=== PATIENT | male | born 1950 | race Caucasian/White ===

== ENCOUNTER → 2020-07-21 12:50 | Outpatient (BNVA) | payer MEDICARE, SELFPAY | PROVIDERS: PCP Nurse Practitioner Family; Referring Provider Nurse Practitioner Family; Visit Provider Internal Medicine Cardiovascular Disease | DX: Z13.89 Encounter for screening for other disorder (principal) | CPT/HCPCS: Q3014 ==

== ENCOUNTER 2020-09-09 10:21 | Outpatient (REF) | payer MEDICARE, BC, SELFPAY | END 2020-09-09 10:22 | disposition home or self-care (01) | LOC: HO.HMGCLDS 10:21 | PROVIDERS: PCP Nurse Practitioner Family; Visit Provider Internal Medicine | DX: Z20.822 Contact with and (suspected) exposure to COVID-19 (principal) | CPT/HCPCS: 36415; U0003 ==

== ENCOUNTER 2020-10-20 14:51 | Outpatient (REF) | payer MEDICARE, BC, SELFPAY ==
[2020-10-20 18:24] LABS: Leukocytes Stool Qualitative NEGATIVE (NEGATIVE)
[2020-10-21 09:37] LABS: CDIFF Ag Negative (Negative); CDIFF Internal ctrl Dots and bkg OK (V); CDiff Toxin Negative (Negative)
== END 2020-10-20 14:52 | disposition home or self-care (01) ==
LOC: HO.HMGCLNP 14:51
PROVIDERS: Visit Provider Nurse Practitioner Family
DX: R19.7 Diarrhea, unspecified (principal)
CPT/HCPCS: 87045; 87046; 87324; 87449; 89055

== ENCOUNTER 2020-10-31 13:29 | Outpatient (REF) | payer MEDICARE, BC, SELFPAY ==
[2020-10-31 16:30] LABS: MANUAL DIFF FLAG NO
[2020-10-31 16:40] LABS: Basophils Absolute Auto 0.1 X10*3/uL (0.0-0.2); Eosinophils Absolute Auto 0.5 X10*3/uL (0.0-0.4); Eosinophils Percent Auto 6.1 % (0-4); Hematocrit 45.6 % (42-52); Hemoglobin 14.3 g/dl (14.0-18.0); Imm Gran Abs Auto 0.01 X10*3/uL (0.00-0.03); Imm Gran Pct Auto 0.1 % (0.0-0.4); Lymphocytes Absolute Auto 2.1 X10*3/uL (1.2-4.9); Lymphocytes Percent Auto 27.6 % (20-40); Mean Corpuscular HGB Conc 31.4 g/dl (31.0-36.0); Mean Corpuscular Hemoglobin 29.5 pg (27.0-33.0); Mean Platelet Volume 10.8 fL (9.4-12.4); Monocytes Absolute Auto 0.7 X10*3/uL (0.1-1.2); Monocytes Percent Auto 8.9 % (2-11); Neutrophils Absolute Auto 4.3 X10*3/uL (2.0-8.3); Neutrophils Percent Auto 56.3 % (45-73); Platelet Count 168 X10*3/uL (160-400); Red Blood Count 4.85 X10*6/uL (4.60-5.80); Red Cell Distribution Width 14.9 % (11.0-16.0); White Blood Count 7.7 X10*3/uL (4.8-10.8)
[2020-10-31 17:11] LABS: Alanine Aminotransferase 17 U/L (0-40); Albumin Level 4.1 g/dL (3.5-5.0); Alkaline Phosphatase 82 U/L (39-117); Anion Gap 11 (12-20); Aspartate Amino Transferase 15 U/L (5-37); Bilirubin Total 1.6 mg/dL (0.0-1.0); Blood Urea Nitrogen 20 mg/dL (9-16); Calcium 8.8 mg/dL (8.4-10.2); Carbon Dioxide 31 mmol/L (22-29); Chloride 105 mmol/L (96-108); Estimated Glomerular Filt Rate > 60; Glucose Random 107 mg/dL (60-115); Potassium 4.3 mmol/L (3.3-5.1); Sodium 143 mmol/L (135-145); Total Protein 7.2 g/dL (6.5-8.0)
[2020-10-31 17:38] LABS: TSH reflex Free T4 0.25 uIU/mL (0.32-4.0)
[2020-10-31 18:18] LABS: Prostate Specific Antigen 5.16 ng/mL (<0.05-4.0)
== END 2020-10-31 13:30 | disposition home or self-care (01) ==
LOC: HO.HMGCLDS 13:29
PROVIDERS: PCP Nurse Practitioner Family; Referring Provider Urology; Visit Provider Nurse Practitioner Family
DX: R19.7 Diarrhea, unspecified (principal); N40.0 Benign prostatic hyperplasia without lower urinary tract symptoms; Z12.5 Encounter for screening for malignant neoplasm of prostate
CPT/HCPCS: 36415; 80053; 84153; 84439; 84443; 85025

== ENCOUNTER 2020-11-03 13:12 | Outpatient (REF) | payer MEDICARE, BC, SELFPAY | END 2020-11-03 13:13 | disposition home or self-care (01) | LOC: HO.HMGCLNP 13:12 | PROVIDERS: Visit Provider Nurse Practitioner Family | DX: R19.7 Diarrhea, unspecified (principal) | CPT/HCPCS: 87177; 87209; 87329; 87338 ==

== ENCOUNTER 2020-11-10 13:58 | Outpatient (REF) | payer MEDICARE, BC, SELFPAY ==
--- NOTE | ~2020-11-10 | US_ITS ---
EXAMINATION: US RETROPERITONEAL LIMITED (RENAL ONLY) CLINICAL INFORMATION: Cyst of kidney, acquired. COMPARISON: CT abdomen and pelvis 03/02/2014. TECHNIQUE: Real-time imaging of the kidneys. FINDINGS: RIGHT KIDNEY: 12.3 x 5.2 x 6.5 cm (SAG x AP x TRV). The kidney is normal in size, contour, and echogenicity. Renal cortical thickness is normal. There is a 6.3 x 6.1 x 6.3 cm hypoechoic lesion with calcified wall in the medial upper pole of the right kidney. This measured 5.7 x 2.2 x 5.[address] scan February 2014 and may be slightly increased in size. This has internal echoes. It is uncertain whether this represents a complex cyst or solid lesion. There are small simple cysts measuring 1.5 cm in the upper pole, 2 cysts measuring 1.5 cm in the midpole and 1 cyst measuring 2.8 x 2.7 x 3 cm in the lower pole. No renal calculi or hydronephrosis. LEFT KIDNEY: 12.7 x 6.3 x 4.5 cm (SAG x AP x TRV). The kidney is normal in size, contour, and echogenicity. Renal cortical thickness is normal. There are multiple simple left renal cysts. There are two 1.3 cm cysts in the upper pole, 3.4 x 2.3 x 2.5 cm cyst in the lower pole, 2.3 x 1.4 x 2.4 cm peripelvic cyst in the midpole No renal calculi or hydronephrosis. US/US renal BI IMPRESSION: 6.3 x 6.1 x 6.3 cm hypoechoic lesion with calcified wall in the upper pole of the right kidney. This is slightly increased in size from previous CT February 2014 when this measured 5.7 x 2.2 x 5.2 cm. This has internal echoes and it is uncertain whether this represents a complex cyst or solid lesion. Follow-up CT or MRI of the kidneys with and without contrast recommended. Bilateral renal simple cysts.
== END 2020-11-10 13:59 | disposition home or self-care (01) ==
LOC: HO.HMGCX 13:58
PROVIDERS: Visit Provider Nurse Practitioner Family
DX: N28.1 Cyst of kidney, acquired (principal)
CPT/HCPCS: 76775

== ENCOUNTER 2020-11-17 15:04 | Outpatient (REF) | payer MEDICARE, BC, SELFPAY ==
--- NOTE | ~2020-11-17 | CT_ITS ---
EXAMINATION: CT ABDOMEN AND PELVIS WITHOUT AND WITH CONTRAST CLINICAL INFORMATION: Renal cyst COMPARISON: Previous CT of the abdomen and pelvis January 2014 and renal ultrasound October 2020 TECHNIQUE: Multidetector volumetric imaging was performed of the abdomen and pelvis before and after the IV administration of mL of Omnipaque 300 intravenous contrast. Sagittal and coronal reformatted images were obtained on the technologist's workstation. This CT examination was performed using dose optimization techniques as appropriate, variously including the following: *Automated exposure control *Adjustment of mA and/or kV according to patient size (this includes techniques or standardized protocols for targeted exams where dose is matched to indication/reason for exam; i.e. extremities or head) *Use of iterative reconstruction technique DLP: 1638 mGy-cm FINDINGS: LUNG BASES: The visualized lung bases are unremarkable. LIVER, GALLBLADDER, AND BILIARY TREE: The liver is normal in size, shape, and attenuation. No focal hepatic lesion or biliary ductal dilatation is present. The gallbladder is unremarkable with no evidence of radiopaque gallstones, gallbladder wall thickening, or obvious pericholecystic inflammatory changes. PANCREAS: Unremarkable SPLEEN: Unremarkable ADRENAL GLANDS: Unremarkable KIDNEYS AND URETERS: There are multiple bilateral renal cysts. Largest cyst measures 6 x 5.7 cm in AP and transverse dimension in the upper pole of the right kidney axial image 70 series 3. This has a calcified wall. Hounsfield units precontrast measure 8. Hounsfield units postcontrast measure 9.5 without evidence of appreciable enhancement. There is a 1.5 cm lesion exophytic to the anterior right kidney axial image 90 series 3. Hounsfield units precontrast measure 23. Hounsfield units postcontrast measure 28. This is not compatible with a complex cyst. There are several additional smaller complex cysts measuring 6 mm exophytic to the lower pole of the right kidney axial image 100 series 3 and exophytic to the lower pole the left kidney axial image 98 series 3. There are additional bilateral simple renal cysts, largest measuring 1 cm. There are are left renal peripelvic cysts. The collecting systems are normal. No renal stone is seen. BLADDER: Unremarkable GASTROINTESTINAL TRACT: There is diverticulosis of the colon. The small and large bowel are otherwise unremarkable. The appendix is unremarkable. There is apparent wall thickening of the proximal stomach. This may be artifactual due to underdistention. ABDOMINAL WALL: There is an umbilical hernia containing fat. LYMPH NODES: Normal VASCULAR: There is evidence of atherosclerotic disease. PELVIC VISCERA: Unremarkable OSSEOUS STRUCTURES: There are degenerative changes of the spine. There are degenerative changes at the hip joints. CT/CT abdomen pelvis wo/w con IMPRESSION: Bilateral complex and simple renal cysts. No renal mass seen. Diverticulosis of the colon. Wall thickening of the proximal stomach. This may be artifactual due to underdistention. Clinical correlation recommended.
== END 2020-11-17 15:05 | disposition home or self-care (01) ==
LOC: HO.CT 15:04
PROVIDERS: Visit Provider Nurse Practitioner Family
DX: N28.1 Cyst of kidney, acquired (principal)
CPT/HCPCS: 74178; Q9967

== ENCOUNTER 2020-12-17 15:13 | Outpatient (REF) | payer MEDICARE, BC, SELFPAY ==
[2020-12-17 17:03] LABS: Bilirubin Direct 0.5 mg/dL (0.0-0.5); Bilirubin Total 1.2 mg/dL (0.0-1.0)
[2020-12-17 17:13] LABS: Uric Acid 3.8 mg/dL (3.4-7.0)
[2020-12-17 17:22] LABS: TSH reflex Free T4 0.48 uIU/mL (0.32-4.0)
== END 2020-12-17 15:14 | disposition home or self-care (01) ==
LOC: HO.HMGCLDS 15:13
PROVIDERS: PCP Nurse Practitioner Family; Visit Provider Nurse Practitioner Family
DX: R17 Unspecified jaundice (principal); E05.90 Thyrotoxicosis, unspecified without thyrotoxic crisis or storm; M10.9 Gout, unspecified
CPT/HCPCS: 36415; 82247; 82248; 84443; 84550

== ENCOUNTER 2020-12-18 14:32 | Outpatient (REF) | payer MEDICARE, BC, SELFPAY ==
--- NOTE | ~2020-12-18 | US_ITS ---
EXAMINATION: US VENOUS ULTRASOUND WITH DOPPLER LOWER EXTREMITY, LEFT CLINICAL INFORMATION: Left leg swelling COMPARISON: None TECHNIQUE: Ultrasound of the deep veins is performed from the hip to the calf with compression sonography and color and pulse Doppler assessment. Spectral analysis with color-flow imaging is performed. FINDINGS: There is normal venous compression and respiratory variation and augmented flow. The visualized common femoral vein, superficial femoral vein, profunda femoral vein, popliteal vein, and the trifurcation region shows no evidence of deep venous thrombosis. There is no significant popliteal fossa cyst. If the patient's symptoms persist, followup ultrasound in 5 days 7 days might be of value to exclude proximal propagation from a non-visualized calf vein. US/US venous duplex LE LT IMPRESSION: No DVT demonstrated in the left lower extremity.
== END 2020-12-18 14:33 | disposition home or self-care (01) ==
LOC: HO.HMGCX 14:32
PROVIDERS: PCP Nurse Practitioner Family; Visit Provider Nurse Practitioner Family
DX: R60.0 Localized edema (principal); M79.89 Other specified soft tissue disorders
CPT/HCPCS: 93971

== ENCOUNTER 2021-01-01 08:44 | Outpatient (REF) | payer MEDICARE, BC, SELFPAY ==
--- NOTE | ~2021-01-01 | XR_ITS ---
EXAMINATION: XR KNEE, LEFT CLINICAL INFORMATION: Knee pain COMPARISON: None TECHNIQUE: Standing AP view of both knees and lateral and sunrise view of the left knee. FINDINGS: Left: Bone alignment is normal. No fracture or dislocation is seen. There are osteophytes at the lateral femoral tibial and patellofemoral joints. There is no joint effusion. Standing AP view of the right knee is unremarkable. XR/XR knee LT 3V IMPRESSION: Mild left knee arthritis.
== END 2021-01-01 08:45 | disposition home or self-care (01) ==
LOC: HO.HOSX 08:44
PROVIDERS: Visit Provider Physician Assistant
DX: M17.12 Unilateral primary osteoarthritis, left knee (principal)
CPT/HCPCS: 20610; 73562; 99202; J1040

== ENCOUNTER 2021-01-07 12:06 | Outpatient (REF) | payer MEDICARE, BC, SELFPAY ==
[2021-01-07 14:19] LABS: Anion Gap 12 (12-20); Blood Urea Nitrogen 20 mg/dL (9-16); Calcium 8.9 mg/dL (8.4-10.2); Carbon Dioxide 29 mmol/L (22-29); Chloride 106 mmol/L (96-108); Estimated Glomerular Filt Rate > 60; Glucose Random 98 mg/dL (60-115); Potassium 4.1 mmol/L (3.3-5.1); Sodium 143 mmol/L (135-145)
== END 2021-01-07 12:07 | disposition home or self-care (01) ==
LOC: HO.HMGCLDS 12:06
PROVIDERS: PCP Nurse Practitioner Family; Visit Provider Nurse Practitioner Family
DX: M54.16 Radiculopathy, lumbar region (principal)
CPT/HCPCS: 36415; 80048

== ENCOUNTER 2021-01-08 13:02 | Outpatient (REF) | payer MEDICARE, BC, SELFPAY ==
--- NOTE | ~2021-01-08 | MR_ITS ---
EXAMINATION: MR LUMBAR SPINE WITHOUT AND WITH CONTRAST CLINICAL INFORMATION: Left leg shooting pain, lower back pain 4 months. COMPARISON: CT abdomen pelvis 11/17/2020, CT abdomen pelvis 03/02/2014. TECHNIQUE: MRI of the lumbar spine was obtained using routine sequences with and without contrast. Intravenous contrast: Gadavist 10 mL. FINDINGS: VERTEBRAL BODIES AND PARASPINAL STRUCTURES: 5 lumbar-type vertebral bodies are identified. Minimal rotatory dextroscoliosis of the lumbar spine is visualized. No vertebral body compression deformities are identified. A 2.5 cm diameter focus with intrinsic high T1-weighted signal intensity most consistent with hemangiomas noted within the L3 vertebral body. Mild- moderate multilevel endplate discogenic marrow signal changes of the lumbar spine are visualized. Partial visualization is made of a 5.2 cm diameter rounded partially exophytic lesion associated with the superior pole the right kidney corresponding to the complex cyst noted on both the 11/17/2020 and 03/02/2014 examinations exhibiting peripheral calcification and minimal interval change in size and configuration between the prior CT examinations. Minimal bilateral lumbarization of the S5 vertebral body is visualized. CONUS MEDULLARIS AND CAUDA EQUINA: Normal, terminating at the level of L1-L2. SPINAL LEVELS: T12-L1: No central foraminal stenoses. Normal intervertebral discs. L1-L2: No central or foraminal stenoses. Mild bilateral facet and ligamentum flavum hypertrophy. Prominent bridging anterior endplate osteophytosis. L2-L3: Mild central stenosis. No significant foraminal stenoses. Findings arise secondary to marked right and moderate left ligamentum flavum hypertrophy in association with moderate right and mild left facet hypertrophic changes. Mild effacement of the dorsal thecal sac CSF space is noted. L3-L4: Moderate left foraminal stenosis. Mild-moderate right foraminal stenosis. Moderate central stenosis. Findings arise secondary to marked bilateral ligamentum flavum and facet hypertrophy with findings most pronounced on the left in association with a mild posterior broad-based disc bulge with the intervertebral disc exhibiting 50% loss of craniocaudal height. L4-L5: Marked right foraminal stenosis. Moderate-marked central stenosis. Moderate left foraminal stenosis. Findings arise secondary to marked bilateral facet and ligamentum flavum hypertrophy in association with a mild posterior broad-based disc bulge. Right foraminal stenosis is further augmented by an anterior projecting synovial cyst measuring 3 mm in diameter extending into the right neural foramen (series 2 image 11). L5-S1: Severe bilateral foraminal stenoses. Moderate central stenosis. Findings arise secondary to marked bilateral facet hypertrophy in association with a moderate posterior broad-based disc-osteophyte complex with significant endplate osteophytosis within the left and right neural foramina. Complete effacement of the intraforaminal fat is present bilaterally. Furthermore, partial effacement of the ventral thecal sac CSF space and left and right subarticular recesses is present principally secondary to the central component of a broad-based disc bulge. Intervertebral disc exhibits 50-75% overall loss of craniocaudal height. MR/MR lumbar spine wo/w con IMPRESSION: 1. Advanced multilevel chronic spondylosis of the lumbar spine. Significant findings include L5-S1 marked bilateral foraminal stenoses with bilateral L5 nerve root impingement and moderate central stenosis with bilateral S1 nerve root impingement. Additionally, marked right L4-L5 foraminal stenosis with right L4 nerve root impingement is noted along with moderate-marked L4-L5 central stenosis. 2. Partially visualized complex right renal cyst is visualized and characterized to better advantage is a complex cyst on the comparison CT of 11/17/2020.
== END 2021-01-08 13:03 | disposition home or self-care (01) ==
LOC: HO.MRI 13:02
PROVIDERS: Visit Provider Nurse Practitioner Family
DX: M54.16 Radiculopathy, lumbar region (principal); Z98.890 Other specified postprocedural states
CPT/HCPCS: 72158

== ENCOUNTER 2021-02-06 14:16 | Outpatient (REF) | payer MEDICARE, BC, SELFPAY ==
--- NOTE | ~2021-02-06 | XR_ITS ---
EXAMINATION: XR LUMBOSACRAL SPINE CLINICAL INFORMATION: Spinal stenosis. COMPARISON: Lumbar spine MRI dated 01/08/2021. TECHNIQUE: 3 views of the lumbosacral spine. FINDINGS: The lumbar lordosis is maintained. Grade 1 retrolisthesis of L3 on L4 and grade 1 anterolisthesis of L4 on L5, unchanged. No acute fracture or subluxation. No loss of vertebral body height. Multilevel loss of intervertebral disc height with prominent endplate osteophytes, most severe at L5-S1. Prominent multilevel bilateral facet arthropathy, most severe at L4-L5 and L5-S1. Peripherally calcified right renal cyst, unchanged. XR/XR lumbar spine 2-3V IMPRESSION: 1. Mild grade 1 retrolisthesis of L3 on L4 and grade 1 anterolisthesis of L4 on L5, unchanged. No acute fracture or subluxation. 2. Prominent multilevel degenerative disc disease and bilateral facet arthropathy, most severe at L5-S1.
== END 2021-02-06 14:17 | disposition home or self-care (01) ==
LOC: HO.XRAY 14:16
PROVIDERS: PCP Nurse Practitioner Family; Visit Provider Neurological Surgery
DX: M48.061 Spinal stenosis, lumbar region without neurogenic claudication (principal)
CPT/HCPCS: 72100

== ENCOUNTER → 2021-03-18 11:11 | Outpatient (BNVA) | payer MEDICARE, BC, SELFPAY | PROVIDERS: PCP Nurse Practitioner Family; Referring Provider Nurse Practitioner Family; Visit Provider Nurse Practitioner Family | DX: K58.0 Irritable bowel syndrome with diarrhea (principal); R14.0 Abdominal distension (gaseous); R19.7 Diarrhea, unspecified; R17 Unspecified jaundice | CPT/HCPCS: 99202 ==

== ENCOUNTER → 2021-03-26 10:56 | Outpatient (REF) | payer MEDICARE, BC, SELFPAY ==
--- NOTE | ~2021-03-26 | NM_ITS ---
EXAMINATION: NUCLEAR MEDICINE HIDA SCAN CLINICAL INFORMATION: Diarrhea. COMPARISON: None. TECHNIQUE: Following intravenous administration of 5 mCi of 90 9M technetium mebrofenin, imaging over the right upper quadrant was obtained up to 60 minutes. At 60 minutes oral Ensure was administered and further imaging was obtained up to an additional 60 minutes. FINDINGS: There is normal hepatic uptake with prompt visualization of the gallbladder by 15 minutes. Small bowel is visualized by 58 minutes. Post Ensure, there is no gallbladder emptying up to 60 minutes. Ejection fraction is 0%. NM/NM hepatobiliary wo pharm IMPRESSION: Abnormal HIDA scan. Dyskinetic gallbladder with 0% gallbladder ejection fraction post Ensure. Patent CBD. Patent cystic duct. Normal hepatic uptake.
== END ==
LOC: HO.NUCMED 10:56
PROVIDERS: Visit Provider Nurse Practitioner Family
DX: R19.7 Diarrhea, unspecified (principal)
CPT/HCPCS: 78226; A9537

== ENCOUNTER → 2021-04-15 13:15 | Outpatient (BNVA) | payer MEDICARE, BC, SELFPAY | PROVIDERS: PCP Nurse Practitioner Family; Visit Provider Nurse Practitioner Family | DX: Z13.89 Encounter for screening for other disorder (principal) | CPT/HCPCS: Q3014 ==

== ENCOUNTER → 2021-05-07 15:40 | Outpatient (BNVA) | payer MEDICARE, BC, SELFPAY | PROVIDERS: PCP Nurse Practitioner Family; Referring Provider Nurse Practitioner Family; Visit Provider Surgery | DX: K82.8 Other specified diseases of gallbladder (principal) | CPT/HCPCS: 99202 ==

== ENCOUNTER → 2021-05-13 15:12 | Outpatient (BNVA) | payer MEDICARE, BC, SELFPAY | PROVIDERS: PCP Nurse Practitioner Family; Referring Provider Nurse Practitioner Family; Visit Provider Nurse Practitioner Family | DX: Z01.810 Encounter for preprocedural cardiovascular examination (principal); I25.10 Atherosclerotic heart disease of native coronary artery without angina pectoris; I10 Essential (primary) hypertension; Z95.5 Presence of coronary angioplasty implant and graft | CPT/HCPCS: 93005; 99212 ==

== ENCOUNTER 2021-05-18 07:35 | Day surgery (SDC) | payer MEDICARE, BC, SELFPAY ==
[2021-05-18] VITALS (7 sets, daily range): BP systolic 145–208; BP diastolic 74–104; PULSE 61–66; RESP 14–18; TEMP 36.1–37; O2SAT 93–96; BMI 37.1
--- NOTE | 2021-05-18 08:20 | P.CONAN_ITS ---
[facility] Active Problems Active Problems: All Active Problems (Updated 05/14/21 @ 13:57 by Cara Myers , HOOP COILING MACHINE OPERATOR-C) Stented coronary artery (Acute) Preop cardiovascular exam (Acute) Biliary dyskinesia (Acute) Lumbar back pain with radiculopathy affecting lower extremity (Acute) Osteoarthritis of left knee (Acute) Left leg pain (Acute) Left leg swelling (Acute) Gout attack (Acute) Cyst, kidney, acquired (Acute) Hyperthyroidism (Acute) Elevated bilirubin (Acute) Diarrhea (Acute) IBS (irritable bowel syndrome) (Acute) CAD (coronary artery disease) (Acute) HTN (hypertension) (Acute) Hyperlipidemia (Acute) Morbid obesity (Acute) Past Medical History Medical History (Updated 05/14/21 @ 13:57 by Cara Segura, HOOP COILING MACHINE OPERATOR-C) CAD (coronary artery disease) HTN (hypertension) Hyperlipidemia Morbid obesity Family History Family History Father CVD (cardiovascular disease) Mother No problems noted. Son No problems noted. Son No problems noted. Surgical History Surgical History (Updated 05/14/21 @ 13:57 by Cara Segura, HOOP COILING MACHINE OPERATOR-C) History of Mohs micrographic surgery for skin cancer History of transurethral resection of prostate Hx of cardiac cath S/P lumbar microdiscectomy Stented coronary artery Social History Social History Patient Tobacco Use Status: Former Tobacco user Use of substances other than those prescribed or required for medical reasons: Yes Are you DNR?: No Advance Directives: No Advance Directives Information Provided: Yes Current occupational status: retired Current occupation: rt handed Meds Allergies Allergy/AdvReac Type Severity Reaction Status Date / Time acetaminophen [Tylenol] AdvReac Unknown Nausea Verified 05/13/21 15:18 Active Medications: Current Medications Cefotetan Disodium 2 gm/ (Sodium Chloride) 50 mls @ 100 mls/hr IV PREOP ONE Stop: 05/18/21 08:34 Lactated Ringer's (Lr) 1,000 mls @ 100 mls/hr IVCONT .Q10H MARIA G Home Medications Medication Instructions Recorded Confirmed Last Taken Type allopurinol 300 mg tablet 300 mg PO DAILY 07/21/20 05/14/21 Unknown History amlodipine 5 mg tablet 5 mg PO DAILY 07/21/20 05/14/21 Unknown History atenolol 25 mg tablet 25 mg PO DAILY 07/21/20 05/14/21 Unknown History atorvastatin 80 mg tablet 80 mg PO DAILY 07/21/20 05/14/21 Unknown History ezetimibe 10 mg tablet 10 mg PO DAILY 07/21/20 05/14/21 Unknown History fluticasone propionate 50 INTRANASAL 07/21/20 05/14/21 Unknown History mcg/actuation nasal spray,suspension losartan 100 mg tablet 100 mg PO DAILY 07/21/20 05/14/21 Unknown History omeprazole 20 mg capsule,delayed 20 mg PO DAILY 07/21/20 05/14/21 Unknown History release fluoride (sodium) 1.1 % dental appl PO 03/03/21 05/14/21 Unknown History cream sildenafil 100 mg tablet 100 mg PO DAILY 05/07/21 05/14/21 Unknown History Exam Exam Date and Time: May 18, 2021 0820 Height,Weight and Vital Signs: Height 5 ft 6 in Weight 104.326 kg Last Vital Signs Temp 98.6 F 05/18/21 08:06 Pulse 61 05/18/21 08:06 Resp 18 05/18/21 08:06 BP 154/83 H 05/18/21 08:06 Pulse Ox 95 05/18/21 08:06 Airway TM Dist: >3cm Neck ROM: Full
--- NOTE | 2021-05-18 08:20 | P.CONAN_ITS ---
[facility] Active Problems Active Problems: All Active Problems (Updated 05/14/21 @ 13:57 by Cara stacy, FLAME ANNEALING MACHINE SETTER-C) Stented coronary artery (Acute) Preop cardiovascular exam (Acute) Biliary dyskinesia (Acute) Lumbar back pain with radiculopathy affecting lower extremity (Acute) Osteoarthritis of left knee (Acute) Left leg pain (Acute) Left leg swelling (Acute) Gout attack (Acute) Cyst, kidney, acquired (Acute) Hyperthyroidism (Acute) Elevated bilirubin (Acute) Diarrhea (Acute) IBS (irritable bowel syndrome) (Acute) CAD (coronary artery disease) (Acute) HTN (hypertension) (Acute) Hyperlipidemia (Acute) Morbid obesity (Acute) Past Medical History Medical History CAD (coronary artery disease) HTN (hypertension) Hyperlipidemia Morbid obesity Family History Family History Father CVD (cardiovascular disease) Mother No problems noted. Son No problems noted. Son No problems noted. Surgical History Surgical History History of Mohs micrographic surgery for skin cancer History of transurethral resection of prostate Hx of cardiac cath S/P lumbar microdiscectomy Stented coronary artery Social History Social History Patient Tobacco Use Status: Former Tobacco user Use of substances other than those prescribed or required for medical reasons: Yes Are you DNR?: No Advance Directives: No Advance Directives Information Provided: Yes Current occupational status: retired Current occupation: rt handed Meds Allergies Allergy/AdvReac Type Severity Reaction Status Date / Time acetaminophen [Tylenol] AdvReac Unknown Nausea Verified 05/13/21 15:18 Active Medications: Current Medications Cefotetan Disodium 2 gm/ (Sodium Chloride) 50 mls @ 100 mls/hr IV PREOP ONE Stop: 05/18/21 08:34 Lactated Ringer's (Lr) 1,000 mls @ 100 mls/hr IVCONT .Q10H MARIA G Home Medications Medication Instructions Recorded Confirmed Last Taken Type allopurinol 300 mg tablet 300 mg PO DAILY 07/21/20 05/14/21 Unknown History amlodipine 5 mg tablet 5 mg PO DAILY 07/21/20 05/14/21 Unknown History atenolol 25 mg tablet 25 mg PO DAILY 07/21/20 05/14/21 Unknown History atorvastatin 80 mg tablet 80 mg PO DAILY 07/21/20 05/14/21 Unknown History ezetimibe 10 mg tablet 10 mg PO DAILY 07/21/20 05/14/21 Unknown History fluticasone propionate 50 INTRANASAL 07/21/20 05/14/21 Unknown History mcg/actuation nasal spray,suspension losartan 100 mg tablet 100 mg PO DAILY 07/21/20 05/14/21 Unknown History omeprazole 20 mg capsule,delayed 20 mg PO DAILY 07/21/20 05/14/21 Unknown History release fluoride (sodium) 1.1 % dental appl PO 03/03/21 05/14/21 Unknown History cream sildenafil 100 mg tablet 100 mg PO DAILY 05/07/21 05/14/21 Unknown History Exam Exam Date and Time: May 18, 2021 0820 Height,Weight and Vital Signs: Height 5 ft 6 in Weight 104.326 kg Last Vital Signs Temp 98.6 F 05/18/21 08:06 Pulse 61 05/18/21 08:06 Resp 18 05/18/21 08:06 BP 154/83 H 05/18/21 08:06 Pulse Ox 95 05/18/21 08:06
[2021-05-18] MEDS: Lactated Ringers 1,000 ML 100 ML IVCONT (08:38)
--- NOTE | 2021-05-18 09:06 | MHC.SHP ---
Pre-Procedural Eval Section A Date of Service: 05/18/21 The patient is an INPATIENT: No Changes since office visit: Yes Patient answered all questions; No Cold of Flu in the past 2 weeks, No New Medical Problems and No Changes in Medication The History & Physical has been completed within 30 days and I have reviewed it.: Yes Section B Chief Complaint: disease of gallbladder Allergies: Allergies Allergy/AdvReac Type Severity Reaction Status Date / Time acetaminophen [Tylenol] AdvReac Unknown Nausea Verified 05/13/21 15:18 Plan Diagnosis/Plan: Unchanged I have reviewed the history and physical and performed a pertinent physical examination on my patient. No changes have occurred unless specified.
--- NOTE | 2021-05-18 09:32 | P.CONAN_ITS ---
[facility] Active Problems Active Problems: All Active Problems (Updated 05/14/21 @ 13:57 by Cara stacy, QUILLER MACHINE FIXER-C) Stented coronary artery (Acute) Preop cardiovascular exam (Acute) Biliary dyskinesia (Acute) Lumbar back pain with radiculopathy affecting lower extremity (Acute) Osteoarthritis of left knee (Acute) Left leg pain (Acute) Left leg swelling (Acute) Gout attack (Acute) Cyst, kidney, acquired (Acute) Hyperthyroidism (Acute) Elevated bilirubin (Acute) Diarrhea (Acute) IBS (irritable bowel syndrome) (Acute) CAD (coronary artery disease) (Acute) HTN (hypertension) (Acute) Hyperlipidemia (Acute) Morbid obesity (Acute) Past Medical History Medical History CAD (coronary artery disease) HTN (hypertension) Hyperlipidemia Morbid obesity Family History Family History Father CVD (cardiovascular disease) Mother No problems noted. Son No problems noted. Son No problems noted. Surgical History Surgical History History of Mohs micrographic surgery for skin cancer History of transurethral resection of prostate Hx of cardiac cath S/P lumbar microdiscectomy Stented coronary artery Social History Social History Patient Tobacco Use Status: Former Tobacco user Use of substances other than those prescribed or required for medical reasons: Yes Are you DNR?: No Advance Directives: No Advance Directives Information Provided: Yes Current occupational status: retired Current occupation: rt handed Meds Allergies Allergy/AdvReac Type Severity Reaction Status Date / Time acetaminophen [Tylenol] AdvReac Unknown Nausea Verified 05/13/21 15:18 Active Medications: Current Medications Fentanyl (Fentanyl Citrate/Pf 100 Mcg/2 Ml Vial) 50 mcg IVPUSH Q5M PRN; Protocol PRN Reason: Pain, Severe (Pain Scale 7-10) Lactated Ringer's (Lr) 1,000 mls @ 100 mls/hr IVCONT .Q10H MARIA G Last Admin: 05/18/21 08:38 Dose: 100 mls/hr Documented by: Lactated Ringer's (Lr) 1,000 mls @ 100 mls/hr IVCONT .Q10H MARIA G Sodium Chloride (Ns) 1,000 mls @ 100 mls/hr IVCONT .Q10H MARIA G Ondansetron HCl (Ondansetron Hcl 4 Mg/2 Ml Vial) 4 mg IVPUSH ONCE PRN PRN Reason: Nausea and Vomiting Oxycodone HCl (Oxycodone Hcl Immed Release 5 Mg Tablet) 10 mg PO ONCE PRN PRN Reason: Pain, Severe (Pain Scale 7-10) Home Medications Medication Instructions Recorded Confirmed Last Taken Type allopurinol 300 mg tablet 300 mg PO DAILY 07/21/20 05/14/21 Unknown History amlodipine 5 mg tablet 5 mg PO DAILY 07/21/20 05/14/21 Unknown History atenolol 25 mg tablet 25 mg PO DAILY 07/21/20 05/14/21 Unknown History atorvastatin 80 mg tablet 80 mg PO DAILY 07/21/20 05/14/21 Unknown History ezetimibe 10 mg tablet 10 mg PO DAILY 07/21/20 05/14/21 Unknown History fluticasone propionate 50 INTRANASAL 07/21/20 05/14/21 Unknown History mcg/actuation nasal spray,suspension losartan 100 mg tablet 100 mg PO DAILY 07/21/20 05/14/21 Unknown History omeprazole 20 mg capsule,delayed 20 mg PO DAILY 07/21/20 05/14/21 Unknown History release fluoride (sodium) 1.1 % dental appl PO 03/03/21 05/14/21 Unknown History cream sildenafil 100 mg tablet 100 mg PO DAILY 05/07/21 05/14/21 Unknown History Exam Exam Date and Time: May 18, 2021 0932 Height,Weight and Vital Signs: Height 5 ft 6 in Weight 104.326 kg Last Vital Signs Temp 98.6 F 05/18/21 08:06 Pulse 61 05/18/21 08:06 Resp 18 05/18/21 08:06 BP 154/83 H 05/18/21 08:06 Pulse Ox 95 05/18/21 08:06 Airway Mallampati Class: III TM Dist: >3cm Neck ROM: Full
--- NOTE | 2021-05-18 10:55 | W.PM.OPN ---
Operative Note Operative Note Date of Service: 05/18/21 Narrative: Preoperative diagnosis: Biliary Dyskinesia Postoperative diagnosis: Same Procedure: Laparoscopic cholecystectomy Surgeon: Navjot Jarrett MD Complaint Investigations Officer: HELIO Colvin Anesthesia: General endotracheal Indications for procedure: 70-year-old male patient presenting with complaints of abdominal pain in the right upper quadrant associated with fatty food intake. Patient underwent evaluation with an ultrasound which was negative for gallstones however HIDA scan was strongly positive for biliary dyskinesia with an ejection fraction of 0%. He presents today for laparoscopic cholecystectomy. Operative findings: Normal appearing gallbladder without gallstones, fatty liver Specimen: Gallbladder Estimated blood loss: 20 mL Complications: None Procedure details: Patient was brought to the OR and placed in a supine position. After administering general anesthesia the patient's abdomen was prepped with ChloraPrep and draped in a sterile fashion. Local anesthesia consisting of 0.25% Sensorcaine without epinephrine was infiltrated in a periumbilical region. A 5 mm incision was made above the umbilicus in a transverse fashion. The Veress needle was then inserted while elevating abdominal cavity with towel clips. After positive drop test the abdomen was insufflated to a pressure of 15 mm of mercury. The Veress needle was then removed and a 5 mm trocar inserted. The camera was inserted in the abdomen explored. A 12 mm trocar was then placed in the epigastrium and two 5 mm trocars placed in the right upper quadrant. The patient was placed in reverse Trendelenburg positioning and rotated to the left. The gallbladder was grasped with the fundus and retracted cephalad. The infundibulum was then grasped and retracted away from the liver bed. The Dolphin dissector was then used to dissect the peritoneum off the infundibulum to reveal the junction with the cystic duct. Cystic artery was noted slightly medial and posterior to the cystic duct. After obtaining a critical view the cystic duct was doubly clipped and divided. The cystic artery was then doubly clipped and divided. The gallbladder was then dissected off the liver bed using electrocautery with an L hook. Hemostasis was assured all times using the electrocautery. When the gallbladder is completely dissected off the liver bed was placed in an Endo-Catch bag and brought out through the epigastric incision. The gallbladder was sent to pathology for further examination. The abdomen was then re-examined. The liver bed was irrigated and suctioned dry. No bleeding or bile leak could be identified. CO2 was then evacuated and all trocars removed. Fascia was closed at the epigastric incision using a [id number] 0 Polysorb suture. Skin was closed in all incisions using a subcuticular 4 0 Polysorb suture. Sterile dressings consisting of Steri-Strips, 2 x 2 gauze, and Tegaderm were then applied. The patient tolerated the procedure well. Sponge instrument and needle counts reported as correct. The patient was transferred to PACU in stable condition.
[2021-05-18] MEDS: oxyCODONE HCl Immed Release 5 MG TABLET 10 MG PO (11:13)
[2021-05-18] MEDS: fentaNYL citrate/PF 100 MCG/2 ML VIAL 50 MCG IVPUSH ×2 (11:14→11:29)
== END 2021-05-18 13:10 | disposition home or self-care (01) ==
PROVIDERS: PCP Nurse Practitioner Family; Visit Provider Surgery
PROC: 0FT44ZZ Resection of Gallbladder, Percutaneous Endoscopic Approach (ICD-10-PCS; CPT 47562; principal; 2021-05-18 09:10)
DX: K82.8 Other specified diseases of gallbladder (principal); K81.1 Chronic cholecystitis; I10 Essential (primary) hypertension; I25.10 Atherosclerotic heart disease of native coronary artery without angina pectoris; I25.2 Old myocardial infarction; Z79.899 Other long term (current) drug therapy; Z95.5 Presence of coronary angioplasty implant and graft
CPT/HCPCS: 47562; 88304; C1773; J1100; J1170; J2250; J2405; J3010

== ENCOUNTER → 2021-05-19 15:15 | Outpatient (BNVA) | payer MEDICARE, BC, SELFPAY | PROVIDERS: PCP Nurse Practitioner Family; Visit Provider Nurse Practitioner Family | CPT/HCPCS: Q3014 ==

== ENCOUNTER → 2021-05-26 15:17 | Outpatient (BNVA) | payer MEDICARE, BC, SELFPAY | PROVIDERS: PCP Nurse Practitioner Family; Referring Provider Nurse Practitioner Family; Visit Provider Surgery | DX: K82.8 Other specified diseases of gallbladder (principal); E66.01 Morbid (severe) obesity due to excess calories; I25.10 Atherosclerotic heart disease of native coronary artery without angina pectoris; I10 Essential (primary) hypertension; E78.5 Hyperlipidemia, unspecified; Z87.891 Personal history of nicotine dependence; Z68.38 Body mass index [BMI] 38.0-38.9, adult; Z90.49 Acquired absence of other specified parts of digestive tract; Z88.6 Allergy status to analgesic agent | CPT/HCPCS: 99212 ==

== ENCOUNTER 2021-08-04 12:45 | Outpatient (REF) | payer MEDICARE, BC, SELFPAY | END 2021-08-04 12:46 | disposition home or self-care (01) | LOC: HO.HMGCLDS 12:45 | PROVIDERS: PCP Nurse Practitioner Family; Visit Provider Internal Medicine | DX: Z20.822 Contact with and (suspected) exposure to COVID-19 (principal) | CPT/HCPCS: C9803; U0003; U0005 ==

== ENCOUNTER → 2021-08-18 14:02 | Outpatient (BNVA) | payer MEDICARE, BC, SELFPAY | PROVIDERS: PCP Nurse Practitioner Family; Referring Provider Nurse Practitioner Family; Visit Provider Nurse Practitioner Family | DX: K58.0 Irritable bowel syndrome with diarrhea (principal); K21.9 Gastro-esophageal reflux disease without esophagitis; Z90.49 Acquired absence of other specified parts of digestive tract | CPT/HCPCS: 99212 ==

== ENCOUNTER 2021-09-01 14:35 | Outpatient (REF) | payer MEDICARE, BC, SELFPAY ==
[2021-09-01 16:41] LABS: Appearance Urine CLEAR; Color Urine YELLOW; Glucose Urine UA NEG (NEG); Leukocyte Esterase Urine NEG (NEG); Nitrite Urine NEG (NEG); Specific Gravity - Urine 1.025 (1.005-1.025); Urine Blood NEG (NEG); Urine Ketones NEG (NEG); Urine Protein NEG (NEG-TRACE)
[2021-09-01 16:47] LABS: Uric Acid 2.9 mg/dL (3.4-7.0)
[2021-09-01 16:48] LABS: Alanine Aminotransferase 30 U/L (0-40); Albumin Level 3.7 g/dL (3.5-5.0); Alkaline Phosphatase 78 U/L (39-117); Anion Gap 10 (12-20); Aspartate Amino Transferase 27 U/L (5-37); Bilirubin Total 1.2 mg/dL (0.0-1.0); Blood Urea Nitrogen 31 mg/dL (9-16); Calcium 8.6 mg/dL (8.4-10.2); Carbon Dioxide 29 mmol/L (22-29); Chloride 109 mmol/L (96-108); Cholesterol 126 mg/dL; Estimated Glomerular Filt Rate > 60; Glucose Fasting 107 mg/dL (60-99); HDL Cholesterol 44 mg/dL; LDL Cholesterol Calculated 61 mg/dl; Potassium 4.4 mmol/L (3.3-5.1); Sodium 144 mmol/L (135-145); Total Protein 6.8 g/dL (6.5-8.0); Triglycerides 107 mg/dL
[2021-09-01 17:09] LABS: TSH reflex Free T4 4.92 uIU/mL (0.32-4.0)
[2021-09-01 17:13] LABS: Prostate Specific Antigen Scr 6.17 ng/mL (<0.05-4.0)
[2021-09-01 18:12] LABS: Free T4 (Free Thyroxine) 0.74 ng/dL (0.71-1.85)
== END 2021-09-01 14:36 | disposition home or self-care (01) ==
LOC: HO.HMGCLDS 14:35
PROVIDERS: PCP Nurse Practitioner Family; Visit Provider Nurse Practitioner Family
DX: Z12.5 Encounter for screening for malignant neoplasm of prostate (principal); I10 Essential (primary) hypertension; Z87.39 Personal history of other diseases of the musculoskeletal system and connective tissue
CPT/HCPCS: 36415; 80053; 80061; 81003; 84153; 84439; 84443; 84550

== ENCOUNTER → 2021-09-15 15:32 | Outpatient (BNVA) | payer MEDICARE, BC, SELFPAY | PROVIDERS: PCP Nurse Practitioner Family; Visit Provider Physician Assistant | DX: M17.12 Unilateral primary osteoarthritis, left knee (principal) | CPT/HCPCS: 99212 ==

== ENCOUNTER → 2021-10-02 11:22 | Outpatient (BNVA) | payer MEDICARE, BC, SELFPAY | PROVIDERS: PCP Nurse Practitioner Family; Visit Provider Physician Assistant | DX: M17.12 Unilateral primary osteoarthritis, left knee (principal) | CPT/HCPCS: 20610; J7318 ==

== ENCOUNTER → 2021-11-18 13:30 | Outpatient (BNVA) | payer MEDICARE, BC, SELFPAY | PROVIDERS: PCP Nurse Practitioner Family; Referring Provider Nurse Practitioner Family; Visit Provider Internal Medicine Cardiovascular Disease | DX: I25.10 Atherosclerotic heart disease of native coronary artery without angina pectoris (principal); I10 Essential (primary) hypertension | CPT/HCPCS: 99212 ==

== ENCOUNTER 2022-07-29 12:58 | Outpatient (REF) | payer MEDICARE, BC, SELFPAY ==
[2022-07-29 13:53] LABS: MANUAL DIFF FLAG NO
[2022-07-29 13:56] LABS: Appearance Urine Clear; Basophils Absolute Auto 0.1 X10*3/uL (0.0-0.2); Basophils Percent Auto 1.2 % (0-2); Color Urine Yellow; Eosinophils Absolute Auto 0.6 X10*3/uL (0.0-0.4); Eosinophils Percent Auto 8.9 % (0-4); Glucose Urine UA Negative (Negative); Hematocrit 41.6 % (42.0-52.0); Hemoglobin 13.5 g/dl (14.0-18.0); Imm Gran Abs Auto 0.02 X10*3/uL (0.00-0.03); Imm Gran Pct Auto 0.3 % (0.0-0.4); Leukocyte Esterase Urine Trace (Negative); Lymphocytes Absolute Auto 1.2 X10*3/uL (1.2-4.9); Lymphocytes Percent Auto 17.9 % (20-40); Mean Corpuscular HGB Conc 32.5 g/dl (31.0-36.0); Mean Corpuscular Hemoglobin 31.5 pg (27.0-33.0); Mean Platelet Volume 11.2 fL (9.4-12.4); Monocytes Absolute Auto 0.6 X10*3/uL (0.1-1.2); Monocytes Percent Auto 8.9 % (2-11); Neutrophils Absolute Auto 4.1 x10*3/uL (2.0-8.3); Neutrophils Percent Auto 62.8 % (45-73); Nitrite Urine Negative (Negative); Platelet Count 159 X10*3/uL (160-400); Red Blood Count 4.29 X10*6/uL (4.60-5.80); Red Cell Distribution Width 14.6 % (11.0-16.0); Specific Gravity - Urine >= 1.030 (1.005-1.025); UMIC TRIGGER UACC YES; Urine Blood Negative (Negative); Urine Ketones Negative (Negative); Urine Protein 30 (1+) mg/dL (Neg-Trace); White Blood Count 6.5 X10*3/uL (4.8-10.8)
[2022-07-29 13:59] LABS: Bacteria Urine None Seen (None Seen); Hyaline Casts Urine 0-2 /LPF (0-2); RBC Urine 0-2 /HPF (0-2); Squamous Epithelial Cell Urine 0-2 /HPF (0-2); UACC Culture Trigger YES
[2022-07-29 14:22] LABS: Uric Acid 3.4 mg/dL (3.4-7.0)
[2022-07-29 14:42] LABS: Prostate Specific Antigen < 0.10 ng/mL (<0.05-4.0)
[2022-07-29 15:23] LABS: Alanine Aminotransferase 25 U/L (0-40); Albumin Level 3.9 g/dL (3.5-5.0); Alkaline Phosphatase 66 U/L (39-117); Anion Gap 11 (12-20); Aspartate Amino Transferase 20 U/L (5-37); Bilirubin Total 1.2 mg/dL (0.0-1.0); Blood Urea Nitrogen 29 mg/dL (9-16); Carbon Dioxide 29 mmol/L (22-29); Chloride 105 mmol/L (96-108); Cholesterol 142 mg/dL; Estimated Glomerular Filt Rate > 60; Glucose Fasting 122 mg/dL (60-99); HDL Cholesterol 46 mg/dL; LDL Cholesterol Calculated 73 mg/dl; Potassium 4.2 mmol/L (3.3-5.1); Sodium 141 mmol/L (135-145); TSH reflex Free T4 1.42 uIU/mL (0.32-4.0); Total Protein 6.8 g/dL (6.5-8.0); Triglycerides 119 mg/dL
== END 2022-07-29 12:59 | disposition home or self-care (01) ==
LOC: HO.HMGCLDS 12:58
PROVIDERS: PCP Nurse Practitioner Family; Visit Provider Nurse Practitioner Family
DX: Z12.5 Encounter for screening for malignant neoplasm of prostate (principal); I10 Essential (primary) hypertension; R97.20 Elevated prostate specific antigen [PSA]; Z87.39 Personal history of other diseases of the musculoskeletal system and connective tissue
CPT/HCPCS: 36415; 80053; 80061; 81001; 84153; 84443; 84550; 85025; 87086

== ENCOUNTER → 2022-08-18 14:11 | Outpatient (BNVA) | payer MEDICARE, BC, SELFPAY | PROVIDERS: PCP Nurse Practitioner Family; Referring Provider Nurse Practitioner Family; Visit Provider Nurse Practitioner Family | DX: K21.9 Gastro-esophageal reflux disease without esophagitis (principal); K58.0 Irritable bowel syndrome with diarrhea; Z79.899 Other long term (current) drug therapy | CPT/HCPCS: 99212 ==

== ENCOUNTER 2022-09-15 13:46 | Outpatient (REF) | payer MEDICARE, BC, SELFPAY ==
[2022-09-15 17:48] LABS: Prostate Specific Antigen < 0.10 ng/mL (<0.05-4.0)
[2022-09-22 15:18] LABS: Testosterone, Total 6 ng/dL (250-1100)
== END 2022-09-15 13:47 | disposition home or self-care (01) ==
LOC: HO.HMGCLDS 13:46
PROVIDERS: PCP Nurse Practitioner Family; Visit Provider Urology
DX: Z12.5 Encounter for screening for malignant neoplasm of prostate (principal); C61 Malignant neoplasm of prostate
CPT/HCPCS: 36415; 84153; 84403

== ENCOUNTER → 2022-11-22 12:50 | Outpatient (BNVA) | payer MEDICARE, BC, SELFPAY | PROVIDERS: PCP Nurse Practitioner Family; Referring Provider Nurse Practitioner Family; Visit Provider Internal Medicine Cardiovascular Disease | DX: I25.10 Atherosclerotic heart disease of native coronary artery without angina pectoris (principal); I10 Essential (primary) hypertension | CPT/HCPCS: 93005; 99212 ==

== ENCOUNTER 2023-02-19 13:17 | Outpatient (REF) | payer MEDICARE, BC, SELFPAY ==
[2023-02-24 15:49] LABS: Vitamin D 25-OH, D2 <4 ng/mL; Vitamin D 25-OH, D3 36 ng/mL; Vitamin D 25-OH, Total 36 ng/mL (30-100)
== END 2023-02-19 13:18 | disposition home or self-care (01) ==
LOC: HO.HMGCLDS 13:17
PROVIDERS: PCP Nurse Practitioner Family; Visit Provider Nurse Practitioner Family
DX: R10.9 Unspecified abdominal pain (principal); R19.7 Diarrhea, unspecified; E55.9 Vitamin D deficiency, unspecified; K58.9 Irritable bowel syndrome, unspecified
CPT/HCPCS: 36415; 82306; 82607; 82746; 83690; 86140

== ENCOUNTER 2023-02-22 14:00 | Outpatient (REF) | payer MEDICARE, BC, SELFPAY ==
[2023-02-23 16:08] LABS: Adenovirus F 40/41 Not Detected (Not Detect.); Astrovirus Not Detected (Not Detect.); Campylobacter Not Detected (Not Detect.); Cryptosporidium Not Detected (Not Detect.); Cyclospora cayetanensis Not Detected (Not Detect.); E. coli EAEC Not Detected (Not Detect.); E. coli EPEC Not Detected (Not Detect.); E. coli ETEC Not Detected (Not Detect.); E. coli STEC Not Detected (Not Detect.); Entamoeba histolytica Not Detected (Not Detect.); Giardia lamblia Not Detected (Not Detect.); Norovirus GI/GII Not Detected (Not Detect.); Plesiomonas shigelloides Not Detected (Not Detect.); Rotavirus A Not Detected (Not Detect.); Salmonella Not Detected (Not Detect.); Sapovirus Not Detected (Not Detect.); Shigella sp./EIEC Not Detected (Not Detect.); Vibrio Not Detected (Not Detect.); Vibrio Cholerae Not Detected (Not Detect.); Yersinia enterocolitica Not Detected (Not Detect.)
== END 2023-02-22 14:01 | disposition home or self-care (01) ==
LOC: HO.HMGCLNP 14:00
PROVIDERS: PCP Nurse Practitioner Family; Visit Provider Nurse Practitioner Family
DX: R19.7 Diarrhea, unspecified (principal); K57.90 Diverticulosis of intestine, part unspecified, without perforation or abscess without bleeding; R10.9 Unspecified abdominal pain; K21.9 Gastro-esophageal reflux disease without esophagitis
CPT/HCPCS: 87507

== ENCOUNTER 2023-02-24 09:31 | Emergency (ER) | payer MEDICARE, BC, SELFPAY ==
--- NOTE | ~2023-02-24 | XR_ITS ---
EXAMINATION: XR ABDOMEN COMPLETE CLINICAL INDICATION: Constipation. COMPARISON: CT scan of the abdomen and pelvis dated 11/17/2020. TECHNIQUE: 2 views of the abdomen. FINDINGS: No significantly dilated loops of small bowel are seen. Mild to moderate gas and stool are seen within the colon distally to the rectum. A coarsely calcified right renal cyst overlies the right upper quadrant. Multilevel degenerative changes in the thoracolumbar spine. XR/XR acute abdomen series IMPRESSION: 1. Nonobstructive bowel gas pattern. 2. Mild to moderate colonic gas and stool burden without definitive obstruction. If symptoms persist or worsen, short-term repeat supine and upright views of the abdomen are recommended to assess for more acute change.
--- NOTE | ~2023-02-24 | CT_ITS ---
EXAMINATION: CT ABDOMEN AND PELVIS WITH CONTRAST CLINICAL INFORMATION: Abdominal pain. COMPARISON: CT abdomen and pelvis 11/17/2020. TECHNIQUE: Multidetector volumetric images were obtained from the superior aspect of the liver through the pubic symphysis following administration 85 mL of Omnipaque 350 intravenous contrast. Sagittal and coronal reformatted images were obtained on the technologist's workstation. Oral contrast: No This CT examination was performed using dose optimization techniques as appropriate, variously including the following: *Automated exposure control *Adjustment of mA and/or kV according to patient size (this includes techniques or standardized protocols for targeted exams where dose is matched to indication/reason for exam; i.e. extremities or head) *Use of iterative reconstruction technique DLP: 957 mGy-cm FINDINGS: LUNG BASES: There is a small cyst right lower lobe and lingula. Heart size is normal. There is mild mural thickening distal esophagus. LIVER, GALLBLADDER, AND BILIARY TREE: The liver is normal in size, shape, and attenuation. No focal hepatic lesion or biliary ductal dilatation is present. The gallbladder has been surgically removed. PANCREAS: Unremarkable. SPLEEN: Unremarkable. ADRENAL GLANDS: Unremarkable. KIDNEYS AND URETERS: The kidneys are normal in size, shape, and attenuation. No hydronephrosis, hydroureter, or calculi seen. Mild bilateral perinephric stranding is visualized. There is a thick walled calcified exophytic lesion upper pole right kidney measuring 6.3 x 6.1 x 6.0 cm and 10 Hounsfield units suggestive of complex cyst. It is stable in size. There additional small complex and simple cyst. There is a left parapelvic cyst or UPJ, new since the previous study. BLADDER: Unremarkable. GASTROINTESTINAL TRACT: There is diffuse mural thickening involving the sigmoid colon and rectum without diverticuli but mild pericolic fat stranding visualized, colitis. Scattered diverticuli, oral contrast and gas is seen throughout the rest of the colon without there are colitis or distention. The small bowel loops are normal caliber. Appendix is normal caliber. The stomach is nondistended with mild thickening. ABDOMINAL WALL: There is a small umbilical hernia containing fat. LYMPH NODES: Normal. VASCULAR: Unremarkable. PELVIC VISCERA: There is no free fluid. There are small radiation seeds or zahra in the prostate bed. OSSEOUS STRUCTURES: No gross bony abnormality seen. Mild degenerative disc changes with spondylosis seen at L5-S1 disc level. No aggressive lytic or sclerotic process seen. There is mild bilateral L4-L5 and L5-S1 facet arthropathy seen. There is mild ventral spondylosis lower dorsal and upper lumbar spine. CT/CT abdomen pelvis w IV con IMPRESSION: No mild mural thickening involving sigmoid colon the rectum with mild pericolic fat stranding suggestive of Procto colitis. Diverticulosis seen in the rest of the colon without diverticulitis. Large calcified cyst exophytic cyst upper pole right kidney is stable. Multiple simple and complex small cysts in both kidneys. Mild thickening of nondistended stomach and mild mural thickening of distal esophagus. Fleischner guidelines were followed.
[2023-02-24 09:50] VITALS: BP 150/72; PULSE 67; RESP 14; TEMP 36.4; O2SAT 95; BMI 36.7
[2023-02-24 10:12] LABS: MANUAL DIFF FLAG NO
[2023-02-24 10:15] VITALS: BP 146/85; PULSE 59; RESP 18; O2SAT 96
[2023-02-24 10:20] LABS: Basophils Absolute Auto 0.1 X10*3/uL (0.0-0.2); Basophils Percent Auto 0.7 % (0-2); Eosinophils Absolute Auto 0.3 X10*3/uL (0.0-0.4); Eosinophils Percent Auto 3.2 % (0-4); Hematocrit 39.8 % (42.0-52.0); Hemoglobin 13.2 g/dl (14.0-18.0); Imm Gran Abs Auto 0.03 X10*3/uL (0.00-0.03); Imm Gran Pct Auto 0.3 % (0.0-0.4); Lymphocytes Absolute Auto 1.4 X10*3/uL (1.2-4.9); Lymphocytes Percent Auto 15.1 % (20-40); Mean Corpuscular HGB Conc 33.2 g/dl (31.0-36.0); Mean Corpuscular Hemoglobin 30.7 pg (27.0-33.0); Mean Corpuscular Volume 92.6 fL (80.0-98.0); Mean Platelet Volume 10.4 fL (9.4-12.4); Monocytes Absolute Auto 0.9 X10*3/uL (0.1-1.2); Monocytes Percent Auto 9.7 % (2-11); Neutrophils Absolute Auto 6.6 x10*3/uL (2.0-8.3); Platelet Count 166 X10*3/uL (160-400); Red Cell Distribution Width 13.6 % (11.0-16.0); White Blood Count 9.3 X10*3/uL (4.8-10.8)
[2023-02-24 10:37] LABS: Anion Gap 12 (12-20); Blood Urea Nitrogen 14 mg/dL (9-16); Calcium 9.6 mg/dL (8.4-10.2); Carbon Dioxide 26 mmol/L (22-29); Chloride 105 mmol/L (96-108); Creatinine Clr Calc Pharmacy 96.4; Estimated Glomerular Filt Rate > 60; Glucose Random 120 mg/dL (60-115); Potassium 3.6 mmol/L (3.3-5.1); Sodium 139 mmol/L (135-145)
--- NOTE | 2023-02-24 10:41 | PC.NURSE ---
pt reports lower back and stomach pain. no BM for 2 weeks. pt reports one episode of bloody gas 2 nights ago. reports mucous when trying to pass bm or gas. hypoactive bowel sounds, no pain or tenderness with palpation. repots hx of gallbladder removal and of prostate CA in remisssion. denies urinary sx.
--- NOTE | 2023-02-24 10:59 | ED_ITS ---
HPI - General Adult General Chief complaint: Abdominal Pain Stated complaint: constipation two weeks Time Seen by Provider: 02/24/23 10:59 Source: patient Mode of arrival: ambulatory Limitations: no limitations History of Present Illness HPI narrative: 72 year old male patient with history of CAD, HTN, HLD, Gout, GERD, and IBS, allergic to acetaminophen presents to the ED today with complaints of not having a bowel movement for 2 weeks, abdominal pain, and back pain. Patient states that he is passing a lot of gas and clear mucus type fluid from his rectum. He endorses feeling feverish and having chills that are more significant starting around 4pm everyday. During the evening hours he states that his left lower back pain becomes so significant that he is unable to walk a few feet. He denies dysuria, retention or changes in urinary frequency. He states he has had no chest pain, shortness of breath, nausea, or vomiting. Patient states this morning he woke up and felt like someone punched me in the middle of my gut. He has taken senna for the past 6 days twice a day with no relief. Onset (ago): week(s) Location: back and abdomen Radiation: non-radiation Severity: mild Severity scale (1-10): 3 Quality: aching Pain Consistency: intermittent Relieving factors: none Exacerbating factors: none Associated symptoms: fever/chills Treatments prior to arrival: other (senna 2x a day for 5-6 days) Related Data Home Medications Medication Instructions Recorded Confirmed allopurinol 300 mg tablet 300 mg PO DAILY 07/21/20 02/16/23 atenolol 25 mg tablet 25 mg PO DAILY 07/21/20 02/16/23 atorvastatin 80 mg tablet 80 mg PO DAILY 07/21/20 02/16/23 ezetimibe 10 mg tablet 10 mg PO DAILY 07/21/20 02/16/23 fluticasone propionate 50 intranasal 07/21/20 02/16/23 mcg/actuation nasal spray,suspension losartan 100 mg tablet 100 mg PO DAILY 07/21/20 02/16/23 omeprazole 20 mg capsule,delayed 20 mg PO DAILY 07/21/20 02/16/23 release fluoride (sodium) 1.1 % dental appl PO 03/03/21 02/16/23 cream sildenafil 100 mg tablet 100 mg PO DAILY 09/23/21 07/05/23 Previous Rx's Medication Instructions Recorded levothyroxine 125 mcg capsule 125 mcg PO DAILY 90 days #90 caps 11/03/20 methylcellulose (laxative) 500 mg 500 mg PO BID #60 tabs 03/25/21 tablet (Citrucel) sennosides 8.6 mg tablet (Natural 8.6 mg PO BEDTIME constipation #30 03/25/21 Senna Laxative) tabs alprazolam 2 mg tablet 2 mg PO TID PRN anxiety 90 days 01/03/23 #270 tabs amoxicillin 875 mg-potassium 1 tab PO BID 10 days #20 tabs 02/16/23 clavulanate 125 mg tablet Allergies Allergy/AdvReac Type Severity Reaction Status Date / Time acetaminophen [Tylenol] AdvReac Unknown Nausea Verified 02/16/23 15:07 Review of Systems Constitutional: Constitutional: Reports no additional constitutional complaints, Denies chills, Denies fever(s) and Denies night sweats Eyes: Eyes: Reports no additional eye complaints, Denies blurry vision, Denies change in vision, Denies diplopia, Denies eye discharge, Denies loss of vision and Denies eye pain ENT: Denies dizziness Cardiovascular: Cardiovascular: Reports no additional cardiovascular complaints, Denies chest pain, Denies lightheadedness, Denies Loss of Consciousness and Denies dyspnea Respiratory: Respiratory: Reports no additional respiratory complaints and Denies dyspnea Gastrointestinal: Gastrointestinal: Reports abdominal pain, Denies melena, Reports bloating, Denies hematochezia, Reports change in bowel habits, Reports change in stool character (passing clear mucus), Reports constipation, Reports GI cramping, Reports excessive flatus, Denies diarrhea, Denies nausea and Denies vomiting Genitourinary: Genitourinary: Reports no additional male genitourinary complaints, Denies hematuria, Denies oliguria, Denies difficulty urinating, Denies dysuria, Reports flank pain, Denies urinary frequency, Denies urinary hesitancy, Denies urinary incontinence and Denies urinary urgency Musculoskeletal: Musculoskeletal: Reports no additional musculoskeletal complaints, Denies numbness and Denies tingling Neurologic: Denies dizziness, Denies loss of vision, Denies numbness and Denies tingling Psychiatric: Psychiatric: Reports no additional psychiatric complaints Endocrine: Endocrine: Reports no additional endocrine complaints Hematologic/Lymphatic: Hematologic/Lymphatic: Reports no additional hematolog ic/lymphatic complaints Allergic/Immunologic: Allergic/Immunologic: Reports no additional allergic/immunologic complaints PMFSH Past Medical History Attestation statement: The following information was validated with the patient. Source: old records reviewed and nursing notes reviewed Medical History CAD (coronary artery disease) Erectile dysfunction HTN (hypertension) Hyperlipidemia Morbid obesity Prostate CA Surgical History History of esophagogastroduodenoscopy (EGD) History of Mohs micrographic surgery for skin cancer History of transurethral resection of prostate Hx of cardiac cath Hx of cholecystectomy S/P lumbar microdiscectomy Stented coronary artery Family History Family History Father CVD (cardiovascular disease) Mother No problems noted. Son No problems noted. Son No problems noted. Social History Social History Housing: Condominium Alcohol intake: current Alcohol intake frequency: holidays/special occasions only Patient Tobacco Use Status: Former Tobacco user Smoked in Last 30 Days: No e-Cigarette/Vaping Use: Never Used Second Hand Smoke Exposure: No Use of substances other than those prescribed or required for medical reasons: Yes Substance Use Type: Marijuana Substance Use Frequency: Occasionally Advance Directives: No Advance Directives Information Provided: Yes Current occupational status: retired Current occupation: rt handed Cognitive needs: No Hearing needs: No Vision needs: No Physical Exam ED Vital Signs: Vital Signs - 24 hr 02/24/23 09:50 02/24/23 10:15 02/24/23 14:07 Temperature 97.6 F Pulse Rate 67 59 55 Respiratory Rate 14 18 12 Blood Pressure 150/72 H 146/85 H 136/70 Pulse Oximetry 95 96 98 Oxygen Delivery Method Room Air Room Air Room Air BMI result Body Mass Index 36.7 Const General: cooperative, no acute distress, alert and awake Nutritional Appearance: well nourished Orientation/consciousness: patient oriented x3 Limitations: no limitations HENMT Head: Yes normal to inspection and Yes atraumatic Ears: hearing grossly normal bilaterally and external ears normal General nose exam: Normal external nose present, no nasal discharge noted and no epistaxis Face and sinus: Yes normal facial exam, No abrasion and No laceration Mouth: Normal oral and palatal mucosa present, no drooling and no muffled voice Eyes General: appearance normal, both eyes and all related structures Periorbital: periorbital findings normal Eyelids: Yes eyelids normal Conjunctivae: conjunctivae normal Pupils: Equal, round and reactive pupils present EOM: EOMs intact bilaterally Neck Neck: Yes normal visual inspection, Yes full ROM and Yes no lymphadenopathy Chest Chest palpation & inspection: normal inspection of the chest Resp Effort & Inspection: normal respiratory effort and able to speak in complete sentences Auscultation: clear to auscultation bilaterally Cardio Rate: regular rate Rhythm: regular rhythm Heart sounds: S1 normal heart sound present and S2 normal heart sound present GI Inspection: Yes obesity Palpation (GI): Firmness to palpation present (GI) in the LLQ and in the RLQ, nontender, no guarding, not rigid and No Rebound tenderness present Auscultation: normal bowel sounds General: Yes CVA tenderness on the left Back/Spine/Pelvis Back: CVA tenderness Neuro General: patient oriented x3 and moves all extremities Cranial nerves: Yes Equal, round and reactive pupils present Cognition (Neuro): normal cognition Motor exam (neuro): 5/5 motor strength present throughout Sensory Exam: Normal double simultaneous stimulation for sensation Coordination: [id number] test normal Extrem General: Yes normal to inspection, Yes full ROM and Yes capillary refill normal Psych Appearance: grossly normal Mental Status: mental status grossly normal Affect: normal affect Attitude: cooperative Thought process: Normal thought process present Thought content: Normal thought content present Insight: Good insight present (Psych) Medications Administered Discontinued Medications Generic Name Dose Route Start Last Admin Trade Name Omer PRN Reason Stop Dose Admin Iohexol 100 ml 02/24/23 15:46 02/24/23 15:47 Iohexol 350 Mg/Ml 100 Ml Infus..Btl IV 02/24/23 15:47 85 ml ONCE ONE Administration Medical Decision Making Medical Decision Making MDM Narrative: Patient is a 72 year old assigned male at with a history of CAD, HTN, HLD, Gout, GERD, and IBS presenting to the emergency department today with constipation x 2 weeks. Patient's physical exam was as noted in the physical exam portion of this chart. Patient's blood work was unremarkable. Patient's acute abdomen x-ray showed a chronic right calcified renal cyst and mild to moderate colonic gas and stool burden. Patient's CT abdomen pelvis with IV and Oral contrast is pending. I explained my physical exam findings as well as all test results to the patient. I answered all questions asked by the patient. Patient's disposition pending CT results. Patient signed out to evening NICK. Differential Diagnosis Differential Diagnoses: The differential diagnosis associated with the presentation includes Small bowel obstruction Constipation Abdominal pain Admission/Observation Consideration of admission/observation: Escalation of care including admission/observation considered Patient's disposition pending CT results. Lab Data MDM Lab Attestation statement: I reviewed the patient's lab results. My interpretation of these studies and their corresponding values is that they are grossly normal. 02/24/23 10:04 02/24/23 10:04 Labs: Lab Results 02/24/23 02/24/23 Range/Units 10:04 10:04 WBC 9.3 (4.8-10.8) X10*3/uL RBC 4.30 L (4.60-5.80) X10*6/uL Hgb 13.2 L (14.0-18.0) g/dl Hct 39.8 L (42.0-52.0) % MCV 92.6 (80.0-98.0) fL MCH 30.7 (27.0-33.0) pg MCHC 33.2 (31.0-36.0) g/dl RDW 13.6 (11.0-16.0) % Plt Count 166 (160-400) X10*3/uL MPV 10.4 (9.4-12.4) fL Immature Gran % (Auto) 0.3 (0.0-0.4) % Neut % (Auto) 71.0 (45-73) % Lymph % (Auto) 15.1 L (20-40) % [place] % (Auto) 9.7 (2-11) % Eos % (Auto) 3.2 (0-4) % Baso % (Auto) 0.7 (0-2) % Lymph # (Auto) 1.4 (1.2-4.9) X10*3/uL [place] # (Auto) 0.9 (0.1-1.2) X10*3/uL Eos # (Auto) 0.3 (0.0-0.4) X10*3/uL Baso # (Auto) 0.1 (0.0-0.2) X10*3/uL Abs Immat Gran (auto) 0.03 (0.00-0.03) X10*3/uL Absolute Neuts (auto) 6.6 (2.0-8.3) x10*3/uL Absolute Nucleated RBC 0.000 (0.0-0.012) X10*3/uL Nucleated RBC % (auto) 0.0 (0.0-0.2) /100WBC Sodium 139 (135-145) mmol/L Potassium 3.6 (3.3-5.1) mmol/L Chloride 105 (96-108) mmol/L Carbon Dioxide 26 (22-29) mmol/L Anion Gap 12 (12-20) BUN 14 (9-16) mg/dL Creatinine 0.79 (0.5-1.4) mg/dL Estim Creat Clear Calc 96.4 Estimated GFR > 60 Random Glucose 120 H (60-115) mg/dL Calcium 9.6 D (8.4-10.2) mg/dL Independent Interpretation I performed an independent interpretation of an: Plain X-Ray Interpretation: My interpretation is in agreement with the radiologist's impression of this imaging study. ----- EXAMINATION: XR ABDOMEN COMPLETE CLINICAL INDICATION: Constipation. COMPARISON: CT scan of the abdomen and pelvis dated 11/17/2020. TECHNIQUE: 2 views of the abdomen. FINDINGS: No significantly dilated loops of small bowel are seen. Mild to moderate gas and stool are seen within the colon distally to the rectum. A coarsely calcified right renal cyst overlies the right upper quadrant. Multilevel degenerative changes in the thoracolumbar spine. XR/XR acute abdomen series IMPRESSION: ? 1. Nonobstructive bowel gas pattern. 2. Mild to moderate colonic gas and stool burden without definitive obstruction. If symptoms persist or worsen, short-term repeat supine and upright views of the abdomen are recommended to assess for more acute change. Dictated By: Jason Pelletier MD Signed By: Electronically signed by Jason Pelletier MD 02/24/23 2091 Radiology Impression Discussion of test interpretation with radiology: I have reviewed the radiologist's reading. Critical Care Time Critical Care Time Critical Care Time: Yes Total Critical Care Time: 30 Attestation: I spent 30 minutes of Critical Care Time with this patient. This does not include time spent on separately reported billable procedures. Discharge Plan Discharge Clinical Impression: Constipation, Abdominal pain Patient Disposition: Still a Patient Prescriptions: No Action levothyroxine 125 mcg capsule 125 mcg PO DAILY 90 Days Qty: 90 0RF Citrucel 500 mg tablet 500 mg PO BID Qty: 60 2RF sennosides [Natural Senna Laxative] 8.6 mg tablet 8.6 mg PO BEDTIME Qty: 30 2RF alprazolam 2 mg tablet 2 mg PO TID PRN (Reason: anxiety) 90 Days Qty: 270 0RF fluoride (sodium) 1.1 % cream PO amoxicillin-pot clavulanate 875-125 mg tablet 1 tab PO BID 10 Days Qty: 20 0RF sildenafil 100 mg tablet 100 mg PO DAILY losartan 100 mg tablet 100 mg PO DAILY atenolol 25 mg tablet 25 mg PO DAILY fluticasone propionate 50 mcg/actuation spray,suspension intranasal atorvastatin 80 mg tablet 80 mg PO DAILY ezetimibe 10 mg tablet 10 mg PO DAILY omeprazole 20 mg capsule,delayed release(DR/EC) 20 mg PO DAILY allopurinol 300 mg tablet 300 mg PO DAILY
[2023-02-24 14:07] VITALS: BP 136/70; PULSE 55; RESP 12; O2SAT 98
[2023-02-24] MEDS: iohexoL 350 MG/ML 100 ML INFUS..BTL IV (15:47)
[2023-02-24] MEDS: Barium Sulfate Oral (Berry) 450 ML ORAL.SUSP 900 ML PO (16:38)
== END 2023-02-24 18:19 | disposition home or self-care (01) ==
PROVIDERS: Emergency Provider Emergency Medicine Emergency Medical Services; PCP Nurse Practitioner Family
DX: K59.00 Constipation, unspecified (principal); R10.9 Unspecified abdominal pain; I25.10 Atherosclerotic heart disease of native coronary artery without angina pectoris; I10 Essential (primary) hypertension; Z79.899 Other long term (current) drug therapy; Z87.891 Personal history of nicotine dependence
CPT/HCPCS: 36415; 74022; 74177; 80048; 85025; 99284; Q9967

== ENCOUNTER 2023-03-04 13:57 | Outpatient (AMB) | payer MEDICARE, BC, SELFPAY ==
--- NOTE | 2023-03-04 14:04 | MHC.OFFVIS ---
Intake Vital Signs 03/04/23 14:08 Height 5 ft 6 in Weight 220 lb 7.396 oz BMI 35.6 BP 121/61 Blood Pressure Location Lt brachial Position Sitting Pulse 59 Intake Visit Reasons: diarrhea Intake Note: Patient follow up for diarrhea. Patient cc: constipation, and abdominal pain with bloating. 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 Qualified Code(s):?K58.0 - Irritable bowel syndrome with diarrhea ?Plan: Continue low FODMAP diet.? Patient was encouraged to try to stay away from food that is high in fat, fried, greasy.? He is aware that he will have diarrhea if he will eat like this.? However patient reports that he has been feeling well.? He can continue Citrucel to control loose stools and he can take Senokot if he feels like he is constipated.? He only uses that couple times a month.? I will see him in 1 year.? Patient will call me if he will have any GI concerning symptoms.? He is agreeable to this plan and verbalizes understanding of instructions.? He was given the opportunity to ask questions and all questions answered.? TODAY'S VISIT Patient is here today for requested visit. Patient reports that he has been having loose, watery stools and no normal bowel movement for over a week. Week ago patient was in the ER for severe abdominal discomfort and CT scan showed mild colitis. Patient was on antibiotics for dental work, Augmentin. Patient denies melena, hematochezia, unintentional weight loss or ribbon like stools. Patient reports abdominal bloating. Patient states that he tried senna and Citrucel and it was not effective. Spoke to patient on the phone before this appointment and patient was encouraged to start Dulcolax and continue Citrucel. No family history of IBD. Patient reports that he went out the other day and had couple beers and when he got home he was able to have a bowel movement. Patient is not on any particular diet. Patient was different colonoscopy and was doing the Cologuard. However patient is willing to go for colonoscopy. [facility]LY [facility], [facility] Medical History CAD (coronary artery disease) Erectile dysfunction HTN (hypertension) Hyperlipidemia Morbid obesity Prostate CA Surgical History History of esophagogastroduodenoscopy (EGD) History of Mohs micrographic surgery for skin cancer History of transurethral resection of prostate Hx of cardiac cath Hx of cholecystectomy S/P lumbar microdiscectomy Stented coronary artery Family History Father CVD (cardiovascular disease) Mother No problems noted. Son No problems noted. Son No problems noted. Social History Housing: Condominium Alcohol intake: current Alcohol intake frequency: holidays/special occasions only Patient Tobacco Use Status: Former Tobacco user e-Cigarette/Vaping Use: Never Used Second Hand Smoke Exposure: No Substance Use Type: Marijuana Current occupational status: retired Current occupation: rt handed Cognitive needs: No Hearing needs: No Vision needs: No Review of Systems Const Denies weight gain and Denies weight loss ENT Reports no additional complaints, Denies dysphagia and Denies odynophagia Card Reports no additional complaints Resp Reports no additional complaints GI Denies abdominal pain, Denies belching, Denies melena, Denies bloating, Reports constipation, Denies dysphagia, Denies excessive flatus, Denies dyspepsia, Denies heartburn, Denies diarrhea, Denies loose stools, Denies nausea, Denies odynophagia and Denies vomiting Reports no additional complaints Musc Reports no additional complaints Neuro Reports no additional complaints Psych Reports no additional complaints Endo Reports no additional complaints Physical Exam Vital Signs: Last Vital Signs Pulse 59 03/04/23 14:08 BP 121/61 03/04/23 14:08 BMI result Body Mass Index 35.6 Const General: healthy appearing, no acute distress and well developed Nutritional Appearance: obese Orientation/consciousness: patient oriented x3 HEENT Head: Yes normal to inspection, Yes normocephalic and Yes atraumatic Face and sinus: Yes normal facial exam Mouth: Normal oral and palatal mucosa present Throat: Yes posterior oropharynx normal, Yes tonsils normal and Yes uvula midline Eyes General: appearance normal, both eyes and all related structures Neck Neck: Yes normal visual inspection, Yes full ROM and Yes trachea midline Thyroid: Thyroid normal Resp Effort & Inspection: normal respiratory effort, able to speak in complete sentences, no tracheal deviation and symmetric chest movement Auscultation: clear to auscultation bilaterally Cardio Rate: regular rate Heart sounds: S1 normal heart sound present and S2 normal heart sound present GI Inspection: Yes normal to inspection, No distended and Yes obesity Palpation (GI): Soft to palpation, not firm, nontender and No hepatosplenomegaly present Auscultation: normal bowel sounds General: Yes no CVA tenderness Back/Spine/Pelvis Back: no CVA tenderness Skin General skin exam: elasticity normal, turgor normal and dry skin Neuro General: patient oriented x3 Psych Appearance: grossly normal Mental Status: mental status grossly normal Speech and movement: Normal speech and movement present Results Reviewed Results Reviewed: Abdominal CT scan 02/24/2023 FINDINGS: LUNG BASES: There is a small cyst right lower lobe and lingula. Heart size is normal. There is mild mural thickening distal esophagus. LIVER, GALLBLADDER, AND BILIARY TREE: The liver is normal in size, shape, and attenuation. No focal hepatic lesion or biliary ductal dilatation is present. The gallbladder has been surgically removed.? PANCREAS: Unremarkable.? SPLEEN: Unremarkable.? ADRENAL GLANDS: Unremarkable.? KIDNEYS AND URETERS: The kidneys are normal in size, shape, and attenuation. No hydronephrosis, hydroureter, or calculi seen. Mild bilateral perinephric stranding is visualized. There is a thick walled calcified exophytic lesion upper pole right kidney measuring 6.3 x 6.1 x 6.0 cm and 10 Hounsfield units suggestive of complex cyst. It is stable in size. There additional small complex and simple cyst. There is a left parapelvic cyst or UPJ, new since the previous study. BLADDER: Unremarkable.? GASTROINTESTINAL TRACT: There is diffuse mural thickening involving the sigmoid colon and rectum without diverticuli but mild pericolic fat stranding visualized, colitis. Scattered diverticuli, oral contrast and gas is seen throughout the rest of the colon without there are colitis or distention. The small bowel loops are normal caliber. Appendix is normal caliber. The stomach is nondistended with mild thickening. ABDOMINAL WALL: There is a small umbilical hernia containing fat.? LYMPH NODES: Normal. VASCULAR: Unremarkable. PELVIC VISCERA: There is no free fluid. There are small radiation seeds or zahra in the prostate bed.? OSSEOUS STRUCTURES: No gross bony abnormality seen. Mild degenerative disc changes with spondylosis seen at L5-S1 disc level. No aggressive lytic or sclerotic process seen. There is mild bilateral L4-L5 and L5-S1 facet arthropathy seen. There is mild ventral spondylosis lower dorsal and upper lumbar spine.? CT/CT abdomen pelvis w IV con IMPRESSION: No mild mural thickening involving sigmoid colon the rectum with mild pericolic fat stranding suggestive of Procto colitis. ? Diverticulosis seen in the rest of the colon without diverticulitis. ? Large calcified cyst exophytic cyst upper pole right kidney is stable. Multiple simple and complex small cysts in both kidneys. ? Mild thickening of nondistended stomach and mild mural thickening of distal esophagus. ? Assessment & Plan Assessment & Plan (1) Diarrhea: Code(s): R19.7 - Diarrhea, unspecified Qualifiers: Diarrhea type: unspecified type Qualified Code(s): R19.7 - Diarrhea, unspecified Plan: Patient reports to have diarrhea, recently on Augmentin, however he reports that the diarrhea was there before he even started the antibiotic. Patient was encouraged to continue take Citrucel. Avoid dietary triggers. (2) IBS (irritable bowel syndrome): Code(s): K58.9 - Irritable bowel syndrome without diarrhea Qualifiers: Irritable bowel syndrome type: with diarrhea Qualified Code(s): K58.0 - Irritable bowel syndrome with diarrhea Plan: Low FODMAP diet discussed with patient again. List of food recommended as well as list of food to avoid given to patient. (3) Constipation: Code(s): K59.00 - Constipation, unspecified Qualifiers: Constipation type: slow transit constipation Qualified Code(s): K59.01 - Slow transit constipation Plan: Continue taking Dulcolax tablets. Patient was also encouraged to increase fluid intake and activity to promote better bowel motility. I will see patient in 4 weeks, sooner on as needed basis. Patient is agreeable to this plan and verbalizes understanding of instructions. He was given the opportunity to ask questions and all questions answered. Thank you for allowing me to participate in his care Coding Level of Care Code Est Pt Level 4 (20781) Diagnoses Diarrhea R19.7 Diarrhea type: unspecified type IBS (irritable bowel syndrome) K58.0 Irritable bowel syndrome type: with diarrhea Constipation K59.01 Constipation type: slow transit constipation Time Spent (min) 40 Comment 25 minutes spent with patient and additional 15 minutes spent reviewing his records
[2023-03-04 14:08] VITALS: BP 121/61; PULSE 59; BMI 35.6
== END 2023-03-04 14:25 | disposition home or self-care (01) ==
PROVIDERS: PCP Nurse Practitioner Family; Visit Provider Nurse Practitioner Family
DX: R19.7 Diarrhea, unspecified (principal); K58.0 Irritable bowel syndrome with diarrhea; K59.01 Slow transit constipation
CPT/HCPCS: 99214

== ENCOUNTER → 2023-03-04 13:57 | Outpatient (BNVA) | payer MEDICARE, BC, SELFPAY | PROVIDERS: PCP Nurse Practitioner Family; Visit Provider Nurse Practitioner Family | DX: K58.0 Irritable bowel syndrome with diarrhea (principal); K59.01 Slow transit constipation | CPT/HCPCS: 99212 ==

== ENCOUNTER 2023-03-15 14:23 | Outpatient (REF) | payer MEDICARE, BC, SELFPAY ==
[2023-03-15 16:22] LABS: MANUAL DIFF FLAG NO
[2023-03-15 16:36] LABS: Basophils Absolute Auto 0.1 X10*3/uL (0.0-0.2); Basophils Percent Auto 1.1 % (0-2); Eosinophils Absolute Auto 0.4 X10*3/uL (0.0-0.4); Eosinophils Percent Auto 5.3 % (0-4); Hematocrit 39.5 % (42.0-52.0); Hemoglobin 12.9 g/dl (14.0-18.0); Imm Gran Abs Auto 0.02 X10*3/uL (0.00-0.03); Imm Gran Pct Auto 0.3 % (0.0-0.4); Lymphocytes Absolute Auto 1.6 X10*3/uL (1.2-4.9); Lymphocytes Percent Auto 21.9 % (20-40); Mean Corpuscular HGB Conc 32.7 g/dl (31.0-36.0); Mean Corpuscular Hemoglobin 30.4 pg (27.0-33.0); Mean Corpuscular Volume 93.2 fL (80.0-98.0); Mean Platelet Volume 10.8 fL (9.4-12.4); Monocytes Absolute Auto 0.6 X10*3/uL (0.1-1.2); Monocytes Percent Auto 7.8 % (2-11); Neutrophils Absolute Auto 4.7 x10*3/uL (2.0-8.3); Neutrophils Percent Auto 63.6 % (45-73); Platelet Count 201 X10*3/uL (160-400); Red Blood Count 4.24 X10*6/uL (4.60-5.80); Red Cell Distribution Width 13.6 % (11.0-16.0); White Blood Count 7.4 X10*3/uL (4.8-10.8)
[2023-03-15 17:18] LABS: Alanine Aminotransferase 15 U/L (0-40); Albumin Level 3.8 g/dL (3.5-5.0); Alkaline Phosphatase 59 U/L (39-117); Anion Gap 16 (12-20); Aspartate Amino Transferase 16 U/L (5-37); Bilirubin Total 1.2 mg/dL (0.0-1.0); Blood Urea Nitrogen 14 mg/dL (9-16); Calcium 9.8 mg/dL (8.4-10.2); Carbon Dioxide 24 mmol/L (22-29); Chloride 107 mmol/L (96-108); Cholesterol 112 mg/dL; Estimated Glomerular Filt Rate > 60; Glucose Fasting 97 mg/dL (60-99); HDL Cholesterol 45 mg/dL; LDL Cholesterol Calculated 52 mg/dl; Potassium 4.3 mmol/L (3.3-5.1); Sodium 143 mmol/L (135-145); Total Protein 7.4 g/dL (6.5-8.0); Triglycerides 79 mg/dL; Uric Acid 2.4 mg/dL (3.4-7.0)
[2023-03-15 17:23] LABS: TSH reflex Free T4 0.89 uIU/mL (0.32-4.0)
[2023-03-15 17:26] LABS: Prostate Specific Antigen < 0.10 ng/mL (<0.05-4.0); Prostate Specific Antigen Scr < 0.10 ng/mL (<0.05-4.0)
== END 2023-03-15 14:24 | disposition home or self-care (01) ==
LOC: HO.HMGCLDS 14:23
PROVIDERS: Absent Provider Urology; PCP Nurse Practitioner Family; Visit Provider Nurse Practitioner Family
DX: Z12.5 Encounter for screening for malignant neoplasm of prostate (principal); C61 Malignant neoplasm of prostate; I10 Essential (primary) hypertension; Z87.39 Personal history of other diseases of the musculoskeletal system and connective tissue
CPT/HCPCS: 36415; 80053; 80061; 84153; 84443; 84550; 85025

== ENCOUNTER 2023-03-16 01:00 | Outpatient (REF) | payer MEDICARE, BC, SELFPAY ==
[2023-03-16 16:28] LABS: Appearance Urine Clear; Color Urine Yellow; Glucose Urine UA Negative (Negative); Leukocyte Esterase Urine Negative (Negative); Nitrite Urine Negative (Negative); PH 5.5 (5.0-9.0); Urine Blood Negative (Negative); Urine Ketones Negative (Negative); Urine Protein Negative (Neg-Trace)
== END 2023-03-16 01:01 | disposition home or self-care (01) ==
LOC: HO.HMGCLNP 01:00
PROVIDERS: PCP Nurse Practitioner Family; Visit Provider Nurse Practitioner Family
DX: I10 Essential (primary) hypertension (principal)
CPT/HCPCS: 81003

== ENCOUNTER 2023-03-29 13:30 | Outpatient (AMB) | payer MEDICARE, BC, SELFPAY ==
--- NOTE | 2023-03-29 13:37 | MHC.PC.OV ---
Vital Signs 03/29/23 13:38 03/29/23 14:15 Height 5 ft 6 in Weight 221 lb 6 oz BMI 35.7 BP 146/84 H 124/76 Blood Pressure Location Lt brachial Lt brachial Position Sitting Sitting Pulse 66 Pulse Source Pulse Oximeter Pulse Oximetry (%) 96 Oxygen Delivery Method Room Air Intake Visit Reasons: AWV Intake Note: pt is here for PE Allergies acetaminophen [Tylenol] Adverse Reaction (Unknown, Verified 03/29/23 13:38) Nausea Tobacco use date assessed: 03/29/23 Fall risk assessment: No Falls in past year Last assessed Fall Risk: 03/29/23 Dental Screening Dental Screen Date: 03/29/23 Did you have a dental visit in the last 12 months?: Yes Did you have a dental problem in the last 6 months where you did not have access to dental care?: No Was dental information given to patient?: Patient has dentist HPI AWV HPI Details Pt is here for a PE. Labs were already performed. Cologuard is up to date. PSA is up to date. Pt sees urology. Hx of anemia, will order labs. Pt had a previous GI bleed, sees GI. [facility]LY [facility] Medical History CAD (coronary artery disease) Erectile dysfunction HTN (hypertension) Hyperlipidemia Morbid obesity Prostate CA Surgical History History of esophagogastroduodenoscopy (EGD) History of Mohs micrographic surgery for skin cancer History of transurethral resection of prostate Hx of cardiac cath Hx of cholecystectomy S/P lumbar microdiscectomy Stented coronary artery Family History Father CVD (cardiovascular disease) Mother No problems noted. Son No problems noted. Son No problems noted. Social History Housing: Condominium Alcohol intake: current Alcohol intake frequency: holidays/special occasions only Patient Tobacco Use Status: Former Tobacco user e-Cigarette/Vaping Use: Never Used Second Hand Smoke Exposure: No Substance Use Type: Marijuana Current occupational status: retired Current occupation: rt handed Cognitive needs: No Hearing needs: No Vision needs: No Questionnaire Thrive Questionnaire Date Thrive assessed: 08/04/22 Currently or been in a relationship where the following occur: no concerns reported ALIRIO-7 AMB Questionnaire ALIRIO-7 Date ALIRIO - 7 assessed: 08/04/22 Source: Developed by Drs. Dev Moya, Yesi Moseley, Nikunj Crenshaw and colleagues, with an educational nasrin from [employer]. Review of Systems Const Denies chills and Denies fever(s) Eyes Denies blurry vision ENT Denies vertigo, Denies dizziness and Denies sore throat Card Denies chest pain at rest, Denies chest pain with activity, Denies diaphoresis, Denies dyspnea and Denies dyspnea on exertion Resp Denies cough, Denies dyspnea, Denies dyspnea on exertion and Denies wheezing GI Denies abdominal pain, Denies melena, Denies hematochezia, Denies constipation, Denies diarrhea and Denies loose stools Denies hematuria Musc Denies numbness and Denies tingling Skin/Breast Denies lesions Neuro Denies vertigo, Denies dizziness, Denies numbness and Denies tingling Psych Denies anxiety, Denies depression, Denies homicidal ideation, Denies suicidal ideation and Denies other (substance abuse) Aller/Immun Denies wheezing Physical exam (Primary Care) Vital Signs: Last Vital Signs Pulse 66 03/29/23 13:38 BP 124/76 03/29/23 14:15 Pulse Ox 96 03/29/23 13:38 Oxygen Delivery Method Room Air 03/29/23 13:38 BMI result Body Mass Index 35.7 Tobacco/Smoking Status: Tobacco use Status Tobacco use date assessed 03/29/23 03/29/23 13:43 Patient Tobacco Use Status Former Tobacco user 03/29/23 13:43 e-Cigarette/Vaping Use Never Used 03/29/23 13:43 Thrive Assessment: Date of Thrive Assessment Date Thrive assessed 08/04/22 03/29/23 13:43 Currently or been in a relationship where the following occur: no concerns reported Const General: cooperative Nutritional Appearance: obese Orientation/consciousness: patient oriented x3 HENMT Head: Yes normal to inspection, Yes normocephalic and Yes atraumatic Ears: TM's normal bilaterally Eyes General: appearance normal, both eyes and all related structures Alignment and Position: alignment normal and position normal Neck Neck: Yes normal visual inspection and Yes no lymphadenopathy Thyroid: Thyroid normal Resp Effort & Inspection: normal respiratory effort Auscultation: clear to auscultation bilaterally Cardio Rate: regular rate Rhythm: regular rhythm Heart sounds: S1 normal heart sound present, S2 normal heart sound present and no murmurs GI Palpation (GI): Soft to palpation and nontender Auscultation: normal bowel sounds Male General Exam: Yes normal external exam Penis: normal penis Scrotum: scrotum normal, testes descended bilaterally and no inguinal hernias Testes: no testicular mass Skin Rashes: no rashes Neuro General: patient oriented x3, moves all extremities, no focal motor deficits and deep tendon reflexes 2+ bilaterally Romberg Test: Negative Psych Appearance: grossly normal Mental Status: mental status grossly normal Speech and movement: Normal speech and movement present Affect: normal affect Attitude: cooperative Thought process: Normal thought process present Thought content: Normal thought content present Insight: Good insight present (Psych) Judgement: Good judgement present (Psych) Assessment and Plan Assessment & Plan (1) Anemia: Code(s): D64.9 - Anemia, unspecified Plan: Labs ordered Plan The patient agreed to the use of a claim review medical director for this encounter. Scribed for [employer] by Angelique Nuno claim review medical director, on 03/29/2023 at 13:50 EST. Orders: Orders Vitamin B12 and Folate Today D64.9 - Anemia, unspecified Ferritin Today D64.9 - Anemia, unspecified IRON PROFILE Today D64.9 - Anemia, unspecified Complete Blood Count Auto Diff Today D64.9 - Anemia, unspecified Coding Level of Care Code Est Pt Prev Care >65y(18197) Diagnoses Anemia D64.9
[2023-03-29 13:38] VITALS: BP 146/84; PULSE 66; O2SAT 96; BMI 35.7
[2023-03-29 14:15] VITALS: BP 124/76
== END 2023-03-29 15:49 | disposition home or self-care (01) ==
PROVIDERS: PCP Nurse Practitioner Family; Visit Provider Nurse Practitioner Family
DX: Z00.00 Encounter for general adult medical examination without abnormal findings (principal); D64.9 Anemia, unspecified
CPT/HCPCS: 99397

== ENCOUNTER 2023-04-01 13:51 | Outpatient (AMB) | payer MEDICARE, BC, SELFPAY ==
[2023-04-01 13:55] VITALS: BP 161/67; PULSE 56; BMI 35.6
--- NOTE | 2023-04-01 13:55 | MHC.OFFVIS ---
Intake Vital Signs 04/01/23 13:55 Height 5 ft 6 in Weight 220 lb 7.396 oz BMI 35.6 BP 161/67 H Blood Pressure Location Lt brachial Position Sitting Pulse 56 Intake Visit Reasons: 4W follow up Intake Note: Jake presents in office as a est.patient for a 4w f/u for Constipation PT CC: pt reports having nausea, abdominal pain , bloating , constipation , gassy , burping alot pt denies any other GI Issues Tc Operator Required: No Accompanied by: Self / Same As Patient Allergies acetaminophen [Tylenol] Adverse Reaction (Unknown, Verified 04/22/23 13:26) Nausea HPI 4W follow up HPI Details LAST VISIT Diarrhea Patient reports to have diarrhea, recently on Augmentin, however he reports that the diarrhea was there before he even started the antibiotic. Patient was encouraged to continue take Citrucel. Avoid dietary triggers. IBS (irritable bowel syndrome) Low FODMAP diet discussed with patient again. List of food recommended as well as list of food to avoid given to patient. Constipation Continue taking Dulcolax tablets. Patient was also encouraged to increase fluid intake and activity to promote better bowel motility. I will see patient in 4 weeks, sooner on as needed basis. Patient is agreeable to this plan and verbalizes understanding of instructions. He was given the opportunity to ask questions and all questions answered. ? TODAY'S VISIT: Patient is here today continue to have constipation. Patient states that he feels very bloated postprandially. Does not follow any particular diet. Reports to have very little appetite. Patient denies melena, hematochezia, unintentional weight loss or ribbon like stools. Watery stools, however he reports that he is unable to empty. Occasional nausea, no appetite. History of cholecystectomy in the past. Patient denies any abdominal discomfort, cramping and bloating if no normal bowel movement for 2-3 days. Patient reports dyspepsia without dysphagia or odynophagia. [facility] Medical History Prostate CA Erectile dysfunction CAD (coronary artery disease) HTN (hypertension) Hyperlipidemia Morbid obesity Surgical History History of esophagogastroduodenoscopy (EGD) Hx of cholecystectomy History of transurethral resection of prostate History of Mohs micrographic surgery for skin cancer S/P lumbar microdiscectomy Stented coronary artery Hx of cardiac cath Family History Father CVD (cardiovascular disease) Mother No problems noted. Son No problems noted. Son No problems noted. [facility] Alcohol intake: current Alcohol intake frequency: holidays/special occasions only Patient Tobacco Use Status: Former Tobacco user e-Cigarette/Vaping Use: Never Used Second Hand Smoke Exposure: No Substance Use Type: Marijuana Current occupational status: retired Current occupation: rt handed Cognitive needs: No Hearing needs: No Vision needs: No Review of Systems Const Denies weight gain and Denies weight loss ENT Reports no additional complaints, Denies dysphagia and Denies odynophagia Card Reports no additional complaints Resp Reports no additional complaints GI Reports abdominal pain, Denies belching, Denies melena, Reports bloating, Reports constipation, Denies dysphagia, Denies excessive flatus, Denies dyspepsia, Reports heartburn, Denies diarrhea, Reports loose stools, Reports nausea, Denies odynophagia and Denies vomiting Reports no additional complaints Musc Reports no additional complaints Neuro Reports no additional complaints Psych Reports no additional complaints Endo Reports no additional complaints Physical Exam Vital Signs: Last Vital Signs Pulse 56 04/01/23 13:55 BP 161/67 H 04/01/23 13:55 BMI result Body Mass Index 35.6 Const General: no acute distress and well developed Nutritional Appearance: obese Orientation/consciousness: patient oriented x3 HEENT Head: Yes normal to inspection, Yes normocephalic and Yes atraumatic Face and sinus: Yes normal facial exam Mouth: Normal oral and palatal mucosa present Throat: Yes posterior oropharynx normal, Yes tonsils normal and Yes uvula midline Eyes General: appearance normal, both eyes and all related structures Neck Neck: Yes normal visual inspection, Yes full ROM and Yes trachea midline Thyroid: Thyroid normal Resp Effort & Inspection: normal respiratory effort, able to speak in complete sentences, no tracheal deviation and symmetric chest movement Auscultation: clear to auscultation bilaterally Cardio Rate: regular rate Heart sounds: S1 normal heart sound present and S2 normal heart sound present GI Inspection: Yes normal to inspection, No distended and Yes obesity Palpation (GI): Soft to palpation, not firm, nontender and No hepatosplenomegaly present Auscultation: normal bowel sounds General: Yes no CVA tenderness Back/Spine/Pelvis Back: no CVA tenderness Skin General skin exam: elasticity normal, turgor normal and dry skin Neuro General: patient oriented x3 Psych Appearance: grossly normal Mental Status: mental status grossly normal Speech and movement: Normal speech and movement present Assessment & Plan Assessment & Plan (1) Diarrhea: Code(s): R19.7 - Diarrhea, unspecified Qualifiers: Diarrhea type: unspecified type Qualified Code(s): R19.7 - Diarrhea, unspecified Plan: Watery stools, however patient does report that he does not empty his bowels completely. Patient was encouraged to increase fluid intake. Increase fiber intake to help him bulk his stools. (2) IBS (irritable bowel syndrome): Code(s): K58.9 - Irritable bowel syndrome without diarrhea Qualifiers: Irritable bowel syndrome type: with both diarrhea and constipation Qualified Code(s): K58.2 - Mixed irritable bowel syndrome Plan: Patient has loose stools, however he feels like he does not empty his bowels completely. Patient was encouraged to continue low FODMAP diet. List of food recommended as well as list of food to avoid given to patient. (3) Constipation: Code(s): K59.00 - Constipation, unspecified Qualifiers: Constipation type: slow transit constipation Qualified Code(s): K59.01 - Slow transit constipation Plan: Patient can start Linzess daily. Discussed with patient the importance of going for colonoscopy. I will see him in 3 weeks to discuss colonoscopy. Please book procedure for patient. Patient will call our office if he will continue to have constipation. He is agreeable to plan of care and verbalizes understanding of instructions. He was given the opportunity to ask questions and all questions answered. Thank you for allowing me to participate in his care Medications: New linaclotide (Linzess) 145 mcg PO DAILY 30 caps 2RF Discontinued methylcellulose (laxative) Discontinued Reason: Doctor's Order 500 mg PO BID 60 tabs 2RF K59.00 - Constipation, unspecified sennosides Discontinued Reason: Doctor's Order 8.6 mg PO BEDTIME 30 tabs 2RF constipation K59.00 - Constipation, unspecified bisacodyl Discontinued Reason: Doctor's Order 10 mg (2 x 5 mg) PO BEDTIME 60 tabs 4RF Coding Level of Care Code Est Pt Level 4 (02840) Diagnoses Diarrhea, unspecified type R19.7 Diarrhea type: unspecified type Irritable bowel syndrome with both constipation and diarrhea K58.2 Irritable bowel syndrome type: with both diarrhea and constipation Slow transit constipation K59.01 Constipation type: slow transit constipation Time Spent (min) 35 Comment 20 minutes spent with patient and additional 15 minutes spent reviewing his records
== END 2023-04-01 14:19 | disposition home or self-care (01) ==
PROVIDERS: PCP Nurse Practitioner Family; Visit Provider Nurse Practitioner Family
DX: R19.7 Diarrhea, unspecified (principal); K58.2 Mixed irritable bowel syndrome; K59.01 Slow transit constipation
CPT/HCPCS: 99214

== ENCOUNTER → 2023-04-01 13:51 | Outpatient (BNVA) | payer MEDICARE, BC, SELFPAY | PROVIDERS: PCP Nurse Practitioner Family; Visit Provider Nurse Practitioner Family | DX: K58.2 Mixed irritable bowel syndrome (principal); K59.01 Slow transit constipation; R19.7 Diarrhea, unspecified | CPT/HCPCS: 99212 ==

== ENCOUNTER 2023-04-22 13:20 | Outpatient (REF) | payer MEDICARE, BC, SELFPAY ==
[2023-04-22 14:22] LABS: MANUAL DIFF FLAG NO
[2023-04-22 14:48] LABS: Basophils Absolute Auto 0.1 X10*3/uL (0.0-0.2); Basophils Percent Auto 0.9 % (0-2); Eosinophils Absolute Auto 0.7 X10*3/uL (0.0-0.4); Eosinophils Percent Auto 7.9 % (0-4); Hemoglobin 13.3 g/dl (14.0-18.0); Imm Gran Abs Auto 0.02 X10*3/uL (0.00-0.03); Imm Gran Pct Auto 0.2 % (0.0-0.4); Lymphocytes Absolute Auto 1.3 X10*3/uL (1.2-4.9); Lymphocytes Percent Auto 14.5 % (20-40); Mean Corpuscular HGB Conc 31.7 g/dl (31.0-36.0); Mean Corpuscular Hemoglobin 29.8 pg (27.0-33.0); Mean Platelet Volume 10.7 fL (9.4-12.4); Monocytes Absolute Auto 0.6 X10*3/uL (0.1-1.2); Monocytes Percent Auto 6.7 % (2-11); Neutrophils Absolute Auto 6.4 x10*3/uL (2.0-8.3); Neutrophils Percent Auto 69.8 % (45-73); Platelet Count 186 X10*3/uL (160-400); Red Blood Count 4.47 X10*6/uL (4.60-5.80); Red Cell Distribution Width 13.7 % (11.0-16.0); White Blood Count 9.2 X10*3/uL (4.8-10.8)
[2023-04-22 15:36] LABS: Alanine Aminotransferase 15 U/L (0-40); Albumin Level 3.8 g/dL (3.5-5.0); Alkaline Phosphatase 62 U/L (39-117); Anion Gap 11 (12-20); Aspartate Amino Transferase 16 U/L (5-37); Blood Urea Nitrogen 19 mg/dL (9-16); C Reactive Protein 0.16 mg/dL (< or = 0.50); Calcium 9.9 mg/dL (8.4-10.2); Carbon Dioxide 31 mmol/L (22-29); Chloride 106 mmol/L (96-108); Estimated Glomerular Filt Rate > 60; Glucose Random 104 mg/dL (60-115); Iron 61 mcg/dL (45-160); Percent Iron Saturation 24 % (15-50); Potassium 4.8 mmol/L (3.3-5.1); Sodium 143 mmol/L (135-145); Total Iron Binding Capacity 249 mcg/dL (228-428); Total Protein 7.1 g/dL (6.5-8.0); Unsaturated Iron Binding 188 ug/dL
[2023-04-22 15:41] LABS: Ferritin 174 ng/mL (20-250)
[2023-04-22 15:57] LABS: Folate 8.1 ng/mL (> or = 4.0); Vitamin B12 886 pg/mL (200-900)
== END 2023-04-22 13:21 | disposition home or self-care (01) ==
LOC: HO.LAB 13:20
PROVIDERS: PCP Nurse Practitioner Family; Visit Provider Nurse Practitioner Family
DX: R19.7 Diarrhea, unspecified (principal); K58.2 Mixed irritable bowel syndrome; D64.9 Anemia, unspecified; K21.9 Gastro-esophageal reflux disease without esophagitis
CPT/HCPCS: 36415; 80053; 82607; 82728; 82746; 83540; 85025; 85027; 86140; 99212

== ENCOUNTER 2023-04-22 13:20 | Outpatient (AMB) | payer MEDICARE, BC, SELFPAY ==
--- NOTE | 2023-04-22 13:24 | A.OFFVIS_ITS ---
Intake Vital Signs 04/22/23 13:26 Height 5 ft 6 in Weight 218 lb 4.122 oz BMI 35.2 BP 133/74 Blood Pressure Location Lt brachial Position Sitting Pulse 63 Intake Visit Reasons: 3wk per Kendal Intake Note: Jake presents in the office as a 3 week follow up. CC: He states that he has constipation - he will take Milk of Mag and it helps but then he will have bad diarrhea. Pediatric Cns Required: No Allergies acetaminophen [Tylenol] Adverse Reaction (Unknown, Verified 04/22/23 13:26) Nausea HPI 3wk per Kendal HPI Details LAST VISIT: Diarrhea Patient reports to have diarrhea, recently on Augmentin, however he reports that the diarrhea was there before he even started the antibiotic. Patient was encouraged to continue take Citrucel. Avoid dietary triggers. IBS (irritable bowel syndrome) Low FODMAP diet discussed with patient again. List of food recommended as well as list of food to avoid given to patient. Constipation Continue taking Dulcolax tablets. Patient was also encouraged to increase fluid intake and activity to promote better bowel motility. I will see patient in 4 weeks, sooner on as needed basis. Patient is agreeable to this plan and alyson chau understanding of instructions. He was given the opportunity to ask questions and all questions answered. TODAY'S VISIT Patient is here today for follow-up. Patient continues to have loose stools, however he is doing better now that he started taking milk of magnesia and no bowel movements. Patient continues to take Citrucel and Dulcolax. Patient denies melena, hematochezia, unintentional weight loss or ribbon like stools. Were able to schedule colonoscopy for May 03. Patient still has not gone for CT scan. Will schedule one today. History of colitis seen on CT scan in February. Patient reports to be feeling tired moving his bowels so often. Patient denies any fever or chills. GI panel done and negative. Patient denies dyspepsia, dysphagia or odynophagia. [facility] Medical History Prostate CA Erectile dysfunction CAD (coronary artery disease) HTN (hypertension) Hyperlipidemia Morbid obesity Surgical History History of esophagogastroduodenoscopy (EGD) Hx of cholecystectomy History of transurethral resection of prostate History of Mohs micrographic surgery for skin cancer S/P lumbar microdiscectomy Stented coronary artery Hx of cardiac cath Family History Father CVD (cardiovascular disease) Mother No problems noted. Son No problems noted. Son No problems noted. Social History Housing: [facility] Alcohol intake: current Alcohol intake frequency: holidays/special occasions only Patient Tobacco Use Status: Former Tobacco user e-Cigarette/Vaping Use: Never Used Second Hand Smoke Exposure: No Substance Use Type: Marijuana Current occupational status: retired Current occupation: rt handed Cognitive needs: No Hearing needs: No Vision needs: No Review of Systems Const Denies weight gain and Denies weight loss ENT Reports no additional complaints, Denies dysphagia and Denies odynophagia Card Reports no additional complaints Resp Reports no additional complaints GI Denies abdominal pain, Denies belching, Denies melena, Denies bloating, Denies change in bowel habits, Reports constipation, Denies dysphagia, Denies excessive flatus, Denies dyspepsia, Denies heartburn, Denies diarrhea, Reports loose stools, Denies nausea, Denies odynophagia and Denies vomiting Reports no additional complaints Musc Reports no additional complaints Neuro Reports no additional complaints Psych Reports no additional complaints Endo Reports no additional complaints Physical Exam Vital Signs: Last Vital Signs Pulse 63 04/22/23 13:26 BP 133/74 04/22/23 13:26 BMI result Body Mass Index 35.2 Const General: healthy appearing, no acute distress and well developed Nutritional Appearance: obese Orientation/consciousness: patient oriented x3 HEENT Head: Yes normal to inspection, Yes normocephalic and Yes atraumatic Face and sinus: Yes normal facial exam Mouth: Normal oral and palatal mucosa present Throat: Yes posterior oropharynx normal, Yes tonsils normal and Yes uvula midline Eyes General: appearance normal, both eyes and all related structures Neck Neck: Yes normal visual inspection, Yes full ROM and Yes trachea midline Thyroid: Thyroid normal Resp Effort & Inspection: normal respiratory effort, able to speak in complete sentences, no tracheal deviation and symmetric chest movement Auscultation: clear to auscultation bilaterally Cardio Rate: regular rate Heart sounds: S1 normal heart sound present and S2 normal heart sound present GI Inspection: Yes normal to inspection, No distended and Yes obesity Palpation (GI): Soft to palpation, not firm, nontender and No hepatosplenomegaly present Auscultation: normal bowel sounds General: Yes no CVA tenderness Back/Spine/Pelvis Back: no CVA tenderness Skin General skin exam: elasticity normal, turgor normal and dry skin Neuro General: patient oriented x3 Psych Appearance: grossly normal Mental Status: mental status grossly normal Speech and movement: Normal speech and movement present Assessment & Plan Assessment & Plan (1) Diarrhea: Code(s): R19.7 - Diarrhea, unspecified Qualifiers: Diarrhea type: unspecified type Qualified Code(s): R19.7 - Diarrhea, unspecified Plan: Occasional loose stools, however patient feels like he does not empty his bowels completely. He reports constipated for the most part. Will send patient for CT scan. Please book one BRENNEN (2) IBS (irritable bowel syndrome): Code(s): K58.9 - Irritable bowel syndrome without diarrhea Qualifiers: Irritable bowel syndrome type: with both diarrhea and constipation Qualified Code(s): K58.2 - Mixed irritable bowel syndrome Plan: Occasional postprandial abdominal bloating. Low FODMAP diet discussed with patient. Patient will be sent for colonoscopy. I will see him after the procedure, sooner on as needed basis. Patient is agreeable to this plan and verbalizes understanding of instructions. He was given the opportunity to ask questions all questions answered. Thank you for allowing me to participate in his care Medications: New polyethylene glycol 3350 (Miralax) As directed by gastroenterology department at [facility] 238 grams PO ONCE 238 grams 0RF Z12.11 - Encounter for screening for malignant neoplasm of colon Coding Level of Care Code Est Pt Level 4 (27456) Diagnoses Diarrhea, unspecified type R19.7 Diarrhea type: unspecified type Irritable bowel syndrome with both constipation and diarrhea K58.2 Irritable bowel syndrome type: with both diarrhea and constipation Time Spent (min) 35 Comment 20 minutes spent with patient and additional 15 minutes spent reviewing his records
[2023-04-22 13:26] VITALS: BP 133/74; PULSE 63; BMI 35.2
== END 2023-04-22 14:35 | disposition home or self-care (01) ==
PROVIDERS: PCP Nurse Practitioner Family; Visit Provider Nurse Practitioner Family
DX: R19.7 Diarrhea, unspecified (principal); K58.2 Mixed irritable bowel syndrome
CPT/HCPCS: 99214

== ENCOUNTER 2023-04-26 12:05 | Outpatient (REF) | payer MEDICARE, BC, SELFPAY ==
--- NOTE | ~2023-04-26 | CT_ITS ---
EXAMINATION: CT ABDOMEN AND PELVIS WITH CONTRAST CLINICAL INFORMATION: Abdominal pain COMPARISON: Previous CT of the abdomen and pelvis most recent February 2023 TECHNIQUE: Multidetector volumetric images were obtained from the superior aspect of the liver through the pubic symphysis following administration 85 mL of Omnipaque 350 intravenous contrast. Sagittal and coronal reformatted images were obtained on the technologist's workstation. Oral contrast: Yes This CT examination was performed using dose optimization techniques as appropriate, variously including the following: *Automated exposure control *Adjustment of mA and/or kV according to patient size (this includes techniques or standardized protocols for targeted exams where dose is matched to indication/reason for exam; i.e. extremities or head) *Use of iterative reconstruction technique DLP: 639 mGy-cm FINDINGS: LUNG BASES: There is a right pneumothorax. This is not completely seen but is at least moderate in size. LIVER, GALLBLADDER, AND BILIARY TREE: The liver is normal in size, shape, and attenuation. No focal hepatic lesion or biliary ductal dilatation is present. The gallbladder has been removed. PANCREAS: Unremarkable. SPLEEN: Unremarkable. ADRENAL GLANDS: Unremarkable. KIDNEYS AND URETERS: The kidneys are normal in size, shape, and attenuation. No hydronephrosis, hydroureter, or calculi seen. No perinephric stranding. Lateral renal cysts. Largest cyst measures 6 cm and demonstrates wall calcification. Suggestive of Bosniak type II F cyst. The remainder of the cysts represent simple cysts. No imaging follow-up recommended. BLADDER: Unremarkable. GASTROINTESTINAL TRACT: There is mild wall thickening of the rectum and stranding of the adjacent fat. This may represent changes from radiation. There is mild diverticulosis of the colon. No evidence of diverticulitis. Small and large bowel is otherwise normal. The appendix is normal. Question wall thickening of the proximal stomach versus changes due to underdistention. ABDOMINAL WALL: Small umbilical hernia containing fat. LYMPH NODES: Normal. VASCULAR: Atherosclerotic disease. No aneurysm. PELVIC VISCERA: Radiation seeds in the prostate gland. OSSEOUS STRUCTURES: Degenerative changes of the spine sclerotic lesion in the left femoral neck. This is similar to older exams going back to 2014 probably represents a benign bone island. CT/CT abdomen pelvis w IV con IMPRESSION: Right pneumothorax. This is not completely visualized but at least moderate in size. Mild diverticulosis of the colon. Mild wall thickening of the rectum. This may be related to radiation therapy. Findings were communicated to Althea Awad by telephone on 04/26/2023 at 1445 hours Fleischner guidelines were followed.
[2023-04-26] MEDS: Barium Sulfate Oral (Vanilla) 450 ML ORAL.SUSP 900 ML PO (14:25)
[2023-04-26] MEDS: iohexoL 350 MG/ML 100 ML INFUS..BTL IV (14:26)
== END 2023-04-26 12:06 | disposition home or self-care (01) ==
LOC: HO.CT 12:05
PROVIDERS: PCP Nurse Practitioner Family; Visit Provider Nurse Practitioner Family
DX: Z13.89 Encounter for screening for other disorder (principal)
CPT/HCPCS: 74177; Q9967

== ENCOUNTER 2023-04-26 16:18 | Inpatient (IN) | payer MEDICARE, BC, SELFPAY ==
--- NOTE | ~2023-04-26 | XR_ITS ---
EXAMINATION: XR CHEST CLINICAL INFORMATION: Pneumothorax COMPARISON: None available. TECHNIQUE: Frontal view of the chest was obtained. FINDINGS: Previously identified right apical pneumothorax is no longer visualized. Bilateral low lung volumes. Bronchovascular crowding. Bibasilar atelectasis. Trachea is midline. Cardiac mediastinal silhouette is not enlarged. No large pleural effusion. Osseous structures are intact. XR/XR chest 1V IMPRESSION: 1. Previously identified right apical pneumothorax is no longer visualized. 2. Bilateral low lung volumes. 3. Bronchovascular crowding. 4. Bibasilar atelectasis.
--- NOTE | ~2023-04-26 | CT_ITS ---
EXAMINATION: CT CHEST WITHOUT CONTRAST CLINICAL INFORMATION: Follow-up right pneumothorax. COMPARISON: CT abdomen and pelvis of the same date; chest radiograph dated 04/10/2012. TECHNIQUE: Multidetector volumetric CT imaging of the chest was done. Axial MIP volume rendering provided. Sagittal and coronal reformatted images were obtained. This CT examination was performed using dose optimization techniques as appropriate, variously including the following: *Automated exposure control *Adjustment of mA and/or kV according to patient size (this includes techniques or standardized protocols for targeted exams where dose is matched to indication/reason for exam; i.e. extremities or head) *Use of iterative reconstruction technique DLP: 393 mGy-cm FINDINGS: UNISHEAR OPERATOR: A right pneumothorax is seen. The lungs are otherwise clear. LUNGS: There is a small to moderate anterior right pneumothorax. There is mild compressive atelectasis seen anteriorly within the right middle lobe. There is bibasilar dependent hypoaeration, right greater than left. Within the apicoposterior segment of the left upper lobe (5:221), a 6 mm ovoid, noncalcified nodule is seen. There is paraseptal predominant emphysema. Bilateral bleb and bullous formation is noted. For example, a 2.1 cm bulla is seen centrally at the right base. There is no mass, infiltrate or groundglass opacity. No small airway thickening is seen. The central airways appear patent. MEDIASTINUM: The thyroid is unremarkable. There is no thoracic aortic aneurysm. There are moderate atherosclerotic calcifications of the great vessel origins and thoracic aorta. No mediastinal or hilar lymphadenopathy is seen. CORONARY ARTERY CALCIFICATION: Mild to moderate. There is a trace pericardial effusion. PLEURA: There is no pleural effusion. No pleural mass or thickening. AXILLA: No lymphadenopathy. UPPER ABDOMEN: Please see accompanying dictation for full CT abdomen and pelvis of the same date. OSSEOUS STRUCTURES: There is multi-level marked lower cervical, thoracic and upper lumbar spondylosis and degenerative disc disease, with an appearance suggesting possible DISH (diffuse idiopathic skeletal hyperostosis). No acute or aggressive osseous abnormality is seen. CT/CT chest wo IV con IMPRESSION: 1. A small to moderate anterior right pneumothorax is seen, consistent with abdominal CT findings of the same date. There is underlying paraseptal predominant emphysema, with bleb and bullous formation noted. 2. No mass, nodule, infiltrate or groundglass opacity is seen. 3. There is no thoracic lymphadenopathy or pleural effusion. 4. Skeletal findings suggest possible DISH. Fleischner guidelines were followed.
--- NOTE | ~2023-04-26 | XR_ITS ---
EXAMINATION: XR CHEST CLINICAL INFORMATION: Pneumothorax. COMPARISON: CT chest 04/26/2023 TECHNIQUE: Frontal view of the chest was obtained. FINDINGS: There is persistent right apical pneumothorax, approximately 15%. The lungs are otherwise clear. Heart size and progress clarities normal. There is moderate spondylosis dorsal spine with mild scoliosis. No aggressive lytic or sclerotic process seen. XR/XR chest 1V IMPRESSION: Approximately 15% right apical pneumothorax. It is stable to the previous CT chest. Unknown etiology for pneumothorax. Rest lungs are clear. Mild spondylosis dorsal spine.
--- NOTE | ~2023-04-26 | CT_ITS ---
PROCEDURE: CT GUIDED ASPIRATION, FINE NEEDLE, WITH IMAGE GUIDANCE CLINICAL INFORMATION: Right pneumothorax. COMPARISON: 04/26/2023 TECHNIQUE: CT fluoroscopic-guided right chest aspiration This CT examination was performed using dose optimization techniques as appropriate, variously including the following: *Automated exposure control *Adjustment of mA and/or kV according to patient size (this includes techniques or standardized protocols for targeted exams where dose is matched to indication/reason for exam; i.e. extremities or head) *Use of iterative reconstruction technique DLP: 389 mGy-cm FINDINGS: Informed consent was obtained from the patient prior to the procedure. During this process, the procedure and potential alternatives were explained, along with the intended outcome and benefits. The risks of the procedure, as well as the risk of not doing the procedure, were discussed. The patient was given the opportunity to ask questions regarding the procedure and appeared competent to make medical decisions. A signed consent form which documents this discussion was placed in the medical record. Using sterile technique and CT fluoroscopic-guidance a 5-[place] Yueh needle was directed from an anterior approach into the right pleural space. Air was removed with complete expansion of the pneumothorax. The catheter was removed. Patient tolerated procedure without difficulty. Patient will be monitored to see if the pneumothorax recurs at which time a chest tube couldn't be placed. There is noted to be a small right pleural effusion with atelectasis. CT/CT guided aspiration IMPRESSION: Aspiration of right pneumothorax with no residual pneumothorax identified postprocedure.
--- NOTE | 2023-04-26 16:20 | ED.GENADULT ---
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 Patient was being worked up for Crohn's disease and getting images before his colonoscopy. CT scan was sewn in an outpatient basis., the patient's commercial fisherman receive a phone call from our radiologist to let her know that the patient has a pneumothorax on the right. Patient got a phone call home and asked to come to the emergency room. Patient states that yesterday in the morning when he woke up, he noted that his breathing was not 100% right. Patient states he thought it was sinusitis, did not think much of it. No chest pain. Related Data Home Medications Medication Instructions Recorded Confirmed allopurinol 300 mg tablet 300 mg PO DAILY 07/21/20 04/26/23 atenolol 25 mg tablet 25 mg PO DAILY 07/21/20 04/26/23 atorvastatin 80 mg tablet 80 mg PO BEDTIME 07/21/20 04/26/23 ezetimibe 10 mg tablet 10 mg PO DAILY 07/21/20 04/26/23 fluticasone propionate 50 1 spray intranasal DAILY 07/21/20 04/26/23 mcg/actuation nasal spray,suspension losartan 100 mg tablet 100 mg PO DAILY 07/21/20 04/26/23 omeprazole 20 mg capsule,delayed 20 mg PO DAILY 07/21/20 04/26/23 release cholecalciferol (vitamin D3) 50 50 mcg PO DAILY 03/29/23 04/26/23 mcg (2,000 unit) capsule levothyroxine 125 mcg tablet 125 mcg PO DAILY 04/22/23 04/26/23 (Synthroid) alprazolam 2 mg tablet 2 mg PO TID anxiety 04/26/23 04/26/23 cetirizine 10 mg tablet 10 mg PO DAILY 04/26/23 04/26/23 cyanocobalamin (vitamin B-12) 1,000 mcg PO DAILY 04/26/23 04/26/23 1,000 mcg tablet Allergies Allergy/AdvReac Type Severity Reaction Status Date / Time acetaminophen [Tylenol] AdvReac Unknown Nausea Verified 04/22/23 13:26 Review of Systems Review of Systems: Constitutional : No Weight loss, No Fever, No Chills, No Night Sweats, No Fatigue, No Malaise ENT/Mouth : No Hearing loss, No Ear Pain, No Nasal Congestion, No Sinus Pain, No Hoarseness, No sore throat, No Rhinorrhea, No Swallowing Difficulty Eyes: No Eye Pain, No Swelling, No Redness, No Foreign Body, No Discharge, No Vision Changes Cardiovascular : No Chest Pain, No SOB, No Dyspnea on Exertion, No Orthopnea, No Edema, No Palpitations Respiratory : No Cough, No Sputum, No Wheezing, No Smoke Exposure, No Dyspnea Gastrointestinal : No Nausea, No Vomiting, No Diarrhea, No Constipation, No abdominal Pain, No Hematochezia, No Melena Genitourinary : no irregular bleeding, No Dysuria, No Urinary Frequency, No Hematuria, No Urinary Incontinence, No Urgency, No Flank Pain, No Urinary Flow Changes, No Hesitancy Musculoskeletal : No joint pain, No Myalgias, No Joint Swelling Skin : No Skin Lesions, No rash Neuro : No Weakness, No Numbness, No Paresthesias, No Loss of Consciousness, No Dizziness, No Headache Psych : No Anxiety/Panic, No Depression, No SI/HI/AH/VH, No Social Issues, Heme/Lymph: No Bruising, No Bleeding,No Lymphadenopathy Endocrine : No Polyuria, No Polydipsia, No Temperature Intolerance PMFSH Past Medical History Medical History Prostate CA Erectile dysfunction CAD (coronary artery disease) HTN (hypertension) Hyperlipidemia Morbid obesity Surgical History History of esophagogastroduodenoscopy (EGD) Hx of cholecystectomy History of transurethral resection of prostate History of Mohs micrographic surgery for skin cancer S/P lumbar microdiscectomy Stented coronary artery Hx of cardiac cath Family History Family History Father CVD (cardiovascular disease) Mother No problems noted. Son No problems noted. Son No problems noted. Social History Social History Housing: Condominium Alcohol intake: never Patient Tobacco Use Status: Former Tobacco user Smoked in Last 30 Days: No e-Cigarette/Vaping Use: Never Used Second Hand Smoke Exposure: No Use of substances other than those prescribed or required for medical reasons: No Substance Use Type: Marijuana Advance Directives: No Advance Directives Information Provided: No Current occupational status: retired Current occupation: rt handed Cognitive needs: No Hearing needs: No Vision needs: No Physical Exam ED Vital Signs: Vital Signs - 24 hr 04/26/23 16:22 04/26/23 17:09 04/26/23 17:55 Temperature 98.3 F 98.4 F Pulse Rate 72 64 Respiratory Rate 18 13 Blood Pressure 150/68 H 157/71 H Pulse Oximetry 93 93 88 L Oxygen Delivery Method Room Air Room Air Room Air Oxygen Flow Rate 04/26/23 19:09 Temperature 98.1 F Pulse Rate 59 Respiratory Rate 16 Blood Pressure 148/66 H Pulse Oximetry 97 Oxygen Delivery Method Nasal Cannula Oxygen Flow Rate 3 BMI result Body Mass Index 33.9 Course Course Course Narrative: RME: 72-year-old male with past medical history of asthma anemia, osteoarthritis, gout, hyperparathyroid, CAD, IBS HTN, HLD, obesity, presenting to ED due to moderate-sized right pneumothorax noted on outpatient CT abdomen/pelvis today ordered in GI office. Admits to right-sided CP and SOB x yesterday spontaneously. Denies cigarette smoking, take baby ASA Satting 93% RA EKG, labs, Viral testing, CXR ordered Full HPI, ROS and PE to be performed by primary ED provider. Medical Decision Making Medical Decision Making MDM Narrative: -my interpretation of labs, normal white blood cell count, chemistry at baseline, normal LFTs, normal troponin -my interpretation of CT scan of the chest, patient has a pneumothorax on the right, approximately 10-15%? Radiology report pending -patient feels well, oxygenating in the mid 90s on room air. When he walks he does desaturate to 88% but recuperates well with 2 L. -I discussed the patient with Dr. Duarte who came to see the patient and reviewed the images. This is of a pneumothorax seems to be small. There is not enough space to safely introduce a pigtail over the anterior axillary line. At this time, it would be best not to do a chest tube/pigtail, we will keep the patient on oxygen and admitted to the hospitalist. -I discussed the patient with Dr. Jules, patient will be going to the floor, needs close monitoring Differential Diagnosis Differential Diagnoses: The differential diagnosis associated with the presentation includes (Pneumothorax, hemothorax) Admission/Observation Consideration of admission/observation: Escalation of care including admission/observation considered Consult Healthcare Provider Management of the patient was discussed with: Hospitalist and Machine Presser Lab Data MDM Lab Attestation statement: I reviewed the patient's lab results. 04/26/23 17:25 04/26/23 17:25 Labs: Lab Results 04/26/23 Range/Units 17:25 WBC 6.9 (4.8-10.8) X10*3/uL RBC 4.27 L (4.60-5.80) X10*6/uL Hgb 12.8 L (14.0-18.0) g/dl Hct 39.9 L (42.0-52.0) % MCV 93.4 (80.0-98.0) fL MCH 30.0 (27.0-33.0) pg MCHC 32.1 (31.0-36.0) g/dl RDW 14.0 (11.0-16.0) % Plt Count 169 (160-400) X10*3/uL MPV 10.9 (9.4-12.4) fL Immature Gran % (Auto) 0.3 (0.0-0.4) % Neut % (Auto) 64.1 (45-73) % Lymph % (Auto) 20.0 (20-40) % Bureau % (Auto) 7.4 (2-11) % Eos % (Auto) 7.3 H (0-4) % Baso % (Auto) 0.9 (0-2) % Lymph # (Auto) 1.4 (1.2-4.9) X10*3/uL Bureau # (Auto) 0.5 (0.1-1.2) X10*3/uL Eos # (Auto) 0.5 H (0.0-0.4) X10*3/uL Baso # (Auto) 0.1 (0.0-0.2) X10*3/uL Abs Immat Gran (auto) 0.02 (0.00-0.03) X10*3/uL Absolute Neuts (auto) 4.4 (2.0-8.3) x10*3/uL Absolute Nucleated RBC 0.000 (0.0-0.012) X10*3/uL Nucleated RBC % (auto) 0.0 (0.0-0.2) /100WBC PT 11.7 (11.1-13.3) SEC INR 1.0 (0.9-1.1) Sodium 144 (135-145) mmol/L Potassium 4.6 (3.3-5.1) mmol/L Chloride 109 H (96-108) mmol/L Carbon Dioxide 29 (22-29) mmol/L Anion Gap 11 L (12-20) BUN 22 H (9-16) mg/dL Creatinine 0.81 (0.5-1.4) mg/dL Estim Creat Clear Calc 90.3 Estimated GFR > 60 Random Glucose 96 (60-115) mg/dL Calcium 9.5 (8.4-10.2) mg/dL Total Bilirubin 1.0 (0.0-1.0) mg/dL Direct Bilirubin 0.4 (0.0-0.5) mg/dL AST 14 (5-37) U/L ALT 16 (0-40) U/L Alkaline Phosphatase 59 (39-117) U/L Troponin I High Sens 4.7 (<3.5-35.0) ng/L B-Natriuretic Peptide 43 (<100) pg/mL Total Protein 6.8 (6.5-8.0) g/dL Albumin 3.7 (3.5-5.0) g/dL COVID-19 ([facility]ICHO) Negative (Negative) COVID-19 Clin Com See Note Independent Interpretation I performed an independent interpretation of an: CT Scan Radiology Impression Discussion of test interpretation with radiology: I have reviewed the radiologist's reading. Radiologist Impression: FINDINGS: WAN SUPPORT SPECIALIST: A right pneumothorax is seen. The lungs are otherwise clear. LUNGS: There is a small to moderate anterior right pneumothorax. There is mild compressive atelectasis seen anteriorly within the right middle lobe. There is bibasilar dependent hypoaeration, right greater than left. Within the apicoposterior segment of the left upper lobe (5:221), a 6 mm ovoid, noncalcified nodule is seen. There is paraseptal predominant emphysema. Bilateral bleb and bullous formation is noted. For example, a 2.1 cm bulla is seen centrally at the right base. There is no mass, infiltrate or groundglass opacity. No small airway thickening is seen. The central airways appear patent. MEDIASTINUM: The thyroid is unremarkable. There is no thoracic aortic aneurysm. There are moderate atherosclerotic calcifications of the great vessel origins and thoracic aorta. No mediastinal or hilar lymphadenopathy is seen. CORONARY ARTERY CALCIFICATION: Mild to moderate. There is a trace pericardial effusion. PLEURA: There is no pleural effusion. No pleural mass or thickening. AXILLA: No lymphadenopathy. UPPER ABDOMEN: Please see accompanying dictation for full CT abdomen and pelvis of the same date. OSSEOUS STRUCTURES: There is multi-level marked lower cervical, thoracic and upper lumbar spondylosis and degenerative disc disease, with an appearance suggesting possible DISH (diffuse idiopathic skeletal hyperostosis). No acute or aggressive osseous abnormality is seen. CT/CT chest wo IV con IMPRESSION: 1. A small to moderate anterior right pneumothorax is seen, consistent with abdominal CT findings of the same date. There is underlying paraseptal predominant emphysema, with bleb and bullous formation noted. 2. No mass, nodule, infiltrate or groundglass opacity is seen. 3. There is no thoracic lymphadenopathy or pleural effusion. 4. Skeletal findings suggest possible DISH. External Record Review External record reviewed: Office record (Gastroenterology) Critical Care Time Critical Care Time Critical Care Time: Yes Total Critical Care Time: 60 Attestation: I have personally provided critical care time. Time includes review of lab data, radiology results, discussion with consultants, and monitoring for potential decompensation. Intervention performed as documented. Discharge Plan Discharge Clinical Impression: Pneumothorax Patient Disposition: Admitted As Inpatient Prescriptions: No Action cetirizine 10 mg Tablet 10 mg PO DAILY cyanocobalamin (vitamin B-12) 1,000 mcg Tablet 1,000 mcg PO DAILY alprazolam 2 mg tablet 2 mg PO TID cholecalciferol (vitamin D3) 50 mcg (2,000 unit) capsule 50 mcg PO DAILY losartan 100 mg tablet 100 mg PO DAILY atenolol 25 mg tablet 25 mg PO DAILY fluticasone propionate 50 mcg/actuation spray,suspension 1 spray intranasal DAILY atorvastatin 80 mg tablet 80 mg PO BEDTIME ezetimibe 10 mg tablet 10 mg PO DAILY omeprazole 20 mg capsule,delayed release(DR/EC) 20 mg PO DAILY allopurinol 300 mg tablet 300 mg PO DAILY levothyroxine [Synthroid] 125 mcg tablet 125 mcg PO DAILY
[2023-04-26 16:22] VITALS: BP 150/68; PULSE 72; RESP 18; TEMP 36.8; O2SAT 93; BMI 33.9
--- NOTE | 2023-04-26 16:22 | ECG_ITS ---
Test Reason : SOB Blood Pressure : / mmHG Vent. Rate : 067 BPM Atrial Rate : 067 BPM P-R Int : 140 ms QRS Dur : 070 ms QT Int : 398 ms P-R-T Axes : 000 -24 012 degrees QTc Int : 420 ms Normal sinus rhythm Normal ECG When compared with ECG of 11-APR-2012 07:30, No significant change was found Referred By: Tracie Greenberg Electronically Signed By:MUKESH RICK
[2023-04-26 17:09] VITALS: BP 157/71; PULSE 64; RESP 13; TEMP 36.9; O2SAT 93
[2023-04-26 17:31] LABS: MANUAL DIFF FLAG NO
[2023-04-26 17:36] LABS: Basophils Absolute Auto 0.1 X10*3/uL (0.0-0.2); Basophils Percent Auto 0.9 % (0-2); Eosinophils Absolute Auto 0.5 X10*3/uL (0.0-0.4); Eosinophils Percent Auto 7.3 % (0-4); Hematocrit 39.9 % (42.0-52.0); Hemoglobin 12.8 g/dl (14.0-18.0); Imm Gran Abs Auto 0.02 X10*3/uL (0.00-0.03); Imm Gran Pct Auto 0.3 % (0.0-0.4); Lymphocytes Absolute Auto 1.4 X10*3/uL (1.2-4.9); Mean Corpuscular HGB Conc 32.1 g/dl (31.0-36.0); Mean Corpuscular Volume 93.4 fL (80.0-98.0); Mean Platelet Volume 10.9 fL (9.4-12.4); Monocytes Absolute Auto 0.5 X10*3/uL (0.1-1.2); Monocytes Percent Auto 7.4 % (2-11); Neutrophils Absolute Auto 4.4 x10*3/uL (2.0-8.3); Neutrophils Percent Auto 64.1 % (45-73); Platelet Count 169 X10*3/uL (160-400); Red Blood Count 4.27 X10*6/uL (4.60-5.80); White Blood Count 6.9 X10*3/uL (4.8-10.8)
[2023-04-26 17:42] LABS: Prothrombin Time 11.7 SEC (11.1-13.3)
[2023-04-26 17:46] LABS: Alanine Aminotransferase 16 U/L (0-40); Albumin Level 3.7 g/dL (3.5-5.0); Alkaline Phosphatase 59 U/L (39-117); Anion Gap 11 (12-20); Aspartate Amino Transferase 14 U/L (5-37); Bilirubin Direct 0.4 mg/dL (0.0-0.5); Blood Urea Nitrogen 22 mg/dL (9-16); Calcium 9.5 mg/dL (8.4-10.2); Carbon Dioxide 29 mmol/L (22-29); Chloride 109 mmol/L (96-108); Creatinine Clr Calc Pharmacy 90.3; Estimated Glomerular Filt Rate > 60; Glucose Random 96 mg/dL (60-115); Potassium 4.6 mmol/L (3.3-5.1); Sodium 144 mmol/L (135-145); Total Protein 6.8 g/dL (6.5-8.0)
[2023-04-26 17:50] LABS: COVID-19 Test Negative (Negative); IDNOW Serial# BCCEAD1C
[2023-04-26 17:51] LABS: B Type Natriuretic Peptide 43 pg/mL (<100)
[2023-04-26 17:52] LABS: Troponin-I High Sensitivity 4.7 ng/L (<3.5-35.0)
[2023-04-26 17:55] VITALS: O2SAT 88
[2023-04-26 19:09] VITALS: BP 148/66; PULSE 59; RESP 16; TEMP 36.7; O2SAT 97
--- NOTE | 2023-04-26 19:10 | PC.NURSE ---
assumed care of patient at 1900
--- NOTE | 2023-04-26 19:14 | MHC.EDTECH ---
This tech assumed care of pt at 1900, vitals and rounds completed. Patient is not happy because his TV is not working, this tech will attempt to fix it. Call schuler within reach
--- NOTE | 2023-04-26 20:18 | PM.IMHP ---
History of Present Illness Date of Service: 04/26/23 Attending physician on admission: Liam Jules Chief Complaint: collapsed lung 72-year-old male with history of coronary artery disease, hypertension, hyperlipidemia, erectile dysfunction, history of prostate cancer s/p transurethral resection of prostate, history of melanoma presented to the ED earlier today after receiving a call from his theology teacher after she was notified that he has a pneumothorax on the right following a CT of the abdomen/pelvis. He has been following with Gastroenterology being worked up for Crohn's disease and as a result had imaging performed earlier today. The patient recalls yesterday morning developing some labored breathing described as an air hunger with some pleuritic chest pain and coughing fits that lasted about 10-15 minutes. However he states after sitting up he felt fine and has been asymptomatic since. In the ED, vitals stable on arrival however became hypoxic to 88% with ambulation placed on 2 L supplemental O2. Hematology studies stable. Renal function normal, electrolyte levels normal. Troponin 4.7, BNP 43. Chest CT showed small to moderate anterior right pneumothorax consistent with prior abdominal CT findings. There is underlying paraseptal predominant emphysema with blebs and bullous formation noted. No masses, nodules, infiltrates, or ground-glass opacities noted. No lymphadenopathy or pleural effusion. He denies any trauma. ED did discuss case with household refrigerator mechanic who does not recommend chest tube placed since at this time but instead recommends observation overnight with supplemental O2 and repeat chest x-ray in the morning. Review of Systems Review of Systems: General: No fevers, malaise, unintentional weight loss Cardiovascular: No chest pain, palpitations, or leg edema Respiratory: No shortness of breath, wheezing, cough GI: No abdominal pain, nausea, vomiting, diarrhea, constipation, melena, hematochezia : No dysuria, hematuria, increased urinary frequency, decreased urinary output MSK: No myalgia, back pain Neuro: No headaches, weakness, paresthesias Skin: No rashes or lesions [facility] Medical History (Updated 04/26/23 @ 20:36 by NICK Desouza) Prostate CA Erectile dysfunction CAD (coronary artery disease) HTN (hypertension) Hyperlipidemia Morbid obesity Family History Father CVD (cardiovascular disease) Mother No problems noted. Son No problems noted. Son No problems noted. Surgical History History of esophagogastroduodenoscopy (EGD) Hx of cholecystectomy History of transurethral resection of prostate History of Mohs micrographic surgery for skin cancer S/P lumbar microdiscectomy Stented coronary artery Hx of cardiac cath Social History Housing: Condominium Alcohol intake: never Patient Tobacco Use Status: Former Tobacco user Smoked in Last 30 Days: No e-Cigarette/Vaping Use: Never Used Second Hand Smoke Exposure: No Use of substances other than those prescribed or required for medical reasons: No Substance Use Type: Marijuana Advance Directives: No Advance Directives Information Provided: No Current occupational status: retired Current occupation: rt handed Cognitive needs: No Hearing needs: No Vision needs: No Meds Allergies Allergy/AdvReac Type Severity Reaction Status Date / Time acetaminophen [Tylenol] AdvReac Unknown Nausea Verified 04/22/23 13:26 Active Medications: Current Medications Acetaminophen (Acetaminophen 325 Mg Tablet) 650 mg PO Q6H PRN PRN Reason: Pain, Mild (Pain Scale 1-3) Melatonin (Melatonin 3 Mg Tablet) 6 mg PO BEDTIME PRN PRN Reason: Insomnia Ondansetron HCl (Ondansetron Hcl 4 Mg/2 Ml Vial) 4 mg IVPUSH Q8H PRN PRN Reason: Nausea and Vomiting Sodium Chloride (0.9 % Sodium Chloride Flush 3 Ml Syringe) [address] [facility] Medications Medication Instructions Recorded Confirmed Last Taken Type allopurinol 300 mg tablet 300 mg PO DAILY 07/21/20 04/26/23 04/26/23 History atenolol 25 mg tablet 25 mg PO DAILY 07/21/20 04/26/23 04/26/23 History atorvastatin 80 mg tablet 80 mg PO BEDTIME 07/21/20 04/26/23 04/25/23 History ezetimibe 10 mg tablet 10 mg PO DAILY 07/21/20 04/26/23 04/26/23 History fluticasone propionate 50 1 spray intranasal DAILY 07/21/20 04/26/23 04/26/23 History mcg/actuation nasal spray,suspension losartan 100 mg tablet 100 mg PO DAILY 07/21/20 04/26/23 04/26/23 History omeprazole 20 mg capsule,delayed 20 mg PO DAILY 07/21/20 04/26/23 04/26/23 History release cholecalciferol (vitamin D3) 50 50 mcg PO DAILY 03/29/23 04/26/23 04/26/23 History mcg (2,000 unit) capsule levothyroxine 125 mcg tablet 125 mcg PO DAILY 04/22/23 04/26/23 04/26/23 History (Synthroid) alprazolam 2 mg tablet 2 mg PO TID anxiety 04/26/23 04/26/23 04/26/23 History cetirizine 10 mg tablet 10 mg PO DAILY 04/26/23 04/26/23 04/26/23 History cyanocobalamin (vitamin B-12) 1,000 mcg PO DAILY 04/26/23 04/26/23 04/26/23 History 1,000 mcg tablet Physical Exam Vital Signs and Narrative: Vital Signs: Last Vital Signs Temp 98.1 F 04/26/23 19:09 Pulse 59 04/26/23 19:09 Resp 16 04/26/23 19:09 BP 148/66 H 04/26/23 19:09 Pulse Ox 97 04/26/23 19:09 O2 Del Method Nasal Cannula 04/26/23 19:09 O2 Flow Rate 3 04/26/23 19:09 BMI result Body Mass Index 33.9 Constitutional - Awake and Alert, No apparent distress Eyes - PERRLA, EOMI Cardiovascular - S1S2, RRR, No edema Respiratory - Normal lung expansion, Normal respiratory effort, No respiratory distress, CTA bilaterally Gastrointestinal - NT / ND; +BS; No rebound or guarding Extremities - no calf tenderness bilaterally, no swelling Skin - Warm/Dry Neurological - Alert & oriented x3 Psychological - Appropriate affect Results Labs 04/26/23 17:25 04/26/23 17:25 Labs: Laboratory Results - last 24 hr 04/26/23 17:25 MCV 93.4 MCH 30.0 MCHC 32.1 RDW 14.0 Plt Count 169 MPV 10.9 Immature Gran % (Auto) 0.3 Neut % (Auto) 64.1 Lymph % (Auto) 20.0 [place] % (Auto) 7.4 Eos % (Auto) 7.3 H Baso % (Auto) 0.9 Lymph # (Auto) 1.4 [place] # (Auto) 0.5 Eos # (Auto) 0.5 H Baso # (Auto) 0.1 Abs Immat Gran (auto) 0.02 Absolute Neuts (auto) 4.4 Absolute Nucleated RBC 0.000 Nucleated RBC % (auto) 0.0 PT 11.7 INR 1.0 Anion Gap 11 L Estim Creat Clear Calc 90.3 Estimated GFR > 60 Random Glucose 96 Calcium 9.5 Total Bilirubin 1.0 Direct Bilirubin 0.4 AST 14 ALT 16 Alkaline Phosphatase 59 B-Natriuretic Peptide 43 Total Protein 6.8 Albumin 3.7 COVID-19 ([facility]ICHO) Negative COVID-19 Clin Com See Note Imaging Radiologist's Impressions: Impressions Chest CT 04/26/23 18:11 IMPRESSION: 1. A small to moderate anterior right pneumothorax is seen, consistent with abdominal CT findings of the same date. There is underlying paraseptal predominant emphysema, with bleb and bullous formation noted. 2. No mass, nodule, infiltrate or groundglass opacity is seen. 3. There is no thoracic lymphadenopathy or pleural effusion. 4. Skeletal findings suggest possible DISH. Fleischner guidelines were followed. Assessment and Plan (1) Pneumothorax: Qualifiers: Pneumothorax type: spontaneous, secondary Qualified Code(s): J93.12 - Secondary spontaneous pneumothorax Status: Acute Plan 72-year-old male with history of coronary artery disease, hypertension, hyperlipidemia, erectile dysfunction, history of prostate cancer s/p transurethral resection of prostate, history of melanoma admitted for further management of pneumothorax with ambulatory hypoxia. # secondary spontaneous pneumothorax with ambulatory hypoxia- likely due to bleb rupture -no hypoxia at rest but desaturates into the 80s with ambulation -CT chest shows small to moderate pneumothorax with underlying paraseptal predominant emphysema with blebs and bullous formation noted -no chest tube placed at this time per household refrigerator mechanic -continue supplemental O2 to maintain oximetry greater than 92% -pulmonology consult -repeat chest x-ray a.m. # emphysema -newly diagnosed, former smoker -albuterol p.r.n. -pulmonology consult, outpatient follow-up # coronary artery disease/hyperlipidemia -no anginal chest pain, troponin within normal limits -continue beta-tatum, statin, Zetia # hypertension -blood pressure reasonably controlled -continue losartan, atenolol # hypothyroidism -continue levothyroxine DVT prophylaxis- lovenox Full code Patient requires inpatient stay at least 2 midnights for management of spontaneous pneumothorax with ambulatory hypoxia requiring close monitoring, repeat imaging with possible chest tube placement if no resolution Time Spent With Patient Time: Total time managing care of this patient today ____ minutes. Quality Stroke Does the patient have a stroke diagnosis?: No VTE Prior VTE?: No VTE Risk Level:: Medical - moderate - high VTE Device Contraindication: N/A - Device Ordered VTE Drug Contraindication: Treatment Not Indicated
--- NOTE | 2023-04-26 20:25 | PHA.MEDREC ---
Pharmacy Consult ? Medication Reconciliation Pharmacy has completed the medication reconciliation. Patient confirmed medications. Sammie Cano, EddieD
[2023-04-26] MEDS: ALPRAZolam 0.5 MG TABLET 2 MG PO (21:12)
[2023-04-26] MEDS: Atorvastatin Calcium 80 MG TABLET PO (21:12)
[2023-04-26 21:14] VITALS: PULSE 72; RESP 14; O2SAT 95
--- NOTE | 2023-04-26 21:19 | PC.NURSE ---
pt taken off o2 to see how he does on room air pt is maintaining oxygen saturations 95% room air and speaking clear full sentences in no apparent distress. pt says he wears cpap to sleep at night will call respiratory to get situated. call schuler within reach.
--- NOTE | 2023-04-26 21:32 | MHC.EDTECH ---
Patient was moved to room 4 in the ED to accommodate the TV , patient was upset his didn't work. Hourly rounds, vitals and belongings list completed. Call schuler within reach
[2023-04-26 21:35] VITALS: BP 152/66; PULSE 58; RESP 18; TEMP 36.8; O2SAT 96
--- NOTE | 2023-04-26 22:51 | PC.NURSE ---
report called to medical doctor nuclear medicine @22:51
[2023-04-26 23:59] VITALS: BMI 35.3
[2023-04-27] MEDS: 0.9 % Sodium Chloride Flush 3 ML SYRINGE IVFLUSH ×4 (00:02→21:30)
[2023-04-27 00:22] VITALS: BP 158/82; PULSE 70; RESP 18; TEMP 36.9; O2SAT 97
[2023-04-27 03:14] VITALS: BP 114/57; PULSE 50; RESP 18; TEMP 36.2; O2SAT 97
[2023-04-27] MEDS: Omeprazole 20 MG CAPSULE.DR PO (06:16)
[2023-04-27] MEDS: Levothyroxine Sodium 125 MCG TABLET PO (06:16)
[2023-04-27 06:24] LABS: Alanine Aminotransferase 15 U/L (0-40); Albumin Level 3.4 g/dL (3.5-5.0); Alkaline Phosphatase 58 U/L (39-117); Anion Gap 11 (12-20); Aspartate Amino Transferase 16 U/L (5-37); Bilirubin Total 1.9 mg/dL (0.0-1.0); Blood Urea Nitrogen 19 mg/dL (9-16); Calcium 9.6 mg/dL (8.4-10.2); Carbon Dioxide 30 mmol/L (22-29); Chloride 106 mmol/L (96-108); Creatinine Clr Calc Pharmacy 98.2; Estimated Glomerular Filt Rate > 60; Glucose Random 83 mg/dL (60-115); Potassium 3.9 mmol/L (3.3-5.1); Sodium 143 mmol/L (135-145); Total Protein 6.4 g/dL (6.5-8.0)
--- NOTE | 2023-04-27 07:39 | P.PNIM_ITS ---
Subjective Subjective Date of Service: 04/27/23 Interval History: Follow-up on spontaneous pneumothorax no sob, no hypoxia Physical Exam 2 Vital Signs: Vital Signs: Last Vital Signs Temp 97.1 F 04/27/23 03:14 Pulse 50 04/27/23 03:14 Resp 18 04/27/23 03:14 BP 114/57 L 04/27/23 03:14 Pulse Ox 97 04/27/23 03:14 O2 Del Method Nasal Cannula 04/27/23 03:14 O2 Flow Rate 2 04/27/23 03:14 BMI result Body Mass Index 35.3 Objective Data Active Medications Acetaminophen (Acetaminophen 325 Mg Tablet) 650 mg PO Q6H PRN PRN Reason: Pain, Mild (Pain Scale 1-3) Allopurinol (Allopurinol 300 Mg Tablet) 300 mg PO DAILY [facility] Alprazolam (Alprazolam 0.5 Mg Tablet) 2 mg PO TID [facility] Last Admin: 04/26/23 21:12 Dose: 2 mg Documented By: NOEMY Atenolol (Atenolol 25 Mg Tablet) 25 mg PO DAILY [facility]; Protocol Atorvastatin Calcium (Atorvastatin Calcium 80 Mg Tablet) 80 mg PO BEDTIME [facility] Last Admin: 04/26/23 21:12 Dose: 80 mg Documented By: NOEMY Cyanocobalamin (Cyanocobalamin (Vitamin B-12) 1,000 Mcg Tablet) 1,000 mcg PO DAILY [facility] Ezetimibe (Ezetimibe 10 Mg Tablet) 10 mg PO DAILY [facility] Fluticasone Propionate (Fluticasone Propionate Nasal 16 Gm [place]) 1 spray NOSTRIL-B DAILY [facility] Levothyroxine Sodium (Levothyroxine Sodium 125 Mcg Tablet) 125 mcg PO DAILY@0600 [facility] Last Admin: 04/27/23 06:16 Dose: 125 mcg Documented By: VIJI Loratadine (Loratadine 10 Mg Tablet) 10 mg PO DAILY [facility] Losartan Potassium (Losartan Potassium 50 Mg Tablet) 100 mg PO DAILY [facility]; Protocol Melatonin (Melatonin 3 Mg Tablet) 6 mg PO BEDTIME PRN PRN Reason: Insomnia Omeprazole (Omeprazole 20 Mg Capsule.) 20 mg PO DAILY@0630 [facility] Last Admin: 04/27/23 06:16 Dose: 20 mg Documented By: VIJI Ondansetron HCl (Ondansetron Hcl 4 Mg/2 Ml Vial) 4 mg IVPUSH Q8H PRN PRN Reason: Nausea and Vomiting Sodium Chloride (0.9 % Sodium Chloride Flush 3 Ml Syringe) 3 ml IVFLUSH QSHIFT [facility] Last Admin: 04/27/23 00:02 Dose: 3 ml Documented By: VIJI Vitamin D (Cholecalciferol (Vitamin D3) 25 Mcg Tablet) 50 mcg PO DAILY [facility] Labs 04/26/23 17:25 04/27/23 05:31 Labs: Laboratory Results - last 24 hr 04/26/23 04/27/23 17:25 05:31 MCV 93.4 MCH 30.0 MCHC 32.1 RDW 14.0 Plt Count 169 MPV 10.9 Immature Gran % (Auto) 0.3 Neut % (Auto) 64.1 Lymph % (Auto) 20.0 [place] % (Auto) 7.4 Eos % (Auto) 7.3 H Baso % (Auto) 0.9 Lymph # (Auto) 1.4 [place] # (Auto) 0.5 Eos # (Auto) 0.5 H Baso # (Auto) 0.1 Abs Immat Gran (auto) 0.02 Absolute Neuts (auto) 4.4 Absolute Nucleated RBC 0.000 Nucleated RBC % (auto) 0.0 PT 11.7 INR 1.0 Anion Gap 11 L 11 L Estim Creat Clear Calc 90.3 98.2 Estimated GFR > 60 > 60 Random Glucose 96 83 Calcium 9.5 9.6 Total Bilirubin 1.0 1.9 H Direct Bilirubin 0.4 AST 14 16 ALT 16 15 Alkaline Phosphatase 59 58 B-Natriuretic Peptide 43 Total Protein 6.8 6.4 L Albumin 3.7 3.4 L COVID-19 ([place]) Negative COVID-19 Clin Com See Note Assessment and Plan (1) Pneumothorax: Status: Acute Plan 72-year-old male with history of coronary artery disease, hypertension, hyperlipidemia, erectile dysfunction, history of prostate cancer s/p transurethral resection of prostate, history of melanoma admitted for further management of pneumothorax with ambulatory hypoxia. # Spontaneous pneumothorax with ambulatory hypoxia- likely due to bleb rupture -no hypoxia at rest but desaturates into the 80s with ambulation -CT chest shows small to moderate pneumothorax with underlying paraseptal predominant emphysema with blebs and bullous formation noted -no chest tube placed at this time per steel shot header operator -continue supplemental O2 to maintain oximetry greater than 92% -pulmonology consult -repeat chest x-ray this morning # emphysema -newly diagnosed, former smoker -albuterol p.r.n. -pulmonology consult, outpatient follow-up # coronary artery disease/hyperlipidemia -no anginal chest pain, troponin within normal limits -continue beta-tatum, statin, Zetia # hypertension -blood pressure reasonably controlled -continue losartan, atenolol # hypothyroidism -continue levothyroxine DVT prophylaxis- lovenox Full code Patient requires inpatient stay at least 2 midnights for management of spontaneous pneumothorax with ambulatory hypoxia requiring close monitoring, repeat imaging with possible chest tube placement if no resolution Time Spent With Patient Time: Total time managing care of this patient today ____ minutes. Quality Stroke Does the patient have a stroke diagnosis?: No VTE Prior VTE?: No VTE Risk Level:: Medical - moderate - high VTE Device Contraindication: N/A - Device Ordered VTE Drug Contraindication: Treatment Not Indicated
[2023-04-27 07:42] VITALS: BP 115/57; PULSE 50; RESP 18; TEMP 36; O2SAT 98
[2023-04-27] MEDS: atenoloL 25 MG TABLET PO (08:14)
[2023-04-27] MEDS: Cyanocobalamin (Vitamin B-12) 1,000 MCG TABLET 1000 MCG PO (08:14)
[2023-04-27] MEDS: Losartan Potassium 50 MG TABLET 100 MG PO (08:14)
[2023-04-27] MEDS: Cholecalciferol (Vitamin D3) 25 MCG TABLET 50 MCG PO (08:14)
[2023-04-27] MEDS: ALPRAZolam 0.5 MG TABLET 2 MG PO ×3 (08:14→21:30)
[2023-04-27] MEDS: allopurinoL 300 MG TABLET PO (08:14)
[2023-04-27] MEDS: Ezetimibe 10 MG TABLET PO (08:15)
[2023-04-27] MEDS: Loratadine 10 MG TABLET PO (08:15)
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
--- NOTE | 2023-04-27 11:29 | MHC.CM.PN ---
PT REPORTS HE LIVES ALONE AND IS INDEPENDENT WITH CARE PT REPORTS HE USES A CPAP FOR DME AND HAS NO SERVICES PT SAYS HE HAS A HCP ALREADY COMPLETED NAMING HIS SON, JOCELYNN, THE AGENT PCP: JAE GUSTAFSON IMM DELIVERED DCP: HOME NO SERVICES PT WILL DRIVE HIMSELF HOME
[2023-04-27 15:38] VITALS: BP 155/67; PULSE 54; RESP 18; TEMP 35.2; O2SAT 100
[2023-04-27 19:16] VITALS: BP 133/63; PULSE 56; RESP 20; TEMP 35.5; O2SAT 98
[2023-04-27] MEDS: Atorvastatin Calcium 80 MG TABLET PO (21:30)
[2023-04-27] MEDS: Melatonin 3 MG TABLET 6 MG PO (21:30)
[2023-04-28 04:00] VITALS: BP 106/61; PULSE 51; RESP 17; TEMP 36.4; O2SAT 95
[2023-04-28] MEDS: Omeprazole 20 MG CAPSULE.DR PO (05:53)
[2023-04-28] MEDS: Levothyroxine Sodium 125 MCG TABLET PO (05:53)
--- NOTE | 2023-04-28 07:08 | P.DS_ITS ---
DS: Providers Provider Date of Service: 04/28/23 Date of admission: 04/26/23 19:41 Primary care physician: [facility] Consults: 04/26/23 20:15 Consult to Pulmonology Routine Consulting Provider: [facility] [place] [facility] Reason for consultation: pneumothorax DS: Diagnosis Discharge Diagnosis (1) Pneumothorax: Status: Acute DS: Summary Hospital Course Hospital Course: Chief Complaint: collapsed lung 72-year-old male with history of coronary artery disease, hypertension, hyperlipidemia, erectile dysfunction, history of prostate cancer s/p transurethral resection of prostate, history of melanoma presented to the ED earlier today after receiving a call from his border measurer and cutter after she was notified that he has a pneumothorax on the right following a CT of the abdomen/pelvis. He has been following with Gastroenterology being worked up for Crohn's disease and as a result had imaging performed earlier today. The patient recalls yesterday morning developing some labored breathing described as an air hunger with some pleuritic chest pain and coughing fits that lasted about 10-15 minutes. However he states after sitting up he felt fine and has been asymptomatic since. In the ED, vitals stable on arrival however became hypoxic to 88% with ambulation placed on 2 L supplemental O2. Hematology studies stable. Renal function normal, electrolyte levels normal. Troponin 4.7, BNP 43. Chest CT showed small to moderate anterior right pneumothorax consistent with prior abdominal CT findings. There is underlying paraseptal predominant emphysema with blebs and bullous formation noted. No masses, nodules, infiltrates, or ground-glass opacities noted. No lymphadenopathy or pleural effusion. He denies any trauma. ED did discuss case with rules examiner who does not recommend chest tube placed since at this time but instead recommends observation overnight with supplemental O2 and repeat chest x-ray in the morning. Hospital course: Patient came to hospital for outpatient CT of abdomen which revealed incidental pneumothorax and was called to return to the ED, he uses bipap at home. he he was not hypoxic except on ambulation. He was observed overnight and the following day was evaluated by Dr. Shankar warhead maintenance specialist who recommended needle aspiration of the 20% pneumothorax, this was succesfull done in IR with resolution of the Pneumothorax. HIs bibap pressure setting has been reduced. Time Spent with Patient Time attestation: Total time managing care of this patient today ____ minutes. Discharge coordination time: Greater than 30 minutes Quality: Safe Use of Opioids Does Pt have an Active Cancer Diagnosis on the Problem List?: No Quality: Stroke Does the patient have a stroke diagnosis?: No Physical Exam Vital Signs: Vital Signs: Last Vital Signs Temp 97.5 F 04/28/23 04:00 Pulse 51 04/28/23 04:00 Resp 17 04/28/23 04:00 BP 106/61 04/28/23 04:00 Pulse Ox 95 04/28/23 04:00 O2 Del Method CPAP 04/28/23 04:00 O2 Flow Rate 2.0 04/27/23 19:16 BMI result Body Mass Index 35.3 Discharge Plan Discharge Anticipated Discharge Date/Time: 04/28/23 07:09 Patient Disposition: Home, Self-Care Discharge Diagnosis: Pneumothorax Referrals: [place] [Primary Care Provider] - 1 Week Discharge Medications: Continued cetirizine 10 mg Tablet 10 mg PO DAILY cyanocobalamin (vitamin B-12) 1,000 mcg Tablet 1,000 mcg PO DAILY alprazolam 2 mg tablet 2 mg PO TID cholecalciferol (vitamin D3) 50 mcg (2,000 unit) capsule 50 mcg PO DAILY losartan 100 mg tablet 100 mg PO DAILY atenolol 25 mg tablet 25 mg PO DAILY fluticasone propionate 50 mcg/actuation spray,suspension 1 spray intranasal DAILY atorvastatin 80 mg tablet 80 mg PO BEDTIME ezetimibe 10 mg tablet 10 mg PO DAILY omeprazole 20 mg capsule,delayed release(DR/EC) 20 mg PO DAILY allopurinol 300 mg tablet 300 mg PO DAILY levothyroxine [Synthroid] 125 mcg tablet 125 mcg PO DAILY Diet: Advance to usual diet Activity on Discharge: As tolerated Stand Alone Forms: Patient Portal Discharge page Care Plan Goals: recovery from pneumothorax Health Concerns: Pneumothorax Emphasema Plan of Treatment: resume usual medications and new cpap setting at home Assessment: as above
[2023-04-28 07:56] VITALS: BP 135/67; PULSE 59; RESP 18; TEMP 35.7; O2SAT 95
[2023-04-28] MEDS: Loratadine 10 MG TABLET PO (08:07)
[2023-04-28] MEDS: 0.9 % Sodium Chloride Flush 3 ML SYRINGE IVFLUSH (08:07)
[2023-04-28] MEDS: allopurinoL 300 MG TABLET PO (08:07)
[2023-04-28] MEDS: Cholecalciferol (Vitamin D3) 25 MCG TABLET 50 MCG PO (08:07)
[2023-04-28] MEDS: Ezetimibe 10 MG TABLET PO (08:07)
[2023-04-28] MEDS: Losartan Potassium 50 MG TABLET 100 MG PO (08:07)
[2023-04-28] MEDS: atenoloL 25 MG TABLET PO (08:07)
[2023-04-28] MEDS: Cyanocobalamin (Vitamin B-12) 1,000 MCG TABLET 1000 MCG PO (08:07)
--- NOTE | 2023-04-28 08:39 | P.PNPL_ITS ---
Subjective Subjective Date of Service: 04/29/23 Interval history: The patient was seen and examined. PTX aspirated and post procedure CXR was better with no PTX. She tolerated the autoVPAP with AHI 1.4. The patient is ok to go home. Objective Data Labs 04/26/23 17:25 04/27/23 05:31 Review of Systems Review of Systems General: No fevers, malaise, unintentional weight loss Cardiovascular: no chest pain, palpitations, or leg edema Respiratory: No shortness of breath, wheezing, cough GI: No abdominal pain, nausea, vomiting, diarrhea, constipation, melena, hematochezia : No dysuria, hematuria, increased urinary frequency, decreased urinary output MSK: No myalgia, back pain Neuro: No headaches, weakness, paresthesias Skin: No rashes or lesions Physical Exam 2 Vital Signs: Vital Signs: Last Vital Signs Temp 96.3 F L 04/28/23 07:56 Pulse 59 04/28/23 07:56 Resp 18 04/28/23 07:56 BP 135/67 04/28/23 07:56 Pulse Ox 95 04/28/23 07:56 O2 Del Method Room Air 04/28/23 07:56 O2 Flow Rate 2.0 04/27/23 19:16 BMI result Body Mass Index 35.3 Const: General: cooperative, comfortable and no acute distress O rientation/consciousness: patient oriented x3 HEENT: Head: Yes normal to inspection Neck: Neck: Yes supple Chest: Chest palpation & inspection: normal inspection of the chest and other (No crepitus) Resp: Effort & Inspection: normal respiratory effort Auscultation: no crackles, no rales, no rhonchi, no wheezes and diminished lung sounds Cardio: Rate: regular rate Rhythm: regular rhythm Heart sounds: S1 normal heart sound present and S2 normal heart sound present GI: Palpation (GI): Soft to palpation Skin: General skin exam: no rashes or lesions noted Neuro: General: patient oriented x3 Extrem: General: Yes no clubbing, cyanosis or edema Procedures Date of Service Date of Service: 04/29/23 Assessment and Plan Assessment and plan (1) ONIEL treated with BiPAP: Status: Acute (2) Pneumothorax: Status: Acute (3) Emphysema of lung: Status: Acute Plan continue autoVPAP CXR next week and serial CXRs warranted F/U with pulmonary If recurrent CP/SOB will need to be evaluated Time Spent With Patient Time: Total time managing care of this patient today ____ minutes. Progress Note: Quality Stroke Does the patient have a stroke diagnosis?: No
[2023-04-28] MEDS: ALPRAZolam 0.5 MG TABLET 2 MG PO (08:52)
--- NOTE | 2023-04-28 09:15 | MHC.CM.PN ---
PT WILL DC HOME TODAY WITH NO SERVICES VIA SELF TRANSPORT
== END 2023-04-28 11:33 | disposition home or self-care (01) | DRG 191 ==
LOC: HO.ED 21:14 → HO.EDOVER 21:36 → HO.S3 22:17
PROVIDERS: Physician Assistant; Radiology Diagnostic Radiology; Admitting Provider Student in an Organized Health Care Education/Training Program; Emergency Provider Emergency Medicine; PCP Nurse Practitioner Family; Visit Provider Internal Medicine
PROC: 0B9K3ZX Drainage of Right Lung, Percutaneous Approach, Diagnostic (ICD-10-PCS; principal; 2023-04-27 13:30)
DX: J43.2 Centrilobular emphysema (principal); J93.12 Secondary spontaneous pneumothorax; R09.02 Hypoxemia; I25.10 Atherosclerotic heart disease of native coronary artery without angina pectoris; G47.33 Obstructive sleep apnea (adult) (pediatric); E78.5 Hyperlipidemia, unspecified; E03.9 Hypothyroidism, unspecified; Z20.822 Contact with and (suspected) exposure to COVID-19; Z95.1 Presence of aortocoronary bypass graft; Z85.820 Personal history of malignant melanoma of skin; Z85.46 Personal history of malignant neoplasm of prostate; Z87.891 Personal history of nicotine dependence; Z79.51 Long term (current) use of inhaled steroids; Z79.890 Hormone replacement therapy; Z79.899 Other long term (current) drug therapy
CPT/HCPCS: 10160; 36415; 71045; 71250; 74177; 80048; 80053; 80076; 83880; 84484; 85025; 85610; 87635; 90686; 93005; 99285; C1729; Q9967

== ENCOUNTER → 2023-04-26 18:27 | Outpatient (BNV) | payer MEDICARE, BC, SELFPAY | PROVIDERS: Emergency Provider Emergency Medicine; Visit Provider Physician Assistant | DX: J93.12 Secondary spontaneous pneumothorax (principal) | CPT/HCPCS: 99223; 99232; 99239 ==

== ENCOUNTER → 2023-04-26 19:41 | Outpatient (BNV) | payer MEDICARE, BC, SELFPAY | PROVIDERS: Admitting Provider Student in an Organized Health Care Education/Training Program; Emergency Provider Emergency Medicine; Visit Provider Hospitalist | DX: G47.33 Obstructive sleep apnea (adult) (pediatric) (principal); J93.12 Secondary spontaneous pneumothorax; J43.2 Centrilobular emphysema | CPT/HCPCS: 99232; 99233 ==

== ENCOUNTER 2023-04-29 | Outpatient (REF) | payer MEDICARE, BC, SELFPAY | END 2023-04-29 00:01 | disposition home or self-care (01) | LOC: CF | PROVIDERS: Visit Provider Nurse Practitioner Family | DX: J43.2 Centrilobular emphysema (principal); G47.33 Obstructive sleep apnea (adult) (pediatric); Z01.811 Encounter for preprocedural respiratory examination | CPT/HCPCS: 99212 ==

== ENCOUNTER 2023-04-29 14:10 | Outpatient (AMB) | payer MEDICARE, BC, SELFPAY ==
--- NOTE | 2023-04-29 14:35 | A.OFFVIS_ITS ---
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 Required: No Classification And Treatment Director: Classification And Treatment Director offered & declined Accompanied by: Self / Same As Patient Allergies acetaminophen [Tylenol] Adverse Reaction (Unknown, Verified 04/29/23 14:44) Nausea Medication List - Last Reconciled 04/29/23 by Jazz Olivera LPN allopurinol 300 mg PO DAILY alprazolam 2 mg PO TID atenolol 25 mg PO DAILY atorvastatin 80 mg PO BEDTIME cetirizine 10 mg PO DAILY cholecalciferol (vitamin D3) 50 mcg PO DAILY cyanocobalamin (vitamin B-12) 1,000 mcg PO DAILY ezetimibe 10 mg PO DAILY fluticasone propionate 50 mcg/actuation 1 spray intranasal DAILY levothyroxine (Synthroid) 125 mcg PO DAILY losartan 100 mg PO DAILY omeprazole 20 mg PO DAILY HPI Pre Op - Colonoscopy / Hospital Follow Up HPI Details aJke is a pleasant 72 year old male, former smoker with 10 pack year history quit 25 years ago, with underlying emphysema, ONIEL on BiPAP, CAD, h/o prostate cancer s/p TURP, h/o melanoma and Crohn's disease. He was referred for perioperative pulmonary evaluation by GI for colonoscopy. He was recently admitted to [facility] after routine abdominal CT revealed spontaneous right pneumothorax likely secondary to emphysema. He reported dyspnea and slight discomfort of right chest with associated coughing that resolved after approximately 10 minutes then was asymptomatic. Ultimately a chest tube was placed, removed yesterday and patient was discharged. During the stay he noted that his settings on BiPAP were adjusted but unsure of the new settings, prior were 25/18. He denies any respiratory symptoms or recent respiratory infections. He denies any personal history of respiratory conditions. He reports maternal family with lung cancer. [facility] Medical History (Updated 05/03/23 @ 09:04 by Amena Martinez NP) Emphysema of lung ONIEL treated with BiPAP Prostate CA Erectile dysfunction CAD (coronary artery disease) HTN (hypertension) Hyperlipidemia Morbid obesity Surgical History (Updated 04/30/23 @ 00:02 by Michelle Deal) History of esophagogastroduodenoscopy (EGD) Hx of cholecystectomy History of transurethral resection of prostate History of Mohs micrographic surgery for skin cancer S/P lumbar microdiscectomy Stented coronary artery Hx of cardiac cath Family History Father CVD (cardiovascular disease) Mother No problems noted. Son No problems noted. Son No problems noted. Social History Household Members: None Housing: Condominium Do you presently have visiting nurse or other home services: No Alcohol intake: never Patient Tobacco Use Status: Former Tobacco user e-Cigarette/Vaping Use: Never Used Second Hand Smoke Exposure: No Substance Use Type: Marijuana service: Yes Current occupational status: retired Current occupation: rt handed Cognitive needs: No Hearing needs: No Vision needs: No Review of Systems Const Denies chills, Denies excessive sweating, Denies fever(s), Denies headache(s) and Denies night sweats Eyes Denies dry eyes, Denies irritation and Denies itchy eyes ENT Reports Normal hearing present, Denies headache(s), Denies nasal congestion, Denies nasal discharge, Denies post nasal drip and Denies sore throat Card Denies chest pain, Denies chest pain at rest, Denies chest pain with activity, Denies claudication, Denies leg edema, Denies dyspnea, Denies orthopnea and Denies paroxysmal nocturnal dyspnea Resp Denies chest congestion, Denies cough, Denies excessive phlegm production, Denies pain on inspiration, Denies pain with cough, Denies dyspnea, Denies stridor and Denies wheezing Musc Denies myalgias Neuro Reports Normal hearing present and Denies headache(s) Endo Denies excessive sweating Adrian/Lymph Denies lymphadenopathy Aller/Immun Denies itchy eyes, Denies seasonal rhinorrhea and Denies wheezing Physical Exam Vital Signs: Last Vital Signs Pulse 67 04/29/23 14:37 BP 134/78 04/29/23 14:37 Pulse Ox 97 04/29/23 14:37 Oxygen Delivery Method Room Air 04/29/23 14:37 BMI result Body Mass Index 34.7 Const General: cooperative, healthy appearing, comfortable, no acute distress, well developed and alert Nutritional Appearance: obese Orientation/consciousness: patient oriented x3 Limitations: no limitations HEENT Head: Yes normal to inspection, Yes normocephalic and Yes atraumatic Ears: hearing grossly normal bilaterally and external ears normal Eyes General: appearance normal, both eyes and all related structures Eyelids: Yes eyelids normal Sclerae: sclerae normal EOM: EOMs intact bilaterally Neck Neck: Yes normal visual inspection and Yes no lymphadenopathy Lymphatic: no lymphadenopathy noted Chest Chest palpation & inspection: normal inspection of the chest Resp Effort & Inspection: normal respiratory effort, able to speak in complete sentences, no audible wheezes, no cough, no stridor, not tachypneic, no tripod positioning and no use of accessory muscles Auscultation: clear to auscultation bilaterally Cardio Jugular venous distension: no JVD Rate: regular rate Rhythm: regular rhythm Skin Other: warm, dry General skin exam: no rashes or lesions noted Neuro General: patient oriented x3 Cranial nerves: Yes Normal hearing present Cognition (Neuro): normal cognition Gait exam (Neuro): Normal gait present Extrem General: Yes normal to inspection, Yes capillary refill normal, Yes no clubbing, cyanosis or edema and Yes no pedal edema Psych Appearance: grossly normal and well kempt Speech and movement: Normal speech and movement present and Clear speech present Affect: normal affect Attitude: cooperative Thought process: Normal thought process present Thought content: Normal thought content present Insight: Good insight present (Psych) Judgement: Good judgement present (Psych) Assessment & Plan Assessment & Plan (1) Emphysema of lung: Code(s): J43.9 - Emphysema, unspecified Qualifiers: Emphysema type: centrilobular Qualified Code(s): J43.2 - Centrilobular emphysema (2) ONIEL treated with BiPAP: Code(s): G47.33 - Obstructive sleep apnea (adult) (pediatric) (3) Encounter for preoperative pulmonary examination: Code(s): Z01.811 - Encounter for preprocedural respiratory examination Plan Jake presents for pulmonary preoperative evaluation, as he recently had spontaneous pneumothorax secondary to emphysema. He currently denies any respiratory concerns and no wheezing is appreciated on exam. Deferred spirometry or sending for PFT, given his chest tube was removed yesterday. Will reassess after CXR is performed next week. If unremarkable, will schedule PFT. Will also attempt to obtain new settings for BiPAP. All questions were answered and patient is in agreement of plan. Will follow up after PFT is performed. Coding Level of Care Code New Pt Level 4 (22584) Diagnoses Centrilobular emphysema J43.2 Emphysema type: centrilobular ONIEL treated with BiPAP G47.33 Encounter for preoperative pulmonary examination Z01.811
[2023-04-29 14:37] VITALS: BP 134/78; PULSE 67; O2SAT 97; BMI 34.7
== END 2023-04-29 15:32 | disposition home or self-care (01) ==
LOC: HO.HPSW 14:10
PROVIDERS: PCP Nurse Practitioner Family; Visit Provider Nurse Practitioner Family
DX: J43.2 Centrilobular emphysema (principal); G47.33 Obstructive sleep apnea (adult) (pediatric); Z01.811 Encounter for preprocedural respiratory examination
CPT/HCPCS: 99204; 99214

== ENCOUNTER 2023-05-09 13:20 | Outpatient (REF) | payer MEDICARE, BC, SELFPAY ==
--- NOTE | ~2023-05-09 | XR_ITS ---
EXAMINATION: XR CHEST CLINICAL INFORMATION: Pneumothorax COMPARISON: Previous chest x-ray most recent 04/28/2023 TECHNIQUE: 2 views of the chest were obtained. FINDINGS: The cardiac and mediastinal contours are stable. The lungs are clear. No pleural effusion or pneumothorax. Degenerative changes of the spine. XR/XR chest 2V IMPRESSION: No pneumothorax.
== END 2023-05-09 13:21 | disposition home or self-care (01) ==
LOC: HO.HMGCX 13:20
PROVIDERS: PCP Nurse Practitioner Family; Visit Provider Nurse Practitioner Family
DX: J93.83 Other pneumothorax (principal)
CPT/HCPCS: 71046

== ENCOUNTER 2023-05-18 12:36 | Day surgery (SDC) | payer MEDICARE, BC, SELFPAY ==
--- NOTE | 2023-05-18 12:30 | MHC.SHP ---
Pre-Procedural Eval Section A Date of Service: 05/18/23 Section B Chief Complaint: Irritable bowel syndrome without diarrhea Relevant Family History (Specify if Yes): No Relevant Social History: None Present Medications: see Short Stay Collaborative assessment Medical History: Significant History (Emphysema of lung ONIEL treated with BiPAP Prostate CA Erectile dysfunction CAD (coronary artery disease) HTN (hypertension) Hyperlipidemia Morbid obesity) History of Previous Operations: Relevant previous surgery/procedure and date(s) (History of esophagogastroduodenoscopy (EGD) Hx of cholecystectomy History of transurethral resection of prostate History of Mohs micrographic surgery for skin cancer S/P lumbar microdiscectomy Stented coronary artery Hx of cardiac cath) Allergies: Allergies Allergy/AdvReac Type Severity Reaction Status Date / Time acetaminophen [Tylenol] AdvReac Unknown Nausea Verified 04/29/23 14:44 Review of Systems Sugical H&P ROS: Negative: Constitution, Cardiovascular, Respiratory, Neurological, Psychiatric, Hem-Onc, Allergic/Immunologic, Gastrointestinal, Genitourinary, Musculoskeletal, Integumentary, Endocrine and Eyes/Ears/Nose/Throat Exam Surgical H&P Exam: Normal: HEENT, Normal: Heart, Normal: Lungs, Normal: Extremities, Normal: Abdomen, Normal: Skin and Normal: Neurological Plan Diagnosis/Plan: Unchanged I have reviewed the history and physical and performed a pertinent physical examination on my patient. No changes have occurred unless specified. Patient admits to abnormal shaped stools, worm like appearance , much softer than normal, recommend adding EGD with colonoscopy to r/o upper GI pathology, helminth infection, also labs with anemia and low albumin, r/o malabsorption Time Spent With Patient Time: Total time managing care of this patient today ____ minutes.
--- OUTSIDE RECORDS SUMMARY | 2023-05-18 12:39 | XMS_ITS | Continuity of Care Document ---
Author Name Unknown Organization [facility] Address [address] [place] [id number]- Care Team Providers Care Circular Knitter Helper Name Role Phone Maggy AVALOS, Navjot Whitehead Primary Care Physician Encounter [facility] Date(s): 02/16/22 - 08/11/22 [facility] [address] [place] [id number]- Discharge Disposition: A-D/C Home Attending Physician: Chirag Castrejon MD Admitting Physician: Chirag Castrejon MD Referring Physician: Jose Luis Garrison MD Allergies, Adverse Reactions, Alerts Substance Reaction Severity Status Tylenol n/v Active Medications allopurinol 300 mg oral tablet 1 tablet = 300 mg, By Mouth, Daily, # 15 tablet, 0 Refills, Maintenance, Tablet Start Date: 04/11/12 Status: Ordered ALPRAZolam 2 mg oral tablet, extended release 2 tablet = 4 mg, By Mouth, Daily in AM, 0 Refills, Maintenance, 12/25/20 12:45:00 EDT, ER Tablet, Partial fill upon patient request if the prescription is for a schedule II opioid drug. Start Date: 12/25/20 Status: Ordered amLODIPine 5 mg oral tablet 1 tablet = 5 mg, By Mouth, Daily, # 30 tablet, 0 Refills, Maintenance, 12/25/20 12:43:00 EDT, Tablet, Partial fill upon patient request if the prescription is for a schedule II opioid drug. Start Date: 12/25/20 Status: Ordered Amoxicillin By Mouth, Maintenance, 12/25/20 12:42:00 EDT Start Date: 12/25/20 Status: Ordered AndroGel 20.25 mg (1.62%) transdermal gel 1 pack/packet, Topically, Daily in AM, 0 Refills, Maintenance, 06/01/17 13:07:43 Start Date: 01/13/17 Status: Ordered aspirin 81 mg oral tablet 1 tablet = 81 mg, By Mouth, Daily, # 30 tablet, 0 Refills, Maintenance, Tablet Start Date: 04/11/12 Status: Ordered atenolol 25 mg oral tablet 1 tablet = 25 mg, By Mouth, Daily, # 30 tablet, 0 Refills, Maintenance, Tablet Start Date: 04/11/12 Status: Ordered ezetimibe 10 mg oral tablet 1 tablet = 10 mg, By Mouth, Daily, # 30 tablet, 0 Refills, Maintenance, 12/25/20 12:44:00 EDT, Tablet, Partial fill upon patient request if the prescription is for a schedule II opioid drug. Start Date: 12/25/20 Status: Ordered Fluticasone Nasal See Instructions, Daily, 0 Refills, Maintenance, 03/02/14 20:59:21 Start Date: 03/02/14 Status: Ordered levothyroxine 150 mcg (0.15 mg) oral tablet 1 tablet = 0.15 mg, By Mouth, Daily, # 30 tablet, 0 Refills, Maintenance, Tablet Start Date: 04/11/12 Status: Ordered Lipitor 80 mg oral tablet 1 tablet = 80 mg, By Mouth, Daily, # 30 tablet, 0 Refills, Maintenance, Tablet Start Date: 04/13/12 Status: Ordered losartan 50 mg oral tablet 2 tablet = 100 mg, By Mouth, Daily, 0 Refills, Maintenance, 03/02/14 20:57:12 Start Date: 03/02/14 Status: Ordered omeprazole 20 mg oral enteric coated capsule 1 capsule = 20 mg, By Mouth, Daily, # 30 capsule, 0 Refills, Maintenance, EC Capsule Start Date: 04/11/12 Status: Ordered tamsulosin 0.4 mg oral capsule 0.4 mg, 1, capsule, By Mouth, Daily, # 30 capsule, Refills 2, Tot. Refills 2, Maintenance, 07/19/2211:38:00 EST, Route to Pharmacy Electronically, [id number], Partial fill upon patient request if the prescription is for a schedule II... Start Date: 07/19/22 Stop Date: 10/17/22 Status: Ordered Vitamin B12 1000 mcg oral tablet 1 tablet = 1,000 mcg, By Mouth, Daily, 0 Refills, Maintenance, 01/13/17 13:07:20 Start Date: 01/13/17 Status: Ordered Vitamin D3 oral tablet 1 tablet = 10 mcg, By Mouth, Daily, # 30 tablet, 0 Refills, Maintenance, 03/11/22 15:51:00 EDT, Tablet Start Date: 03/11/22 Status: Ordered Xanax 2 mg oral tablet 1 tablet = 2 mg, By Mouth, 3 times a day, PRN for anxiety, 0 Refills, Maintenance, Tablet Start Date: 04/11/12 Status: Ordered Zyrtec 10 mg oral tablet 1 tablet = 10 mg, By Mouth, Daily, 0 Refills, Maintenance, 03/02/14 20:58:21 Start Date: 03/02/14 Status: Ordered Problem List Condition Confirmation Course Effective Dates Status H ealth Status Informant Limitation due to disability 1 Confirmed Active Drug or alcohol risk assessment or counseling 2 Confirmed Active 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 History of medical problems 3 Confirmed Active Lumbar postlaminectomy syndrome Confirmed Active Obstructive sleep apnea 4 Confirmed Active Severe obesity Confirmed Active Moderate somatic symptom disorder with predominant pain Confirmed Active 1initial Oswestry Disability Index: 54% ( severe disability ) on 01/13/17; initial [place] Back Pain Scale: 69 on 01/13/17; initial [place]: 0 on 01/13/17 2SOAPP-R: 19 on 01/13/17 3See problem list below 4Reports being compliant with use of noninvasive ventilation Vital Signs Most recent to oldest [Reference Range]: 1 Height 164.1 cm (03/11/22 1:07 PM) Weight 109.8 kg (03/11/22 1:07 PM) Pulse Rate [55-90 bpm] 60 bpm (03/11/22 1:07 PM) Body Mass Index [18.5-24.99] 40.77 *>HHI* (03/11/22 1:07 PM) Blood Pressure [90-138/55-84 mm Hg] 137/ 54mm Hg (03/11/22 1:07 PM) Temperature [96.8-100.4 DegF] 98.4 DegF (03/11/22 1:07 PM) Blood pressure sites Arm, right (03/11/22 1:07 PM) Temperature Route Oral (03/11/22 1:07 PM) Dry Weight 109.8 kg (03/11/22 1:07 PM) Weight Obtained Via Standing scale (03/11/22 1:07 PM) Dry Weight Obtained Via Standing scale (03/11/22 1:07 PM) Social History Social History Type Response Smoking Status Former smoker; Stopp ed at age: 56; entered on: 01/13/17 Sex Note * Event Display: Non Lab Results Authored Date: Patient Care team information Care Team Personnel Name: Lily Rangel RN Position: S RN Member Role: Primary Care Nurse Name: Navjot Winter NP Position: Reference Physician Member Role: PCP Address: Address: [address] [place] [id number]- Name: Tila Rubi MA Position: S Onco RN Member Role: Primary Care Nurse Name: Mega Lange RN Position: S RN Member Role: Primary Care Nurse Care Team Related Persons Name: JOCELYNN JAMES Name: DOROTHY NOEL Address: [address] [address]
[2023-05-18 12:46] VITALS: BMI 33.9
[2023-05-18] MEDS: Lactated Ringers 1,000 ML 50 ML IVCONT (13:01)
--- NOTE | 2023-05-18 13:14 | P.CONAN_ITS ---
[facility] Active Problems Active Problems: All Active Problems (Updated 05/03/23 @ 09:04 by Amena Martinez NP) Encounter for preoperative pulmonary examination (Acute) Emphysema of lung (Acute) ONIEL treated with BiPAP (Acute) Anemia (Acute) Cellulitis (Acute) Cerumen impaction (Acute) Elevated PSA (Acute) Osteoarthritis of left knee (Acute) History of gout (Acute) Screening PSA (prostate specific antigen) (Acute) Biliary dyskinesia (Acute) Stented coronary artery (Acute) Preop cardiovascular exam (Acute) Biliary dyskinesia (Acute) Lumbar back pain with radiculopathy affecting lower extremity (Acute) Osteoarthritis of left knee (Acute) Left leg pain (Acute) Left leg swelling (Acute) Gout attack (Acute) Cyst, kidney, acquired (Acute) Hyperthyroidism (Acute) Elevated bilirubin (Acute) Diarrhea (Acute) IBS (irritable bowel syndrome) (Acute) CAD (coronary artery disease) (Acute) HTN (hypertension) (Acute) Hyperlipidemia (Acute) Morbid obesity (Acute) Past Medical History Medical History (Updated 05/03/23 @ 09:04 by Amena Martinez NP) Emphysema of lung ONIEL treated with BiPAP Prostate CA Erectile dysfunction CAD (coronary artery disease) HTN (hypertension) Hyperlipidemia Morbid obesity Family History Family History Father CVD (cardiovascular disease) Mother No problems noted. Son No problems noted. Son No problems noted. Family history of problems with anesthesia: No Surgical History Surgical History (Updated 04/30/23 @ 00:02 by Michelle Deal) History of esophagogastroduodenoscopy (EGD) Hx of cholecystectomy History of transurethral resection of prostate History of Mohs micrographic surgery for skin cancer S/P lumbar microdiscectomy Stented coronary artery Hx of cardiac cath History of Problems with Anesthesia: No Social History Social History Household Members: None Housing: Condominium Do you presently have visiting nurse or other home services: No Alcohol intake: never Patient Tobacco Use Status: Former Tobacco user e-Cigarette/Vaping Use: Never Used Second Hand Smoke Exposure: No Use of substances other than those prescribed or required for medical reasons: No Substance Use Type: Marijuana Advance Directives: No Advance Directives Information Provided: Yes service: Yes Current occupational status: retired Current occupation: rt handed Cognitive needs: No Hearing needs: No Vision needs: No Meds Allergies Allergy/AdvReac Type Severity Reaction Status Date / Time acetaminophen [Tylenol] AdvReac Unknown Nausea Verified 04/29/23 14:44 Active Medications: Current Medications Lactated Ringer's (Lr) 1,000 mls @ 50 mls/hr IVCONT .Q20H MARIA G Last Admin: 05/18/23 13:01 Dose: 50 mls/hr Home Medications Medication Instructions Recorded Confirmed Last Taken Type allopurinol 300 mg tablet 300 mg PO DAILY 07/21/20 04/29/23 04/26/23 History atenolol 25 mg tablet 25 mg PO DAILY 07/21/20 04/29/23 04/26/23 History atorvastatin 80 mg tablet 80 mg PO BEDTIME 07/21/20 04/29/23 04/25/23 History ezetimibe 10 mg tablet 10 mg PO DAILY 07/21/20 04/29/23 04/26/23 History fluticasone propionate 50 1 spray intranasal DAILY 07/21/20 04/29/23 04/26/23 History mcg/actuation nasal spray,suspension losartan 100 mg tablet 100 mg PO DAILY 07/21/20 04/29/23 04/26/23 History omeprazole 20 mg capsule,delayed 20 mg PO DAILY 07/21/20 04/29/23 04/26/23 History release cholecalciferol (vitamin D3) 50 50 mcg PO DAILY 03/29/23 04/29/23 04/26/23 History mcg (2,000 unit) capsule levothyroxine 125 mcg tablet 125 mcg PO DAILY 04/22/23 04/29/23 04/26/23 History (Synthroid) alprazolam 2 mg tablet 2 mg PO TID anxiety 04/26/23 04/29/23 04/26/23 History cetirizine 10 mg tablet 10 mg PO DAILY 04/26/23 04/29/23 04/26/23 History cyanocobalamin (vitamin B-12) 1,000 mcg PO DAILY 04/26/23 04/29/23 04/26/23 History 1,000 mcg tablet Exam Exam Date and Time: May 18, 2023 131 Height,Weight and Vital Signs: Height 5 ft 6 in Weight 95.254 kg Airway Mallampati Class: IV TM Dist: >3cm Neck ROM: Full Assessment and Plan Assessment Anesthesia Assessment: Anesthesia Plan Discussed and Chart Reviewed Final Anesthetic Review Family History of Problems with Anesthesia: No History of Problems with Anesthesia: No NPO: Yes ASA Class: III Final Preanesthetic Review: No Changes in Pt Med Stat, Meds/Allgs Chart Reviewed, Consent Obtained/Reviewed and Anes Risks/Benef Reviewed Patient Risk: Intermediate Procedure Risk: Low Anesthetic Plan Anesthetic Plan: MAC: Disposition: Standard PACU
--- NOTE | 2023-05-18 13:30 | W.PM.OPN ---
Operative Note Operative Note Date of Service: 05/18/23 Narrative: Operative Information Procedure Description: EGD, Colonoscopy Indication: abn bowel habit, anemia Anesthesia: MAC FLEXIBLE TRANSORAL UPPER GASTROINTESTINAL ENDOSCOPY AND COLONOSCOPY PROCEDURE NOTE UPPER ENDOSCOPY Consent: Indications for the procedure and potential complications of bleeding, perforation, reaction to medications and missed diagnosis were discussed with the patient and informed consent was obtained. Instrument: Olympus GIF H 190 J mid size upper endoscope Monitoring: Vital signs and clinical assessment, continuous EKG monitoring, Pulse oximetry, Carbon Dioxide monitoring and blood pressure monitoring were done throughout the procedure. Procedure: The patient was placed in the left lateral decubitis position and pre-procedure medications were administered and a bite block was placed. The endoscope was inserted into the mouth and advanced under direct vision to the third part of duodenum. A careful inspection was made as the upper endoscope was withdrawn including a retroflexed examination of the proximal stomach; Findings and interventions are described below. Findings: Larynx:normal Esophagus: GE junction at 40 cm, diaphragm hiatus at 40 cm, possible short segment barretts, no bx taken due to findings in stomach Stomach: Nodularity, granularity and patchy erythema with edema. Biopsies were obtained. Grade 2 flap valve on retroflexed examination of the cardia. In mid body there was a large torres red pedunculated polyp measuring about 15-18 mm, this was injected with epinephrine and then removed with hot snare, retrieved with net and 4 clips applied over the area with hemospray due to oozzing. There were 2 other smaller polyps in the distal body about 5-8 mm that were removed with cold snare. Duodenum: Normal bulb and descending duodenum, bx taken Intervention: Biopsies as noted above, snare polypectomy with control of bleeding COLONOSCOPY Instrument: Olympus variable stiffness Adult scope 190L Colonoscopy Monitoring: Vital signs and clinical assessment, continuous EKG monitoring, Pulse oximetry, Carbon Dioxide monitoring and blood pressure monitoring were done throughout the procedure. Colon withdrawal time was 22 minutes. Procedure: The patient was placed in the left lateral decubitis position and pre-procedure medications were administered. After a digital rectal examination of the ano-rectum, the video colonoscope was inserted into the rectum and advanced through the colon to the cecum/TI. The colonoscope was slowly withdrawn in a retrograde panoramic fashion and the colon mucosa was carefully examined including a retroflexed view of the rectum. Findings and interventions are described below. Procedure Difficulty:mdoerate due to looping and redundant colon, unable to intubate TI Findings: Terminal Ileum- unable to intubate TI Cecum:normal Ascending Colon: x 2 sessile polyps 6-9 mm, one removed with cod forceps and other with cold snare. lipoma noted just over the ileocecal valve area , random bx taken Transverse Colon -normal Descending Colon:normal Sigmoid Colon: moderate diverticulosis , random bx taken Rectum: Anterior view with small internal hemorrhoids, grade I, unable to retroflex due to small rectal vault and proctitis, bx taken--mucosa was hard and fibrotic appearing may be due to XRT in the past? or IBD? Anorectum - normal Colon preparation: [place] Bowel Preparation Scale Right colon; 1-2 Transverse colon: 2 Left colon; 1-2 (0 = Unprepared colon segment with mucosa not seen due to solid stool that cannot be cleared. 1 = Portion of mucosa of the colon segment seen, but other areas of the colon segment not well seen due to staining, residual stool and/or opaque liquid. 2 = Minor amount of residual staining, small fragments of stool and/or opaque liquid, but mucosa of colon segment seen well. 3 = Entire mucosa of colon segment seen well with no residual staining, small fragments of stool or opaque liquid) Impression and Post Procedure Diagnosis: Endoscopy Findings: barretts gastric polyps gastritis Colonoscopy Findings: polyps internal hemorrhoids diverticular disease proctitis Plan: Await Pathology results Repeat Colonoscopy in 1 year due to fair prep or earlier if clinically indicated High fiber diet leaflet avoid straining at stool, epsom salts and sitz bath, anusol supps or cream Repeat EGD in 6 months or so, avoid nsaids for 5 days including aspirin if H pylori pos then treat next time maybe use pediatric colon scope If any severe melena, or rectal bleeding, abdomina pain, fever needs to come to ED for assessment Above findings were reviewed with the patient and relevant handouts were provided if indicated.
[2023-05-18 14:54] VITALS: BP 96/48; PULSE 72; RESP 16; TEMP 36.2; O2SAT 95
[2023-05-18 15:09] VITALS: BP 111/57; PULSE 69; RESP 14; O2SAT 96
[2023-05-18] MEDS: Mag&Al/Sim/Diphenhyd/Lidocaine 10 ML ORAL.SUSP PO (15:17)
[2023-05-18 15:24] VITALS: BP 128/63; PULSE 65; RESP 18; TEMP 37.1; O2SAT 98
== END 2023-05-18 15:47 | disposition home or self-care (01) ==
PROVIDERS: PCP Nurse Practitioner Family; Visit Provider Internal Medicine Gastroenterology
PROC: 0DJD8ZZ Inspection of Lower Intestinal Tract, Via Natural or Artificial Opening Endoscopic (ICD-10-PCS; CPT 45378; principal; 2023-05-18 14:30)
DX: R19.4 Change in bowel habit (principal); D64.9 Anemia, unspecified; D17.5 Benign lipomatous neoplasm of intra-abdominal organs; D12.2 Benign neoplasm of ascending colon; K57.30 Diverticulosis of large intestine without perforation or abscess without bleeding; K64.0 First degree hemorrhoids; K44.9 Diaphragmatic hernia without obstruction or gangrene; K62.89 Other specified diseases of anus and rectum; K56.2 Volvulus; K29.50 Unspecified chronic gastritis without bleeding; K31.7 Polyp of stomach and duodenum; K51.20 Ulcerative (chronic) proctitis without complications; K31.A12 Gastric intestinal metaplasia without dysplasia, involving the body (corpus); I10 Essential (primary) hypertension; E78.5 Hyperlipidemia, unspecified; J43.9 Emphysema, unspecified; G47.33 Obstructive sleep apnea (adult) (pediatric); K82.8 Other specified diseases of gallbladder; E66.01 Morbid (severe) obesity due to excess calories; Z68.34 Body mass index [BMI] 34.0-34.9, adult; Z90.49 Acquired absence of other specified parts of digestive tract; Z99.89 Dependence on other enabling machines and devices; Z87.891 Personal history of nicotine dependence; Z87.39 Personal history of other diseases of the musculoskeletal system and connective tissue
CPT/HCPCS: 45385; 45380; 43251; 43239; 43255; 88305; 88342; J0171

== ENCOUNTER → 2023-05-18 12:36 | Outpatient (BNV) | payer MEDICARE, BC, SELFPAY | PROVIDERS: PCP Nurse Practitioner Family; Visit Provider Internal Medicine Gastroenterology | DX: R19.4 Change in bowel habit (principal); D64.9 Anemia, unspecified; K22.70 Barrett's esophagus without dysplasia; K29.70 Gastritis, unspecified, without bleeding; K31.7 Polyp of stomach and duodenum; D12.2 Benign neoplasm of ascending colon; K57.30 Diverticulosis of large intestine without perforation or abscess without bleeding | CPT/HCPCS: 43236; 43251; 45380; 45385 ==

== ENCOUNTER 2023-06-03 14:06 | Outpatient (AMB) | payer MEDICARE, BC, SELFPAY ==
--- NOTE | 2023-06-03 14:12 | MHC.OFFVIS ---
Intake Vital Signs 06/03/23 14:14 Height 5 ft 6 in Weight 224 lb BMI 36.2 BP 133/64 Blood Pressure Location Lt brachial Position Sitting Pulse 53 Intake Visit Reasons: S/P Crumpler; Dr. Weaver Intake Note: Patient follow up for EGD/Colonoscopy screening. Patient denies any GI issues. 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 Weaver HPI Details LAST VISIT: Diarrhea Occasional loose stools, however patient feels like he does not empty his bowels completely. He reports constipated for the most part. Will send patient for CT scan. Please book one BRENNEN IBS (irritable bowel syndrome) Occasional postprandial abdominal bloating. Low FODMAP diet discussed with patient. Patient will be sent for colonoscopy. I will see him after the procedure, sooner on as needed basis. Patient is agreeable to this plan and verbalizes understanding of instructions. He was given the opportunity to ask questions all questions answered. ? UPPER ENDOSCOPY AND COLONOSCOPY Findings: Larynx:normal Esophagus: GE junction at 40 cm, diaphragm hiatus at 40 cm, possible short segment barretts, no bx taken due to findings in stomach Stomach: Nodularity, granularity and patchy erythema with edema. Biopsies were obtained. Grade 2 flap valve on retroflexed examination of the cardia. In mid body there was a large torres red pedunculated polyp measuring about 15-18 mm, this was injected with epinephrine and then removed with hot snare, retrieved with net and 4 clips applied over the area with hemospray due to oozzing. There were 2 other smaller polyps in the distal body about 5-8 mm that were removed with cold snare. Duodenum: Normal bulb and descending duodenum, bx taken Intervention: Biopsies as noted above, snare polypectomy with control of bleeding Findings: Terminal Ileum- unable to intubate TI Cecum:normal Ascending Colon: x 2 sessile polyps 6-9 mm, one removed with cod forceps and other with cold snare. lipoma noted just over the ileocecal valve area , random bx taken Transverse Colon -normal Descending Colon:normal Sigmoid Colon: moderate diverticulosis , random bx taken Rectum: Anterior view with small internal hemorrhoids, grade I, unable to retroflex due to small rectal vault and proctitis, bx taken--mucosa was hard and fibrotic appearing may be due to XRT in the past? or IBD? Anorectum - normal Colon preparation: [place] Bowel Preparation Scale Right colon; 1-2 Transverse colon: 2 Left colon; 1-2 (0 = Unprepared colon segment with mucosa not seen due to solid stool that cannot be cleared. 1 = Portion of mucosa of the colon segment seen, but other areas of the colon segment not well seen due to staining, residual stool and/or opaque liquid. 2 = Minor amount of residual staining, small fragments of stool and/or opaque liquid, but mucosa of colon segment seen well. 3 = Entire mucosa of colon segment seen well with no residual staining, small fragments of stool or opaque liquid) Impression and Post Procedure Diagnosis: Endoscopy Findings: barretts gastric polyps gastritis Colonoscopy Findings: polyps internal hemorrhoids diverticular disease proctitis Plan: Await Pathology results Repeat Colonoscopy in 1 year due to fair prep or earlier if clinically indicated High fiber diet leaflet avoid straining at stool, epsom salts and sitz bath, anusol supps or cream Repeat EGD in 6 months or so, avoid nsaids for 5 days including aspirin if H pylori pos then treat next time maybe use pediatric colon scope If any severe melena, or rectal bleeding, abdomina pain, fever needs to come to ED PATHOLOGY RESULTS: Diagnosis A. Duodenum, biopsy: Small intestinal mucosa within normal limits. B. Stomach, biopsy: Oxyntic mucosa with mild chronic inactive inflammation; no Helicobacter organisms seen. C. Stomach, polyps (2): Fundic gland polyps with background mild chronic inactive inflammation; no Helicobacter organisms seen. D. Stomach, mid body polyp: Hyperplastic mucosal polyp, inflamed and eroded, with focal intestinal metaplasia; negative for dysplasia; no Helicobacter organisms seen. E. Colon, right, biopsy: Colonic mucosa within normal limits. F. Colon, ascending, polypectomies (2): - Tubular adenoma; negative for high-grade dysplasia or carcinoma. - Inflammatory polyp. G. Colon, left, biopsy: Colonic mucosa within normal limits. H. Rectum, biopsy: Rectal mucosa within normal limits TODAY'S VISIT: Patient is here today for follow-up. Patient reports that he has been feeling very well. Reports that he is no longer having trouble with his bowels. He reports to move his bowels normally without any issues. Denies any diarrhea or constipation. Patient denies any melena, hematochezia, unintentional weight loss or ribbon like stools. Patient denies any acid reflux. Currently patient is not using anything to help her move his bowels. He is taking omeprazole daily. Denies any dyspepsia, dysphagia or odynophagia. Upper endoscopy and colonoscopy discussed with patient. He is aware that he should repeat colonoscopy in 1 year and upper endoscopy possibly in 6 months due to Navarrete's and gastritis. Patient is going to [place] off for the winter and will not be back until late spring. Patient denies any ill effects from the prep, anesthesia or procedure itself. 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 Son No problems noted. Son No problems noted. Social History Household Members: None Housing: Condominium Do you presently have visiting nurse or other home services: No Alcohol intake: never Patient Tobacco Use Status: Former Tobacco user e-Cigarette/Vaping Use: Never Used Second Hand Smoke Exposure: No Substance Use Type: Marijuana service: Yes Current occupational status: retired Current occupation: rt handed Cognitive needs: No Hearing needs: No Vision needs: No Review of Systems Const Denies weight gain and Denies weight loss ENT Reports no additional complaints, Denies dysphagia and Denies odynophagia Card Reports no additional complaints Resp Reports no additional complaints GI Denies abdominal pain, Denies belching, Denies melena, Denies bloating, Denies change in bowel habits, Denies dysphagia, Denies excessive flatus, Denies dyspepsia, Denies heartburn, Denies diarrhea, Denies loose stools, Denies nausea, Denies odynophagia and Denies vomiting Reports no additional complaints Musc Reports no additional complaints Neuro Reports no additional complaints Psych Reports no additional complaints Endo Reports no additional complaints Physical Exam Vital Signs: Last Vital Signs Pulse 53 06/03/23 14:14 BP 133/64 06/03/23 14:14 BMI result Body Mass Index 36.2 Const General: healthy appearing, no acute distress and well developed Nutritional Appearance: obese Orientation/consciousness: patient oriented x3 HEENT Head: Yes normal to inspection, Yes normocephalic and Yes atraumatic Face and sinus: Yes normal facial exam Mouth: Normal oral and palatal mucosa present Throat: Yes posterior oropharynx normal, Yes tonsils normal and Yes uvula midline Eyes General: appearance normal, both eyes and all related structures Neck Neck: Yes normal visual inspection, Yes full ROM and Yes trachea midline Thyroid: Thyroid normal Resp Effort & Inspection: normal respiratory effort, able to speak in complete sentences, no tracheal deviation and symmetric chest movement Auscultation: clear to auscultation bilaterally Cardio Rate: regular rate Heart sounds: S1 normal heart sound present and S2 normal heart sound present GI Inspection: Yes normal to inspection, No distended and Yes obesity Palpation (GI): Soft to palpation, not firm, nontender and No hepatosplenomegaly present Auscultation: normal bowel sounds General: Yes no CVA tenderness Back/Spine/Pelvis Back: no CVA tenderness Skin General skin exam: elasticity normal, turgor normal and dry skin Neuro General: patient oriented x3 Psych Appearance: grossly normal Mental Status: mental status grossly normal Speech and movement: Normal speech and movement present Assessment & Plan Assessment & Plan (1) 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: Code(s): K22.70 - Navarrete's esophagus without dysplasia (2) Tubular adenoma: Code(s): D36.9 - Benign neoplasm, unspecified site (3) GERD (gastroesophageal reflux disease): Code(s): K21.9 - Gastro-esophageal reflux disease without esophagitis Qualifiers: Esophagitis presence: without esophagitis Qualified Code(s): K21.9 - Gastro-esophageal reflux disease without esophagitis (4) Gastritis: Code(s): K29.70 - Gastritis, unspecified, without bleeding Qualifiers: Gastritis type: superficial Chronicity: chronic Gastritis bleeding: without bleeding Qualified Code(s): K29.30 - Chronic superficial gastritis without bleeding (5) Diverticulosis: Code(s): K57.90 - Diverticulosis of intestine, part unspecified, without perforation or abscess without bleeding (6) Internal hemorrhoids without complication: Code(s): K64.8 - Other hemorrhoids (7) Proctitis: Code(s): K62.89 - Other specified diseases of anus and rectum Plan Patient will need to repeat colonoscopy in 1 year due to suboptimal prep. Patient reports that he is moving his bowels better now. Not using any medications to help him move his bowels better. Upper endoscopy and colonoscopy results discussed with patient. Gastritis and Navarrete's esophagus found. Patient will continue taking omeprazole. Will add famotidine at bedtime. Patient was encouraged to avoid dietary triggers and late night snacking. Staying upright for minimum 3 hours after meals discussed with patient. Patient will return in 6-8 months for upper endoscopy. Patient will be living in [place] for the winter and will be back probably till December. Patient is agreeable to current plan of care and verbalizes understanding of instructions. He was given the opportunity to ask questions and all questions answered. 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
[2023-06-03 14:14] VITALS: BP 133/64; PULSE 53; BMI 36.2
== END 2023-06-03 14:46 | disposition home or self-care (01) ==
PROVIDERS: PCP Nurse Practitioner Family; Visit Provider Nurse Practitioner Family
DX: K22.70 Barrett's esophagus without dysplasia (principal); D36.9 Benign neoplasm, unspecified site; K21.9 Gastro-esophageal reflux disease without esophagitis; K29.30 Chronic superficial gastritis without bleeding; K57.90 Diverticulosis of intestine, part unspecified, without perforation or abscess without bleeding; K64.8 Other hemorrhoids; K62.89 Other specified diseases of anus and rectum
CPT/HCPCS: 99214

== ENCOUNTER → 2023-06-03 14:06 | Outpatient (BNVA) | payer MEDICARE, BC, SELFPAY | PROVIDERS: PCP Nurse Practitioner Family; Visit Provider Nurse Practitioner Family | DX: K21.9 Gastro-esophageal reflux disease without esophagitis (principal); E66.01 Morbid (severe) obesity due to excess calories; Z68.36 Body mass index [BMI] 36.0-36.9, adult | CPT/HCPCS: 99212 ==

== ENCOUNTER 2023-10-04 13:50 | Outpatient (AMB) | payer MEDICARE, BC, SELFPAY ==
[2023-10-04 14:00] VITALS: BP 165/79; PULSE 57; BMI 37.8
--- NOTE | 2023-10-04 14:00 | A.OFFVIS_ITS ---
Intake Vital Signs 10/04/23 14:00 Height 5 ft 6 in Weight 234 lb BMI 37.8 BP 165/79 H Blood Pressure Location Rt brachial Position Sitting Pulse 57 Pulse Source Monitor Intake Visit Reasons: Discuss meds and ablation Intake Note: Patient states he has prostatitis painful urine, frequent but regular bowl movements with some blood in stools. 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 Patient reports that he is moving his bowels better now. Not using any medications to help him move his bowels better. Upper endoscopy and colonoscopy results discussed with patient. Gastritis and Navarrete's esophagus found. Patient will continue taking omeprazole. Will add famotidine at bedtime. Patient was encouraged to avoid dietary triggers and late night snacking. Staying upright for minimum 3 hours after meals discussed with patient. Patient will return in 6-8 months for upper endoscopy. Patient will be living in [place] for the winter and will be back probably till December. Patient is agreeable to current plan of care and verbalizes understanding of instructions. He was given the opportunity to ask questions and all questions answered. ? Thank you for allowing me to participate in his care Medications New famotidine (Pepcid) 20 mg PO BEDTIME PRN 90 tabs 3RF acid re flux K21.9 TODAY'S VISIT Patient is here today for follow-up and to discuss sucralfate treatment for radiation proctitis. However patient reports that pharmacy did not fill his script. Supplies available for patient at the office that include 14 [place] urinary catheter and 60 mL syringe. Patient reports that he has been feeling better since the last time I have seen him. He reports to have couple bowel movements a day they are usually solid and large. Patient reports that he feels like his bowels are larger than normal and feels like this is the reason for her her room blood in his stool or when he wipes after bowel movement. Patient reports urge of having a bowel movement in the morning, however he states that he does not have a bowel movement till he is up and about for some time. Patient denies any abdominal pain or discomfort. Patient states that he is no longer having diarrhea. Does not need to [employer] or anything to help him move his bowels. Patient denies any dyspepsia, dysphagia or odynophagia. Takes omeprazole every morning and his symptoms of acid reflux are suppressed. 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 Son No problems noted. Son No problems noted. Social History Household Members: None Housing: Condominium Do you presently have visiting nurse or other home services: No Alcohol intake: never Patient Tobacco Use Status: Former Tobacco user e-Cigarette/Vaping Use: Never Used Second Hand Smoke Exposure: No Substance Use Type: Marijuana service: Yes Current occupational status: retired Current occupation: rt handed Cognitive needs: No Hearing needs: No Vision needs: No Review of Systems Const Denies weight gain and Denies weight loss ENT Reports no additional complaints, Denies dysphagia and Denies odynophagia Card Reports no additional complaints Resp Reports no additional complaints GI Denies abdominal pain, Denies belching, Denies melena, Denies bloating, Denies change in bowel habits, Denies dysphagia, Denies excessive flatus, Denies dyspepsia, Denies heartburn, Denies diarrhea, Denies loose stools, Denies nausea, Denies odynophagia and Denies vomiting Reports no additional complaints Musc Reports no additional complaints Neuro Reports no additional complaints Psych Reports no additional complaints Endo Reports no additional complaints Physical Exam Vital Signs: Last Vital Signs Pulse 57 10/04/23 14:00 BP 165/79 H 10/04/23 14:00 BMI result Body Mass Index 37.8 Const General: healthy appearing, no acute distress and well developed Nutritional Appearance: obese Orientation/consciousness: patient oriented x3 Resp Effort & Inspection: normal respiratory effort, able to speak in complete sentences, no tracheal deviation and symmetric chest movement Auscultation: clear to auscultation bilaterally Cardio Rate: regular rate GI Inspection: Yes normal to inspection, No distended and Yes obesity Palpation (GI): Soft to palpation, not firm, nontender and No hepatosplenomegaly present Auscultation: normal bowel sounds General: Yes no CVA tenderness Back/Spine/Pelvis Back: no CVA tenderness Skin General skin exam: elasticity normal, turgor normal and dry skin Neuro General: patient oriented x3 Psych Appearance: grossly normal Mental Status: mental status grossly normal Assessment & Plan Assessment & Plan (1) Radiation proctitis: Code(s): K62.7 - Radiation proctitis (2) Tubular adenoma: Code(s): D36.9 - Benign neoplasm, unspecified site (3) 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: Code(s): K22.70 - Navarrete's esophagus without dysplasia (4) IBS (irritable bowel syndrome): Code(s): K58.9 - Irritable bowel syndrome without diarrhea Qualifiers: Irritable bowel syndrome type: with both diarrhea and constipation Qualified Code(s): K58.2 - Mixed irritable bowel syndrome (5) GERD (gastroesophageal reflux disease): Code(s): K21.9 - Gastro-esophageal reflux disease without esophagitis Qualifiers: Esophagitis presence: with esophagitis Esophagitis bleeding: without hemorrhage Qualified Code(s): K21.00 - Gastro-esophageal reflux disease with esophagitis, without bleeding (6) Diverticulosis: Code(s): K57.90 - Diverticulosis of intestine, part unspecified, without perforation or abscess without bleeding Plan Continue current dose of omeprazole. Discussed with patient avoiding dietary triggers and late night snacking. Staying upright for minimum 3 hours after meals discussed with patient. Patient can take stool softener on as needed basis. Continue avoid dietary trigger. Patient will return in 2 weeks to see the nurse so she can show him how to do sucralfate enema. He will return in 2 months for follow-up. He will be sent for sigmoidoscopy to get an ablation. Patient is agreeable to this plan and verbalizes understanding of instructions he was given the opportunity to ask questions all questions answered. 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
== END 2023-10-04 14:40 | disposition home or self-care (01) ==
PROVIDERS: PCP Nurse Practitioner Family; Visit Provider Nurse Practitioner Family
DX: K62.7 Radiation proctitis (principal); D36.9 Benign neoplasm, unspecified site; K22.70 Barrett's esophagus without dysplasia; K58.2 Mixed irritable bowel syndrome; K21.00 Gastro-esophageal reflux disease with esophagitis, without bleeding; K57.90 Diverticulosis of intestine, part unspecified, without perforation or abscess without bleeding
CPT/HCPCS: 99214

== ENCOUNTER → 2023-10-04 13:50 | Outpatient (BNVA) | payer MEDICARE, BC, SELFPAY | PROVIDERS: PCP Nurse Practitioner Family; Visit Provider Nurse Practitioner Family | DX: K62.7 Radiation proctitis (principal); D36.9 Benign neoplasm, unspecified site; K22.70 Barrett's esophagus without dysplasia; K58.2 Mixed irritable bowel syndrome; K21.00 Gastro-esophageal reflux disease with esophagitis, without bleeding; K57.90 Diverticulosis of intestine, part unspecified, without perforation or abscess without bleeding | CPT/HCPCS: 99212 ==

== ENCOUNTER → 2023-10-18 13:15 | Outpatient (BNVA) | payer MEDICARE, BC, SELFPAY | PROVIDERS: PCP Nurse Practitioner Family; Visit Provider Nurse Practitioner Family | DX: K62.7 Radiation proctitis (principal); Z71.89 Other specified counseling | CPT/HCPCS: 99211 ==

== ENCOUNTER 2023-11-30 14:11 | Outpatient (AMB) | payer MEDICARE, BC, SELFPAY ==
--- NOTE | 2023-11-30 14:22 | A.OFFVIS_ITS ---
Intake Vital Signs 11/30/23 14:24 Height 5 ft 6 in Weight 240 lb 4.862 oz BMI 38.8 BP 179/77 H Blood Pressure Location Lt brachial Position Sitting Pulse 62 Intake Visit Reasons: 2 month follow up Intake Note: Jake presents in the office as a 2 month follow up. CC: He states that he is feeling good and he states he has not felt this good in a long time!! 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 Discussed with patient avoiding dietary triggers and late night snacking. Staying upright for minimum 3 hours after meals discussed with patient. Patient can take stool softener on as needed basis. Continue avoid dietary trigger. Patient will return in 2 weeks to see the nurse so she can show him how to do sucralfate enema. He will return in 2 months for follow-up. He will be sent for sigmoidoscopy to get an ablation. Patient is agreeable to this plan and verbalizes understanding of instructions he was given the opportunity to ask questions all questions answered. TODAY'S VISIT Patient is here today for follow-up. Patient reports that he has been feeling well since the last time I have seen him. Patient was administering sucralfate compound rectally couple times a day for couple months. Patient states that after couple days of treatment he already started to feeling better. Patient denies any abdominal pain. Denies any rectal pain or discomfort. Denies any melena or hematochezia. Patient reports that his bowels also normalized. No longer has diarrhea. Patient reports that he is feeling the best that he had in the long time. Able to tolerate different food without having any issues. Patient would like to hold off on going for sigmoidoscopy unless his symptoms return. 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 Son No problems noted. Son No problems noted. Social History Household Members: None Housing: Condominium Do you presently have visiting nurse or other home services: No Alcohol intake: never Patient Tobacco Use Status: Former Tobacco user e-Cigarette/Vaping Use: Never Used Second Hand Smoke Exposure: No Substance Use Type: Marijuana service: Yes Current occupational status: retired Current occupation: rt handed Cognitive needs: No Hearing needs: No Vision needs: No Review of Systems Const Denies weight gain and Denies weight loss ENT Reports no additional complaints, Denies dysphagia and Denies odynophagia Card Reports no additional complaints Resp Reports no additional complaints GI Denies abdominal pain, Denies belching, Denies melena, Denies bloating, Denies change in bowel habits, Denies dysphagia, Denies excessive flatus, Denies dyspepsia, Denies heartburn, Denies diarrhea, Denies loose stools, Denies nausea, Denies odynophagia and Denies vomiting Reports no additional complaints Musc Reports no additional complaints Neuro Reports no additional complaints Psych Reports no additional complaints Endo Reports no additional complaints Physical Exam Vital Signs: Last Vital Signs Pulse 62 11/30/23 14:24 BP 179/77 H 11/30/23 14:24 BMI result Body Mass Index 38.8 Const General: healthy appearing, no acute distress and well developed Nutritional Appearance: obese Orientation/consciousness: patient oriented x3 Resp Effort & Inspection: normal respiratory effort, able to speak in complete sentences, no tracheal deviation and symmetric chest movement Auscultation: clear to auscultation bilaterally Cardio Rate: regular rate GI Inspection: Yes normal to inspection, No distended and Yes obesity Palpation (GI): Soft to palpation, not firm, nontender and No hepatosplenomegaly present Auscultation: normal bowel sounds General: Yes no CVA tenderness Back/Spine/Pelvis Back: no CVA tenderness Skin General skin exam: elasticity normal, turgor normal and dry skin Neuro General: patient oriented x3 Psych Appearance: grossly normal Mental Status: mental status grossly normal Assessment & Plan Assessment & Plan (1) Radiation proctitis: Code(s): K62.7 - Radiation proctitis (2) Tubular adenoma: Code(s): D36.9 - Benign neoplasm, unspecified site (3) 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: Code(s): K22.70 - Navarrete's esophagus without dysplasia (4) IBS (irritable bowel syndrome): Code(s): K58.9 - Irritable bowel syndrome without diarrhea Qualifiers: Irritable bowel syndrome type: with both diarrhea and constipation Qualified Code(s): K58.2 - Mixed irritable bowel syndrome (5) GERD (gastroesophageal reflux disease): Code(s): K21.9 - Gastro-esophageal reflux disease without esophagitis Qualifiers: Esophagitis presence: esophagitis presence not specified Qualified Code(s): K21.9 - Gastro-esophageal reflux disease without esophagitis (6) Diverticulosis: Code(s): K57.90 - Diverticulosis of intestine, part unspecified, without perforation or abscess without bleeding Plan Continue high-fiber diet. May take fiber supplement if needed. Will hold off on sending him for ablation for now. Symptoms resolved with the sucralfate colonic treatment. Continue current dose of PPI. Discussed with patient avoiding dietary triggers and late night snacking. Staying upright for minimum 3 hours after meals discussed with patient. Patient will return in the office in 8 months, sooner on as needed basis. He is agreeable to this plan and verbalizes understanding of instructions. He was given the opportunity to ask questions and all questions answered. 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
[2023-11-30 14:24] VITALS: BP 179/77; PULSE 62; BMI 38.8
== END 2023-11-30 14:54 | disposition home or self-care (01) ==
PROVIDERS: PCP Nurse Practitioner Family; Visit Provider Nurse Practitioner Family
DX: K62.7 Radiation proctitis (principal); D36.9 Benign neoplasm, unspecified site; K22.70 Barrett's esophagus without dysplasia; K58.2 Mixed irritable bowel syndrome; K21.9 Gastro-esophageal reflux disease without esophagitis; K57.90 Diverticulosis of intestine, part unspecified, without perforation or abscess without bleeding
CPT/HCPCS: 99213

== ENCOUNTER → 2023-11-30 14:11 | Outpatient (BNVA) | payer MEDICARE, BC, SELFPAY | PROVIDERS: PCP Nurse Practitioner Family; Visit Provider Nurse Practitioner Family | DX: K62.7 Radiation proctitis (principal); K22.70 Barrett's esophagus without dysplasia; K57.90 Diverticulosis of intestine, part unspecified, without perforation or abscess without bleeding; K21.9 Gastro-esophageal reflux disease without esophagitis; K58.2 Mixed irritable bowel syndrome; D36.9 Benign neoplasm, unspecified site | CPT/HCPCS: 99212 ==

== ENCOUNTER 2023-12-19 12:37 | Outpatient (AMB) | payer MEDICARE, BC, SELFPAY ==
[2023-12-19 12:48] VITALS: BP 158/74; PULSE 61; BMI 39.8
--- NOTE | 2023-12-19 12:48 | A.OFFVIS_ITS ---
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 He has had recent issues with fall. Also noticed to have elevated blood pressure over the last 2-3 months. He said he has had increased personal as well as health-related distress. He said he started taking his original amlodipine, dose unknown for last few days. Blood pressure today still remains elevated. He denies any exertional chest pain or shortness of breath. He is very bothered by his GI issues especially radiation proctitis with bleeding issues related to it. He said he eats well. No heart failure symptoms. No prolonged palpitation irregular heartbeat. Taking all his medications regularly. 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 Son No problems noted. Son No problems noted. Social History Household Members: None Housing: Condominium Do you presently have visiting nurse or other home services: No Alcohol intake: never Patient Tobacco Use Status: Former Tobacco user e-Cigarette/Vaping Use: Never Used Second Hand Smoke Exposure: No Substance Use Type: Marijuana service: Yes Current occupational status: retired Current occupation: rt handed Cognitive needs: No Hearing needs: No Vision needs: No Review of Systems Const Denies chills, Denies fatigue, Denies fever(s), Denies frequent falls, Denies weakness, Denies weight gain and Denies weight loss ENT Denies dizziness Card Denies chest pain, Denies leg edema, Denies lightheadedness, Denies palpitations, Denies dyspnea, Denies dyspnea on exertion, Denies orthopnea and Denies other (loss of consciousness) Resp Denies cough, Denies dyspnea and Denies dyspnea on exertion GI Denies hematochezia and Denies change in stool character Musc Denies abnormal gait, Denies muscle weakness, Denies numbness, Denies radiating pain into limb and Denies tingling Neuro Denies abnormal gait, Denies dizziness, Denies frequent falls, Denies numbness, Denies tingling and Denies weakness Endo Denies fatigue and Denies palpitations Physical Exam Vital Signs: Last Vital Signs Pulse 61 12/19/23 12:48 BP 158/74 H 12/19/23 12:48 BMI result Body Mass Index 39.8 Const General: cooperative, comfortable and no acute distress Orientation/consciousness: patient oriented x3 HEENT Head: Yes normal to inspection Neck Neck: Yes normal visual inspection and Yes no JVD Carotids: normal carotid upstroke Resp Effort & Inspection: normal respiratory effort Auscultation: clear to auscultation bilaterally, no crackles, no rales, no rhonchi and no wheezes Cardio Jugular venous distension: no JVD Rate: regular rate Rhythm: regular rhythm Heart sounds: S1 normal heart sound present, S2 normal heart sound present, no gallops, no murmurs and no rubs Peripheral pulses: Peripheral pulses 2+ throughout GI Inspection: Yes normal to inspection Neuro General: patient oriented x3 Extrem General: Yes normal to inspection, No no pedal edema and No calf tenderness Office Procedures EKG Details: EKG shows normal sinus rhythm with normal EKG 48029-[id number], Complete Assessment & Plan Assessment & Plan (1) CAD (coronary artery disease): Code(s): I25.10 - Atherosclerotic heart disease of [place] coronary artery without angina pectoris Category: Medical Plan: Coronary artery disease with remote stenting of the LAD. Limited exercise activity at this point time. Will suggest a vasodilating myocardial perfusion imaging to evaluate for stent patency and progressive atherosclerotic coronary artery disease. This was discussed with him. He understands agrees. Continue aggressive risk factor modification. Continue low-dose aspirin therapy. Continue high-intensity statin therapy with target goal LDL less than 70 mg/dL. Last LDL March 2023 was 52, well optimized. Needs more intense blood pressure control, see below. Encouraged to continue to participate in regular physical activity and weight loss program. (2) HTN (hypertension): Code(s): I10 - Essential (primary) hypertension Category: Medical Plan: Uncontrolled blood pressure at this point time probably related to his stressful situation. Discussed with him about management. Advised him not to start taking blood pressure medications without discussing with you or me. I have advised him to confirm the dose of amlodipine therapy. In the past he has had low blood pressure issues. Will start him on amlodipine 2.5 mg daily and then uptitrated to target goal blood pressure less than 130/84. Advised to maintain adequate hydration. Continue other therapies. Will follow up in the clinic otherwise in 1 year's time, sooner p.r.n.. Thank you for allowing me to partake in his care Orders: Orders CA echo transthoracic complete Today I25.10 - Atherosclerotic heart disease of [place] coronary artery without angina pectoris CA lexiscan stress w bud Today I25.10 - Atherosclerotic heart disease of [place] coronary artery without angina pectoris Coding Level of Care Code Est Pt Level 4 (28154) Diagnoses CAD (coronary artery disease) I25.10 HTN (hypertension) I10 CPT Codes EKG - CPT: 99983-[id number], Complete ([id number])
== END 2023-12-19 13:21 | disposition home or self-care (01) ==
PROVIDERS: Visit Provider Internal Medicine Cardiovascular Disease
DX: I25.10 Atherosclerotic heart disease of native coronary artery without angina pectoris (principal); I10 Essential (primary) hypertension
CPT/HCPCS: 93010; 99214

== ENCOUNTER → 2023-12-19 12:37 | Outpatient (BNVA) | payer MEDICARE, BC, SELFPAY | PROVIDERS: Visit Provider Internal Medicine Cardiovascular Disease | DX: I25.10 Atherosclerotic heart disease of native coronary artery without angina pectoris (principal); I10 Essential (primary) hypertension | CPT/HCPCS: 93005; 99212 ==

== ENCOUNTER 2023-12-22 13:00 | Outpatient (AMB) | payer MEDICARE, BC, SELFPAY ==
--- NOTE | 2023-12-22 13:03 | A.OFFPC_ITS ---
Vital Signs 12/22/23 13:04 Height 5 ft 6 in Weight 242 lb BMI 39.1 BP 140/92 H Blood Pressure Location Lt brachial Position Sitting Pulse 65 Pulse Source Pulse Oximeter Pulse Oximetry (%) 98 Oxygen Delivery Method Room Air Intake Visit Reasons: follow up Intake Note: Patient here to discuss sinus infection and needs antibiotics. Allergies No Known Allergies Allergy (Verified 12/22/23 13:06) Medication List - Last Reconciled 12/22/23 by Navjot Winter [facility]- allopurinol 300 mg PO DAILY alprazolam 2 mg PO TID 90 days amlodipine 5 mg PO DAILY amoxicillin-pot clavulanate 875-125 mg 1 tab PO BID 10 days atenolol 25 mg PO DAILY atorvastatin 80 mg PO BEDTIME cetirizine 10 mg PO DAILY cholecalciferol (vitamin D3) 50 mcg PO DAILY cyanocobalamin (vitamin B-12) 1,000 mcg PO DAILY ezetimibe 10 mg PO DAILY fluticasone propionate 50 mcg/actuation 1 spray intranasal DAILY levothyroxine (Synthroid) 125 mcg PO DAILY losartan 100 mg PO DAILY omeprazole 20 mg PO DAILY Tobacco use date assessed: 12/22/23 Dental Screening Dental Screen Date: 12/22/23 Did you have a dental visit in the last 12 months?: Yes Did you have a dental problem in the last 6 months where you did not have access to dental care?: No Was dental information given to patient?: Patient has dentist HPI follow up HPI Details HTN: Blood pressure is managed with amlodipine 2.5mg, atenolol 25mg, and losartan 100mg. Pt is going to restart his amlodipine 5mg. Dyslipidemia: On atorvastatin 80mg and zetia 10mg. Will order labs. Denies chest pain, shortness of breath, headache, dizziness, and blurred vision. Hx of vitamin B12 deficiency, will order labs. Pt c/o mucus production, sinus pressure, and cough. He has had previous sinus infections and believes this is the same. Will send antibiotic. Will swab for COVID/flu/RSV. Pt has a hx of right pneumothorax in April of 2023 that was corrected. Will order chest XR due to current illness and previous pneumothorax. 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 Son No problems noted. Son No problems noted. Social History Household Members: None Housing: Condominium Do you presently have visiting nurse or other home services: No Alcohol intake: never Patient Tobacco Use Status: Former Tobacco user e-Cigarette/Vaping Use: Never Used Second Hand Smoke Exposure: No Substance Use Type: Marijuana service: Yes Current occupational status: retired Current occupation: rt handed Cognitive needs: No Hearing needs: No Vision needs: No Questionnaire Thrive Questionnaire Date Thrive assessed: 04/27/23 ALIRIO-7 AMB Questionnaire ALIRIO-7 Date ALIRIO - 7 assessed: 08/04/22 Source: Developed by Drs. Dev Moya, Yesi Moseley, Nikunj Crenshaw and colleagues, with an educational nasrin from [employer]. Review of Systems Const Reports as per HPI Physical exam (Primary Care) Vital Signs: Last Vital Signs Pulse 65 12/22/23 13:04 BP 140/92 H 12/22/23 13:04 Pulse Ox 98 12/22/23 13:04 Oxygen Delivery Method Room Air 12/22/23 13:04 BMI result Body Mass Index 39.1 Tobacco/Smoking Status: Tobacco use Status Tobacco use date assessed 12/22/23 12/22/23 13:13 Patient Tobacco Use Status Former Tobacco user 12/22/23 13:04 e-Cigarette/Vaping Use Never Used 12/22/23 13:04 Thrive Assessment: Date of Thrive Assessment Date Thrive assessed 04/27/23 12/22/23 13:04 Const General: cooperative Nutritional Appearance: obese Orientation/consciousness: patient oriented x3 HENMT Other: right ear with cerumen, after ear lavage residual cerumen noted, maxillary sinus pressure with palpation Resp Other: scattered rhonchi, though moving air Effort & Inspection: normal respiratory effort Cardio Rate: regular rate Rhythm: regular rhythm Heart sounds: S1 normal heart sound present and S2 normal heart sound present Neuro General: patient oriented x3 Psych Appearance: grossly normal Mental Status: mental status grossly normal Speech and movement: Normal speech and movement present Affect: normal affect Attitude: cooperative Thought process: Normal thought process present Thought content: Normal thought content present Insight: Good insight present (Psych) Judgement: Good judgement present (Psych) Office Procedures Cerumen Removal From which ear canal was the cerumen removed: right Removal: irrigation and otoscope w/curette Notes: patient tolerated procedure well and no complications [id number] Irrigation/Lavage (residual cerumen noted, instructed to use debrox, to soften cerumen) Assessment and Plan Assessment & Plan (1) HTN (hypertension): Code(s): I10 - Essential (primary) hypertension Plan: restarting amlodipine at 5mg (2.5mg then to 5mg) (2) Hyperlipidemia: Code(s): E78.5 - Hyperlipidemia, unspecified Plan: Labs ordered, continue statin (3) B12 deficiency: Code(s): E53.8 - Deficiency of other specified B group vitamins Plan: Labs ordered (4) Screening PSA (prostate specific antigen): Code(s): Z12.5 - Encounter for screening for malignant neoplasm of prostate Plan: PSA ordered (5) Cerumen impaction: Code(s): H61.20 - Impacted cerumen, unspecified ear Plan: use debrox for residual cerumen. Some was extracted today without complication, but not all. (6) Respiratory illness: Code(s): J98.9 - Respiratory disorder, unspecified Plan: chest XR and antibiotic (7) Pneumothorax, right: Code(s): J93.9 - Pneumothorax, unspecified Plan: chest XR (8) Sinusitis: Code(s): J32.9 - Chronic sinusitis, unspecified Plan: antibiotic sent Plan The patient agreed to the use of a director medical writing for this encounter. Scribed for CHUY Neil by mallorie York scribe, on 12/22/2023 at 13:20 EST. Orders: Orders Complete Blood Count Auto Diff Today E78.5 - Hyperlipidemia, unspecified, I10 - Essential (primary) hypertension Comprehensive [place]. Panel Fast Today E78.5 - Hyperlipidemia, unspecified, I10 - Essential (primary) hypertension UA CC w/rflx Micro + Cult Today E78.5 - Hyperlipidemia, unspecified, I10 - Essential (primary) hypertension Lipid Panel Today E78.5 - Hyperlipidemia, unspecified, I10 - Essential (primary) hypertension XR chest 2V Today J93.9 - Pneumothorax, unspecified, J98.9 - Respiratory disorder, unspecified TSH reflex Free T4 Today E78.5 - Hyperlipidemia, unspecified, I10 - Essential (primary) hypertension Vitamin B12 and Folate Today E53.8 - Deficiency of other specified B group vitamins Prostate Specific Antigen Scr Today Z12.5 - Encounter for screening for lisa gnant neoplasm of prostate SARS-CoV2/FLU/RSV Today J98.9 - Respiratory disorder, unspecified Medications: New amoxicillin-pot clavulanate 875-125 mg 1 tab PO BID 10 days 20 tabs 1RF Coding Level of Care Code Est Pt Level 3 (88857) Diagnoses HTN (hypertension) I10 Hyperlipidemia E78.5 B12 deficiency E53.8 Screening PSA (prostate specific antigen) Z12.5 Cerumen impaction H61.20 Respiratory illness J98.9 Pneumothorax, right J93.9 Sinusitis J32.9 CPT Codes Office Procedure - CPT: 43005-Ycy Irrigation/Lavage ([id number])
[2023-12-22 13:04] VITALS: BP 140/92; PULSE 65; O2SAT 98; BMI 39.1
== END 2023-12-22 14:44 | disposition home or self-care (01) ==
PROVIDERS: PCP Nurse Practitioner Family; Visit Provider Nurse Practitioner Family
DX: I10 Essential (primary) hypertension (principal); E78.5 Hyperlipidemia, unspecified; E53.8 Deficiency of other specified B group vitamins; Z12.5 Encounter for screening for malignant neoplasm of prostate; H61.21 Impacted cerumen, right ear; J98.9 Respiratory disorder, unspecified; J93.9 Pneumothorax, unspecified; J32.9 Chronic sinusitis, unspecified
CPT/HCPCS: 69210; 99213

== ENCOUNTER 2023-12-22 14:23 | Outpatient (REF) | payer MEDICARE, BC, SELFPAY ==
--- NOTE | ~2023-12-22 | XR_ITS ---
EXAMINATION: XR CHEST CLINICAL INFORMATION: Respiratory disorder nonspecified COMPARISON: 05/09/2023 TECHNIQUE: 2 views of the chest were obtained. FINDINGS: Right basilar infiltrate suspicious for pneumonia. Lungs otherwise clear. Heart size borderline with normal caliber pulmonary vessels. XR/XR chest 2V IMPRESSION: Right basilar pneumonia.
[2023-12-22 17:41] LABS: Influenza A PCR NEGATIVE (Negative); Influenza B PCR NEGATIVE (Negative); Resp Syncy Virus RNA Qual PCR NEGATIVE (Negative); SARS COV2 PCR INHOUSE NEGATIVE (Negative)
== END 2023-12-22 14:24 | disposition home or self-care (01) ==
LOC: HO.HMGCX 14:23
PROVIDERS: PCP Nurse Practitioner Family; Visit Provider Nurse Practitioner Family
DX: J18.9 Pneumonia, unspecified organism (principal)
CPT/HCPCS: 0241U; 71046

== ENCOUNTER → 2024-01-31 08:59 | Outpatient (REF) | payer MEDICARE, BC, SELFPAY ==
--- NOTE | ~2024-01-31 | NM_ITS ---
Lexiscan Myocardial perfusion study Indication: Coronary artery disease, assess for ischemia Technique: The patient was brought in for a Lexiscan perfusion study on 01/31/2024 and was injected 0.4 mg of Lexiscan intravenously. Within a minute of this injection 35 mCi of sestamibi was given intravenously. Images were obtained using the SPECT gamma camera interlaced with the gating device. Images were obtained in supine position. Resting perfusion study was performed on 02/01/2024. Patient was administered 35 mCi of sestamibi intravenously at rest. Images were then obtained in supine position. Images were processed with the software and compared side to side in short axis, horizontal long axis and vertical long axis views. Total DLP 134mGy-cm. Findings: Raw acquisition reviewed. The stress perfusion study showed no significant perfusion abnormality. Both uncorrected as well as CT attenuation corrected images were reviewed. The gated study shows normal LV systolic function with calculated LVEF of 61%. LV cavity is normal in size. The gated study shows normal wall thickening and contraction of segments. Resting study shows no significant perfusion abnormality. Gating at rest reveals normal wall motion with ejection fraction at 56%. The findings are consistent with no clear reversible or fixed perfusion abnormality. NM/NM bud perf SPECT rest & str Impression: 1. Myocardial perfusion imaging study shows likely normal myocardial perfusion. 2. Gated LVEF is 61% during stress and 56% during rest. 3. Transient ischemic dilatation not present. EKG component of the test reported separately.
--- NOTE | 2024-01-31 09:03 | CA_ITS ---
Acquisition Time: 2024-01-31 10:29:00 Total Exercise Time: 00:02:00 Test Indications: PALPITATIONS Medications: Protocol: LEXISCAN Max HR: 106 BPM 71% of Pred: 148 BPM Max BP: 158/082 mmHG Max Work Load: 1.6 METS Pharmacological stress test with Lexiscan injection, while walking slow on treadmill, without anginal symptoms, without arrythmia, with normotensive response to injection, with nondiagnostic EKG for ischemia. In recovery he repportred feeling anxious and was treated with Aminophylline 75mg IVP to reverse Lexiscan. Nuclear images pending. Test reviewed with Dr Saxena Referred By: Emir Elmore Overread By: OKSANA ARREGUIN
--- NOTE | 2024-01-31 09:03 | CA_ITS ---
Transthoracic Echocardiogram Patient (Last, First, Middle): Jake Schulz M Gender: Male Date of : 1950 Age: 73 Procedure Date: 01/31/2024 Procedure Type: Transthoracic Echocardiogram Location: OP Height: 167.64 cm Weight: 104.33 kg BSA: 2.12 m2 Heart Rate: 57 bpm BP: 150 / 70 mmHg Territory Representative: JACQUELINE Referring MD: Emir Elmore MD Symptoms: I25.10 - Atherosclerotic heart disease of [place] coronary artery without... Study Quality: Fair ECG Rhythm: Bradycardia Conclusions: - The left ventricular systolic function is hyperdynamic. The visually estimated ejection fraction is >70%. - There is moderate septal asymmetric hypertrophy. - There is mild calcification of the aortic valve. - There is mild mitral annular calcification. Findings Left Ventricle Normal left ventricular cavity size. There is mildly increased left ventricular wall thickness. The left ventricular systolic function is hyperdynamic. The visually estimated ejection fraction is >70%. There is no evidence of regional wall motion abnormalities. Diastolic function is normal for age. There is moderate septal asymmetric hypertrophy. LV peak GLS 19.3%. Right Ventricle Normal right ventricular cavity size and systolic function. Atria The left atrium is mildly dilated. The right atrium is normal in size. Aortic Valve There is a normal trileaflet aortic valve. There is mild calcification of the aortic valve. There is no aortic valve stenosis. There is trace (trivial) aortic valve regurgitation. Mitral Valve There is mild mitral annular calcification. There is trace mitral valve regurgitation. There is no mitral valve stenosis. Pulmonic Valve The pulmonic valve is likely normal. Tricuspid Valve There is trace tricuspid valve regurgitation. There is no evidence of pulmonary hypertension. Great Vessels The asc aorta is normal in size. Venous The inferior vena cava is normal in size and collapses greater than 50% with inspiration. Pericardium/Pleural There is no evidence of pericardial effusion. Measurements 2D Linear Measurements IVSd: 1.40 0.6-0.9/0.6-1.0 cm LVIDd: 4.42 3.9-5.3/4.2-5.9 cm LVIDd Index: 2.08 2.4-3.2/2.2-3.1 cm/m2 LVIDs: 2.61 2.0-3.6 cm LVPWd: 1.24 0.7-1.1 cm LA Diam: 3.80 2.7-3.8/3.0-4.0 cm LAIDs Index: 1.79 1.5-2.3 cm/m2 LV Mass: 276.17 67-162/88-224 g LV Mass Index: 130.27 43-95/49-115 g/m2 LVOT Diam: 2.20 3.0+(-)1.3 cm 2D Systolic Function EF 4C: 71.50 >55% EF 2C: 75.50 >55% EF BiP: 73.20 >55% Mitral Valve MV Pk E: 0.95 MV PK A: 0.94 MV Decel Time: 230.00 E/A: 1.00 E'Lateral: 7.62 E'Medial: 7.07 E/E' Med: 13.50 E/E' Lat: 12.50 PHT: 67.00 MVA PHT: 3.28 Decel Emery: 4.13 Aortic Valve AoV Pk Ramiro: 2.13 AoV Mn Ramiro: 1.45 AoV VTI: 0.52 AoV Pk Grad: 18.00 Aov Mn Grad: 10.00 KATJA Cont.VTI: 2.60 AI Pk Ramiro: 3.49 AI Emery: 1.64 LVOT LVOT Pk Ramiro: 1.54 LVOT Mn Ramiro: 1.00 LVOT VTI: 0.36 LVOT Pk Grad: 9.00 LVOT Mn Grad: 5.00 LVOT Diam: 2.20 LVOT Area: 3.80 Diastolic Function MV Pk E: 0.95 MV Pk A: 0.94 E/A: 1.00 E'Medial: 7.07 E/E' Med: 13.50 E' Laterial: 7.62 E/E' Lat: 12.50 Right Ventricle TAPSE (mm): 23.30 TVS' Ramiro: 12.60 Tricuspid Valve TR Pk Ramiro: 1.57 TR Pk Grad: 10.00 RA Press: 3.00 RVSP: 13.00 Great Vessels Aorta Sinus of Valsalva: 3.90 2.0-3.5 cm Ao Asc: 3.70 2.1-3.4 cm Pulmonary Valve PV Pk Ramiro: 0.81 Peak PV Grad: 3.00 Updated in Other Vendor System with Status of Final Darian Shields MD electronically signed on 02/01/2024 11:44:48 AM with status of Final
== END ==
LOC: HO.CARD 08:59
PROVIDERS: PCP Nurse Practitioner Family; Visit Provider Internal Medicine Cardiovascular Disease
DX: I25.10 Atherosclerotic heart disease of native coronary artery without angina pectoris (principal)
CPT/HCPCS: 78452; 93017; 93306; 93356; A9500; J0280; J2785

== ENCOUNTER → 2024-01-31 09:03 | Outpatient (BNV) | payer MEDICARE, BC, SELFPAY | PROVIDERS: PCP Nurse Practitioner Family; Visit Provider Nurse Practitioner Family | DX: I25.10 Atherosclerotic heart disease of native coronary artery without angina pectoris (principal); I35.8 Other nonrheumatic aortic valve disorders; I34.81 Nonrheumatic mitral (valve) annulus calcification; I42.2 Other hypertrophic cardiomyopathy | CPT/HCPCS: 78452; 93016; 93018; 93350; 93356 ==

== ENCOUNTER 2024-03-23 15:12 | Outpatient (REF) | payer MEDICARE, BC, SELFPAY ==
[2024-03-23 17:23] LABS: Prostate Specific Antigen < 0.10 ng/mL (<0.05-4.0)
== END 2024-03-23 15:13 | disposition home or self-care (01) ==
LOC: HO.HMGCLDS 15:12
PROVIDERS: PCP Nurse Practitioner Family; Visit Provider Urology
DX: C61 Malignant neoplasm of prostate (principal); Z12.5 Encounter for screening for malignant neoplasm of prostate
CPT/HCPCS: 36415; 84153

== ENCOUNTER 2024-04-05 10:56 | Outpatient (AMB) | payer MEDICARE, BC, SELFPAY ==
[2024-04-05 10:59] VITALS: BP 132/90; PULSE 62; O2SAT 98; BMI 39.7
--- NOTE | 2024-04-05 10:59 | MHC.PC.OV ---
Vital Signs 04/05/24 10:59 04/05/24 11:35 Height 5 ft 6 in Weight 246 lb BMI 39.7 BP 132/90 H 132/82 Blood Pressure Location Rt brachial Rt brachial Position Sitting Sitting Pulse 62 Pulse Source Pulse Oximeter Pulse Oximetry (%) 98 Oxygen Delivery Method Room Air Intake Visit Reasons: Annual PE Intake Note: pt is here for annual exam Operator Command Support Systems Required: No Accompanied by: Self / Same As Patient Allergies No Known Allergies Allergy (Verified 04/05/24 11:12) Medication List - Last Reconciled 04/05/24 by HÉCTOR Diaz-MOHIT allopurinol 300 mg PO DAILY alprazolam 2 mg PO TID 90 days amlodipine 5 mg PO DAILY atenolol 25 mg PO DAILY atorvastatin 80 mg PO BEDTIME cetirizine 10 mg PO DAILY cholecalciferol (vitamin D3) 50 mcg PO DAILY cyanocobalamin (vitamin B-12) 1,000 mcg PO DAILY ezetimibe 10 mg PO DAILY fluticasone propionate 50 mcg/actuation 1 spray intranasal DAILY levothyroxine (Synthroid) 125 mcg PO DAILY losartan 100 mg PO DAILY omeprazole 20 mg PO DAILY Tobacco use date assessed: 04/05/24 Fall risk assessment: No Falls in past year Last assessed Fall Risk: 04/05/24 Dental Screening Dental Screen Date: 12/22/23 HPI Annual PE HPI Details Pt is here for a PE. Will order labs. Due for colon screen in May, pt is following up with GI. PSA is up to date, sees urology. Denies dribbling with urination, weak stream, and frequent nocturia. Pt follows up with cardiology and dermatology. 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 Son No problems noted. Son No problems noted. Social History Household Members: None Housing: Condominium Do you presently have visiting nurse or other home services: No Alcohol intake: never Patient Tobacco Use Status: Former Tobacco user e-Cigarette/Vaping Use: Never Used Second Hand Smoke Exposure: No Substance Use Type: Marijuana service: Yes Current occupational status: retired Current occupation: rt handed Cognitive needs: No Hearing needs: No Vision needs: No Questionnaire PHQ-9 Over the last 2 weeks, how often have you been bothered by any of the following problems? 1. Little interest or pleasure in doing things: not at all 2. Feeling down, depressed, or hopeless: not at all 3. Trouble falling or staying asleep, or sleeping too much: not at all 4. Feeling tired or having little energy: not at all 5. Poor appetite or overeating: not at all 6. Feeling bad about yourself - or that you are a failure or have let yourself or your family down: not at all 7. Trouble concentrating on things, such as reading the newspaper or watching television: not at all 8. Moving or speaking so slowly that other people could have noticed. Or the opposite - being so fidgety or restless that you have been moving around a lot more than usual: not at all 9. Thoughts that you would be better off or of hurting yourself in some way: not at all Total score: 0 Depression Screening Interpretation: Negative Depression Screening Done: Yes 14618 - PHQ-9 Billing: Yes Source: Developed by Drs. Dev Moya, Yesi Moseley, Nikunj Crenshaw and colleagues, with an educational nasrin from [employer]. Thrive Questionnaire Date Thrive assessed: 04/05/24 I am a: Patient What is your living situation today?: I have a steady place to live Within the past 12 months, did the food you bought not last and you didn't have the money to get more?: Never true Within the past 12 months, did you worry whether your food would run out before you got money to buy more?: Never true Do you have trouble paying for medicines?: No Do you have trouble getting transportation to medical appointments?: No Do you have trouble paying your heating and electricity bill?: No Do you have trouble taking care of your child, family member or friend?: I choose not to answer this question Do you have trouble with day-to-day activities such as bathing, preparing meals, shopping, managing finances, etc.?: No Are you currently unemployed and looking for a job?: No Are you interested in more education?: No Please select the resources that you would like help with: None Currently or been in a relationship where the following occur: I choose not to answer THRIVE Score: 0 AUDIT C Alcohol Use Questionnaire (AUDIT-C) 1. How often do you have a drink containing alcohol?: Never 3. How often do you have six or more drinks on one occasion?: Never Total Score: 0 Score Reviewed/Action Taken: Yes ALIRIO-7 AMB Questionnaire ALIRIO-7 Date ALIRIO - 7 assessed: 04/05/24 Feeling nervous, anxious, or on edge: 2 = More than half the days Not being able to stop or control worryin = Several days Worrying too much about different things: 1 = Several days Trouble relaxin = Several days Being so restless that it is hard to sit still: 0 = Not at all Becoming easily annoyed or irritable: 1 = Several days Feeling afraid as if something awful might happen: 1 = Several days Total ALIRIO-7 score (0-4 normal; 5-9 mild; 10-14 moderate; 15-21 severe): 7 Source: Developed by Drs. Dev Moya, Yesi Moseley, Nikunj Crenshaw and colleagues, with an educational nasrin from [employer]. ALIRIO-7 Assessment Billing ALIRIO-7 Assessment Tool: ALIRIO-7 Assessment 20771 Review of Systems Const Denies chills and Denies fever(s) Eyes Denies blurry vision ENT Denies vertigo, Denies dizziness and Denies sore throat Card Denies chest pain at rest, Denies chest pain with activity, Denies diaphoresis, Denies dyspnea and Denies dyspnea on exertion Resp Denies cough, Denies dyspnea, Denies dyspnea on exertion and Denies wheezing GI Denies abdominal pain, Denies melena, Denies hematochezia, Denies constipation, Denies diarrhea and Denies loose stools Denies hematuria Musc Denies numbness and Denies tingling Skin/Breast Denies lesions Neuro Denies vertigo, Denies dizziness, Denies numbness and Denies tingling Psych Denies anxiety, Denies depression, Denies homicidal ideation, Denies suicidal ideation and Denies other (substance abuse) Aller/Immun Denies wheezing Physical exam (Primary Care) Vital Signs: Last Vital Signs Pulse 62 04/05/24 10:59 BP 132/82 04/05/24 11:35 Pulse Ox 98 04/05/24 10:59 Oxygen Delivery Method Room Air 04/05/24 10:59 BMI result Body Mass Index 39.7 Tobacco/Smoking Status: Tobacco use Status Tobacco use date assessed 04/05/24 04/05/24 11:00 Patient Tobacco Use Status Former Tobacco user 04/05/24 11:00 e-Cigarette/Vaping Use Never Used 04/05/24 11:00 PHQ-9: PHQ-9 Score PHQ-9: Total score 0 04/05/24 11:35 Depression Screening Interpretation: Negative Thrive Assessment: Date of Thrive Assessment Date Thrive assessed 04/05/24 04/05/24 11:00 Currently or been in a relationship where the following occur: I choose not to answer Const General: cooperative Nutritional Appearance: well nourished Orientation/consciousness: patient oriented x3 HENMT Other: cerumen noted bilat, right>left, after ear lavage TMs easily seen Head: Yes normal to inspection, Yes normocephalic and Yes atraumatic Eyes General: appearance normal, both eyes and all related structures Alignment and Position: alignment normal and position normal Neck Neck: Yes normal visual inspection and Yes no lymphadenopathy Thyroid: Thyroid normal Resp Effort & Inspection: normal respiratory effort Auscultation: clear to auscultation bilaterally Cardio Rate: regular rate Rhythm: regular rhythm Heart sounds: S1 normal heart sound present, S2 normal heart sound present and Murmur heart sound present systolic GI Palpation (GI): Soft to palpation and nontender Auscultation: normal bowel sounds Male General Exam: Yes normal external exam Penis: normal penis Scrotum: scrotum normal, testes descended bilaterally and no inguinal hernias Testes: no testicular mass Skin Other: right upper ear with bandaid, also noted to several spots on face (recent derm visit) Rashes: no rashes Neuro General: patient oriented x3, moves all extremities, no focal motor deficits and deep tendon reflexes 2+ bilaterally Romberg Test: Negative Psych Appearance: grossly normal Mental Status: mental status grossly normal Speech and movement: Normal speech and movement present Affect: normal affect Attitude: cooperative Thought process: Normal thought process present Thought content: Normal thought content present Insight: Good insight present (Psych) Judgement: Good judgement present (Psych) Office Procedures Cerumen Removal From which ear canal was the cerumen removed: bilateral Removal: irrigation Notes: patient tolerated procedure well and ear canal clear 51080-Uyk Irrigation/Lavage Assessment and Plan Assessment & Plan (1) Morbid obesity: Code(s): E66.01 - Morbid (severe) obesity due to excess calories Plan: Labs ordered (2) Encounter for routine adult physical exam with abnormal findings: Code(s): Z00.01 - Encounter for general adult medical examination with abnormal findings Plan: Labs ordered (3) Excessive cerumen in both ear canals: Code(s): H61.23 - Impacted cerumen, bilateral Plan: Ears flushed in office Plan The patient agreed to the use of a clinical medical assistant for this encounter. Scribed for CHUY Neil by Angelique Nuno clinical medical assistant, on 04/05/2024 at 11:15 EST. Medications: New ezetimibe 10 mg PO DAILY 90 tabs 0RF losartan 100 mg PO DAILY 90 tabs 0RF omeprazole 20 mg PO DAILY 90 caps 0RF cyanocobalamin (vitamin B-12) 1,000 mcg PO DAILY 90 tabs 0RF atorvastatin 80 mg PO BEDTIME 90 tabs 0RF atenolol 25 mg PO DAILY 90 tabs 0RF levothyroxine (Synthroid) 125 mcg PO DAILY 90 tabs 0RF Refilled alprazolam 2 mg PO TID 270 tabs 0RF anxiety 90 days amlodipine 5 mg PO DAILY 90 tabs 0RF Coding Level of Care Code Est Pt Prev Care >65y(91860) Diagnoses Morbid obesity E66.01 Encounter for routine adult physical exam with abnormal findings Z00.01 Excessive cerumen in both ear canals H61.23 CPT Codes Office Procedure - CPT: 06179-Fxs Irrigation/Lavage ([id number]) Additional Codes ALIRIO-7 Assessment Billing - ALIRIO-7 Assessment Tool: ALIRIO-7 Assessment 95702 ([id number])
[2024-04-05 11:35] VITALS: BP 132/82
== END 2024-04-05 11:51 | disposition home or self-care (01) ==
PROVIDERS: PCP Nurse Practitioner Family; Visit Provider Nurse Practitioner Family
DX: Z00.00 Encounter for general adult medical examination without abnormal findings (principal); E66.01 Morbid (severe) obesity due to excess calories; Z68.39 Body mass index [BMI] 39.0-39.9, adult; H61.23 Impacted cerumen, bilateral
CPT/HCPCS: 69209; 99397

== ENCOUNTER 2024-08-02 13:21 | Outpatient (REF) | payer MEDICARE, BC, SELFPAY ==
--- OUTSIDE RECORDS SUMMARY | 2024-08-02 13:25 | XMS_ITS | Encounter Summary ---
Author Name [facility] [place] [facility] [facility] [place] Address [address] [place] [address] Care Team Providers Care Tinner Automatic Name Role Phone OBRIENJAE RUBIN Primary Care Provider Unavailabl e Insurance Providers: All historical and current Section Date Range: From patient's date of to the date document was created. This section includes the names of all active insurance providers for the patient. Insurance Provider Type of Coverage Plan Name Start of Policy Coverage End of Policy Coverage Group Number Member ID Insurance Provider's Telephone Number Policy Colmenares's Name Patient's Relationship to Policy Colmenares ANTHEM [employer]BS [place] FEDERAL PREFERRED PROVIDER ORGANIZAT ION (PPO) BASIC FAMIL Y Aug 15, 2001 [id number] [phone] KATHERINE JAMES PATIENT ANTHEM BCBS CT FEDERAL PREFERRED PROVIDER ORGANIZAT ION (PPO) BASIC SELF Aug 15, 2001 [id number] [phone] KATHERINE JAMES PATIENT [place] PREFERRED PROVIDER ORGANIZAT ION (PPO) BASIC INDIV IDUAL Aug 15, 2001 [id number] KATHERINE JAMES PATIENT [place] PREFERRED PROVIDER ORGANIZAT ION (PPO) BASIC INDIV IDUAL 111 Jun 15, 2016 [id number] [phone] KATHERINE JAMES PATIENT [place] PREFERRED PROVIDER ORGANIZAT ION (PPO) BASIC SELF Aug 15, 2001 [id number] [phone] KATHERINE JAMES PATIENT [place] F[place] DENTAL DENTAL INSURANCE BASIC Aug 15, 2001 DENTAL [id number] KATHERINE JAMES PATIENT [facility] ([id number]) PRESCRIPT ION FEP Aug 15, 2010 [id number] [phone] KATHERINE JAMES PATIENT [place] FEP BCBS PRESCRIPT ION [place] FEPRX PLAN Jun 15, 2016 [id number] KATHERINE JAMES PATIENT [employer] FEPRX PLAN PRESCRIPT ION [place] FEPRX Aug 15, 2010 [id number] [phone] KATHERINE JAMES PATIENT [place]-F EP BCBS PRESCRIPT ION FEP [place] Aug 15, 2010 [id number] [phone] KATHERINE JAMES PATIENT MEDICARE (WNR) MEDICARE () PART A Jun 15, 2016 PART A [id number] KATHERINE JAMES PATIENT MEDICARE (WNR) MEDICARE () PART B Jun 15, 2016 PART B [id number] KATHERINE JAMES PATIENT MEDICARE (WNR) MEDICARE () PART A Jun 15, 2016 PART A [id number] KATHERINE JAMES PATIENT MEDICARE (WNR) MEDICARE () PART B Jun 15, 2016 PART B [id number] KATHERINE JAMES PATIENT MEDICARE (WNR) MEDICARE (M) PART A Jun 15, 2016 PART A [id number] KATHERINE JAMES PATIENT MEDICARE (WNR) MEDICARE (M) PART B Jun 15, 2016 PART B [id number] [phone] KATHERINE JAMES PATIENT MEDICARE (WNR) MEDICARE (M) PART A Jun 15, 2016 PART A [id number] KATHERINE JAMES PATIENT MEDICARE (WNR) MEDICARE (M) PART B Jun 15, 2016 PART B [id number] KATHERINE JAMES PATIENT MEDICARE (WNR) MEDICARE (M) PART A Jun 15, 2016 PART A [id number] KATHERINE JAMES PATIENT MEDICARE (WNR) MEDICARE (M) PART B Jun 15, 2016 PART B [id number] KATHERINE JAMES PATIENT Selected Encounter This section includes the information on record at [place] for the Encounter. Date/Time Encounter Type Encounter Description Reason Pro vider Source Aug 22, 2023 01:16 PM Outpatient Encounter PRIMARY CARE/MEDICINE IHE Encounter Template Text not used by [place] Plan of Treatment: Future Appointments (+ 6 months) and Future Tests (+/- 45 days) The Plan of Treatment section includes future care activities for the patient from all [place] treatmentfacilities. This section includes future appointments and future orders which are active, pending or scheduled. Future Appointments This section includes appointments that were scheduled to occur 6 months from the date of the Encounter, up to a maximum of 20 appointments. The data comes from all [place] treatment facilities. Appointment Date/Time Appointment Type Appointme nt Facility Name Jan 25, 2024 01:00 PM AMBULATORY - MEDICINE [facility] Advance Directives: All historical and current Section Date Range: From patient's date of to the date document was created. This section includes ALL of a patient's completed or amended [place] Advance and Rescinded Directives. The entries below indicate that a directive exists for the patient, but an actual copy is not included with this document. The data comes from all [place] facilities. Date Advance Directives Provider Source Jun 15, 2001 ADVANCE DIRECTIVE DISCUSSION TITO SANFORD [facility] Jun 09, 2001 ADVANCE DIRECTIVE JAE WATERMAN [facility] Encounter Notes: All associated encounter notes This section contains the clinical notes associated to the Encounter. Date/Time Encounter Note(s) Provider Source Aug 22, 2023 01:16 PM ADMINISTRATIVE NOT E: LOCAL TITLE: FAX/MAIL RECEIVED STANDARD TITLE: ADMINISTRATIVE NOTE DATE OF NOTE: AUG 22, 2023@13:16 ENTRY DATE: AUG 22, 2023@13:16:42 AUTHOR: RITO SCHULTZ COSIGNER: URGENCY: STATUS: COMPLETED FAX/MAIL RECEIVED Has ADDENDA Document Received On: Aug Document Type: Other: THERAPEUTIC ALERT Date of Service: Aug Facility and or Provider: [employer] [facility] Contact Information: PCP of Record: JAE OBRIEN Next visit with PCP: 01/12/2024 13:00 NHM/OPTOMETRY/JOSE J [facility] May keep copies of this document for up to 14 days and send the original for scanning. /diego/ SUSAN SCHULTZ ADVANCED MOTOR CARRIER INSPECTOR Signed: 08/22/2023 13:18 Receipt Acknowledged By: 08/22/2023 13:28 /es/ Scarlett Santos RN Registered Nurse (RN) 08/22/2023 13:19 /diego/ MEGHNA FREEMAN LPN LICENSED PRACTICAL NURSE 08/22/2023 ADDENDUM STATUS: COMPLETED THIS [employer] WILL LEAVE [employer] [facility] THERAPEUTIC ALERT LETTER IN PROVIDERS MAILBOX FOR REVIEW. /diego/ SUSAN SCHULTZ ADVANCED MOTOR CARRIER INSPECTOR Signed: 08/22/2023 13:19 SUSAN SCHULTZ
--- OUTSIDE RECORDS SUMMARY | 2024-08-02 13:25 | XMS_ITS ---
Author Name [facility] [place] [facility] [place] Address [address] [place] [address] Care Team Providers Care Yard Pilot Name Role Phone WILSONJAE RUBIN Primary Care Provider Unavailabl e Insurance [...] BASIC FAMIL Y Aug 15, 2001 112 [id number] [phone] KATHERINE JAMES PATIENT ANTHEM BCBS CT FEDERAL PREFERRED PROVIDER ORGANIZAT ION (PPO) BASIC SELF Aug 15, 2001 111 [id number] [phone] KATHERINE JAMES PATIENT BCBS [place] FEP PREFERRED PROVIDER ORGANIZAT ION (PPO) BASIC INDIV IDUAL Aug 15, 2001 111 [id number] KATHERINE JAMES PATIENT [place] ([place]) PREFERRED PROVIDER ORGANIZAT ION (PPO) BASIC INDIV IDUAL 111 Jun 15, 2016 111 [id number] [phone] KATHERINE JAMES PATIENT [place] PREFERRED PROVIDER ORGANIZAT ION (PPO) BASIC SELF Aug 15, 2001 111 [id number] [phone] KATHERINE JAMES PATIENT [place] DENTAL DENTAL INSURANCE BASIC Aug 15, 2001 DENTAL [id number] [phone] KATHERINE JAMES PATIENT CAREMARK ([id number]) PRESCRIPT ION FEP Aug 15, 2010 [id number] KATHERINE JAMES PATIENT [place] FEP BCBS PRESCRIPT ION CAREM ARK FEPRX PLAN Jun 15, 2016 [id number] KATHERINE JAMES PATIENT [place] FEPRX PLAN PRESCRIPT ION CAREM ARK FEPRX Aug 15, 2010 [id number] [phone] KATHERINE JAMES PATIENT [place]ARK-F EP BCBS PRESCRIPT ION FEP CAREM ARK Aug 15, 2010 [id number] [phone] KATHERINE JAMES PATIENT MEDICARE (WNR) MEDICARE (M) PART A Jun 15, 2016 PART A [id number] [phone] KATHERINE JAMES PATIENT MEDICARE (WNR) MEDICARE () PART B Jun 15, 2016 PART B [id number] KATHERINE JAMES PATIENT MEDICARE (WNR) MEDICARE () PART A Jun 15, 2016 PART A [id number] KATHERINE JAMES PATIENT MEDICARE (WNR) MEDICARE () PART A Jun 15, 2016 PART A [id number] [phone] KATHERINE JAMES PATIENT MEDICARE (WNR) MEDICARE (M) PART B Jun 15, 2016 PART B [id number] KATHERINE JAMES PATIENT MEDICARE (WNR) MEDICARE (M) PART B Jun 15, 2016 PART B [id number] [phone] KATHERINE JAMES PATIENT MEDICARE (WNR) MEDICARE (M) PART A Jun 15, 2016 PART A [id number] KATHERINE JAMES PATIENT MEDICARE (WNR) MEDICARE (M) PART B Jun 15, 2016 PART B [id number] KATHERINE JAMES PATIENT MEDICARE (WNR) MEDICARE (M) PART A Jun 15, 2016 PART A [id number] [phone] KATHERINE JAMES PATIENT MEDICARE (WNR) MEDICARE (M) PART B Jun 15, 2016 PART B [id number] KATHERINE JAMES PATIENT Selected Encounter This section includes the information on record at [place] for the Encounter. Date/Time Encounter Type Encounter Description Reason Pro vider Source Aug 16, 2023 07:49 AM Outpatient Encounter PRIMARY CARE/MEDICINE IHE Encounter Template Text not used by [place] Plan of Treatment: Future Appointments (+ 6 months) and Future Tests (+/- 45 days) The Plan of Treatment section includes future care activities for the patient from all [place] treatmentfacilities. This section includes future appointments and future orders which are active, pending or scheduled. Future Appointments This section includes appointments that were scheduled to occur 6 months from the date of the Encounter, up to a maximum of 20 appointments. The data comes from all [place] treatment facilities. Appointment Date/Time Appointment Type Appointme nt Facility Name Jan 25, 2024 01:00 PM AMBULATORY - MEDICINE [facility] Advance Directives: All historical and current Section Date Range: From patient's date of to the date document was created. This section includes ALL of a patient's completed or amended [place] Advance and Rescinded Directives. The entries below indicate that a directive exists for the patient, but an actual copy is not included with this document. The data comes from all [place] facilities. Date Advance Directives Provider Source Jun 15, 2001 ADVANCE DIRECTIVE DISCUSSION TITO SANFORD [facility] Jun 09, 2001 ADVANCE DIRECTIVE JAE WATERMAN [facility] Encounter Notes: All associated encounter notes This section contains the clinical notes associated to the Encounter. Date/Time Encounter Note(s) Provider Source Aug 16, 2023 07:52 AM ADDENDUM: LOCAL TITLE: Addendum STANDARD TITLE: ADDENDUM DATE OF NOTE: AUG 16, 2023@07:52:23 ENTRY DATE: AUG 16, 2023@07:52:24 AUTHOR: TR BAKER COSIGNER: URGENCY: STATUS: COMPLETED [facility] message temporary change of address Aug 16 - December 14, 2023 Temporary address has been entered Please make sure Medications are sent to this address [place] [address] [facility] [address] /diego/ ALICE BAKER [facility] Signed: 08/16/2023 07:53 Receipt Acknowledged By: 08/16/2023 10:13 /diego/ Scarlett Santos RN Registered Nurse (RN) ====== --- Original Document --- 08/16/23 PRIMARY CARE SECURE MESSAGING: ------Original Message ------- Sent: 08/13/2023 07:51 PM ET From: HARRIS JAMES To: Charley WILSON_PRIMARY CARE_SPOPC Subject: Medication:TAMSULOSIN HCL 0.4MG CAP Mr Wilson, can you please prescribe this again for me , as I am having some prostate issues again with leaking and urination. and not fully emptying my bladder since my radiation treatments for prostate cancer etc....Thank You Prescription Information for: TAMSULOSIN HCL 0.4MG CAP Prescription Number [id number] Instructions TAKE ONE CAPSULE BY MOUTH BEDTIME Refills Remaining 2 Order Refills By 07/20/2023 Ordered On 07/19/2022 Prescriber Name MICAH ROWE [address] Phone Number Status Discontinued /diego/ ALICE BAKER [facility] Signed: 08/16/2023 07:49 Receipt Acknowledged By: 08/16/2023 10:12 /diego/ Scarlett Santos RN Registered Nurse (RN) 08/16/2023 08:35 /diego/ JAE WILSON PA-C STAFF PHYSICIAN JEWEL BEARING DRILLER TR BAKER [place] [facility] [place] [facility] Aug 16, 2023 07:49 AM PRIMARY CARE SECURE MESSAGING: LOCAL TITLE: PRIMARY CARE SECURE MESSAGING STANDARD TITLE: PRIMARY CARE SECURE MESSAGING DATE OF NOTE: AUG 16, 2023@07:49 ENTRY DATE: AUG 16, 2023@07:49:23 AUTHOR: TR BAKER EXP COSIGNER: URGENCY: STATUS: COMPLETED PRIMARY CARE SECURE MESSAGING Has ADDENDA ------Original Message ------- Sent: 08/13/2023 07:51 PM ET From: HARRIS JAMES To: Charley WILSON_PRIMARY CARE_SPOPC Subject: Medication:TAMSULOSIN HCL 0.4MG CAP Mr Wilson, can you please prescribe this again for me , as I am having some prostate issues again with leaking and urination. and not fully emptying my bladder since my radiation treatments for prostate cancer etc....Thank You Prescription Information for: TAMSULOSIN HCL 0.4MG CAP Prescription Number [id number] Instructions TAKE ONE CAPSULE BY MOUTH BEDTIME Refills Remaining 2 Order Refills By 07/20/2023 Ordered On 07/19/2022 Prescriber Name MICAH ROWE [address] Phone Number Status Discontinued /diego/ ALICE BAKER [facility] Signed: 08/16/2023 07:49 Receipt Acknowledged By: 08/16/2023 10:12 /diego/ Scarlett Santos, KELSIE Registered Nurse (RN) 08/16/2023 08:35 /diego/ JAE WILSON PA-C STAFF PHYSICIAN JEWEL BEARING DRILLER 08/16/2023 ADDENDUM STATUS: COMPLETED [facility] message temporary change of address Aug 16 - December 14, 2023 Temporary address has been entered Please make sure Medications are sent to this address [place] [address] [facility] [address] /diego/ ALICE BAKER [facility] Signed: 08/16/2023 07:53 Receipt Acknowledged By: 08/16/2023 10:13 /diego/ Scarlett Santos, RN Registered Nurse (RN) TR BAKER [place] [facility]
--- OUTSIDE RECORDS SUMMARY | 2024-08-02 13:25 | XMS_ITS | Encounter Summary ---
Author Name [facility] [place] [facility] [place] [facility] [place] Address [address] [place] [address] Care Team Providers Care Medical Records Director Name Role Phone OBRIENJAE RUBIN Primary Care [...] BASIC FAMIL Y Aug 15, 2001 [id number] [phone] KATHERINE SCHULZ PATIENT ANTHEM BCBS CT FEDERAL PREFERRED PROVIDER ORGANIZAT ION (PPO) BASIC SELF Aug 15, 2001 111 [id number] [phone] KATHERINE SCHULZ PATIENT BCBS [place] PREFERRED PROVIDER ORGANIZAT ION (PPO) BASIC INDIV IDUAL Aug 15, 2001 111 [id number] KATHERINE SCHULZ PATIENT [place] ([place]) PREFERRED PROVIDER ORGANIZAT ION (PPO) BASIC INDIV IDUAL 111 Jun 15, 2016 111 [id number] [phone] KATHERINE SCHULZ PATIENT [place] PREFERRED PROVIDER ORGANIZAT ION (PPO) BASIC SELF Aug 15, 2001 111 [id number] 97 KATHERINE SCHULZ PATIENT [place] DENTAL DENTAL INSURANCE BASIC Aug 15, 2001 DENTAL [id number] KATHERINE SCHULZ PATIENT CAREMARK ([id number]) PRESCRIPT ION FEP Aug 15, 2010 [id number] KATHERINE SCHULZ PATIENT [place] FEP BCBS PRESCRIPT ION CAREM ARK FEPRX PLAN Jun 15, 2016 [id number] KATHERINE SCHULZ PATIENT [employer] FEPRX PLAN PRESCRIPT ION CAREM ARK FEPRX Aug 15, 2010 [id number] KATHERINE SCHULZ PATIENT [place]-F EP BCBS PRESCRIPT ION FEP CAREM ARK Aug 15, 2010 [id number] KATHERINE SCHULZ PATIENT MEDICARE (WNR) MEDICARE (M) PART A Jun 15, 2016 PART A [id number] KATHERINE SCHULZ PATIENT MEDICARE (WNR) MEDICARE () PART B Jun 15, 2016 PART B [id number] KATHERINE SCHULZ PATIENT MEDICARE (WNR) MEDICARE () PART A Jun 15, 2016 PART A [id number] KATHERINE SCHULZ PATIENT MEDICARE (WNR) MEDICARE (M) PART B Jun 15, 2016 PART B [id number] KATHERINE SCHULZ PATIENT MEDICARE (WNR) MEDICARE (M) PART A Jun 15, 2016 PART A [id number] KATHERINE SCHULZ PATIENT MEDICARE (WNR) MEDICARE (M) PART B Jun 15, 2016 PART B [id number] [phone] KATHERINE SCHULZ PATIENT MEDICARE (WNR) MEDICARE (M) PART A Jun 15, 2016 PART A [id number] KATHERINE SCHULZ PATIENT MEDICARE (WNR) MEDICARE (M) PART B Jun 15, 2016 PART B [id number] KATHERINE SCHULZ PATIENT MEDICARE (WNR) MEDICARE (M) PART A Jun 15, 2016 PART A [id number] KATHERINE SCHULZ PATIENT MEDICARE (WNR) MEDICARE (M) PART B Jun 15, 2016 PART B [id number] KATHERINE SCHULZ PATIENT Selected Encounter This section includes the information on record at [place] for the Encounter. Date/Time Encounter Type Encounter Description Reason Pro vider Source Aug 16, 2023 07:50 AM Outpatient Encounter PRIMARY CARE/MEDICINE IHE Encounter Template Text not used by [place] Plan of Treatment: Future Appointments (+ 6 months) and Future Tests (+/- 45 days) The Plan of Treatment section includes future care activities for the patient from all [place] treatmentfacilities. This section includes future appointments and future orders which are active, pending or scheduled. Future Appointments This section includes appointments that were scheduled to occur 6 months from the date of the Encounter, up to a maximum of 20 appointments. The data comes from all [place] treatment facilities. Appointment Date/Time Appointment Type Appointme nt Facility Name Jan 25, 2024 01:00 PM AMBULATORY - MEDICINE [facility] Advance Directives: All historical and current Section Date Range: From patient's date of to the date document was created. This section includes ALL of a patient's completed or amended [place] Advance and Rescinded Directives. The entries below indicate that a directive exists for the patient, but an actual copy is not included with this document. The data comes from all [place] facilities. Date Advance Directives Provider Source Jun 15, 2001 ADVANCE DIRECTIVE DISCUSSION TITO SANFORD [facility] Jun 09, 2001 ADVANCE DIRECTIVE JAE WATERMAN [facility] Encounter Notes: All associated encounter notes This section contains the clinical notes associated to the Encounter. Date/Time Encounter Note(s) Provider Source Sep 06, 2023 11:20 AM PRIMARY CARE SECURE MESSAGING: LOCAL TITLE: PRIMARY CARE SECURE MESSAGING STANDARD TITLE: PRIMARY CARE SECURE MESSAGING DATE OF NOTE: SEP 06, 2023@11:20 ENTRY DATE: SEP 06, 2023@11:20:21 AUTHOR: TR BAKER COSIGNER: URGENCY: STATUS: COMPLETED ------Original Message ------ Sent: 09/06/2023 10:54 AM ET From: HARRIS SCHULZ To: Charley OBRIEN_PRIMARY CARE_SPOPC Subject: General:Change of Mailing address My [place] address is: Harris Schulz [address] [place] [address] ------Original Message ------ Sent: 09/06/2023 11:04 AM ET From: HARRIS SCHULZ To: Charley OBRIEN_PRIMARY CARE_SPOPC Subject: General:Change of Mailing address My [place] Address was provided but here it is again..Thank You Harris Zeus [address] [place] [address] ------Original Message ------ Sent: 09/06/2023 11:20 AM ET From: NYLA BAKER To: HARRIS SCHULZ Subject: General:Change of Mailing address [facility] change is done. Nyla Childs /diego/ NYLA BAKER Advanced Manager Database Signed: 09/06/2023 11:20 TR BAKER [place] [facility] [place] Sep 06, 2023 08:27 AM PRIMARY CARE SECURE MESSAGING: LOCAL TITLE: PRIMARY CARE SECURE MESSAGING STANDARD TITLE: PRIMARY CARE SECURE MESSAGING DATE OF NOTE: SEP 06, 2023@08:27 ENTRY DATE: SEP 06, 2023@08:28 AUTHOR: TR BAKER EXP COSIGNER: URGENCY: STATUS: COMPLETED ------Original Message ------ Sent: 09/06/2023 08:27 AM ET From: NYLA BAKER To: HARRIS SCHULZ Subject: General:Change of Mailing address Hello Moisés Please provide your [place] address I will make the change today Thank you Nyla RALPH 3 /diego/ NYLA BAKER Advanced Manager Database Signed: 09/06/2023 08:28 TR BAKER [place] [facility] [place] [facility] Sep 06, 2023 08:11 AM PRIMARY CARE SECURE MESSAGING: LOCAL TITLE: PRIMARY CARE SECURE MESSAGING STANDARD TITLE: PRIMARY CARE SECURE MESSAGING DATE OF NOTE: SEP 06, 2023@08:11 ENTRY DATE: SEP 06, 2023@08:11:33 AUTHOR: TR BAKER EXP COSIGNER: URGENCY: STATUS: COMPLETED PRIMARY CARE SECURE MESSAGING Has ADDENDA ------Original Message ------ Sent: 09/05/2023 06:52 PM ET From: HARRIS SCHULZ To: Charley OBRIEN_PRIMARY CARE_SPOPC Subject: General:Change of Mailing address I recently requested a temp change of address ([facility] to [place]) from Aug 16, 2023 until December...Due to unexpected changes, could you please now revert back and discontinue sending my meds and all correspondence to my recent new [place] address and begin to now send my meds and correspondence mail to my initial [facility] address as I will be back in [place] permanently this coming week after Sep 08, 2023 ,,Thank You Please mail all future meds and mail beginning now Sep 06, [address] [place] [address].....and no longer use and discontinue mailing to the [place] address ([address] [facility]) that I provided you weeks ago and most likely on file now..Thank You.. Moisés Schulz [phone] /diego/ NYLA BAKER Advanced Manager Database Signed: 09/06/2023 08:11 09/06/2023 ADDENDUM STATUS: COMPLETED [employer] contacted, left voice message for pt to provide his [facility] address. Also sent reply [facility] message /nery BAKER Advanced Manager Database Signed: 09/06/2023 08:29 TR [facility] [facility] Aug 16, 2023 07:55 AM PRIMARY CARE SECURE MESSAGING: LOCAL TITLE: PRIMARY CARE SECURE MESSAGING STANDARD TITLE: PRIMARY CARE SECURE MESSAGING DATE OF NOTE: AUG 16, 2023@07:55 ENTRY DATE: AUG 16, 2023@07:55:58 AUTHOR: TR BAKER EXP COSIGNER: URGENCY: STATUS: COMPLETED ------Original Message ------ Sent: 08/16/2023 07:55 AM ET From: NYLA BAKER To: HARRIS SCHULZ Subject: General:Change of Mailing address Good Morning Harris Happy New ! I have entered this temporary address for you. Enjoy the warm [place] weather. Nyla GOLD Pact 3 /diego/ NYLA BAKER Advanced Manager Database Signed: 08/16/2023 07:55 TR BAKER [facility] [facility] Aug 16, 2023 07:50 AM PRIMARY CARE SECURE MESSAGING: LOCAL TITLE: PRIMARY CARE SECURE MESSAGING STANDARD TITLE: PRIMARY CARE SECURE MESSAGING DATE OF NOTE: AUG 16, 2023@07:50 ENTRY DATE: AUG 16, 2023@07:50:30 AUTHOR: TR BAKER EXP COSIGNER: URGENCY: STATUS: COMPLETED ------Original Message ------ Sent: 08/13/2023 07:28 PM ET From: HARRIS SCHULZ To: Charley OBRIEN_PRIMARY CARE_SPOPC Subject: General:Change of Mailing address I cannot find an option on the list here of receipients for a change in mailing address, specifically for the pharmacy...Could you please forward this to the pharmacy and all others in the [place] of [facility] and have all future medications etc mailed to my [facility] until I return back to [place] by December 14, 2023..My [facility] address is [address] [facility] [address]..in the meantime I will attempt to call them on TuesdayAug 16 regarding this as well...Thank You.. /diego/ NYLA BAKER Advanced Manager Database Signed: 08/16/2023 07:50 TR BAKER [facility]
--- OUTSIDE RECORDS SUMMARY | 2024-08-02 13:25 | XMS_ITS | Continuity of Care Document ---
Author Name [facility] Organization [facility] Care Team Providers Care Elastic Attacher Chainstitch Name Role Phone [facility] Unavailable Unavailable Problems Combined list of problems from Department of Defense and Veterans Affairs facilities. It does not include entries that were removed or entered in error. Problem Status Onset Date Problem Type Date of Resolution Comments Source Cholecystectomy planned Active 2020 Condition May 12, 2021 Entered By: JAE OBRIEN Comment: Cholecystectomy planned 05/18/21 [facility]. Managed by [facility]. [facility] Actinic keratosis (SNOMED CT 016548518) Active Condition [facility] Allergic rhinitis due to other allergen Active Condition [facility] ARTHRITIS,CHRONIC Active Condition [facility] Navarrete's esophagus with esophagitis Active Condition Jan 24 Entered By: JAE OBRIEN Comment: Dx of Barretts per EGD Done 2022; Take PPIJan 25, 2024 Entered By: JAE OBRIEN Comment: repeat EGD 2025 (or as directed by GI) RE[facility] Benign hypertension Active Condition May 24, 2018 Entered By: JAE OBRIEN Comment: US, Aorta JUN 01: no AAA RE[facility] choecystectomy Active Condition December Entered By: JAE OBRIEN Comment: Cholecystectomy JUN 04: Not Emergent Case [facility] Chronic Maxillary Sinusitis Active Condition [facility] Chronic post-traumatic stress disorder Active Condition [facility] Chronic post-traumatic stress disorder (SNOMED CT 373960245) Active Condition Sep 27, 2007 Entered By: YOUSUF [place] Comment: with panic attacks and agoraphobia [facility] Chronic post-traumatic stress disorder following combat (SNOMED CT 233243283) Active Condition December Entered By: HODAN PALUMBO Comment: updated. REVERE Chronic rhinitis Active Condition [facility] Colitis Active Condition Mar 23 Entered By: JAE OBRIEN Comment: Diagnostic Colonoscopy Planned MAY 07;Mar 23, 2023 Entered By: JAE OBRIEN Comment: Dx of Colitis in ED in APR 06: Presented to ED w/ Hematochezia REVERE Coronary arteriosclerosis Active Condition Mar 23 Entered By: JAE OBRIEN Comment: AL Yrs Ago ; Still Sees Cardio as of Mar Entered By: JAE OBRIEN Comment: pending EKG, TTE, Pharmacologic Stress Test 2023 via Private Cardio REVERE Coronary artery disease (SNOMED CT 74026069) Active Condition Apr 25, 2012 Entered By: JAE OBRIEN Comment: AMI; Stented, MAR 26, [facility] Mar Entered By: JAE OBRIEN Comment: Sees Private Cardio [facility] as of MARCH 01Au2017 Entered By: JAE OBRIEN Comment: See My Note Dated Mar Entered By: JAE OBRIEN Comment: Last ECHO 2018; unremarkable per pt;Sep 13, 2019 Entered By: JAE OBRIEN Comment: Still Sees Cardio Just Once Yr., as of SEP 03; Stable Feb 18, 2020 Entered By: JAE OBRIEN Comment: Last Saw Private Cardio FEBRUARY 01:Feb 18, 2020 Entered By: JAE OBRIEN Comment: Stability per EKG, ECHOAug 28, 2020 Entered By: JAE OBRIEN Comment: Still Sees Private Cardio as of 2020 - Stable per pt REVERE Coronary atherosclerosis (SNOMED CT 826358802) Active Condition Jun Entered By: JAE MARAVILLA Comment: MARCH 2012: Stent x 1 [facility] Depressive disorder Active Condition January 01, 2022 Entered By: HODAN PALUMBO Comment: updated. REVERE Gastroesophageal Reflux Disorder * (ICD-9-CM 530.81) Active Condition [facility] GERD Active Condition May 04 Entered By: JAE OBRIEN Comment: also EGD 2009: no Barretts or CA; on PPI (or H2 Antag) REVERE Gout (SNOMED CT 92262999) Active Condition [facility] Herpes zoster Active Condition Feb Entered By: JAE OBRIEN Comment: Had it in 2017 while in [place]; Tx'd, Gone REVERE History of colonoscopy Active Condition Apr 25, 2012 Entered By: JAE OBRIEN Comment: Screen Colonoscopy 2009 at [facility]; Neg CRC, PolypsSep 2011 Entered By: JAE OBRIEN Comment: +Diverticula; repeat 2023 Entered By: JAE OBRIEN Comment: Last Colonoscopy 2022 - Neg CRC (done as part of w/u for Cholecystectomy) Jul 19, 2022 Entered By: JAE OBRIEN Comment: repeat as directed by private doctor or by GI (approx 2030)Mar 23, 2023 Entered By: JAE OBRIEN Comment: Has Private GI as of Mar Entered By: JAE OBRIEN Comment: 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 REVERE History of malignant melanoma of the skin Active Condition [facility] History of Melanoma (Removed) Active Condition [facility] History of melanoma in situ of skin Active Condition Apr 25, 2012 Entered By: JAE OBRIEN Comment: Excised, Bx NOV 24; Graft; no METS per PET; [facility] 2011 Entered By: JAE OBRIEN Comment: [facility] Entered By: JAE OBRIEN Comment: Also Goes NE DERM as of MARCH 01 REVERE Hypercholesterolemia (SNOMED CT 11311765) Active Condition [facility] HYPERLIPIDEMIA Active Condition [facility] Hypertension (SNOMED CT 32197495) Active Condition [facility] Hypnotic or anxiolytic dependence, continuous Active Condition [facility] Hypogonadism (SNOMED CT 75059689) Active Condition [facility] Hypothyroidism (SNOMED CT 88311021) Active Condition [facility] Insomnia * (ICD-9-CM 780.52) Active Condition [facility] Lumbar radiculopathy Active Condition Apr 02, 2014 Entered By: JAE OBRIEN Comment: MRI, MAR 28, [facility]: +Central Stenosis L4/L5,Apr 02, 2014 Entered By: JAE OBRIEN Comment: Broad-Based Central Disc Protrusion L5/S1Ju2016 Entered By: JAE OBRIEN Comment: Last Saw Pain Mgmn't [facility] NOV 29: Dr Fortune;Feb 25, 2017 Entered By: JEA OBRIEN Comment: See My Note Dated FEBRUARY 28Jul 2016 Entered By: JAE OBRIEN Comment: Another MRI done APR 30: Did PT & Streoid Inj. Then; Little BenefitMay 2020 Entered By: JAE OBRIEN Comment: pending New MRI of L Spine FEBRUARY [address] [facility];January 06, 2021 Entered By: JAE OBRIEN Comment: Planned Appt w/ Neuro Surg [facility] 2020Oct 2013 Entered By: KELVIN DARLING Comment: Judstate Dr. Gaines L5-S1 herniation, microdiscectomy 05/2014 [facility] Malignant melanoma of skin of lower limb, including hip (ICD-9-CM 172.7) Active Condition [facility] Mixed hyperlipidemia Active Condition [facility] Morbid obesity Active Condition [facility] Neoplasm of uncertain behavior of skin Active Condition [facility] Noncompliance with Treatment (ICD-9-CM V15.81) Active Condition [facility] Obesity * (ICD-9-CM 278.00) Active Condition [facility] Obstructive sleep apnea of adult (SNOMED CT 6297588755654) Active Condition Jun 23, 2012 Entered By: JAE MARAVILLA Comment: Beeap [facility] Osteoarthritis Active Condition Apr 152011 Entered By: JAE OBRIEN Comment: Both Knees; has had Inj's RE[facility] Postsurgical Percutaneous Transluminal Coronary Angioplasty Status Active Condition [facility] Prostate cancer Active Condition Mar 07, 2014 Entered By: JAE OBRIEN Comment: Cysto FEBRUARY 25: Neg CA; see Note Dated 05 MARCH 14Jul 2013 Entered By: JAE OBRIEN Comment: Presented ED [facility] w/ Gross HemeJul 2013 Entered By: JAE OBRIEN Comment: Cysto Neg Bladder Tumor; +Clots; no Active BleedingJul 2013 Entered By: JAE OBRIEN Comment: see URO noted dated Mar 14Jul 2013 Entered By: JAE OBRIEN Comment: went EDSingh on FEBRUARY 25: Leg Pain '; DVT Ruled OutJul 2013 Entered By: JAE OBRIEN Comment: Dx: Sciatica vs. Zoster (so, was not a clot from bladder)Feb 25, 2017 Entered By: JAE OBRIEN Comment: Cysto, JANUARY [address] [facility] [address] Garrison [phone]; Indication: Macroscop HematuriaJul 2016 Entered By: JAE OBRIEN Comment: Source of Heme: Likely Prostatic Bld, Given Its Episodic Nature;Feb 25, 2017 Entered By: JAE OBRIEN Comment: No Upper Tract Pathology; Cont Proscar; Do TURP if Bleed PersistsJul 2016 Entered By: JAE OBRIEN Comment: F/U w./ URO Once Yr (or prn for more Sx)Sep 01, 2017 Entered By: JAE OBRIEN Comment: TURP in SEP 01: no Longer Needs Flomax, ProscarJan 2019 Entered By: JAE OBRIEN Comment: Goes to [facility] as of SEP 03Jan 2020 Entered By: JAE OBRIEN Comment: PSA up to 5.7 in SEP 04; He Will Alert URO; Next Routine URO Eval Not Till MAY 05Dec 2021 Entered By: JAE OBRIEN Comment: Completed RT JUN 05; Rx's Testost GEL ONCO [facility] Renal cyst Active Condition Apr 09 014 Entered By: JAE OBRIEN Comment: MRI, L-Spine MAR 28 @ [facility]: +Incidental ComplexAug 2013 Entered By: JAE OBRIEN Comment: Heterogeneous Renal Mass R Upper KidneyAug 2013 Entered By: JAE OBRIEN Comment: CT w/ Renal Protocol Requested MAR 28Sep 2015 Entered By: JAE OBRIEN Comment: CT, ABD: Mass R Kidney not Suspicious for MalignancySep 2015 Entered By: JAE OBRIEN Comment: CT, ABD APR 30: +Bilat Renal Cysts; No Suspicion Renal CAApr 2019 Entered By: JAE OBRIEN Comment: US, Renals OCT 04: No Adverse Change Regarding Renal CystsApr 2019 Entered By: JAE OBRIEN Comment: Nothing Supicious REVERE screeing malignant neoplasm colon Active Condition December 17, 2021 Entered By: JAE OBRIEN Comment: NEG Colon-Guard JUN 04 RE[facility] Sleep apnea (SNOMED CT 67070666) Active Condition Apr 25, 2012 Entered By: JAE OBRIEN Comment: has CPAP [facility] TESTOSTERONE Active Condition Apr 25, 2012 Entered By: JAE OBRIEN Comment: Low Testos - on Gel REVERE Unspecified Psychosocial Circumstance (ICD-9-CM V62.9) Active Condition [facility] Anxiety Inactive Condition 09/27/2007 [facility] DEPRESSION Inactive Condition 09/27/2007 [facility] DIVERTICULOSIS Inactive Condition 06/23/2012 [facility] Dry Eye * (ICD-9-CM 375.15) Inactive Condition 06/23/2012 [facility] HEME POSITIVE Inactive Condition 06/22/2012 [facility] HEMORRHOID,INTERNAL Inactive Condition 06/23/2012 [facility] HIATAL HERNIA Inactive Condition 06/22/2012 [facility] KERATOSIS,ACTINIC Inactive Condition 06/23/2012 [facility] KNEE Inactive Condition 06/22/2012 [facility] Knee: arthralgia * (ICD-9-CM 719.46) Inactive Condition 06/22/2012 [facility] Noncompliance, Dietary Regimen Inactive Condition 07/05/2008 [facility] Noncompliance, Dietary Regimen (ICD-9-CM V15.81) Inactive Condition 06/22/2012 [facility] Skin Lesion, Unsp Inactive Condition 06/22/2012 [facility] Diagnosis: ICD-10-CM G47.30 Sleep apnea, unspecified Active Diagnosis [facility] ([id number]) Diagnosis: ICD-10-CM E78.00 Pure hypercholesterolemia, unspecified Active Diagnosis [facility] Diagnosis: ICD-10-CM I10 Essential (primary) hypertension Active Diagnosis [facility] Medications Combined list of outpatient medications from Department of Defense and [facility] Affairs facilities.Medications provided include 1) outpatient medications from the last 15 months, and 2) patient-reported medications. Medication Details Route Status Patient Instructions Prescription Expires Prescription Number Last Dispense Date Ordering Provider Order Date Order Qty Source ALLOPURINOL 300MG TAB TAKE ONE TABLET BY MOUTH ONCE DAILY FOR GOUT ORAL SUSPEND ED 01/25/2025 [id number] 5 DESMOND OBRIEN 2023 90 [facility] [place] ALLOPURINOL 300MG TAB TAKE ONE TABLET BY MOUTH ONCE DAILY FOR GOUT ORAL DISCONT INUED 03/23/2024 [id number] 4 DESMOND OBRIEN 2022 90 [facility] [place] ALPRAZOLAM 1MG TAB TAKE ONE TABLET BY MOUTH SIX TIMES A DAY ORAL ACTIVE [place] 2017 [facility] [place] AMLODIPINE BESYLATE 5MG TAB TAKE ONE TABLET BY MOUTH ONCE DAILY FOR BLOOD PRESSURE /HEART, DO NOT TAKE WITH GRAPEFRU IT JUICE ORAL SUSPEND ED 12/27/2024 [id number] 5 DESMOND OBRIEN 2023 90 [facility] [place] ASPIRIN 81MG TAB,EC TAKE ONE TABLET BY MOUTH EVERY DAY ORAL ACTIVE DESMOND OBRIEN [place] ASPIRIN PLAIN TAB TAKE 81MG BY MOUTH DAILY AT BEDTIME ORAL ACTIVE Charley MARAVILLA P 2011 [facility] ATENOLOL 25MG TAB TAKE ONE TABLET BY MOUTH ONCE DAILY FOR BLOOD PRESSURE /HEART ORAL SUSPEND ED 12/19/2024 [id number] 5 DESMOND OBRIEN 2023 90 [facility] [place] ATENOLOL 25MG TAB TAKE ONE TABLET BY MOUTH ONCE DAILY FOR BLOOD PRESSURE /HEART ORAL DISCONT INUED 03/23/2024 [id number] 4 DESMOND OBRIEN 2022 90 [facility] [place] ATORVASTATI N CA 80MG TAB TAKE ONE TABLET BY MOUTH ONCE DAILY FOR CHOLESTE ROL ORAL SUSPEND ED 01/25/2025 [id number] 5 DESMOND OBRIEN 2023 90 [facility] [place] ATORVASTATI N CA 80MG TAB TAKE ONE TABLET BY MOUTH ONCE DAILY FOR CHOLESTE ROL ORAL DISCONT INUED 03/23/2024 [id number] 4 DESMOND OBRIEN 2022 90 [facility] [place] CETIRIZINE HCL 10MG TAB TAKE ONE TABLET BY MOUTH ONCE DAILY FOR ALLERGIE S ORAL SUSPEND ED 12/07/2024 [id number] 5 DESMOND OBRIEN 2023 90 [facility] CETIRIZINE HCL 10MG TAB TAKE ONE TABLET BY MOUTH ONCE DAILY FOR ALLERGIE S ORAL DISCONT INUED 03/23/2024 [id number] 4 DESMOND OBRIEN 2022 90 [facility] [place] CIPROFLOXAC IN HCL 500MG TAB TAKE ONE TABLET BY MOUTH TWICE DAILY FOR INFECTIO N ORAL 10/19/2023 [id number] 4 DESMOND OBRIEN 2023 10 [place] CYANOCOBALA MIN 500MCG TAB TAKE ONE TABLET BY MOUTH TWICE DAILY FOR VITAMIN SUPPLEME NTATION ORAL SUSPEND ED 01/25/2025 [id number] 5 DESMOND OBRIEN 2023 200 [place] CYANOCOBALA MIN 500MCG TAB TAKE ONE TABLET BY MOUTH TWICE DAILY FOR VITAMIN SUPPLEME NTATION ORAL DISCONT INUED 03/23/2024 [id number] 4 DESMOND OBRIEN 2022 200 [place] EZETIMIBE 10MG TAB TAKE ONE TABLET BY MOUTH ONCE DAILY TO LOWER CHOLESTE ROL ORAL SUSPEND ED 12/19/2024 [id number] 5 DESMOND OBRIEN 2023 90 [place] EZETIMIBE 10MG TAB TAKE ONE TABLET BY MOUTH ONCE DAILY TO LOWER CHOLESTE ROL ORAL DISCONT INUED 03/23/2024 [id number] 4 DESMOND OBRIEN 2022 90 [place] FLUTICASONE PROPIONATE 50MCG/SPRAY SOLN,NASAL, 16GM INSTILL 1 SPRAY INTO EACH NOSTRIL TWICE DAILY FOR NASAL IRRITATI ON/INFLA MMATION NASAL ACTIVE 01/25/2025 [id number] 4 DESMOND OBRIEN 2023 3 [place] FLUTICASONE PROPIONATE 50MCG/SPRAY SOLN,NASAL, 16GM INSTILL 1 SPRAY INTO EACH NOSTRIL TWICE DAILY FOR NASAL IRRITATI ON/INFLA MMATION NASAL DISCONT INUED 12/05/2024 [id number] 4 DESMOND OBRIEN 2023 3 [place] FLUTICASONE PROPIONATE 50MCG/SPRAY SOLN,NASAL, 16GM INSTILL 1 SPRAY INTO EACH NOSTRIL TWICE DAILY FOR NASAL IRRITATI ON/INFLA MMATION NASAL DISCONT INUED 03/23/2024 [id number] 4 DESMOND OBRIEN 2022 1 [place] LEVOTHYROXI NE NA 125MCG TAB (SYNTHROID) TAKE ONE TABLET BY MOUTH EVERY MORNING 30 MINUTES BEFORE BREAKFAS T FOR THYROID - TAKE ON AN EMPTY STOMACH WITH A FULL GLASS OF WATER ORAL SUSPEND ED 12/19/2024 [id number] 5 DESMOND OBRIEN 2023 90 [facility] [place] LEVOTHYROXI NE NA 125MCG TAB (SYNTHROID) TAKE ONE TABLET BY MOUTH EVERY MORNING 30 MINUTES BEFORE BREAKFAS T FOR THYROID - TAKE ON AN EMPTY STOMACH WITH A FULL GLASS OF WATER ORAL DISCONT INUED 03/23/2024 [id number] 4 DESMOND OBRIEN 2022 90 [place] POTASSIUM 100MG TAB TAKE ONE TABLET BY MOUTH ONCE DAILY FOR BLOOD PRESSURE /HEART ORAL SUSPEND ED 01/25/2025 [id number] 5 DESMOND OBRIEN 2023 90 [facility] [place] POTASSIUM 100MG TAB TAKE ONE TABLET BY MOUTH ONCE DAILY FOR BLOOD PRESSURE /HEART ORAL DISCONT INUED 03/23/2024 [id number] 4 DESMOND OBRIEN 2022 90 [place] NAPHAZOLINE HCL 0.025%/PHEN IRAMINE 0.3% SOLN,OPH INSTILL 1 DROP INTO EACH EYE TWICE DAILY NEEDED FOR RED EYES OPHTHA LMIC ACTIVE 01/25/2025 [id number] 4 DESMOND OBRIEN 2023 15 [place] NAPHAZOLINE HCL 0.025%/PHEN IRAMINE 0.3% SOLN,OPH INSTILL 1 DROP INTO EACH EYE TWICE DAILY NEEDED FOR RED EYES OPHTHA LMIC DISCONT INUED 03/07/2024 [id number] Isatu LUX ICHELE 2022 15 [facility] NITROGLYCER IN 0.4MG TAB,SUBLING UAL DISSOLVE ONE TABLET UNDER THE TONGUE Q5MIN PRN SUBLIN GUAL ACTIVE DESMOND OBRIEN 2011 [facility] [place] OMEPRAZOLE 20MG CAP,EC TAKE ONE CAPSULE BY MOUTH EVERY MORNING 30 MINUTES BEFORE BREAKFAS T ORAL SUSPEND ED 01/25/2025 [id number] 5 DESMOND OBRIEN 2023 90 [place] OMEPRAZOLE 20MG CAP,EC TAKE ONE CAPSULE BY MOUTH EVERY MORNING 30 MINUTES BEFORE BREAKFAS T ORAL DISCONT INUED 03/23/2024 [id number] 4 DESMOND OBRIEN 2022 90 [place] OTHER CAP/TAB SUNSCREE N EVERY DAY ACTIVE DESMOND OBRIEN 2011 [place] POLYETHYLEN E GLYCOL 3350 PWDR,ORAL TAKE 17 GRAMS(FI LL CAP TO 17GM LINE) BY MOUTH ONCE DAILY FOR CONSTIPA TION [MIX WITH 4 TO 8OZ. OF BEVERAGE ] ORAL DISCONT INUED BY DUSTY R 12/05/2024 [id number] 4 DESMOND OBRIEN 2023 510 [facility] [place] POLYETHYLEN E GLYCOL 3350 PWDR,ORAL TAKE 17 GRAMS(FI LL CAP TO 17GM LINE) BY MOUTH ONCE DAILY FOR CONSTIPA TION [MIX WITH 4 TO 8OZ. OF [place]EVER[place] ] ORAL DISCONT INUED 03/23/2024 [id number] DESMOND OBRIEN 2022 510 [place] SILDENAFIL CITRATE 100MG TAB TAKE ONE TABLET BY MOUTH DIRECTED TAKE 1 HOUR PRIOR TO SEXUAL ACTIVITY ORAL ACTIVE 04/21/2025 [id number] 4 DESMOND OBRIEN 2023 4 [place] SILDENAFIL CITRATE 100MG TAB TAKE ONE TABLET BY MOUTH DIRECTED TAKE 1 HOUR PRIOR TO SEXUAL ACTIVITY ORAL DISCONT INUED 12/05/2024 [id number] 4 DESMOND OBRIEN 2023 4 [place] SILDENAFIL CITRATE 100MG TAB TAKE ONE TABLET BY MOUTH DIRECTED TAKE 1 HOUR PRIOR TO SEXUAL ACTIVITY ORAL DISCONT INUED 03/23/2024 [id number] 4 DESMOND OBRIEN 2022 4 [place] SODIUM FLUORIDE 1.1% TOOTHPASTE BRUSH SMALL AMOUNT TO TEETH TWICE DAILY DENTAL ACTIVE 01/25/2025 [id number] 4 DESMOND OBRIEN 2023 102 [place] SODIUM FLUORIDE 1.1% TOOTHPASTE BRUSH SMALL AMOUNT TO TEETH TWICE DAILY DENTAL DISCONT INUED 12/09/2023 [id number] 4 DESMOND OBRIEN 2022 100 [facility] [place] TAMSULOSIN HCL 0.4MG CAP TAKE ONE CAPSULE BY MOUTH ONCE DAILY ORAL ACTIVE 01/25/2025 [id number] 4 DESMOND OBRIEN 2023 90 [facility] [place] TAMSULOSIN HCL 0.4MG CAP TAKE ONE CAPSULE BY MOUTH ONCE DAILY ORAL DISCONT INUED 08/16/2024 [id number] DESMOND OBRIEN 2023 90 [facility] [place] TESTOSTERON E (EQV-ANDROG EL) 1% 5GM/PKT GEL,TOP APPLY 1 PACKET TOPICALL Y EVERY DAY TOPICA L ACTIVE DESMOND OBRIEN 2011 [facility] [place] Allergies, Adverse Reactions, Alerts Combined list of allergies from Department of Defense and Veterans Affairs facilities. It does not include entries that were removed or entered in error. Substance Category Reaction Severity Reaction type Status Date Reported Comments Source LISINOPRIL Propensity to adverse reactions to drug (finding) active 07/02/2013 [facility] PAROXETINE Propensity to adverse reactions to drug (finding) Vertigo active 09/20/2011 [facility] Immunizations Combined list of available immunizations from the Department of Defense and Veterans Affairs facilities. Immunization Series Date Given Administered By Site Reaction Lot Number CVX Code Drug Marketing Consultant Status Comments Source INFLUENZA, UNSPECIFIED FORMULATION 2021 88 complet ed [facility] COVID-19 (MODERNA), MRNA, LNP-S, PF, 100 MCG/0.5ML DOSE OR 50 MCG/0.25ML DOSE 3 2020 207 complet ed [facility] COVID-19 (MODERNA), MRNA, LNP-S, PF, 100 MCG/0.5 ML DOSE 2 2020 207 complet ed [facility] AMBROSE THOMASIANC E COVID-19 (MODERNA), MRNA, LNP-S, PF, 100 MCG/0.5 ML DOSE 1 2020 207 complet ed [facility] INFLUENZA, UNSPECIFIED FORMULATION 2019 88 complet ed [facility] COVID-19 (MODERNA), MRNA, LNP-S, PF, 100 MCG/0.5 ML DOSE 2 2019 207 complet ed [facility] INFLUENZA, SEASONAL, INJECTABLE 2018 141 complet ed cvs [facility] PNEUMOCOCCAL CONJUGATE PCV 13 2018 133 complet ed [place] TDAP 2018 115 complet ed Site: Left Deltoid [place] INFLUENZA, SEASONAL, INJECTABLE 2017 141 complet ed [facility] FLU,3 YRS (HISTORICAL) 2015 88 complet ed Site: Left Deltoid [place] PNEUMOCOCCAL POLYSACCHARID E PPV23 2015 33 complet ed [place] INFLUENZA, UNSPECIFIED FORMULATION 2015 88 complet ed [employer] [facility] INFLUENZA, UNSPECIFIED FORMULATION 2015 88 complet ed [facility] INFLUENZA, UNSPECIFIED FORMULATION 2014 88 complet ed [facility] INFLUENZA, UNSPECIFIED FORMULATION 2013 88 complet ed [facility] INFLUENZA, UNSPECIFIED FORMULATION 2013 88 complet ed [facility] FLU,3 YRS (HISTORICAL) 2013 88 complet ed Site: Left Deltoid [place] INFLUENZA, UNSPECIFIED FORMULATION 2012 NONE 88 complet ed Right Deltoid (IM) [facility] FLU,3 YRS (HISTORICAL) 2012 88 complet ed [facility] FLU,3 YRS (HISTORICAL) 2011 88 complet ed Site: Left Deltoid [place] INFLUENZA, UNSPECIFIED FORMULATION 2010 NONE 88 complet ed Left Deltoid (IM) [facility] INFLUENZA, UNSPECIFIED FORMULATION 2009 NONE 88 complet ed [facility] INFLUENZA, UNSPECIFIED FORMULATION 2008 NONE 88 complet ed Right Deltoid (IM)Exp. 0 [facility] INFLUENZA, UNSPECIFIED FORMULATION 2007 NONE 88 complet ed Left Deltoid (IM), Lot Number:[id number];EXP 01/21 [facility] INFLUENZA, UNSPECIFIED FORMULATION 2006 NONE 88 complet ed Left Deltoid (IM), Lot Number:[id number] Exp: FEB 12 2008 [facility] INFLUENZA, UNSPECIFIED FORMULATION 2005 NONE 88 complet ed Left Deltoid (IM), Lot Number:[id number], exp: [facility] INFLUENZA, UNSPECIFIED FORMULATION 2004 NONE 88 complet ed Left Deltoid (IM), Lot Number:[id number]. Exp. February 11, 2006. [facility] INFLUENZA, UNSPECIFIED FORMULATION 2003 NONE 88 complet ed Left Deltoid (IM), Lot Number:[id number], exp Feb 11 [facility] FLU,3 YRS (HISTORICAL) 2002 [employer] GAUTHIER 88 complet ed [facility] TETANUS TOXOID, UNSPECIFIED FORMULATION 2002 NONE 112 complet ed Left Deltoid 0.5ml. given IM without problem.L ot# [id number] Exp.. [facility] FLU,3 YRS (HISTORICAL) 2001 88 complet ed [facility] INFLUENZA, UNSPECIFIED FORMULATION 2000 NONE 88 complet ed 0.5ml.giv en IM left deltoid without problem.A ventia Lot# [id number]. [facility] TETANUS TOXOID, UNSPECIFIED FORMULATION 2000 112 complet ed Date of last Tetanus inj. unknwon. [facility] Results Combined list of recent chemistry, hematology and other laboratory results from [facility] [employer] [facility], ranging from 15 months to all on record, depending upon the facility. Order Name Results Value Reference Range Date Interpretation Specimen Comments Source HEMOGLOBI N A1C PANEL HEMOGLOBIN A1C/HEMOGLO BIN.TOTAL IN BLOOD BY HPLC 5.3 4.0 - 5.6 01/18 Specimen Type: BLOOD Comment: Values obtained from A1C measurement s can vary. For atypical A1C assays, a reported value of 7.0 could actually be between 6.72 and 7.28 if measured by a reference method. A reported value of 9.0 could actually be between 8.73 and 9.27. Ref: [email or web address] Ordering Provider: JAE OBRIEN Report Released Date/Time: January 10, 2024 01:44 PM Reporting Lab: [address] [address] Performing Lab: [address] [address] [place] LIPID PANEL FASTING CHOLESTEROL [MASS/VOLUM E] IN SERUM OR PLASMA 137 mg/dL 01/18 Specimen Type: SERUM No comment entered. Ordering Provider: JAE OBRIEN Report Released Date/Time: January 10, 2024 01:44 PM Reporting Lab: [address] [address] Performing Lab: [address] [address] [place] LIPID PANEL FASTING TRIGLYCERID E [MASS/VOLUM E] IN SERUM OR PLASMA 83 mg/dL 0 - 150 01/18 Specimen Type: SERUM No comment entered. Ordering Provider: JAE OBRIEN Report Released Date/Time: January 10, 2024 01:44 PM Reporting Lab: [address] [address] Performing Lab: [address] [address] [place] LIPID PANEL FASTING CHOLESTEROL IN LDL [MASS/VOLUM E] IN SERUM OR PLASMA BY CALCULATION 65 mg/dL 0 - 129 01/18 Specimen Type: SERUM No comment entered. Ordering Provider: JAE OBRIEN Report Released Date/Time: January 10, 2024 01:44 PM Reporting Lab: [address] [address] Performing Lab: [address] [address] [place] LIPID PANEL FASTING CHOLESTEROL .TOTAL/CHOL ESTEROL IN HDL [MASS RATIO] IN SERUM OR PLASMA 2.5 01/18 Specimen Type: SERUM No comment entered. Ordering Provider: JAE OBRIEN Report Released Date/Time: January 10, 2024 01:44 PM Reporting Lab: [facility] [address] [facility] [address] Performing Lab: [facility] [address] [address] [place] LIPID PANEL FASTING CHOLESTEROL IN HDL [MASS/VOLUM E] IN SERUM OR PLASMA 55 mg/dL 40 - 60 01/18 Specimen Type: SERUM No comment entered. Ordering Provider: JAE OBRIEN Report Released Date/Time: January 10, 2024 01:44 PM Reporting [facility]: [facility] [address] [address] Performing Lab: [facility] [address] [address] [place] TSH THYROTROPIN [UNITS/VOLU ME] IN SERUM OR PLASMA 1.23 u[IU]/ mL 0.35 - 5.00 01/18 Specimen Type: SERUM No comment entered. Ordering Provider: JAE OBRIEN Report Released Date/Time: January 10, 2024 01:44 PM Reporting Lab: [facility] [address] [address] Performing Lab: [facility] [address] [address] [place] LIVER FUNCTION PROTEIN [MASS/VOLUM E] IN SERUM OR PLASMA 6.8 g/dL 6.0 - 8.3 01/18 Specimen Type: SERUM No comment entered. Ordering Provider: JAE OBRIEN Report Released Date/Time: January 10, 2024 01:44 PM Reporting Lab: [facility] [address] [address] Performing Lab: [facility] [address] [address] [place] LIVER FUNCTION ALBUMIN [MASS/VOLUM E] IN SERUM OR PLASMA 3.6 g/dL 3.5 - 5.0 01/18 Specimen Type: SERUM No comment entered. Ordering Provider: JAE OBRIEN Report Released Date/Time: January 10, 2024 01:44 PM Reporting Lab: [facility] [place] [address] [address] Performing Lab: [facility] [place] [address] [address] [place] LIVER FUNCTION ALKALINE PHOSPHATASE [ENZYMATIC ACTIVITY/VO LUME] IN SERUM OR PLASMA 67 U/L 40 - 150 01/18 Specimen Type: SERUM No comment entered. Ordering Provider: JAE OBRIEN Report Released Date/Time: January 10, 2024 01:44 PM Reporting Lab: [facility] [place] [address] [address] Performing Lab: [facility] [address] [address] [place] LIVER FUNCTION ASPARTATE AMINOTRANSF ERASE [ENZYMATIC ACTIVITY/VO LUME] IN SERUM OR PLASMA 14 U/L 5 - 34 01/18 Specimen Type: SERUM No comment entered. Ordering Provider: JAE OBRIEN Report Released Date/Time: January 10, 2024 01:44 PM Reporting Lab: [facility] [place] [address] [address] Performing Lab: [facility] [place] [address] [address] [place] LIVER FUNCTION ALANINE AMINOTRANSF ERASE [ENZYMATIC ACTIVITY/VO LUME] IN SERUM OR PLASMA 15 U/L 01/18 Specimen Type: SERUM No comment entered. Ordering Provider: JAE OBRIEN Report Released Date/Time: January 10, 2024 01:44 PM Reporting Lab: [facility] [place] [address] [address] Performing Lab: [facility] [place] [address] [address] [place] BILIRUBIN.T OTAL [MASS/VOLUM E] IN SERUM OR PLASMA 1.3 mg/dL 0.2 - 1.2 01/18 H Specimen Type: SERUM No comment entered. Ordering Provider: JAE OBRIEN Report Released Date/Time: January 10, 2024 01:44 PM Reporting Lab: [facility] [address] [facility] [address] Performing Lab: [address] [address] [place] LIVER FUNCTION BILIRUBIN.D IRECT [MASS/VOLUM E] IN SERUM OR PLASMA 0.5 mg/dL 0 - 0.5 01/18 Specimen Type: SERUM No comment entered. Ordering Provider: JAE OBRIEN Report Released Date/Time: January 10, 2024 01:44 PM Reporting Lab: [facility] [address] [address] Performing Lab: [address] [address] [place] BASIC METABOLIC PANEL (fasting) UREA NITROGEN [MASS/VOLUM E] IN SERUM OR PLASMA 22 mg/dL 7 - 25 01/18 Specimen Type: SERUM No comment entered. Ordering Provider: JAE OBRIEN Report Released Date/Time: January 10, 2024 01:44 PM Reporting Lab: [address] [address] Performing Lab: [address] [address] [place] BASIC METABOLIC PANEL (fasting) GLUCOSE [MASS/VOLUM E] IN SERUM OR PLASMA 107 mg/dL 65 - 100 01/18 H Specimen Type: SERUM No comment entered. Ordering Provider: JAE OBRIEN Report Released Date/Time: January 10, 2024 01:44 PM Reporting Lab: [address] [address] Performing Lab: [address] [address] [place] BASIC METABOLIC PANEL (fasting) SODIUM [MOLES/VOLU ME] IN SERUM OR PLASMA 140 mmol/L 135 - 145 01/18 Specimen Type: SERUM No comment entered. Ordering Provider: JAE OBRIEN Report Released Date/Time: January 10, 2024 01:44 PM Reporting Lab: [address] [address] Performing Lab: [place] [facility]N [facility]USESTAT[facility] [address] [facility] [address] [place] BASIC METABOLIC PANEL (fasting) POTASSIUM [MOLES/VOLU ME] IN SERUM OR PLASMA 4.3 mmol/L 3.5 - 5.0 01/18 Specimen Type: SERUM No comment entered. Ordering Provider: JAE OBRIEN Report Released Date/Time: January 10, 2024 01:44 PM Reporting Lab: [facility] CAMPUSTRN [facility]ENTERUSESTAT[facility] [address] [facility] [address] Performing Lab: [facility] [address] [address] [place] BASIC METABOLIC PANEL (fasting) CHLORIDE [MOLES/VOLU ME] IN SERUM OR PLASMA 107 mmol/L 100 - 110 01/18 Specimen Type: SERUM No comment entered. Ordering Provider: JAE OBRIEN Report Released Date/Time: January 10, 2024 01:44 PM Reporting Lab: [facility]ENTERUSESTAT[facility] [address] [facility] [address] Performing Lab: [facility]ITALRDECAT[facility] CAMPUSTRN [facility] CENTERUSE[address] [address] [place] BASIC METABOLIC PANEL (fasting) CARBON DIOXIDE, TOTAL [MOLES/VOLU ME] IN SERUM OR PLASMA 26 meq/L 20 - 30 01/18 Specimen Type: SERUM No comment entered. Ordering Provider: JAE OBRIEN Report Released Date/Time: January 10, 2024 01:44 PM Reporting Lab: [facility] [place] [facility]ENTERUSE[address] [address] Performing Lab: [place] [facility] CENTERUSE[address] [address] [place] BASIC METABOLIC PANEL (fasting) CREATININE [MASS/VOLUM E] IN SERUM OR PLASMA 0.89 mg/dL 0.50 - 1.40 01/18 Specimen Type: SERUM No comment entered. Ordering Provider: JAE OBRIEN Report Released Date/Time: January 10, 2024 01:44 PM Reporting Lab: [facility] [facility] [address] [address] Performing Lab: [facility] [address] [address] [place] BASIC METABOLIC PANEL (fasting) GLOMERULAR FILTRATION RATE/1.73 SQ M.PREDICTED [VOLUME RATE/AREA] IN SERUM, PLASMA OR BLOOD BY CREATININE- BASED FORMULA (CKD-EPI 2020) 90 mL/min 60 01/18 Specimen Type: SERUM No comment entered. Ordering Provider: JAE OBRIEN Report Released Date/Time: January 10, 2024 01:44 PM Reporting Lab: [facility] [address] [address] Performing Lab: [address] [address] [place] CALCIUM CALCIUM [MASS/VOLUM E] IN SERUM OR PLASMA 8.5 mg/dL 8.5 - 10.2 01/18 Specimen Type: SERUM No comment entered. Ordering Provider: JAE OBRIEN Report Released Date/Time: January 10, 2024 01:44 PM Reporting Lab: [facility] [address] [address] Performing Lab: [address] [address] [place] URIC ACID URATE [MASS/VOLUM E] IN SERUM OR PLASMA 3.1 mg/dL 3.5 - 7.2 01/18 L Specimen Type: SERUM No comment entered. Ordering Provider: JAE OBRIEN Report Released Date/Time: January 10, 2024 01:44 PM Reporting Lab: [facility] [address] [address] Performing Lab: [facility] [address] [address] [place] PSA PROSTATE SPECIFIC AG [MASS/VOLUM E] IN SERUM OR PLASMA < 0.10ng /mL 0.00 - 4.00 01/18 Specimen Type: SERUM No comment entered. Ordering Provider: JAE OBRIEN Report Released Date/Time: January 10, 2024 01:44 PM Reporting Lab: [facility] [address] [address] Performing Lab: [address] [address] [place] VITAMIN D (25-OH) 25-HYDROXYV ITAMIN D3 [MASS/VOLUM E] IN SERUM OR PLASMA 35 ng/mL 20 - 50 01/18 Specimen Type: SERUM No comment entered. Ordering Provider: JAE OBRIEN Report Released Date/Time: January 10, 2024 01:44 PM Reporting Lab: [address] [address] Performing Lab: [address] [address] [place] CBC AND DIFF (AUTO) LEUKOCYTES [#/VOLUME] IN BLOOD BY AUTOMATED COUNT 6.19 10*3/u L 4.50 - 11.00 01/18 Specimen Type: BLOOD No comment entered. Ordering Provider: JAE OBRIEN Report Released Date/Time: January 10, 2024 01:44 PM Reporting Lab: [address] [address] Performing Lab: [address] [address] [place] CBC AND DIFF (AUTO) ERYTHROCYTE S [#/VOLUME] IN BLOOD BY AUTOMATED COUNT 4.35 10*6/u L 4.23 - 5.66 01/18 Specimen Type: BLOOD No comment entered. Ordering Provider: JAE OBRIEN Report Released Date/Time: January 10, 2024 01:44 PM Reporting Lab: [address] [address] Performing Lab: [address] [address] [place] CBC AND DIFF (AUTO) HEMOGLOBIN [MASS/VOLUM E] IN BLOOD 13.5 g/dL 12.8 - 17 01/18 Specimen Type: BLOOD No comment entered. Ordering Provider: JAE OBRIEN Report Released Date/Time: January 10, 2024 01:44 PM Reporting Lab: [address] [address] Performing Lab: [facility] [place] [facility] [address] [facility] [address] [place] CBC AND DIFF (AUTO) HEMATOCRIT [VOLUME FRACTION] OF BLOOD BY AUTOMATED COUNT 41.4 39.2 - 50.4 01/18 Specimen Type: BLOOD No comment entered. Ordering Provider: JAE OBRIEN Report Released Date/Time: January 10, 2024 01:44 PM Reporting Lab: [facility]ITALRDECAT[facility] CAMPUSTRN [facility]ENTERUSETS [facility] [address] [facility] [address] Performing Lab: [facility]ITALRDECATUR [facility] CAMPUSTRN [facility] CENTERUSE[address] [address] [place] CBC AND DIFF (AUTO) MCV [ENTITIC VOLUME] BY AUTOMATED COUNT 95.2 fL 82 - 99 01/18 Specimen Type: BLOOD No comment entered. Ordering Provider: JAE OBRIEN Report Released Date/Time: January 10, 2024 01:44 PM Reporting Lab: [place] [facility] CENTERUSE[address] [address] Performing Lab: [facility]ITALRDECATUR [facility] CAMPUSTRN [place] [address] [address] [place] CBC AND DIFF (AUTO) MCHC [MASS/VOLUM E] BY AUTOMATED COUNT 32.6 g/dL 30.8 - 35.1 01/18 Specimen Type: BLOOD No comment entered. Ordering Provider: JAE OBRIEN Report Released Date/Time: January 10, 2024 01:44 PM Reporting Lab: [facility] [facility] CENTERUSETS [address] [address] Performing Lab: [facility]ITALRDECAT[facility] CAMPUSTRN [facility] CENTERUSETS [address] [address] [place] CBC AND DIFF (AUTO) PLATELETS [#/VOLUME] IN BLOOD BY AUTOMATED COUNT 164 10*3/u L 140 - 360 01/18 Specimen Type: BLOOD No comment entered. Ordering Provider: JAE OBRIEN Report Released Date/Time: January 10, 2024 01:44 PM Reporting Lab: [facility]ITALRCOMMUNITY HOSPITALN [address] [address] Performing Lab: [facility]ITALRCOMMUNITY HOSPITALN [facility] CENTERUSE[address] [address] [place] CBC AND DIFF (AUTO) ERYTHROCYTE DISTRIBUTIO N WIDTH [RATIO] BY AUTOMATED COUNT 14.9 12.0 - 16.0 01/18 Specimen Type: BLOOD No comment entered. Ordering Provider: JAE OBRIEN Report Released Date/Time: January 10, 2024 01:44 PM Reporting Lab: [facility] [place] [facility] [address] [address] Performing Lab: [facility]ITALRDECATUR [facility] CAMPUSTRN [address] [address] [place] CBC AND DIFF (AUTO) MONOCYTES [#/VOLUME] IN BLOOD BY AUTOMATED COUNT 0.54 10*3/u L 0.30 - 1.10 01/18 Specimen Type: BLOOD No comment entered. Ordering Provider: JAE OBRIEN Report Released Date/Time: January 10, 2024 01:44 PM Reporting Lab: [facility] [address] [address] Performing Lab: [facility] [place] [place] [address] [address] [place] CBC AND DIFF (AUTO) MCH [ENTITIC MASS] BY AUTOMATED COUNT 31.0 pg 26.2 - 32.6 01/18 Specimen Type: BLOOD No comment entered. Ordering Provider: JAE OBRIEN Report Released Date/Time: January 10, 2024 01:44 PM Reporting Lab: [facility] [address] [address] Performing Lab: [facility] [address] [address] [place] CBC AND DIFF (AUTO) NEUTROPHILS /100 LEUKOCYTES IN BLOOD BY AUTOMATED COUNT 59.7 43.7 - 75.8 01/18 Specimen Type: BLOOD No comment entered. Ordering Provider: JAE OBRIEN Report Released Date/Time: January 10, 2024 01:44 PM Reporting Lab: [facility]ITALRDECAT[facility] CAMPUSTRN [address] [address] Performing Lab: [facility] CENTERUSE[address] [address] [place] CBC AND DIFF (AUTO) LYMPHOCYTES /100 LEUKOCYTES IN BLOOD BY AUTOMATED COUNT 25.4 14.0 - 42.3 01/18 Specimen Type: BLOOD No comment entered. Ordering Provider: JAE OBRIEN Report Released Date/Time: January 10, 2024 01:44 PM Reporting Lab: [facility] [place] [address] [address] Performing Lab: [facility]ENTERCHUSETS [address] [address] [place] CBC AND DIFF (AUTO) MONOCYTES/1 00 LEUKOCYTES IN BLOOD BY AUTOMATED COUNT 8.7 5.1 - 13.7 01/18 Specimen Type: BLOOD No comment entered. Ordering Provider: JAE OBRIEN Report Released Date/Time: January 10, 2024 01:44 PM Reporting Lab: [facility]OSPITALRL TRN [facility] CENTERUSE[address] [address] Performing Lab: [facility]ITALRDECAT[facility] CAMPUSTRN [facility]ENTERUSE[address] [address] [place] CBC AND DIFF (AUTO) EOSINOPHILS /100 LEUKOCYTES IN BLOOD BY AUTOMATED COUNT 4.2 0.4 - 6.8 01/18 Specimen Type: BLOOD No comment entered. Ordering Provider: JAE OBRIEN Report Released Date/Time: January 10, 2024 01:44 PM Reporting Lab: [facility]PITALR WSTRN [facility] CENTERUSETS [address] [address] Performing Lab: [facility]OSPITALRL TRN [facility] CENTERUSE[address] [address] [place] CBC AND DIFF (AUTO) BASOPHILS/1 00 LEUKOCYTES IN BLOOD BY AUTOMATED COUNT 1.5 0.1 - 2.0 01/18 Specimen Type: BLOOD No comment entered. Ordering Provider: JAE OBRIEN Report Released Date/Time: January 10, 2024 01:44 PM Reporting Lab: [facility] CENTERUSETS [address] [address] Performing Lab: [facility]PITALRL TRN [facility] CENTERUSETS [address] [address] [place] CBC AND DIFF (AUTO) NEUTROPHILS [#/VOLUME] IN BLOOD BY AUTOMATED COUNT 3.70 10*3/u L 2.20 - 7.60 01/18 Specimen Type: BLOOD No comment entered. Ordering Provider: JAE OBRIEN Report Released Date/Time: January 10, 2024 01:44 PM Reporting Lab: [facility]ITALRDECAT[facility] CAMPUSTRN [address] [address] Performing Lab: [facility] [address] [address] [place] CBC AND DIFF (AUTO) LYMPHOCYTES [#/VOLUME] IN BLOOD BY AUTOMATED COUNT 1.57 10*3/u L 1.00 - 3.20 01/18 Specimen Type: BLOOD No comment entered. Ordering Provider: JAE OBRIEN Report Released Date/Time: January 10, 2024 01:44 PM Reporting Lab: [facility]ITALRCOMMUNITY HOSPITALN [address] [address] Performing Lab: [facility] [address] [address] [place] CBC AND DIFF (AUTO) EOSINOPHILS [#/VOLUME] IN BLOOD BY AUTOMATED COUNT 0.26 10*3/u L 0.03 - 0.44 01/18 Specimen Type: BLOOD No comment entered. Ordering Provider: JAE OBRIEN Report Released Date/Time: January 10, 2024 01:44 PM Reporting Lab: [facility]ITALRCOMMUNITY HOSPITALN [address] [address] Performing Lab: [facility]ITALRCOMMUNITY HOSPITALN [address] [address] [place] CBC AND DIFF (AUTO) BASOPHILS [#/VOLUME] IN BLOOD BY AUTOMATED COUNT 0.09 10*3/u L 0.01 - 0.13 01/18 Specimen Type: BLOOD No comment entered. Ordering Provider: JAE OBRIEN Report Released Date/Time: January 10, 2024 01:44 PM Reporting Lab: [facility]ITALRCOMMUNITY HOSPITALN [address] [address] Performing Lab: [facility] [address] [address] [place] CBC AND DIFF (AUTO) IMMATURE GRANULOCYTE S/100 LEUKOCYTES IN BLOOD BY AUTOMATED COUNT 0.5 0.0 - 0.7 01/18 Specimen Type: BLOOD No comment entered. Ordering Provider: JAE OBRIEN Report Released Date/Time: January 10, 2024 01:44 PM Reporting Lab: [facility] [address] [facility] [address] Performing Lab: [address] [address] [facility] CBC AND DIFF (AUTO) IMMATURE GRANULOCYTE S [#/VOLUME] IN BLOOD 0.03 10*3/u L 0.00 - 0.06 01/18 Specimen Type: BLOOD No comment entered. Ordering Provider: JAE OBRIEN Report Released Date/Time: January 10, 2024 01:44 PM Reporting Lab: [facility] [address] [facility] [address] Performing Lab: [address] [address] [facility] Vital Signs Combined list of inpatient and outpatient Vital Signs from Department of Defense and Veterans Affairs, ranging from 12 months to all on record, depending upon the facility. Vital Sign Value Date Comments Source SYSTOLIC BLOOD PRESSURE 122 01/25/2024 13:21:24 [facility] DIASTOLIC BLOOD PRESSURE 66 01/25/2024 13:21:24 REVERE Encounters Combined list of: 1) Encounters from Department of Veterans Affairs facilities going back up to thelast 18 months. 2) Encounters from the Department of [facility] facilities going back up to 280 months. Location Location Details Encounter Type Encounter Number Reason For Visit Attending Provider ADM Date DC Date Status Disposition Source [facility] [place] [facility] Outpatient Encounter [id number] 03/22 [facility] Outpatient Encounter [id number] 03/22 [facility] Outpatient Encounter [id number] 03/22 [facility] [place] [facility] EST MOD 30-39 MIN [id number] Diagnos is: ICD-10- CM I10 Essenti al (primar y) hyperte nsion<b r/> OLI OBRIEN 03/23 [place] [facility] Outpatient Encounter [id number] 04/15 [place] [facility] En[facility] [id number] 05/03 [facility] COLLJ & INTERPJ DATA EA 30 D [id number] Diagnos is: ICD-10- CM G47.30 Sleep apnea, unspeci fied
LUIS UNDERWOOD A 05/06 [facility] En[facility] [id number] 05/24 [facility] En[facility] [id number] 08/16 [facility] En[facility] [id number] 08/16 [facility] En[facility] [id number] 08/22 [facility] En[facility] [id number] 12/04 [facility] En[facility] [id number] 12/04 [facility] En[facility] [id number] 12/06 [facility] En[facility] [id number] 12/18 [facility] En[facility] [id number] 12/18 [facility] En[facility] [id number] 12/22 [facility] En[facility] [id number] 12/26 [facility] En[facility] [id number] 01/10 [facility] [place] En[facility] [id number] 01/11 [facility] En[facility] [id number] 01/11 [facility] Out[facility] Encounter [id number] 01/13 [facility] OFFICE O/P EST MOD 30 MIN [id number] Diagnos is: ICD-10- CM 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, unspeci fied
OLI OBRIEN 01/24 [place] [facility] Out[facility] Encounter [id number] 04/20 [facility][id number] SPECIAL SUPPLIES PHYS/QHP [id number] Diagnos is: ICD-10- CM G47.30 Sleep apnea, unspeci fied
VERNELL SAUCEDO 05/08 [facility] ([id number]) Social History Combined list of available smoking, tobacco, and other social history from [facility] Defense and [facility] facilities. Social History Type Response Date Comment Source Tobacco smoking status [facility] VA-TOBACCO FORMER USER 01/25/2024 [facility] History of tobacco use ID-TOBACCO NEVER USED 01/25/2024 [facility] History of tobacco use VA-TOBACCO FORMER USER 07/19/2022 [facility] History of tobacco use [facility]-TOBACCO FORMER USER 02/26/2021 [facility] History of tobacco use ID-TOBACCO FORMER USER 02/18/2020 [facility] History of tobacco use QUIT TOBACCO USE > 7 YEARS AGO 02/27/2018 does nkt smoke RE[facility] History of tobacco use QUIT TOBACCO USE > 7 YEARS AGO 02/11/2017 stopped smoking 10 years ago REV[facility] History of tobacco use LIFETIME NON TOBACCO USER 09/03/2016 [facility] History of tobacco use QUIT TOBACCO USE > 7 YEARS AGO 01/30/2016 [facility] History of tobacco use PREVIOUS TOBACCO USER 09/03/2015 quit 6Y ago [facility] History of tobacco use QUIT TOBACCO USE 1-7 YEARS AGO 01/13/2015 quit 6 years ago [facility] History of tobacco use LIFETIME NON TOBACCO USER 09/11/2014 [facility] History of tobacco use LIFETIME NON TOBACCO USER 07/05/2014 [facility] History of tobacco use PREVIOUS TOBACCO USER 11/27/2013 [facility] History of tobacco use LIFETIME NON TOBACCO USER 11/23/2013 Mera GUAMAN DEPT [facility] History of tobacco use PREVIOUS TOBACCO USER 07/17/2013 quit 5 years ago [facility] History of tobacco use QUIT TOBACCO USE 1-7 YEARS AGO 03/30/[address] quit smoking 5 years ago. [facility] History of tobacco use LIFETIME NON TOBACCO USER 06/23/2012 [facility] History of tobacco use QUIT TOBACCO USE 1-7 YEARS AGO 04/25/2012 [facility] History of tobacco use LIFETIME NON TOBACCO USER 10/06/2011 [facility] History of tobacco use LIFETIME NON TOBACCO USER 06/21/2011 [facility] History of tobacco use LIFETIME NON TOBACCO USER 12/15/2010 [facility] History of tobacco use PREVIOUS TOBACCO USER 07/02/2010 patient quit 5 years ago. [facility] History of tobacco use LIFETIME NON TOBACCO USER 11/26/2009 [facility] History of tobacco use PREVIOUS TOBACCO USER 06/24/2009 quit smoking 4 yrs ago [facility] History of tobacco use LIFETIME NON TOBACCO USER 07/01/2008 quit 2.5 years ago. [facility] History of tobacco use LIFETIME NON TOBACCO USER 06/28/2007 [facility] History of tobacco use LIFETIME NON TOBACCO USER 02/24/2005 [facility] History of tobacco use REFUSED SMOKING CESSATION PROGRAM 11/05/2003 2 cigarettes a day [facility] History of tobacco use REFUSED SMOKING CESSATION PROGRAM 05/07/2003 [facility] History of tobacco use REFUSED SMOKING CESSATION PROGRAM 10/30/2002 [facility] History of tobacco use PREVIOUS SMOKER/USER 03/01/2002 quit 2000. [facility] History of tobacco use REFUSED TOBACCO COUNSELING/PROGRAM 06/09/2001 [facility] Plan of Care List of future care activities from [facility] facilities. Additional future care activities may be listed in the Assessment and Plan section. Date/Time Care Activity Care Activity Detail Facili ty 01/09/2025 AMBULATORY - MEDICINE AMBULATORY - MEDICI [facility] Advance Directives List of completed, amended, or rescinded Advance Directives on record at Department of [facility] facilities. An actual copy of the Directive is not included. Date Advance Directive Provider Source 06/15/2001 ADVANCE DIRECTIVE DISCUSSION TITO SANFORD [facility] 06/09/2001 ADVANCE DIRECTIVE JAE WATERMAN DEPT OF [facility]
--- OUTSIDE RECORDS SUMMARY | 2024-08-02 13:26 | XMS_ITS ---
Author Name [facility] [place] Address [address] [place] [address] Care Team Providers Care Radial Drill Press Operator For Plastic Name Role Phone WILSONJAE RUBIN Primary Care [...] BASIC FAMIL Y Aug 15, 2001 112 [id number] [phone] KATHERINE JAMES PATIENT ANTHEM BCBS CT FEDERAL PREFERRED PROVIDER ORGANIZAT ION (PPO) BASIC SELF Aug 15, 2001 111 [id number] [phone] KATHERINE JAMES PATIENT BCBS [place] FEP PREFERRED PROVIDER ORGANIZAT ION (PPO) BASIC INDIV IDUAL Aug 15, 2001 111 [id number] KATHERINE JAMES PATIENT [place] (FEDER[place]) PREFERRED PROVIDER ORGANIZAT ION (PPO) BASIC INDIV IDUAL 111 Jun 15, 2016 111 [id number] [phone] KATHERINE JAMES PATIENT [place] F[place] PREFERRED PROVIDER ORGANIZAT ION (PPO) BASIC SELF Aug 15, 2001 111 [id number] 97 KATHERINE JAMES PATIENT [place] F[place] DENTAL DENTAL INSURANCE BASIC Aug 15, 2001 DENTAL [id number] 97 KATHERINE JAMES PATIENT CAREMARK ([id number]) PRESCRIPT ION FEP Aug 15, 2010 [id number] KATHERINE JAMES PATIENT CAREMARK FEP BCBS PRESCRIPT ION CAREM ARK FEPRX PLAN Jun 15, 2016 [id number] KATHERINE JAMES PATIENT CAREMARK FEPRX PLAN PRESCRIPT ION CAREM ARK FEPRX Aug 15, 2010 [id number] KATHERINE JAMES PATIENT CAREMARK-F EP BCBS PRESCRIPT ION FEP CAREM ARK Aug 15, 2010 [id number] KATHERINE JAMES PATIENT MEDICARE (WNR) MEDICARE (M) PART A Jun 15, 2016 PART A [id number] KATHERINE JAMES PATIENT MEDICARE (WNR) MEDICARE () PART B Jun 15, 2016 PART B [id number] [phone] KATHERINE JAMES PATIENT MEDICARE (WNR) MEDICARE () PART A Jun 15, 2016 PART A [id number] [phone] KATHERINE JAMES PATIENT MEDICARE (WNR) MEDICARE (M) PART B Jun 15, 2016 PART B [id number] KATHERINE JAMES PATIENT MEDICARE (WNR) MEDICARE (M) PART A Jun 15, 2016 PART A [id number] KATHERINE JAMES PATIENT MEDICARE (WNR) MEDICARE (M) PART B Jun 15, 2016 PART B [id number] KATHERINE JAMES PATIENT MEDICARE (WNR) MEDICARE (M) PART A Jun 15, 2016 PART A [id number] [phone] KATHERINE JAMES PATIENT MEDICARE (WNR) MEDICARE (M) PART B Jun 15, 2016 PART B [id number] KATHERINE JAMES PATIENT MEDICARE (WNR) MEDICARE (M) PART A Jun 15, 2016 PART A [id number] KATHERINE JAMES PATIENT MEDICARE (WNR) MEDICARE (M) PART B Jun 15, 2016 PART B [id number] KATHERINE JAMES PATIENT Selected Encounter This section includes the information on record at [place] for the Encounter. Date/Time Encounter Type Encounter Description Reason Pro vider Source Dec 05, 2023 11:33 AM Outpatient Encounter PRIMARY CARE/MEDICINE IHE Encounter Template Text not used by [place] Plan of Treatment: Future Appointments (+ 6 months) and Future Tests (+/- 45 days) The Plan of Treatment section includes future care activities for the patient from all [place] treatmentfacilities. This section includes future appointments and future orders which are active, pending or scheduled. Future Appointments This section includes appointments that were scheduled to occur 6 months from the date of the Encounter, up to a maximum of 20 appointments. The data comes from all [place] treatment facilities. Appointment Date/Time Appointment Type Appointme nt Facility Name Jan 25, 2024 01:00 PM AMBULATORY - MEDICINE [facility] May 14, 2024 01:00 PM [facility] Advance Directives: All historical and current Section Date Range: From patient's date of to the date document was created. This section includes ALL of a patient's completed or amended [place] Advance and Rescinded Directives. The entries below indicate that a directive exists for the patient, but an actual copy is not included with this document. The data comes from all [place] facilities. Date Advance Directives Provider Source Jun 15, 2001 ADVANCE DIRECTIVE DISCUSSION TITO SANFORD [facility] Jun 09, 2001 ADVANCE DIRECTIVE JAE WATERMAN DEPT OF [facility] Encounter Notes: All associated encounter notes This section contains the clinical notes associated to the Encounter. Date/Time Encounter Note(s) Provider Source Dec 05, 2023 11:33 AM PRIMARY CARE SECUR E MESSAGING: LOCAL TITLE: PRIMARY CARE SECURE MESSAGING STANDARD TITLE: PRIMARY CARE SECURE MESSAGING DATE OF NOTE: DEC 05, 2023@11:33 ENTRY DATE: DEC 05, 2023@12:33:31 AUTHOR: TR BKAER EXP COSIGNER: URGENCY: STATUS: COMPLETED ------Original Message -------- Sent: 12/03/2023 11:05 PM ET From: HARRIS JAMES To: Charley WILSON_PRIMARY CARE_[facility] Subject: Medication:Fluticasone. ...Sildenafil Mr Wilson, I have no refills on these meds and don't see you again until late January..Can you please reorder these for me..Thank You. Prescription Information for: FLUTICASONE PROP 50MCG 120D NASAL INHL Prescription Number [id number] Instructions INSTILL 1 SPRAY INTO EACH NOSTRIL TWICE DAILY FOR NASAL IRRITATION/INFLAMMATION Refills Remaining 0 Prescription Information for: SILDENAFIL CITRATE 100MG TAB Prescription Number [id number] Instructions TAKE ONE TABLET BY MOUTH DIRECTED TAKE 1 HOUR PRIOR TO SEXUAL ACTIVITY Refills Remaining 0 /diego/ ALICE BAKER Advanced Ramp Manager Signed: 12/05/2023 12:33 Receipt Acknowledged By: 12/05/2023 12:52 /es/ Scarlett Santos RN Registered Nurse (RN) 12/05/2023 13:29 /es/ JAE WILSON PA-C STAFF PHYSICIAN PRODUCTION TRAINER TR BAKER [place] [facility]
--- OUTSIDE RECORDS SUMMARY | 2024-08-02 13:26 | XMS_ITS ---
Author Name [place] Address [address] [place] [address] Care Team Providers Care Light Cleaner Name Role Phone WILSONJAE RUBIN Primary Care [...] BASIC FAMIL Y Aug 15, 2001 112 [id number] [phone] KATHERINE JAMES PATIENT ANTHEM BCBS CT FEDERAL PREFERRED PROVIDER ORGANIZAT ION (PPO) BASIC SELF Aug 15, 2001 111 [id number] [phone] KATHERINE JAMES PATIENT BCBS [place] FEP PREFERRED PROVIDER ORGANIZAT ION (PPO) BASIC INDIV IDUAL Aug 15, 2001 111 [id number] 97 KATHERINE JAMES PATIENT BCBS [place] (FEDER[place]) PREFERRED PROVIDER ORGANIZAT ION (PPO) BASIC INDIV IDUAL 111 Jun 15, 2016 111 [id number] [phone] KATHERINE JAMES PATIENT [place] F[place] PREFERRED PROVIDER ORGANIZAT ION (PPO) BASIC SELF Aug 15, 2001 111 [id number] 97 KATHERINE JAMES PATIENT [place] DENTAL DENTAL INSURANCE BASIC Aug 15, 2001 DENTAL [id number] 97 KATHERINE JAMES PATIENT CAREMARK ([id number]) PRESCRIPT ION FEP Aug 15, 2010 [id number] KATHERINE JAMES PATIENT CAREMARK FEP BCBS PRESCRIPT ION CAREM ARK FEPRX PLAN Jun 15, 2016 [id number] KATHERINE JAMES PATIENT CAREMARK FEPRX PLAN PRESCRIPT ION CAREM ARK FEPRX Aug 15, 2010 [id number] [phone] KATHERINE JAMES PATIENT CAREMARK-F EP BCBS PRESCRIPT ION FEP CAREM ARK Aug 15, 2010 [id number] KATHERINE JAMES PATIENT MEDICARE (WNR) MEDICARE () PART A Jun 15, 2016 PART A [id number] KATHERINE JAMES PATIENT MEDICARE (WNR) MEDICARE () PART B Jun 15, 2016 PART B [id number] KATHERINE JAMES PATIENT MEDICARE (WNR) MEDICARE () PART A Jun 15, 2016 PART A [id number] [id number] [phone] KATHERINE JAMES PATIENT MEDICARE (WNR) MEDICARE () PART B Jun 15, 2016 PART B [id number] KATHERINE JAMES PATIENT MEDICARE (WNR) MEDICARE (M) PART A Jun 15, 2016 PART A [id number] KATHERINE JAMES PATIENT MEDICARE (WNR) MEDICARE (M) PART A Jun 15, 2016 PART A [id number] KATHERINE JAMES PATIENT MEDICARE (WNR) MEDICARE (M) PART B Jun 15, 2016 PART B [id number] JACOBKATHERINE PATIENT MEDICARE (WNR) MEDICARE (M) PART B Jun 15, 2016 PART B [id number] KATHERINE JAMES PATIENT MEDICARE (WNR) MEDICARE (M) PART A Jun 15, 2016 PART A [id number] KATHERINE JAMES PATIENT MEDICARE (WNR) MEDICARE (M) PART B Jun 15, 2016 PART B [id number] KATHERINE JAMES PATIENT Selected Encounter This section includes the information on record at [place] for the Encounter. Date/Time Encounter Type Encounter Description Reason Pro vider Source Dec 05, 2023 11:32 AM Outpatient Encounter PRIMARY CARE/MEDICINE IHE Encounter Template Text not used by [place] Plan of Treatment: Future Appointments (+ 6 months) and Future Tests (+/- 45 days) The Plan of Treatment section includes future care activities for the patient from all [place] treatmentfacilities. This section includes future appointments and future orders which are active, pending or scheduled. Future Appointments This section includes appointments that were scheduled to occur 6 months from the date of the Encounter, up to a maximum of 20 appointments. The data comes from all [place] treatment facilities. Appointment Date/Time Appointment Type Appointme nt Facility Name Jan 25, 2024 01:00 PM AMBULATORY - MEDICINE [facility] May 14, 2024 01:00 PM [facility] [place] [facility] Advance Directives: All historical and current Section Date Range: From patient's date of to the date document was created. This section includes ALL of a patient's completed or amended [place] Advance and Rescinded Directives. The entries below indicate that a directive exists for the patient, but an actual copy is not included with this document. The data comes from all [place] facilities. Date Advance Directives Provider Source Jun 15, 2001 ADVANCE DIRECTIVE DISCUSSION TITO SANFORD [facility] Jun 09, 2001 ADVANCE DIRECTIVE JAE WATERMAN DEPT OF [facility] Encounter Notes: All associated encounter notes This section contains the clinical notes associated to the Encounter. Date/Time Encounter Note(s) Provider Source Dec 09, 2023 07:14 AM PRIMARY CARE SECURE MESSAGING: LOCAL TITLE: PRIMARY CARE SECURE MESSAGING STANDARD TITLE: PRIMARY CARE SECURE MESSAGING DATE OF NOTE: DEC 09, 2023@07:14 ENTRY DATE: DEC 09, 2023@08:14:14 AUTHOR: TR BAKER EXP COSIGNER: URGENCY: STATUS: COMPLETED PRIMARY CARE SECURE MESSAGING Has ADDENDA ------Original Message ------- Sent: 12/08/2023 02:14 PM ET From: HARRIS JAMES To: WILSONCharley_PRIMARY CARE_[facility] Subject: Medication:Depends Guards ..Poly Glycol Mr Wilson , I belived you MISUNDERSTOOD my message...I know longer need these 2 medications ,,Depends and Poly Gylcol but now I see you gave me more refills and I actually received MORE poly Gycol today...I do not want to receive these nedicatiobs since I already have plenty of these..Please cancel these and put inactive or whatever you need to do so I do NOT receive anymore....Thank You.. /diego/ ALICE BAKER [employer] Operations [employer] Signed: 12/09/2023 08:14 Receipt Acknowledged By: 12/09/2023 09:03 /es/ REDD KAMINSKI,RN-BC REGISTERED NURSE (RN) for ROSSANA SANTOS 12/09/2023 09:03 /es/ JAE WILSON PA-C STAFF PHYSICIAN TAPE MACHINE TAILER 12/09/2023 ADDENDUM STATUS: COMPLETED Glycol and INCONTINENT LINER (MALE) PAD INCONT LINER DEPEND GUARDS have been discontinued on 12/08 . /diego/ REDD KAMINSKI,RN-BC REGISTERED NURSE (RN) Signed: 12/09/2023 09:08 TR BAKER [place] [facility] [place] [facility] Dec 05, 2023 11:32 AM PRIMARY CARE SECURE MESSAGING: LOCAL TITLE: PRIMARY CARE SECURE MESSAGING STANDARD TITLE: PRIMARY CARE SECURE MESSAGING DATE OF NOTE: DEC 05, 2023@11:32 ENTRY DATE: DEC 05, 2023@12:32:50 AUTHOR: TR BAKER EXP COSIGNER: URGENCY: STATUS: COMPLETED ------Original Message ------- Sent: 12/03/2023 10:58 PM ET From: HARRIS JAMES To: Charley WILSON_PRIMARY CARE_[facility] Subject: Medication:Depends Guards ..Poly Glycol Mr Wilson..I have plenty of these liner Depends pads/guards and do not use 3 a day..I have enough now to last me maybe 6 months or longer, so can you please rescind my 1 refill..I will contact you a month prior to whenever i notice I am getting low..Thank You. Also I no longer am constipated and also have plenty of this medication, can you rescind that medications 2 refills also for constipation..Thank You Prescription Information for: POLYETHYLENE GLYCOL 3350 ORAL PWDR Prescription Number [id number] Instructions TAKE 17 GRAMS(FILL CAP TO 17GM LINE) BY MOUTH ONCE DAILY FOR CONSTIPATION [MIX WITH 4 TO 8OZ. OF BEVERAGE] Refills Remaining 2 Prescription Information for: INCONT LINER DEPEND GUARDS Prescription Number [id number] Instructions USE 1 PAD TOPICALLY THREE TIMES A DAY Refills Remaining 1 /es/ ALICE BAKER [employer] Signed: 12/05/2023 12:32 Receipt Acknowledged By: 12/05/2023 12:52 /es/ Rossana Santos RN Registered Nurse (RN) 12/05/2023 13:31 /es/ JAE WILSON PA-C STAFF PHYSICIAN TAPE MACHINE TAILER TR BAKER [place] [facility]
--- OUTSIDE RECORDS SUMMARY | 2024-08-02 13:27 | XMS_ITS | Encounter Summary ---
Author Name [place] Address [address] [place] [address] Care Team Providers Care Shipwright Name Role Phone AJE OBRIEN Primary Care Provider Unavailabl e Insurance Providers: [...] BASIC FAMIL Y Aug 15, 2001 112 [id number] [phone] KATHERINE JAMES PATIENT ANTHEM BCBS CT FEDERAL PREFERRED PROVIDER ORGANIZAT ION (PPO) BASIC SELF Aug 15, 2001 111 [id number] [phone] KATHERINE JAMES PATIENT BCBS [place] FEP PREFERRED PROVIDER ORGANIZAT ION (PPO) BASIC INDIV IDUAL Aug 15, 2001 111 [id number] KATHERINE JAMES PATIENT [place] ([place]) PREFERRED PROVIDER ORGANIZAT ION (PPO) BASIC INDIV IDUAL 111 Jun 15, 2016 111 [id number] [phone] KATHERINE JAMES PATIENT [place] F[place] PREFERRED PROVIDER ORGANIZAT ION (PPO) BASIC SELF Aug 15, 2001 111 [id number] 97 KATHERINE JAMES PATIENT [place] DENTAL DENTAL INSURANCE BASIC Aug 15, 2001 DENTAL [id number] 97 KATHERINE JAMES PATIENT CAREMARK ([id number]) PRESCRIPT ION FEP Aug 15, 2010 [id number] KATHERINE JAMES PATIENT CAREMARK FEP BCBS PRESCRIPT ION CAREM ARK FEPRX PLAN Jun 15, 2016 [id number] KATHERINE JAMES PATIENT CAREMARK FEPRX PLAN PRESCRIPT ION CAREM ARK FEPRX Aug 15, 2010 [id number] KATHERINE JAMES PATIENT CAREMARK-F EP BCBS PRESCRIPT ION FEP CAREM ARK Aug 15, 2010 [id number] 97 KATHERINE JAMES PATIENT MEDICARE (WNR) MEDICARE (M) PART A Jun 15, 2016 PART A [id number] KATHERINE JAMES PATIENT MEDICARE (WNR) MEDICARE () PART B Jun 15, 2016 PART B [id number] [phone] KATHERINE JAMES PATIENT MEDICARE (WNR) MEDICARE () PART A Jun 15, 2016 PART A [id number] KATHERINE JAMES PATIENT MEDICARE (WNR) MEDICARE (M) PART B Jun 15, 2016 PART B [id number] [phone] KATHERINE JAMES PATIENT MEDICARE (WNR) MEDICARE (M) PART A Jun 15, 2016 PART A [id number] [phone] KATHERINE JAMES PATIENT MEDICARE (WNR) MEDICARE (M) PART B Jun 15, 2016 PART B [id number] KATHERINE JAMES PATIENT MEDICARE (WNR) MEDICARE (M) PART A Jun 15, 2016 PART A [id number] [phone] KATHERINE JAMES PATIENT MEDICARE (WNR) MEDICARE (M) PART B Jun 15, 2016 PART B [id number] KATHERINE JAMES PATIENT MEDICARE (WNR) MEDICARE (M) PART A Jun 15, 2016 PART A [id number] KATHERINE JAMES PATIENT MEDICARE (WNR) MEDICARE (M) PART B Jun 15, 2016 PART B [id number] KATHERINE JAMES PATIENT Selected Encounter This section includes the information on record at [place] for the Encounter. Date/Time Encounter Type Encounter Description Reason Pro vider Source December 19, 2023 12:00 AM Outpatient Encounter EVENT (HISTORICAL) IHE Encounter Template Text not used by [place] Plan of Treatment: Future Appointments (+ 6 months) and Future Tests (+/- 45 days) The Plan of Treatment section includes future care activities for the patient from all [place] treatmentfacilities. This section includes future appointments and future orders which are active, pending or scheduled. Future Appointments This section includes appointments that were scheduled to occur 6 months from the date of the Encounter, up to a maximum of 20 appointments. The data comes from all [place] treatment facilities. Appointment Date/Time Appointment Type Appointme nt Facility Name Jan 25, 2024 01:00 PM AMBULATORY - MEDICINE [facility] May 14, 2024 01:00 PM [facility] Advance Directives: All historical and current Section Date Range: From patient's date of to the date document was created. This section includes ALL of a patient's completed or amended [place] Advance and Rescinded Directives. The entries below indicate that a directive exists for the patient, but an actual copy is not included with this document. The data comes from all [place] facilities. Date Advance Directives Provider Source Jun 15, 2001 ADVANCE DIRECTIVE DISCUSSION TITO SANFORD [facility] Jun 09, 2001 ADVANCE DIRECTIVE JAE WATERMAN DEPT OF [facility] Encounter Notes: All associated encounter notes This section contains the clinical notes associated to the Encounter. Date/Time Encounter Note(s) Provider Source December 19, 2023 12:00 AM NONVA NOTE: LOCAL TITLE: NON-VA OUTPATIENT NOTES STANDARD TITLE: NONVA NOTE DATE OF NOTE: DECEMBER 19, 2023 ENTRY DATE: JANUARY 03, 2024@10:40:53 AUTHOR: ANTON,LANDY L EXP COSIGNER: URGENCY: STATUS: COMPLETED VistA Imaging - Scanned Document SCANNED DOCUMENT SIGNATURE NOT REQUIRED Electronically Filed: 01/03/2024 by: LANDY WALTON LICENSING REGISTRATION EXAMINER LANDY WALTON [place] [facility]
--- OUTSIDE RECORDS SUMMARY | 2024-08-02 13:27 | XMS_ITS ---
Author Name [facility] [place] [facility] [place] Address [address] [place] [address] Care Team Providers Care Trust Vault Custodian Name Role Phone WILSONJAE RUBIN Primary Care [...] BASIC FAMIL Y Aug 15, 2001 112 [id number] [phone] KATHERINE JAMES PATIENT ANTHEM BCBS CT FEDERAL PREFERRED PROVIDER ORGANIZAT ION (PPO) BASIC SELF Aug 15, 2001 111 [id number] KATHERINE JAMES PATIENT BCBS [place] FEP PREFERRED PROVIDER ORGANIZAT ION (PPO) BASIC INDIV IDUAL Aug 15, 2001 111 [id number] KATHERINE JAMES PATIENT [place] OF [place] (FEDER[place]) PREFERRED PROVIDER ORGANIZAT ION (PPO) BASIC INDIV IDUAL 111 Jun 15, 2016 111 [id number] [phone] KATHERINE JAMES PATIENT [place] FEP PREFERRED PROVIDER ORGANIZAT ION (PPO) BASIC SELF Aug 15, 2001 111 [id number] KATHERINE JAMES PATIENT [place] F[place] DENTAL DENTAL INSURANCE BASIC Aug 15, 2001 DENTAL [id number] [phone] KATHERINE JAMES PATIENT CAREMARK ([id number]) PRESCRIPT ION FEP Aug 15, 2010 [id number] [phone] KATHERINE JAMES PATIENT CAREMARK FEP BCBS PRESCRIPT ION CAREM ARK FEPRX PLAN Jun 15, 2016 [id number] KATHERINE JAMES PATIENT CAREMARK FEPRX PLAN PRESCRIPT ION CAREM ARK FEPRX Aug 15, 2010 [id number] [phone] KATHERINE JAMES PATIENT CAREMARK-F EP BCBS PRESCRIPT ION FEP CAREM ARK Aug 15, 2010 [id number] [phone] KATHERINE JAMES PATIENT MEDICARE (WNR) MEDICARE () PART A Jun 15, 2016 PART A [id number] KATHERINE JAMES PATIENT MEDICARE (WNR) MEDICARE () PART B Jun 15, 2016 PART B [id number] KATHERINE JAMES PATIENT MEDICARE (WNR) MEDICARE () PART A Jun 15, 2016 PART A [id number] KATHERINE JAMES PATIENT MEDICARE (WNR) MEDICARE () PART B Jun 15, 2016 PART B [id number] [phone] KATHERINE JAMES PATIENT MEDICARE (WNR) MEDICARE (M) PART A Jun 15, 2016 PART A [id number] KATHERINE JAMES PATIENT MEDICARE (WNR) MEDICARE (M) PART B Jun 15, 2016 PART B [id number] KATHERINE JAMES PATIENT MEDICARE (WNR) MEDICARE (M) PART A Jun 15, 2016 PART A [id number] KATHERINE JAMES PATIENT MEDICARE (WNR) MEDICARE (M) PART B Jun 15, 2016 PART B [id number] KATHERINE JAMES PATIENT MEDICARE (WNR) MEDICARE (M) PART A Jun 15, 2016 PART A [id number] [id number] [phone] KATHERINE JAMES PATIENT MEDICARE (WNR) MEDICARE (M) PART B Jun 15, 2016 PART B [id number] KATHERINE JAMES PATIENT Selected Encounter This section includes the information on record at [place] for the Encounter. Date/Time Encounter Type Encounter Description Reason Pro vider Source December 23, 2023 06:28 AM Outpatient Encounter PRIMARY CARE/MEDICINE IHE Encounter Template Text not used by [place] Plan of Treatment: Future Appointments (+ 6 months) and Future Tests (+/- 45 days) The Plan of Treatment section includes future care activities for the patient from all [place] treatmentfacilities. This section includes future appointments and future orders which are active, pending or scheduled. Future Appointments This section includes appointments that were scheduled to occur 6 months from the date of the Encounter, up to a maximum of 20 appointments. The data comes from all [place] treatment facilities. Appointment Date/Time Appointment Type Appointme nt Facility Name Jan 25, 2024 01:00 PM AMBULATORY - MED[facility]INE [facility] May 14, 2024 01:00 PM AMBULATORY - MEDICINE [facility] Lab Results: +/- 30 days of the encounter This section includes the Chemistry and Hematology Lab Results on record with [place] for the patient. Radiology Reports and Pathology Reports are provided separately, in subsequent sections. Lab Results This section contains the Chemistry/Hematology Results that were resulted 30 days before or 30 daysafter the date of the Encounter. Date/Time Source Result Type Result - Unit Interpretation Reference Range Comment Jan 19, 2024 02:09 PM [place] TSH Specimen Type: SERUM No comment entered. Ordering Provider: JAE WILSON Report Released Date/Time: January 10, 2024 01:44 PM Reporting Lab: [facility] [address] [facility] [address] Performing Lab: [facility] [address] [facility] [address] TSH 1.23 u[IU]/mL 0.35-5.00 Jan 19, 2024 02:09 PM [place] HEMOGLOBIN A1C PANEL Specimen Type: BLOOD Comment: Values obtained from A1C measurements can vary. For atypical A1C assays, a reported value of 7.0 could actually be between 6.72 and 7.28 if measured by a reference method. A reported value of 9.0 could actually be between 8.73 and 9.27. Ref: http://www.ngs p.org/CAPdata. asp Ordering Provider: JAE WILSON Report Released Date/Time: January 10, 2024 01:44 PM Reporting Lab: [address] [address] Performing Lab: [address] [address] HEMOGLOBIN A1C 5.3 4.0-5.6 Jan 19, 2024 02:09 PM [place] LIPID PANEL FASTING Specimen Type: SERUM No comment entered. Ordering Provider: JAE WILSON Report Released Date/Time: January 10, 2024 01:44 PM Reporting Lab: [address] [address] Performing Lab: [address] [address] CHOLESTEROL 137 mg/dL TRIGLYCERIDE 83 mg/dL 0-150 LDL calculated 65 mg/dL 0-129 CHOL/HDL 2.5 HDL CHOLESTEROL 55 mg/dL 40-60 Jan 19, 2024 02:09 PM [place] BASIC METABOLIC PANEL (fasting) Specime n Type: SERUM No comment entered. Ordering Provider: JAE WILSON Report Released Date/Time: January 10, 2024 01:44 PM Reporting Lab: [address] [address] Performing Lab: [address] [address] UREA NITROGEN 22 mg/dL 7-25 GLUCOSE 107 mg/dL H 65-100 SODIUM 140 mmol/L 135-145 POTASSIUM 4.3 mmol/L 3.5-5.0 CHLORIDE 107 mmol/L 100-110 CO2 26 meq/L 20-30 CREATININE, Serum 0.89 mg/dL 0.50-1.40 eGFR(CKD-EPI 2020) 90 mL/min >60 Jan 19, 2024 02:09 PM [place] LIVER FUNCTION Specimen Type: SERUM No comment entered. Ordering Provider: JAE WILSON Report Released Date/Time: January 10, 2024 01:44 PM Reporting Lab: [facility] [address] [facility] [address] Performing Lab: [facility]USE[address] [address] PROTEIN,TOTAL 6.8 g/dL 6.0-8.3 ALBUMIN 3.6 g/dL 3.5-5.0 ALKALINE PHOSPHATASE 67 U/L 40-150 AST 14 U/L 5-34 ALT 15 U/L BILIRUBIN, TOTAL 1.3 mg/dL H 0.2-1.2 BILIRUBIN, DIRECT 0.5 mg/dL 0-0.5 Jan 19, 2024 02:09 PM [place] CALCIUM Specimen Type: SERUM No comment entered. Ordering Provider: JAE WILSON Report Released Date/Time: January 10, 2024 01:44 PM Reporting Lab: [facility] [address] Performing Lab: [facility]ENTER[facility] [address] CALCIUM 8.5 mg/dL 8.5-10.2 Jan 19, 2024 02:09 PM [place] URIC ACID Specimen Type: SERUM No comment entered. Ordering Provider: JAE WILSON Report Released Date/Time: January 10, 2024 01:44 PM Reporting Lab: [facility] [address] Performing Lab: [facility] [address] URIC ACID 3.1 mg/dL L 3.5-7.2 Jan 19, 2024 02:09 PM [place] PSA Specimen Type: SERUM No comment entered. Ordering Provider: JAE WILSON Report Released Date/Time: January 10, 2024 01:44 PM Reporting Lab: [facility]USE[address] [address] Performing Lab: [facility] [address] PSA < 0.10 ng/mL 0.00-4.00 Jan 19, 2024 02:09 PM [place] VITAMIN D (25-OH) Specimen Type: SERUM No comment entered. Ordering Provider: JAE WILSON Report Released Date/Time: January 10, 2024 01:44 PM Reporting Lab: [address] [address] Performing Lab: [address] [address] VITAMIN D (25-OH) 35 ng/mL 20-50 Jan 19, 2024 02:09 PM [place] CBC AND DIFF (AUTO) Specimen Type: BLOOD No comment entered. Ordering Provider: JAE WILSON Report Released Date/Time: January 10, 2024 01:44 PM Reporting Lab: [address] [address] Performing Lab: [address] [address] WBC 6.19 10*3/uL 4.50-11.00 RBC 4.35 10*6/uL 4.23-5.66 HGB 13.5 g/dL 12.8-17 HCT 41.4 39.2-50.4 MCV 95.2 fL 82-99 MCHC 32.6 g/dL 30.8-35.1 PLT 164 10*3/uL 140-360 RDW-CV 14.9 12.0-16.0 Sandoval, Abs 0.54 10*3/uL 0.30-1.10 MCH 31.0 pg 26.2-32.6 Neut % 59.7 43.7-75.8 Lymph % 25.4 14.0-42.3 [place] % 8.7 5.1-13.7 Eos % 4.2 0.4-6.8 Baso % 1.5 0.1-2.0 Neut, Abs 3.70 10*3/uL 2.20-7.60 Lymph, Abs 1.57 10*3/uL 1.00-3.20 Eos, Abs 0.26 10*3/uL 0.03-0.44 Baso, Abs 0.09 10*3/uL 0.01-0.13 Immature Gran % 0.5 0.0-0.7 Immature Gran, Abs 0.03 10*3/uL 0.00-0.06 Advance Directives: All historical and current Section Date Range: From patient's date of to the date document was created. This section includes ALL of a patient's completed or amended [place] Advance and Rescinded Directives. The entries below indicate that a directive exists for the patient, but an actual copy is not included with this document. The data comes from all [place] facilities. Date Advance Directives Provider Source Jun 15, 2001 ADVANCE DIRECTIVE DISCUSSION TITO [facility] Jun 09, 2001 ADVANCE DIRECTIVE JAE WATERMAN [facility]PT OF [facility] Encounter Notes: All associated encounter notes This section contains the clinical notes associated to the Encounter. Date/Time Encounter Note(s) Provider Source December 23, 2023 08:29 AM ADDENDUM: LOCAL TITLE: Addendum STANDARD TITLE: ADDENDUM DATE OF NOTE: DECEMBER 23, 2023@08:29:39 ENTRY DATE: DECEMBER 23, 2023@08:29:41 AUTHOR: HINA PARRY EXP COSIGNER: URGENCY: STATUS: COMPLETED Please request cardiology's note for PCP to review and a prescription for Amlodipine 5 mg if they want on medication. Thank you. /diego/ REDD KAMINSKI,RN-BC REGISTERED NURSE (RN) Signed: 12/23/2023 08:32 Receipt Acknowledged By: 12/28/2023 09:18 /diego/ ALICE BAKER Advanced [employer] Retirement Plan Specialist ========= --- Original Document --- 12/23/23 PRIMARY CARE SECURE MESSAGING: ------Original Message -------- Sent: 12/22/2023 12:44 PM ET From: HARRIS JAMES To: Charley WILSON_PRIMARY CARE_[facility] Subject: Medication:Amlodipine Besylate 5mg Mr Wilson, My Heart doctor has now wants me to start taking again this medication Amlodipine 5mg due to my elevated blood pressure...You prescribed me this medication for years until about a year ago when I developed low blood pressure and I requested that I no longe needed prescribed per my heart doctor (Dr Catarina Lundberg Certified Recreational Therapist)...Could you please order this medication again for me ...Thank You in advance.. /diego/ ALICE BAKER [employer] Retirement Plan Specialist Signed: 12/23/2023 07:28 Receipt Acknowledged By: 12/23/2023 08:29 /diego/ REDD KAMINSKI,RN-BC REGISTERED NURSE (RN) for ROSSANA ARREGUIN 12/23/2023 ADDENDUM STATUS: COMPLETED Unit Secy requested cardiology progress note /nery BAKER [employer] Retirement Plan Specialist Signed: 12/23/2023 11:46 HINA PARRY [place] [facility]L [facility] December 23, 2023 06:28 AM PRIMARY CARE [employer] (RIS) MESSAGING: LOCAL TITLE: PRIMARY CARE SECURE MESSAGING STANDARD TITLE: PRIMARY CARE SECURE MESSAGING DATE OF NOTE: DECEMBER 23, 2023@06:28 ENTRY DATE: DECEMBER 23, 2023@07:28:44 AUTHOR: TR BAKER EXP BRENNONIGNER: URGENCY: STATUS: COMPLETED PRIMARY CARE SECURE MESSAGING Has ADDENDA ------Original Message -------- Sent: 12/22/2023 12:44 PM ET From: HARRIS JAMES To: Charley WILSON_PRIMARY CARE_[facility] Subject: Medication:Amlodipine Besylate 5mg Mr Wilson, My Heart doctor has now wants me to start taking again this medication Amlodipine 5mg due to my elevated blood pressure...You prescribed me this medication for years until about a year ago when I developed low blood pressure and I requested that I no longe needed prescribed per my heart doctor (Dr Catarina Lundberg Certified Recreational Therapist)...Could you please order this medication again for me ...Thank You in advance.. /nery BAKER [employer] Retirement Plan Specialist Signed: 12/23/2023 07:28 Receipt Acknowledged By: 12/23/2023 08:29 /diego/ REDD KAMINSKI,RN-BC REGISTERED NURSE (RN) for ROSSANA ARREGUIN 12/23/2023 ADDENDUM STATUS: COMPLETED Please request cardiology's note for PCP to review and a prescription for Amlodipine 5 mg if they want on medication. Thank you. /diego/ REDD KAMINSKI,RN-BC REGISTERED NURSE (RN) Signed: 12/23/2023 08:32 Receipt Acknowledged By: * AWAITING SIGNATURE * ALICE BAKER 12/23/2023 ADDENDUM STATUS: COMPLETED Unit Secy requested cardiology progress note /diego/ ALICE BAKER [employer] Retirement Plan Specialist Signed: 12/23/2023 11:46 TR BAKER [place] CNTRL [facility]
--- OUTSIDE RECORDS SUMMARY | 2024-08-02 13:27 | XMS_ITS | Encounter Summary ---
Author Name [facility] [place] Address [address] [place] [address] Care Team Providers Care Senior Sharepoint Developer Name Role Phone OBRIENJAE RUBIN Primary Care [...] BASIC FAMIL Y Aug 15, 2001 112 [id number] [phone] KATHERINE JAMES PATIENT ANTHEM BCBS CT FEDERAL PREFERRED PROVIDER ORGANIZAT ION (PPO) BASIC SELF Aug 15, 2001 111 [id number] KATHERINE JAMES PATIENT BCBS [place] FEP PREFERRED PROVIDER ORGANIZAT ION (PPO) BASIC INDIV IDUAL Aug 15, 2001 111 [id number] KATHERINE JAMES PATIENT [place] ([place]) PREFERRED PROVIDER ORGANIZAT ION (PPO) BASIC INDIV IDUAL 111 Jun 15, 2016 111 [id number] [phone] KATHERINE JAMES PATIENT [place] FEP PREFERRED PROVIDER ORGANIZAT ION (PPO) BASIC SELF Aug 15, 2001 111 [id number] KATHERINE JAMES PATIENT [place] DENTAL DENTAL INSURANCE BASIC Aug 15, 2001 DENTAL [id number] [phone] KATHERINE JAMES PATIENT CAREMARK ([id number]) PRESCRIPT ION FEP Aug 15, 2010 [id number] KATHERINE JAMES PATIENT CAREMARK FEP BCBS PRESCRIPT ION CAREM ARK FEPRX PLAN Jun 15, 2016 [id number] KATHERINE JAMES PATIENT CAREMARK FEPRX PLAN PRESCRIPT ION CAREM ARK FEPRX Aug 15, 2010 [id number] [phone] KATHERINE JAMES PATIENT CAREMARK-F EP BCBS PRESCRIPT ION FEP CAREM ARK Aug 15, 2010 [id number] [phone] KATHERINE JAMES PATIENT MEDICARE (WNR) MEDICARE () PART A Jun 15, 2016 PART A [id number] KATHERINE JAMES PATIENT MEDICARE (WNR) MEDICARE () PART B Jun 15, 2016 PART B [id number] KATHERINE JAMES PATIENT MEDICARE (WNR) MEDICARE () PART A Jun 15, 2016 PART A [id number] [id number] KATHERINE JAMES PATIENT MEDICARE (WNR) MEDICARE () PART B Jun 15, 2016 PART B [id number] KATHERINE JAMES PATIENT MEDICARE (WNR) MEDICARE (M) PART A Jun 15, 2016 PART A [id number] [phone] KATHERINE JAMES PATIENT MEDICARE (WNR) MEDICARE (M) PART B Jun 15, 2016 PART B [id number] KATHERINE JAMES PATIENT MEDICARE (WNR) MEDICARE (M) PART A Jun 15, 2016 PART A [id number] KATHERINE JAMES PATIENT MEDICARE (WNR) MEDICARE (M) PART B Jun 15, 2016 PART B [id number] KATHERINE JAMES PATIENT MEDICARE (WNR) MEDICARE (M) PART A Jun 15, 2016 PART A [id number] [id number] KATHERINE JAMES PATIENT MEDICARE (WNR) MEDICARE (M) PART B Jun 15, 2016 PART B [id number] [id number] KATHERINE JAMES PATIENT Selected Encounter This section includes the information on record at [place] for the Encounter. Date/Time Encounter Type Encounter Description Reason Pro vider Source January 12, 2024 08:30 AM Outpatient Encounter OPTOMETRY IHE Encounter Template Text not used by [...] 25, 2024 01:00 PM AMBULATORY - MEDICINE [facility] May 14, 2024 01:00 PM [facility] Lab Results: +/- 30 days of the encounter This section includes the Chemistry and Hematology Lab Results on record with [place] for the patient. Radiology Reports and Pathology Reports are provided separately, in subsequent sections. Lab Results This section contains the Chemistry/Hematology Results that were resulted 30 days before or 30 daysafter the date of the Encounter. Date/Time Source Result Type Result - Unit Interpretation Reference Range Comment Jan 19, 2024 02:09 PM [place] HEMOGLOBIN A1C PANEL Specimen Type: BLOOD Comment: Values obtained from A1C measurements can vary. For atypical A1C assays, a reported value of 7.0 could actually be between 6.72 and 7.28 if measured by a reference method. A reported value of 9.0 could actually be between 8.73 and 9.27. Ref: http://www.ngs p.org/CAPdata. asp Ordering Provider: JAE OBRIEN Report Released Date/Time: January 10, 2024 01:44 PM Reporting Lab: [facility] [address] [facility] [address] Performing Lab: [facility] [place] [facility] [address] [facility] [address] HEMOGLOBIN A1C 5.3 4.0-5.6 Jan 19, 2024 02:09 PM [place] TSH Specimen Type: SERUM No comment entered. Ordering Provider: JAE OBRIEN Report Released Date/Time: January 10, 2024 01:44 PM Reporting Lab: [facility] [place] [address] [address] Performing Lab: [facility] [place] [address] [address] TSH 1.23 u[IU]/mL 0.35-5.00 Jan 19, 2024 02:09 PM [place] LIPID PANEL FASTING Specimen Type: SERUM No comment entered. Ordering Provider: JAE OBRIEN Report Released Date/Time: January 10, 2024 01:44 PM Reporting Lab: [facility] [address] [address] Performing Lab: [facility] [address] [address] CHOLESTEROL 137 mg/dL TRIGLYCERIDE 83 mg/dL 0-150 LDL calculated 65 mg/dL 0-129 CHOL/HDL 2.5 HDL CHOLESTEROL 55 mg/dL 40-60 Jan 19, 2024 02:09 PM [place] LIVER FUNCTION Specimen Type: SERUM No comment entered. Ordering Provider: JAE OBRIEN Report Released Date/Time: January 10, 2024 01:44 PM Reporting Lab: [facility] [place] [address] [address] Performing Lab: [facility] [place] [address] [address] PROTEIN,TOTAL 6.8 g/dL 6.0-8.3 ALBUMIN 3.6 g/dL 3.5-5.0 ALKALINE PHOSPHATASE 67 U/L 40-150 AST 14 U/L 5-34 ALT 15 U/L BILIRUBIN, TOTAL 1.3 mg/dL H 0.2-1.2 BILIRUBIN, DIRECT 0.5 mg/dL 0-0.5 Jan 19, 2024 02:09 PM [place] BASIC METABOLIC PANEL (fasting) Specime n Type: SERUM No comment entered. Ordering Provider: JAE OBRIEN Report Released Date/Time: January 10, 2024 01:44 PM Reporting Lab: [address] [address] Performing Lab: [facility] [address] [address] UREA NITROGEN 22 mg/dL 7-25 GLUCOSE 107 mg/dL H 65-100 SODIUM 140 mmol/L 135-145 POTASSIUM 4.3 mmol/L 3.5-5.0 CHLORIDE 107 mmol/L 100-110 CO2 26 meq/L 20-30 CREATININE, Serum 0.89 mg/dL 0.50-1.40 eGFR(CKD-EPI 2020) 90 mL/min >60 Jan 19, 2024 02:09 PM [place] CALCIUM Specimen Type: SERUM No comment entered. Ordering Provider: JAE OBRIEN Report Released Date/Time: January 10, 2024 01:44 PM Reporting Lab: [address] [address] Performing Lab: [address] [address] CALCIUM 8.5 mg/dL 8.5-10.2 Jan 19, 2024 02:09 PM [place] URIC ACID Specimen Type: SERUM No comment entered. Ordering Provider: JAE OBRIEN Report Released Date/Time: January 10, 2024 01:44 PM Reporting Lab: [address] [address] Performing Lab: [address] [address] URIC ACID 3.1 mg/dL L 3.5-7.2 Jan 19, 2024 02:09 PM [place] PSA Specimen Type: SERUM No comment entered. Ordering Provider: JAE OBRIEN Report Released Date/Time: January 10, 2024 01:44 PM Reporting Lab: [facility] [address] [address] Performing Lab: [address] [address] PSA < 0.10 ng/mL 0.00-4.00 Jan 19, 2024 02:09 PM [place] VITAMIN D (25-OH) Specimen Type: SERUM No comment entered. Ordering Provider: JAE OBRIEN Report Released Date/Time: January 10, 2024 01:44 PM Reporting Lab: [address] [address] Performing Lab: [address] [address] VITAMIN D (25-OH) 35 ng/mL 20-50 Jan 19, 2024 02:09 PM [place] CBC AND DIFF (AUTO) Specimen Type: BLOOD No comment entered. Ordering Provider: JAE OBRIEN Report Released Date/Time: January 10, 2024 01:44 PM Reporting Lab: [address] [address] Performing Lab: [address] [address] WBC 6.19 10*3/uL 4.50-11.00 RBC 4.35 10*6/uL 4.23-5.66 HGB 13.5 g/dL 12.8-17 HCT 41.4 39.2-50.4 MCV 95.2 fL 82-99 MCHC 32.6 g/dL 30.8-35.1 PLT 164 10*3/uL 140-360 RDW-CV 14.9 12.0-16.0 [place], Abs 0.54 10*3/uL 0.30-1.10 MCH 31.0 pg 26.2-32.6 Neut % 59.7 43.7-75.8 Lymph % 25.4 14.0-42.3 [place] % 8.7 5.1-13.7 Eos % 4.2 0.4-6.8 [...] 15, 2001 ADVANCE DIRECTIVE DISCUSSION TITO [facility] Jun 09, 2001 ADVANCE DIRECTIVE JAE WATERMAN [facility] Encounter Notes: All associated encounter notes This section contains the clinical notes associated to the Encounter. Date/Time Encounter Note(s) Provider Source January 12, 2024 08:30 AM LETTERS: LOCAL TITLE: PATIENT LETTER (B) STANDARD TITLE: LETTERS DATE OF NOTE: JANUARY 12, 2024@08:30 ENTRY DATE: JANUARY 12, 2024@08:30:37 AUTHOR: JESUS JACOBS EXP COSIGNER: URGENCY: STATUS: COMPLETED [facility] Toll Free Number , ext [phone] JANUARY 12, 2024 [address] JAMES [address] [place] [address] Dear HARRIS JAMES Thank you for choosing the Department of [facility] ([place]) [facility] as your primary choice for health care. As a partner in your health care, we are contacting you in writing since we have been unsuccessful in our attempts to reach you to date. We want to assure you we are doing everything possible to schedule Veterans for their [place] medical care appointments. Our records indicate you are due for an appointment in optometry Thank you for choosing [facility] ([place]) [facility] as your primary choice for health care. As a partner in your health care, we are contacting you in writing since we have been unsuccessful in our attempts to reach you to date. We want to assure you we are doing everything possible to schedule Veterans for their [place] medical care appointments. If you would like to be seen, please contact [facility] at [phone] Ext. [phone] to schedule an appointment. Thank you for your service to our nation, and we look forward to hearing from you soon. Sincerely, [facility] [address] [facility] [address] [place] [address] [place] [address] ext. [phone] [place] [facility] [address] [facility] [address] [place] [address] [place] [address] [phone] [place] [facility] [address] [address] [place] [address] ext. [phone] [facility] [address] [place] [address] ext. [phone] JESUS JACOBS [place] CNTRL [facility]
--- OUTSIDE RECORDS SUMMARY | 2024-08-02 13:27 | XMS_ITS | Encounter Summary ---
Author Name [facility] [place] [facility] [place] Address [address] [place] [address] Care Team Providers Care Social Media Marketer Name Role Phone OBRIENJAE RUBIN Primary Care [...] BASIC FAMIL Y Aug 15, 2001 [id number] [phone] KATHERINE JAMES PATIENT ANTHEM BCBS CT FEDERAL PREFERRED PROVIDER ORGANIZAT ION (PPO) BASIC SELF Aug 15, 2001 111 [id number] [phone] KATHERINE JAMES PATIENT BCBS [place] FEP PREFERRED PROVIDER ORGANIZAT ION (PPO) BASIC INDIV IDUAL Aug 15, 2001 111 [id number] KATHERINE JAMES PATIENT [place] ([place]EDERAL) PREFERRED PROVIDER ORGANIZAT ION (PPO) BASIC INDIV IDUAL 111 Jun 15, 2016 111 [id number] [phone] KATHERINE JAMES PATIENT [place] PREFERRED PROVIDER ORGANIZAT ION (PPO) BASIC SELF Aug 15, 2001 111 [id number] KATHERINE JAMES PATIENT [place] DENTAL DENTAL INSURANCE BASIC Aug 15, 2001 DENTAL [id number] [phone] KATHERINE JAMES PATIENT CAREMARK ([id number]) PRESCRIPT ION FEP Aug 15, 2010 [id number] KATHERINE JAMES PATIENT [place] FEP BCBS PRESCRIPT ION CAREM ARK FEPRX PLAN Jun 15, 2016 [id number] KATHERINE JAMES PATIENT CAREMARK FEPRX PLAN PRESCRIPT ION CAREM ARK FEPRX Aug 15, 2010 [id number] [phone] KATHERINE JAMES PATIENT CAREMARK-F EP BCBS PRESCRIPT ION FEP CAREM ARK Aug 15, 2010 [id number] [phone] KATHERINE JAMES PATIENT MEDICARE (WNR) MEDICARE () PART A Jun 15, 2016 PART A [id number] KATHERINE JAMES PATIENT MEDICARE (WNR) MEDICARE () PART B Jun 15, 2016 PART B [id number] KATHERINE JAMES PATIENT MEDICARE (WNR) MEDICARE () PART A Jun 15, 2016 PART A [id number] KATHERINE JAMES PATIENT MEDICARE (WNR) MEDICARE () PART B Jun 15, 2016 PART B [id number] KATHERINE JAMES PATIENT MEDICARE (WNR) MEDICARE (M) PART A Jun 15, 2016 PART A [id number] KATHERINE JAMES PATIENT MEDICARE (WNR) MEDICARE (M) PART B Jun 15, 2016 PART B [id number] KATHERINE JAMES PATIENT MEDICARE (WNR) MEDICARE (M) PART B Jun 15, 2016 PART B [id number] KATHERINE JAMES PATIENT MEDICARE (WNR) MEDICARE (M) PART A Jun 15, 2016 PART A [id number] KATHERINE JAMES PATIENT MEDICARE (WNR) MEDICARE (M) PART A Jun 15, 2016 PART A [id number] [id number] KATHERINE JAMES PATIENT MEDICARE (WNR) MEDICARE (M) PART B Jun 15, 2016 PART B [id number] [id number] KATHERINE JAMES PATIENT Selected Encounter This section includes the information on record at [place] for the Encounter. Date/Time Encounter Type Encounter Description Reason Pro vider Source January 11, 2024 03:31 PM Outpatient Encounter OPTOMETRY IHE Encounter Template Text not used by [place] Plan of Treatment: Future Appointments (+ 6 months) and Future Tests (+/- 45 days) The Plan of Treatment section includes future care activities for the patient from all [place] treatmentfacilities. This section includes future appointments and future orders which are active, pending or scheduled. Future Appointments This section includes appointments that were scheduled to occur 6 months from the date of the Encounter, up to a maximum of 20 appointments. The data comes from all [place] treatment facilities. Appointment Date/Time Appointment Type Appointme nt Facility Name Jan 25, 2024 01:00 PM [facility] May 14, 2024 01:00 PM [facility] - [facility] Lab Results: +/- 30 days of the encounter This section includes the Chemistry and Hematology Lab Results on record with [place] for the patient. Radiology Reports and Pathology Reports are provided separately, in subsequent sections. Lab Results This section contains the Chemistry/Hematology Results that were resulted 30 days before or 30 daysafter the date of the Encounter. Date/Time Source Result Type Result - Unit Interpretation Reference Range Comment Jan 19, 2024 02:09 PM [facility] HEMOGLOBIN A1C PANEL Specimen Type: BLOOD Comment: [...] January 10, 2024 01:44 PM Reporting Lab: [facility] [address] [address] Performing Lab: [facility] [place] [facility] [address] [address] HEMOGLOBIN A1C 5.3 4.0-5.6 Jan 19, 2024 02:09 PM [facility] TSH Specimen Type: SERUM No comment entered. Ordering Provider: JAE OBRIEN Report Released Date/Time: January 10, 2024 01:44 PM Reporting Lab: [facility] [place] [address] [address] Performing Lab: [facility] [place] [address] [address] TSH 1.23 u[IU]/mL 0.35-5.00 Jan 19, 2024 02:09 PM [facility] LIPID PANEL FASTING Specimen Type: SERUM No comment entered. Ordering Provider: JAE OBRIEN Report Released Date/Time: January 10, 2024 01:44 PM Reporting Lab[facility] [address] [address] Performing Lab: [facility] [address] [address] CHOLESTEROL 137 mg/dL TRIGLYCERIDE 83 mg/dL 0-150 LDL calculated 65 mg/dL 0-129 CHOL/HDL 2.5 HDL CHOLESTEROL 55 mg/dL 40-60 Jan 19, 2024 02:09 PM [facility] LIVER FUNCTION Specimen Type: SERUM No comment entered. Ordering Provider: JAE OBRIEN Report Released Date/Time: January 10, 2024 01:44 PM Reporting Lab: [facility] [place] [address] [address] Performing Lab: [facility] [place] [address] [address] PROTEIN,TOTAL 6.8 g/dL 6.0-8.3 ALBUMIN 3.6 g/dL 3.5-5.0 ALKALINE PHOSPHATASE 67 U/L 40-150 AST 14 U/L 5-34 ALT 15 U/L BILIRUBIN, TOTAL 1.3 mg/dL H 0.2-1.2 BILIRUBIN, DIRECT 0.5 mg/dL 0-0.5 Jan 19, 2024 02:09 PM [facility] BASIC METABOLIC PANEL (fasting) Specime n Type: SERUM No comment entered. Ordering Provider: JAE OBRIEN Report Released Date/Time: January 10, 2024 01:44 PM Reporting Lab: [address] [address] Performing [facility]: [facility] [address] [address] UREA NITROGEN 22 mg/dL 7-25 GLUCOSE 107 mg/dL H 65-100 SODIUM 140 mmol/L 135-145 POTASSIUM 4.3 mmol/L 3.5-5.0 CHLORIDE 107 mmol/L 100-110 CO2 26 meq/L 20-30 CREATININE, Serum 0.89 mg/dL 0.50-1.40 eGFR(CKD-EPI 2020) 90 mL/min >60 Jan 19, 2024 02:09 PM [facility] CALCIUM Specimen Type: SERUM No comment entered. Ordering Provider: JAE OBRIEN Report Released Date/Time: January 10, 2024 01:44 PM Reporting Lab: [address] [address] Performing Lab: [address] [address] CALCIUM 8.5 mg/dL 8.5-10.2 Jan 19, 2024 02:09 PM [facility] URIC ACID Specimen Type: SERUM No comment entered. Ordering Provider: JAE OBRIEN Report Released Date/Time: January 10, 2024 01:44 PM Reporting Lab: [address] [address] Performing Lab: [address] [address] URIC ACID 3.1 mg/dL L 3.5-7.2 Jan 19, 2024 02:09 PM [facility] PSA Specimen Type: SERUM No comment entered. Ordering Provider: JAE OBRIEN Report Released Date/Time: January 10, 2024 01:44 PM Reporting [facility]: [facility] [address] [address] Performing Lab: [address] [address] PSA < 0.10 ng/mL 0.00-4.00 Jan 19, 2024 02:09 PM [facility] VITAMIN D (25-OH) Specimen Type: SERUM No comment entered. Ordering Provider: JAE OBRIEN Report Released Date/Time: January 10, 2024 01:44 PM Reporting Lab: [address] [address] Performing Lab: [address] [address] VITAMIN D (25-OH) 35 ng/mL 20-50 Jan 19, 2024 02:09 PM [facility] CBC AND DIFF (AUTO) Specimen Type: BLOOD No comment entered. Ordering Provider: JAE OBRIEN Report Released Date/Time: January 10, 2024 01:44 PM Reporting Lab: [address] [address] Performing Lab: [address] [address] WBC 6.19 10*3/uL 4.50-11.00 RBC 4.35 10*6/uL 4.23-5.66 HGB 13.5 g/dL 12.8-17 HCT 41.4 39.2-50.4 MCV 95.2 fL 82-99 MCHC 32.6 g/dL 30.8-35.1 PLT 164 10*3/uL 140-360 RDW-CV 14.9 12.0-16.0 Lipscomb, Abs 0.54 10*3/uL 0.30-1.10 MCH 31.0 pg 26.2-32.6 Neut % 59.7 43.7-75.8 Lymph % 25.4 14.0-42.3 Lipscomb % 8.7 5.1-13.7 Eos % 4.2 0.4-6.8 [...] ALL of a patient's completed or amended [place] Advance and Rescinded Directives. The entries below indicate that a directive exists for the patient, but an actual copy is not included with this document. The data comes from all [place] facilities. Date Advance Directives Provider Source Jun 15, 2001 ADVANCE DIRECTIVE DISCUSSION TITO SANFORD [facility] Jun 09, 2001 ADVANCE DIRECTIVE JAE WATERMAN [facility] Encounter Notes: All associated encounter notes This section contains the clinical notes associated to the Encounter. Date/Time Encounter Note(s) Provider Source January 11, 2024 03:31 PM TELEPHONE ENCOUNTE R NOTE: LOCAL TITLE: TELEPHONE NOTE/SPECIALTY CLINIC STANDARD TITLE: TELEPHONE ENCOUNTER NOTE DATE OF NOTE: JANUARY 11, 2024@15:31 ENTRY DATE: JANUARY 11, 2024@15:31:13 AUTHOR: LAKHWINDER SOLIS EXP COSIGNER: URGENCY: STATUS: COMPLETED called to cancel his appt he stated he has walking pneumonia and is unable to make his appt. He will call back next week to reschedule /diego/ LAKHWINDER SOLIS SYSTEM ADMIN Signed: 01/11/2024 15:32 LAKHWINDER SOLIS [place] [facility]
--- OUTSIDE RECORDS SUMMARY | 2024-08-02 13:27 | XMS_ITS ---
Author Name [facility] [place] Address [address] [place] [address] Care Team Providers Care [place] Worker Name Role Phone OBRIENJAE RUBIN Primary Care [...] BASIC FAMIL Y [birth year], 2001 [id number] [phone] KATHERINE JAMES PATIENT ANTHEM BCBS CT FEDERAL PREFERRED PROVIDER ORGANIZAT ION (PPO) BASIC SELF Aug 15, 2001 111 [id number] [phone] KATHERINE JAMES PATIENT BCBS [place] FEP PREFERRED PROVIDER ORGANIZAT ION (PPO) BASIC INDIV IDUAL Aug 15, 2001 111 [id number] KATHERINE JAMES PATIENT [place] ([place]ED[place]) PREFERRED PROVIDER ORGANIZAT ION (PPO) BASIC INDIV IDUAL 111 Jun 15, 2016 111 [id number] [phone] KATHERINE JAMES PATIENT [place] F[place] PREFERRED PROVIDER ORGANIZAT ION (PPO) BASIC SELF Aug 15, 2001 111 [id number] KATHERINE JAMES PATIENT [place] F[place] DENTAL DENTAL INSURANCE BASIC Aug 15, 2001 DENTAL [id number] KATHERINE JAMES PATIENT CAREMARK ([id number]) PRESCRIPT ION FEP Aug 15, 2010 [id number] KATHERINE JAMES PATIENT [place] FEP BCBS PRESCRIPT ION CAREM ARK FEPRX PLAN Jun 15, 2016 [id number] KATHERINE JAMES PATIENT CAREMARK FEPRX PLAN PRESCRIPT ION CAREM ARK FEPRX Aug 15, 2010 [id number] [phone] KATHERINE JAMES PATIENT [employer]EMARK-F EP BCBS PRESCRIPT ION FEP CAREM ARK Aug 15, 2010 [id number] KATHERINE JAMES PATIENT MEDICARE (WNR) MEDICARE (M) PART A Jun 15, 2016 PART A [id number] KATHERINE JAMES PATIENT MEDICARE (WNR) MEDICARE () PART B Jun 15, 2016 PART B [id number] KATHERINE JAMES PATIENT MEDICARE (WNR) MEDICARE () PART A Jun 15, 2016 PART A [id number] KATHERINE JAMES PATIENT MEDICARE (WNR) MEDICARE (M) PART B Jun 15, 2016 PART B [id number] KATHERINE JAMES PATIENT MEDICARE (WNR) MEDICARE (M) PART A Jun 15, 2016 PART A [id number] KATHERINE JAMES PATIENT MEDICARE (WNR) MEDICARE (M) PART B Jun 15, 2016 PART B [id number] KATHERINE JAMES PATIENT MEDICARE (WNR) MEDICARE (M) PART A Jun 15, 2016 PART A [id number] KATHERINE JAMES PATIENT MEDICARE (WNR) MEDICARE (M) PART B Jun 15, 2016 PART B [id number] KATHERINE JAMES PATIENT MEDICARE (WNR) MEDICARE (M) PART A Jun 15, 2016 PART A [id number] KATHERINE JAMES PATIENT MEDICARE (WNR) MEDICARE (M) PART B Jun 15, 2016 PART B [id number] KATHERINE JAMES PATIENT Selected Encounter This section includes the information on record at [place] for the Encounter. Date/Time Encounter Type Encounter Description Reason Pro vider Source December 19, 2023 08:22 AM Outpatient Encounter PRIMARY CARE/MEDICINE IHE Encounter Template Text not used by [place] Plan of Treatment: Future Appointments (+ 6 months) and Future Tests (+/- 45 days) The Plan of Treatment section includes future care activities for the patient from all [place] treatmentfacilities. This section includes future appointments and future orders which are active, pending or scheduled. Future Appointments This section includes appointments that were scheduled to occur 6 months from the date of the Encounter, up to a maximum of 20 appointments. The data comes from all [place] treatment facilities. Appointment Date/Time Appointment Type Appointme nt Facility Name Jan 25, 2024 01:00 PM AMBULATORY - MEDICINE [facility] May 14, 2024 01:00 PM [facility]UL[facility] Advance Directives: All historical and current Section Date Range: From patient's date of to the date document was created. This section includes ALL of a patient's completed or amended [place] Advance and Rescinded Directives. The entries below indicate that a directive exists for the patient, but an actual copy is not included with this document. The data comes from all [place] facilities. Date Advance Directives Provider Source Jun 15, 2001 ADVANCE DIRECTIVE DISCUSSION TITO SANFORD [facility] Jun 09, 2001 ADVANCE DIRECTIVE JAE WATERMAN DEPT OF [facility] Encounter Notes: All associated encounter notes This section contains the clinical notes associated to the Encounter. Date/Time Encounter Note(s) Provider Source December 19, 2023 08:22 AM PRIMARY CARE SECURE MESSAGING: LOCAL TITLE: PRIMARY CARE SECURE MESSAGING STANDARD TITLE: PRIMARY CARE SECURE MESSAGING DATE OF NOTE: DECEMBER 19, 2023@08:22 ENTRY DATE: DECEMBER 19, 2023@09:22:09 AUTHOR: TR BAKER EXP COSIGNER: URGENCY: STATUS: COMPLETED ------Original Message ------- Sent: 12/16/2023 03:15 PM ET From: HARRIS JAMES To: Charley OBRIEN_PRIMARY CARE_[facility] Subject: Medication:LEVOTHYROXINE NA 125MCG TAB...ATENOLOL 25MG..EZETI Mr Katie, I have no refills on these medications and will be running out soon and long before I see you next...Please reorder these 3 medications for me as soon as possible and always in a 90 day supply as you always have...Thank You Prescription Information for: LEVOTHYROXINE NA (SYNTHROID) 125MCG TAB Prescription Number [id number] Instructions TAKE ONE TABLET BY MOUTH EVERY MORNING 30 MINUTES BEFORE BREAKFAST FOR THYROID - TAKE ON AN EMPTY STOMACH WITH A FULL GLASS OF WATER Refills Remaining 0 Prescription Information for: ATENOLOL 25MG TAB Prescription [id number] Instructions TAKE ONE TABLET BY MOUTH ONCE DAILY FOR BLOOD PRESSURE/HEART Refills Remaining 0 Prescription Information for: EZETIMIBE 10MG TAB Prescription Number [id number] Instructions TAKE ONE TABLET BY MOUTH ONCE DAILY TO LOWER CHOLESTEROL Refills Remaining 0 /diego/ ALICE BAKER Advanced Rn Home[facility] Signed: 12/19/2023 09:22 Receipt Acknowledged By: 12/19/2023 10:06 /diego/ Scarlett Santos RN Registered Nurse (RN) 12/19/2023 10:43 /es/ JAE OBRIEN PA-C STAFF PHYSICIAN PLATE PAINTER APPRENTICE TR BAKER [place] [facility]
--- OUTSIDE RECORDS SUMMARY | 2024-08-02 13:27 | XMS_ITS ---
Author Name [facility] [place] Address [address] [place] [address] Care Team Providers Care Senior Bioinformatics Scientist Name Role Phone WILSONJAE RUBIN Primary Care [...] BASIC FAMIL Y Aug 15, 2001 [id number] [phone] KATHERINE JAMES PATIENT ANTHEM BCBS CT FEDERAL PREFERRED PROVIDER ORGANIZAT ION (PPO) BASIC SELF Aug 15, 2001 111 [id number] [phone] KATHERINE JAMES PATIENT BCBS [place] FEP PREFERRED PROVIDER ORGANIZAT ION (PPO) BASIC INDIV IDUAL Aug 15, 2001 111 [id number] KATHERINE JAMES PATIENT [place] ([place]ED[place]) PREFERRED PROVIDER ORGANIZAT ION (PPO) BASIC INDIV IDUAL 111 Jun 15, 2016 111 [id number] [phone] KATHERINE JAMES PATIENT [place] PREFERRED PROVIDER ORGANIZAT ION (PPO) BASIC SELF Aug 15, 2001 111 [id number] [phone] KATHERINE JAMES PATIENT [place] F[place] DENTAL DENTAL INSURANCE BASIC Aug 15, 2001 DENTAL [id number] KATHERINE JAMES PATIENT CAREMARK ([id number]) PRESCRIPT ION FEP Aug 15, 2010 [id number] KATHERINE JAMES PATIENT CAREMARK FEP BCBS PRESCRIPT ION CAREM ARK FEPRX PLAN Jun 15, 2016 [id number] KATHERINE JAMES PATIENT CAREMARK FEPRX PLAN PRESCRIPT ION CAREM ARK FEPRX Aug 15, 2010 [id number] KATHERINE JAMES PATIENT CAREMARK-F EP BCBS PRESCRIPT ION FEP CAREM ARK Aug 15, 2010 [id number] KATHERINE JAMES PATIENT MEDICARE (WNR) MEDICARE (M) PART A Jun 15, 2016 PART A [id number] KATHERINE JAMES PATIENT MEDICARE (WNR) MEDICARE () PART B Jun 15, 2016 PART B [id number] KATHERINE JAMES PATIENT MEDICARE (WNR) MEDICARE () PART A Jun 15, 2016 PART A [id number] KATHERINE JAMES PATIENT MEDICARE (WNR) MEDICARE (M) PART B Jun 15, 2016 PART B [id number] KATHERINE JAMES PATIENT MEDICARE (WNR) MEDICARE (M) PART A Jun 15, 2016 PART A [id number] KATHERINE JAMES PATIENT MEDICARE (WNR) MEDICARE (M) PART B Jun 15, 2016 PART B [id number] KATHERINE JAMES PATIENT MEDICARE (WNR) MEDICARE (M) PART A Jun 15, 2016 PART A [id number] KATHERINE JAMES PATIENT MEDICARE (WNR) MEDICARE (M) PART B Jun 15, 2016 PART B [id number] KATHERINE JAMES PATIENT MEDICARE (WNR) MEDICARE (M) PART A Jun 15, 2016 PART A [id number] KATHERINE JAMES PATIENT MEDICARE (WNR) MEDICARE (M) PART B Jun 15, 2016 PART B [id number] KATHERINE JAMES PATIENT Selected Encounter This section includes the information on record at [place] for the Encounter. Date/Time Encounter Type Encounter Description Reason Pro vider Source December 27, 2023 02:03 PM Outpatient Encounter PRIMARY CARE/MEDICINE IHE Encounter [...] 25, 2024 01:00 PM AMBUL[facility]INE [facility] May 14, 2024 01:00 PM AMBULATORY - MEDICINE [facility] Lab Results: +/- 30 days of the encounter This section includes the Chemistry and Hematology Lab Results on record with PA for the patient. Radiology Reports and Pathology Reports are provided separately, in subsequent sections. Lab Results This section contains the Chemistry/Hematology Results that were resulted 30 days before or 30 daysafter the date of the Encounter. Date/Time Source Result Type Result - Unit Interpretation Reference Range Comment Jan 19, 2024 02:09 PM [place] HEMOGLOBIN A1C PANEL Specimen Type: BLOOD Comment: [...] January 10, 2024 01:44 PM Reporting Lab: [facility] [address] [address] Performing Lab: [place] [facility] [place] [facility] [address] [address] HEMOGLOBIN A1C 5.3 4.0-5.6 Jan 19, 2024 02:09 PM [place] TSH Specimen Type: SERUM No comment entered. Ordering Provider: JAE WILSON Report Released Date/Time: January 10, 2024 01:44 PM Reporting Lab[facility] [place] [facility] [address] [address] Performing Lab: [place] [facility] [place] [address] [address] TSH 1.23 u[IU]/mL 0.35-5.00 Jan 19, 2024 02:09 PM [place] LIPID PANEL FASTING Specimen Type: SERUM No comment entered. Ordering Provider: JAE WILSON Report Released Date/Time: January 10, 2024 01:44 PM Reporting Lab: [facility] [place] [address] [address] Performing Lab: [facility] [place] [address] [address] CHOLESTEROL 137 mg/dL TRIGLYCERIDE 83 mg/dL 0-150 LDL calculated 65 mg/dL 0-129 CHOL/HDL 2.5 HDL CHOLESTEROL 55 mg/dL 40-60 Jan 19, 2024 02:09 PM [place] LIVER FUNCTION Specimen Type: SERUM No comment entered. Ordering Provider: JAE WILSON Report Released Date/Time: January 10, 2024 01:44 PM Reporting Lab: [facility] [place] [address] [address] Performing Lab: [place] [facility] [place] [address] [address] PROTEIN,TOTAL 6.8 g/dL 6.0-8.3 ALBUMIN 3.6 g/dL 3.5-5.0 ALKALINE PHOSPHATASE 67 U/L 40-150 AST 14 U/L 5-34 ALT 15 U/L BILIRUBIN, TOTAL 1.3 mg/dL H 0.2-1.2 BILIRUBIN, DIRECT 0.5 mg/dL 0-0.5 Jan 19, 2024 02:09 PM [place] BASIC METABOLIC PANEL (fasting) Specime n Type: SERUM No comment entered. Ordering Provider: JAE WILSON Report Released Date/Time: January 10, 2024 01:44 PM Reporting [facility] [address] [address] Performing Lab: [facility] [address] [address] UREA NITROGEN 22 mg/dL 7-25 GLUCOSE 107 mg/dL H 65-100 SODIUM 140 mmol/L 135-145 POTASSIUM 4.3 mmol/L 3.5-5.0 CHLORIDE 107 mmol/L 100-110 CO2 26 meq/L 20-30 CREATININE, Serum 0.89 mg/dL 0.50-1.40 eGFR(CKD-EPI 2020) 90 mL/min >60 Jan 19, 2024 02:09 PM [place] CALCIUM Specimen Type: SERUM No comment entered. Ordering Provider: JAE WILSON Report Released Date/Time: January 10, 2024 01:44 PM Reporting [facility] [address] [address] Performing Lab[facility] [address] CALCIUM 8.5 mg/dL 8.5-10.2 Jan 19, 2024 02:09 PM [place] URIC ACID Specimen Type: SERUM No comment entered. Ordering Provider: JAE WILSON Report Released Date/Time: January 10, 2024 01:44 PM Reporting Lab: [facility] [address] [address] Performing [facility] [address] URIC ACID 3.1 mg/dL L 3.5-7.2 Jan 19, 2024 02:09 PM [place] PSA Specimen Type: SERUM No comment entered. Ordering Provider: JAE WILSON Report Released Date/Time: January 10, 2024 01:44 PM Reporting Lab: [facility] [address] Performing Lab: [facility] [address] [address] PSA < 0.10 ng/mL 0.00-4.00 Jan 19, 2024 02:09 PM [place] VITAMIN D (25-OH) Specimen Type: SERUM No comment entered. Ordering Provider: JAE WILSON Report Released Date/Time: January 10, 2024 01:44 PM Reporting Lab: [address] [address] Performing Lab: [address] [address] VITAMIN D (25-OH) 35 ng/mL 20-50 Jan 19, 2024 02:09 PM [place] CBC AND DIFF (AUTO) Specimen Type: BLOOD No comment entered. Ordering Provider: JAE WILSON Report Released Date/Time: January 10, 2024 01:44 PM Reporting Lab: [address] [address] Performing Lab: [address] [address] WBC 6.19 10*3/uL 4.50-11.00 RBC 4.35 10*6/uL 4.23-5.66 HGB 13.5 g/dL 12.8-17 HCT 41.4 39.2-50.4 MCV 95.2 fL 82-99 MCHC 32.6 g/dL 30.8-35.1 PLT 164 10*3/uL 140-360 RDW-CV 14.9 12.0-16.0 [place], Abs 0.54 10*3/uL 0.30-1.10 MCH 31.0 pg 26.2-32.6 Neut % 59.7 43.7-75.8 Lymph % 25.4 14.0-42.3 [place] % 8.7 5.1-13.7 Eos % 4.2 0.4-6.8 [...] 15, 2001 ADVANCE DIRECTIVE DISCUSSION TITO [facility] Jun 09, 2001 ADVANCE DIRECTIVE JAE WATERMAN DEPT OF [facility] Encounter Notes: All associated encounter notes This section contains the clinical notes associated to the Encounter. Date/Time Encounter Note(s) Provider Source December 27, 2023 03:22 PM ADDENDUM: LOCAL TITLE: Addendum STANDARD TITLE: ADDENDUM DATE OF NOTE: DECEMBER 27, 2023@15:22:07 ENTRY DATE: DECEMBER 27, 2023@15:22:08 AUTHOR: ROSSANA SANTOS EXP COSIGNER: URGENCY: STATUS: COMPLETED PCP--Please renew for mail if appropriate. Thanks AMLODIPINE BESYLATE TAB 5MG TAKE ONE TABLET BY MOUTH ONCE DAILY FOR BLOOD PRESSURE/HEART, DO NOT TAKE WITH GRAPEFRUIT JUICE Quantity: 90 Refills: 3 /diego/ Rossana Santos RN Registered Nurse (RN) Signed: 12/27/2023 15:22 Receipt Acknowledged By: 12/27/2023 15:29 /diego/ JAE WILSON PA-C STAFF PHYSICIAN WEBSITE OPTIMIZATION STRATEGIST ========= --- Original Document --- 12/27/23 PRIMARY CARE SECURE MESSAGING: ------Original Message -------- Sent: 12/27/2023 12:43 PM ET From: JAKE JAMES To: Charley WILSON_PRIMARY [facility] Subject: Medication:Amlodipine Besylate 5mg AGAIN I requested 5 days ago, 22 Dec 2023, that you, the PA, fill a previous VA prescribed RX med Amlodipine Besylate 5mg that my heart doctor Dr Elmore from [facility] and 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 technician stated I needed to take due to elevated blood pressure...You , the PA has been prescribing this medication for years to me and is in my prescription history with you, but today 5 days later demanded a fax from Dr Elmore confirming I needed this medication now ,which was sent today 27 Dec 2023 and confirmed received by the PA this morning...So please order me this medication with 90 day supplies and refills...Thank You /diego/ ALICE BAKER [employer] Signed: 12/27/2023 15:03 Receipt Acknowledged By: * AWAITING SIGNATURE * ROSSANA SANTOS HOLLY N [place] [facility] [place] [facility] December 27, 2023 02:03 PM PRIMARY CARE Preact MESSAGING: LOCAL TITLE: PRIMARY CARE SECURE MESSAGING STANDARD TITLE: PRIMARY CARE SECURE MESSAGING DATE OF NOTE: DECEMBER 27, 2023@14:03 ENTRY DATE: DECEMBER 27, 2023@15:03:52 AUTHOR: TR BAKER EXP COSIGNER: URGENCY: STATUS: COMPLETED PRIMARY CARE SECURE MESSAGING Has ADDENDA ------Original Message -------- Sent: 12/27/2023 12:43 PM ET From: JAKE JAMES To: Charley WILSON_PRIMARY [facility] Subject: Medication:Amlodipine Besylate 5mg AGAIN I requested 5 days ago, 22 Dec 2023, that you, the PA, fill a previous VA prescribed RX med Amlodipine Besylate 5mg that my heart doctor Dr Elmore from [facility] and 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 technician stated I needed to take due to elevated blood pressure...You , the PA has been prescribing this medication for years to me and is in my prescription history with you, but today 5 days later demanded a fax from Dr Elmore confirming I needed this medication now ,which was sent today 27 Dec 2023 and confirmed received by the PA this morning...So please order me this medication with 90 day supplies and refills...Thank You /diego/ ALICE BAKER [employer] Signed: 12/27/2023 15:03 Receipt Acknowledged By: 12/27/2023 15:50 /diego/ Rossana Santos RN Registered Nurse (RN) 12/27/2023 ADDENDUM STATUS: COMPLETED PCP--Please renew for mail if appropriate. Thanks AMLODIPINE BESYLATE TAB 5MG TAKE ONE TABLET BY MOUTH ONCE DAILY FOR BLOOD PRESSURE/HEART, DO NOT TAKE WITH GRAPEFRUIT JUICE Quantity: 90 Refills: 3 /diego/ Rossana Santos RN Registered Nurse (RN) Signed: 12/27/2023 15:22 Receipt Acknowledged By: 12/27/2023 15:29 /diego/ JAE WILSON PA-C STAFF PHYSICIAN WEBSITE OPTIMIZATION STRATEGIST 12/27/2023 ADDENDUM STATUS: COMPLETED [facility] message sent to [facility] Jake, I do apoligize if your Glass Smoother thought we were demanding something. Unfortunately for patients safety it is policy at the PA if a NON VA Physician prescribes a medication then the PA needs Office Notes & Prescription. Then that is given to the VA provider and if they feels comfortable in prescribing the will then re-write the prscription and send to PA Pharmacy. Mr Wilson and I have reviewed your history and do see that this was prescribed for a long time from the PA. Mr Wilson has already sent this prescription to the PA Pharmacy. Have a great evening> Thank you for your service. /diego/ Rossana Santos RN Registered Nurse (RN) Signed: 12/27/2023 15:50 TR BAKER PA [facility]
--- OUTSIDE RECORDS SUMMARY | 2024-08-02 13:27 | XMS_ITS | Encounter Summary ---
Author Name [facility] [place] Address [address] [place] [address] Care Team Providers Care Bloom Conveyor Operator Name Role Phone OBRIENJAE RUBIN Primary Care [...] BASIC FAMIL Y [birth year], 2001 112 [id number] [phone] KATHERINE JAMES PATIENT ANTHEM BCBS CT FEDERAL PREFERRED PROVIDER ORGANIZAT ION (PPO) BASIC SELF Aug 15, 2001 111 [id number] [phone] KATHEIRNE JAMES PATIENT BCBS [place] FEP PREFERRED PROVIDER ORGANIZAT ION (PPO) BASIC INDIV IDUAL Aug 15, 2001 111 [id number] KATHERINE JAMES PATIENT [place] ([place]) PREFERRED PROVIDER ORGANIZAT ION (PPO) BASIC INDIV IDUAL 111 Jun 15, 2016 111 [id number] [phone] AKTHERINE JAMES PATIENT [place] F[place] PREFERRED PROVIDER ORGANIZAT ION (PPO) BASIC SELF Aug 15, 2001 111 [id number] [phone] KATHERINE JAMES PATIENT [place] DENTAL DENTAL INSURANCE BASIC Aug 15, 2001 DENTAL [id number] [phone] KATHERINE JAMES PATIENT CAREMARK ([id number]) PRESCRIPT ION FEP Aug 15, 2010 [id number] KATHERINE JAMES PATIENT [place] FEP BCBS PRESCRIPT ION CAREM ARK FEPRX PLAN Jun 15, 2016 [id number] KATHERINE JAMES PATIENT [place] FEPRX PLAN PRESCRIPT ION CAREM ARK FEPRX Aug 15, 2010 [id number] [phone] KATHERINE JAMES PATIENT [place]ARK-F EP BCBS PRESCRIPT ION FEP CAREM ARK Aug 15, 2010 [id number] KATHERINE JAMES PATIENT MEDICARE (WNR) MEDICARE () PART A Jun 15, 2016 PART A [id number] KATHERINE JAMES PATIENT MEDICARE (WNR) MEDICARE () PART B Jun 15, 2016 PART B [id number] KATHERINE JAMES PATIENT MEDICARE (WNR) MEDICARE () PART A Jun 15, 2016 PART A [id number] KATHERINE JAMES PATIENT MEDICARE (WNR) MEDICARE () PART B Jun 15, 2016 PART B [id number] KATHERINE JAMES PATIENT MEDICARE (WNR) MEDICARE (M) PART A Jun 15, 2016 PART A [id number] KATHERINE JAMES PATIENT MEDICARE (WNR) MEDICARE (M) PART B Jun 15, 2016 PART B [id number] KATHERINE JAMES PATIENT MEDICARE (WNR) MEDICARE (M) PART A Jun 15, 2016 PART A [id number] KATHERINE JAMES PATIENT MEDICARE (WNR) MEDICARE (M) PART B Jun 15, 2016 PART B [id number] KATHERINE JAMES PATIENT MEDICARE (WNR) MEDICARE (M) PART A Jun 15, 2016 PART A [id number] [id number] KATHERINE JAMES PATIENT MEDICARE (WNR) MEDICARE (M) PART B Jun 15, 2016 PART B [id number] [id number] KATHERINE JAMES PATIENT Selected Encounter This section includes the information on record at [place] for the Encounter. Date/Time Encounter Type Encounter Description Reason Pro vider Source January 12, 2024 08:29 AM Outpatient Encounter OPTOMETRY IHE Encounter Template Text not used by [place] Plan of Treatment: Future Appointments (+ 6 months) and Future Tests (+/- 45 days) The Plan of Treatment section includes future care activities for the patient from all [place] treatmentfacilities. This section includes future appointments and future orders which are active, pending or scheduled. Future Appointments This section includes appointments that were scheduled to occur 6 months from the date of the Encounter, up to a maximum of 20 appointments. The data comes from all [place] treatment facilities. Appointment Date/Time Appointment Type Appointme nt Facility Name Jan 25, 2024 01:00 PM AMBULATORY - MEDICINE [facility] May 14, 2024 01:00 PM [facility] Lab Results: +/- 30 days of the encounter This section includes the Chemistry and Hematology Lab Results on record with [place] for the patient. Radiology Reports and Pathology Reports are provided separately, in subsequent sections. Lab Results This section contains the Chemistry/Hematology Results that were resulted 30 days before or 30 daysafter the date of the Encounter. Date/Time Source Result Type Result - Unit Interpretation Reference Range Comment Jan 19, 2024 02:09 PM [place] HEMOGLOBIN A1C PANEL Specimen Type: BLOOD Comment: [...] January 10, 2024 01:44 PM Reporting Lab: [facility] [address] [address] Performing Lab: [facility] [place] [facility] [address] [facility] [address] HEMOGLOBIN A1C 5.3 4.0-5.6 Jan 19, 2024 02:09 PM [place] TSH Specimen Type: SERUM No comment entered. Ordering Provider: JAE OBRIEN Report Released Date/Time: January 10, 2024 01:44 PM Reporting Lab: [facility] [place] [address] [address] Performing Lab: [facility] [place] [address] [address] TSH 1.23 u[IU]/mL 0.35-5.00 Jan 19, 2024 02:09 PM [place] LIPID PANEL FASTING Specimen Type: SERUM No comment entered. Ordering Provider: JAE OBRIEN Report Released Date/Time: January 10, 2024 01:44 PM Reporting Lab: [facility] [address] [address] Performing Lab: [facility] [address] [address] CHOLESTEROL 137 mg/dL TRIGLYCERIDE 83 mg/dL 0-150 LDL calculated 65 mg/dL 0-129 CHOL/HDL 2.5 HDL CHOLESTEROL 55 mg/dL 40-60 Jan 19, 2024 02:09 PM [place] LIVER FUNCTION Specimen Type: SERUM No comment entered. Ordering Provider: JAE OBRIEN Report Released Date/Time: January 10, 2024 01:44 PM Reporting Lab: [facility] [place] [address] [address] Performing Lab: [facility] [place] [address] [address] PROTEIN,TOTAL 6.8 g/dL 6.0-8.3 ALBUMIN 3.6 g/dL 3.5-5.0 ALKALINE PHOSPHATASE 67 U/L 40-150 AST 14 U/L 5-34 ALT 15 U/L BILIRUBIN, TOTAL 1.3 mg/dL H 0.2-1.2 BILIRUBIN, DIRECT 0.5 mg/dL 0-0.5 Jan 19, 2024 02:09 PM [place] BASIC METABOLIC PANEL (fasting) Specime n Type: SERUM No comment entered. Ordering Provider: JAE OBRIEN Report Released Date/Time: January 10, 2024 01:44 PM Reporting Lab: [address] [address] Performing Lab: [facility] [address] [address] UREA NITROGEN 22 mg/dL 7-25 GLUCOSE 107 mg/dL H 65-100 SODIUM 140 mmol/L 135-145 POTASSIUM 4.3 mmol/L 3.5-5.0 CHLORIDE 107 mmol/L 100-110 CO2 26 meq/L 20-30 CREATININE, Serum 0.89 mg/dL 0.50-1.40 eGFR(CKD-EPI 2020) 90 mL/min >60 Jan 19, 2024 02:09 PM [place] CALCIUM Specimen Type: SERUM No comment entered. Ordering Provider: JAE OBRIEN Report Released Date/Time: January 10, 2024 01:44 PM Reporting Lab: [address] [address] Performing Lab: [address] [address] CALCIUM 8.5 mg/dL 8.5-10.2 Jan 19, 2024 02:09 PM [place] URIC ACID Specimen Type: SERUM No comment entered. Ordering Provider: JAE OBRIEN Report Released Date/Time: January 10, 2024 01:44 PM Reporting Lab: [address] [address] Performing Lab: [address] [address] URIC ACID 3.1 mg/dL L 3.5-7.2 Jan 19, 2024 02:09 PM [place] PSA Specimen Type: SERUM No comment entered. Ordering Provider: JAE OBRIEN Report Released Date/Time: January 10, 2024 01:44 PM Reporting Lab: [facility] [address] [address] Performing Lab: [address] [address] PSA < 0.10 ng/mL 0.00-4.00 Jan 19, 2024 02:09 PM [place] VITAMIN D (25-OH) Specimen Type: SERUM No comment entered. Ordering Provider: JAE OBRIEN Report Released Date/Time: January 10, 2024 01:44 PM Reporting Lab: [address] [address] Performing Lab: [address] [address] VITAMIN D (25-OH) 35 ng/mL 20-50 Jan 19, 2024 02:09 PM [place] CBC AND DIFF (AUTO) Specimen Type: BLOOD No comment entered. Ordering Provider: JAE OBRIEN Report Released Date/Time: January 10, 2024 01:44 PM Reporting Lab: [address] [address] Performing Lab: [address] [address] WBC 6.19 10*3/uL 4.50-11.00 RBC 4.35 10*6/uL 4.23-5.66 HGB 13.5 g/dL 12.8-17 HCT 41.4 39.2-50.4 MCV 95.2 fL 82-99 MCHC 32.6 g/dL 30.8-35.1 PLT 164 10*3/uL 140-360 RDW-CV 14.9 12.0-16.0 [place], Abs 0.54 10*3/uL 0.30-1.10 MCH 31.0 pg 26.2-32.6 Neut % 59.7 43.7-75.8 Lymph % 25.4 14.0-42.3 [place] % 8.7 5.1-13.7 Eos % 4.2 0.4-6.8 [...] ALL of a patient's completed or amended [place] Advance and Rescinded Directives. The entries below indicate that a directive exists for the patient, but an actual copy is not included with this document. The data comes from all [place] facilities. Date Advance Directives Provider Source Jun 15, 2001 ADVANCE DIRECTIVE DISCUSSION TITO [facility] Jun 09, 2001 ADVANCE DIRECTIVE JAE WATERMAN DEPT OF [facility] Encounter Notes: All associated encounter notes This section contains the clinical notes associated to the Encounter. Date/Time Encounter Note(s) Provider Source January 12, 2024 08:29 AM ADMINISTRATIVE NOT E: LOCAL TITLE: ADMINISTRATIVE RECALL NOTE STANDARD TITLE: ADMINISTRATIVE NOTE DATE OF NOTE: JANUARY 12, 2024@08:29 ENTRY DATE: JANUARY 12, 2024@08:29:44 AUTHOR: JESUS JACOBS EXP COSIGNER: URGENCY: STATUS: COMPLETED ADMINISTRATIVE RECALL NOTE Has ADDENDA RTC orders: Unable to contact patient: Attempts to contact: 1st attempt: Left voicemail 2nd attempt: Letter mailedDisposition onJan 3rd attempt: 4th attempt: /nery JACOBS ADVANCED LAY OUT AND DETAIL DRAFTER Signed: 01/12/2024 08:30 01/31/2024 ADDENDUM STATUS: COMPLETED RTC pid 01/05/2024 dispositioned due to veterans failure to respond to all contact efforts per department standards. /nery JACOBS ADVANCED LAY OUT AND DETAIL DRAFTER Signed: 01/31/2024 09:06 JEUSS JACOBS [place] [facility]
--- OUTSIDE RECORDS SUMMARY | 2024-08-02 13:27 | XMS_ITS | Encounter Summary ---
Author Name [facility] Organization [facility] Address [address] [place] [address] Care Team Providers Care Development Educator Name Role Phone JAE OBRIEN Primary Care Provider Unavailabl e Insurance [...] BASIC FAMIL Y Aug 15, 2001 [id number] [phone] KATHERINE JAMES PATIENT ANTHEM BCBS CT FEDERAL PREFERRED PROVIDER ORGANIZAT ION (PPO) BASIC SELF Aug 15, 2001 111 [id number] [phone] KATHERINE JAMES PATIENT BCBS [place] PREFERRED PROVIDER ORGANIZAT ION (PPO) BASIC INDIV IDUAL Aug 15, 2001 111 [id number] KATHERINE JAMES PATIENT [place] ([place] PREFERRED PROVIDER ORGANIZAT ION (PPO) BASIC INDIV IDUAL 111 Jun 15, 2016 111 [id number] [phone] KATHERINE JAMES PATIENT [place] PREFERRED PROVIDER ORGANIZAT ION (PPO) BASIC SELF Aug 15, 2001 111 [id number] [phone] KATHERINE JAMES PATIENT [place] DENTAL DENTAL INSURANCE BASIC Aug 15, 2001 DENTAL [id number] KATHERINE JAMES PATIENT [employer] ([id number]) PRESCRIPT ION FEP Aug 15, 2010 [id number] KATHERINE JAMES PATIENT [place] FEP BCBS PRESCRIPT ION CAR[place] FEPRX PLAN Jun 15, 2016 [id number] KATHERINE JAMES PATIENT [employer] FEPRX PLAN PRESCRIPT ION [employer] FEPRX Aug 15, 2010 [id number] KATHERINE JAMES PATIENT [place]-F EP BCBS PRESCRIPT ION FEP CAREM ARK Aug 15, 2010 [id number] KATHERINE JAMES PATIENT MEDICARE (WNR) MEDICARE (M) PART A Jun 15, 2016 PART A [id number] KATHERINE JAMES PATIENT MEDICARE (WNR) MEDICARE () PART B Jun 15, 2016 PART B [id number] KATHERINE JAMES PATIENT MEDICARE (WNR) MEDICARE () PART A Jun 15, 2016 PART A [id number] [phone] KATHERINE JAMES PATIENT MEDICARE (WNR) MEDICARE (M) PART B Jun 15, 2016 PART B [id number] KATHERINE JAMES PATIENT MEDICARE (WNR) MEDICARE (M) PART A Jun 15, 2016 PART A [id number] [phone] KATHERINE JAMES PATIENT MEDICARE (WNR) MEDICARE (M) PART B Jun 15, 2016 PART B [id number] KATHERINE JAMES PATIENT MEDICARE (WNR) MEDICARE (M) PART A Jun 15, 2016 PART A [id number] KATHERINE JAMES PATIENT MEDICARE (WNR) MEDICARE (M) PART B Jun 15, 2016 PART B [id number] KATHERINE JAMES PATIENT MEDICARE (WNR) MEDICARE (M) PART A Jun 15, 2016 PART A [id number] KATHERINE JAMES PATIENT MEDICARE (WNR) MEDICARE (M) PART B Jun 15, 2016 PART B [id number] KATHERINE JAMES PATIENT Selected Encounter This section includes the information on record at MD for the Encounter. Date/Time Encounter Type Encounter Description Reason Pro vider Source Jan 14, 2024 12:00 AM Outpatient Encounter EVENT (HISTORICAL) IHE Encounter Template Text not used by MD Plan of Treatment: Future Appointments (+ 6 months) and Future Tests (+/- 45 days) The Plan of Treatment section includes future care activities for the patient from all MD treatmentfacilities. This section includes future appointments and future orders which are active, pending or scheduled. Future Appointments This section includes appointments that were scheduled to occur 6 months from the date of the Encounter, up to a maximum of 20 appointments. The data comes from all MD treatment facilities. Appointment Date/Time Appointment Type Appointme nt Facility Name Jan 25, 2024 01:00 PM AMBULATORY - MEDICINE [facility] May 14, 2024 01:00 PM AMBULATORY - MEDICINE [facility] Lab Results: +/- 30 days of the encounter This section includes the Chemistry and Hematology Lab Results on record with MD for the patient. Radiology Reports and Pathology Reports are provided separately, in subsequent sections. Lab Results This section contains the Chemistry/Hematology Results that were resulted 30 days before or 30 daysafter the date of the Encounter. Date/Time Source Result Type Result - Unit Interpretation Reference Range Comment Jan 19, 2024 02:09 PM [facility] HEMOGLOBIN A1C PANEL Specimen Type: BLOOD Comment: [...] January 10, 2024 01:44 PM Reporting Lab: [facility] [address] [address] Performing Lab: [facility] [place] [facility] [address] [facility] [address] HEMOGLOBIN A1C 5.3 4.0-5.6 Jan 19, 2024 02:09 PM [facility] TSH Specimen Type: SERUM No comment entered. Ordering Provider: JAE OBRIEN Report Released Date/Time: January 10, 2024 01:44 PM Reporting [facility] [place] [facility] [address] [facility] [address] Performing Lab: [facility] [place] [address] [address] TSH 1.23 u[IU]/mL 0.35-5.00 Jan 19, 2024 02:09 PM [facility] LIPID PANEL FASTING Specimen Type: SERUM No comment entered. Ordering Provider: JAE OBRIEN Report Released Date/Time: January 10, 2024 01:44 PM Reporting [facility] [place] [address] [address] Performing Lab: [facility] [place] [address] [address] CHOLESTEROL 137 mg/dL TRIGLYCERIDE 83 mg/dL 0-150 LDL calculated 65 mg/dL 0-129 CHOL/HDL 2.5 HDL CHOLESTEROL 55 mg/dL 40-60 Jan 19, 2024 02:09 PM [facility] LIVER FUNCTION Specimen Type: SERUM No comment entered. Ordering Provider: JAE OBRIEN Report Released Date/Time: January 10, 2024 01:44 PM Reporting [facility] [place] [address] [address] Performing Lab: [facility] [place] [address] [address] PROTEIN,TOTAL 6.8 g/dL 6.0-8.3 ALBUMIN 3.6 g/dL 3.5-5.0 ALKALINE PHOSPHATASE 67 U/L 40-150 AST 14 U/L 5-34 ALT 15 U/L BILIRUBIN, TOTAL 1.3 mg/dL H 0.2-1.2 BILIRUBIN, DIRECT 0.5 mg/dL 0-0.5 Jan 19, 2024 02:09 PM GRACIELA BASIC METABOLIC PANEL (fasting) Specime n Type: SERUM No comment entered. Ordering Provider: JAE OBRIEN Report Released Date/Time: January 10, 2024 01:44 PM Reporting [facility]: [facility] [address] [address] Performing Lab: [facility] [address] [address] UREA NITROGEN 22 mg/dL 7-25 GLUCOSE 107 mg/dL H 65-100 SODIUM 140 mmol/L 135-145 POTASSIUM 4.3 mmol/L 3.5-5.0 CHLORIDE 107 mmol/L 100-110 CO2 26 meq/L 20-30 CREATININE, Serum 0.89 mg/dL 0.50-1.40 eGFR(CKD-EPI 2020) 90 mL/min >60 Jan 19, 2024 02:09 PM [facility] CALCIUM Specimen Type: SERUM No comment entered. Ordering Provider: JAE OBRIEN Report Released Date/Time: January 10, 2024 01:44 PM Reporting Lab: [facility] [address] [address] [facility] [address] CALCIUM 8.5 mg/dL 8.5-10.2 Jan 19, 2024 02:09 PM [facility] URIC ACID Specimen Type: SERUM No comment entered. Ordering Provider: JAE OBRIEN Report Released Date/Time: January 10, 2024 01:44 PM Reporting Lab: [facility] [address] [address] Performing [facility]: [facility] [address] URIC ACID 3.1 mg/dL L 3.5-7.2 Jan 19, 2024 02:09 PM [facility] PSA Specimen Type: SERUM No comment entered. Ordering Provider: JAE OBRIEN Report Released Date/Time: January 10, 2024 01:44 PM Reporting [facility] [address] Performing Lab: [facility] [address] [address] PSA < 0.10 ng/mL 0.00-4.00 Jan 19, 2024 02:09 PM [facility] VITAMIN D (25-OH) Specimen Type: SERUM No comment entered. Ordering Provider: JAE OBRIEN Report Released Date/Time: January 10, 2024 01:44 PM Reporting Lab: [address] [address] Performing Lab: [address] [address] VITAMIN D (25-OH) 35 ng/mL 20-50 Jan 19, 2024 02:09 PM [facility] CBC AND DIFF (AUTO) Specimen Type: BLOOD No comment entered. Ordering Provider: JAE OBRIEN Report Released Date/Time: January 10, 2024 01:44 PM Reporting Lab: [address] [address] Performing Lab: [address] [address] WBC 6.19 10*3/uL 4.50-11.00 RBC 4.35 10*6/uL 4.23-5.66 HGB 13.5 g/dL 12.8-17 HCT 41.4 39.2-50.4 MCV 95.2 fL 82-99 MCHC 32.6 g/dL 30.8-35.1 PLT 164 10*3/uL 140-360 RDW-CV 14.9 12.0-16.0 Churchill, Abs 0.54 10*3/uL 0.30-1.10 MCH 31.0 pg 26.2-32.6 Neut % 59.7 43.7-75.8 Lymph % 25.4 14.0-42.3 Churchill % 8.7 5.1-13.7 Eos % 4.2 0.4-6.8 [...] ALL of a patient's completed or amended MD Advance and Rescinded Directives. The entries below indicate that a directive exists for the patient, but an actual copy is not included with this document. The data comes from all MD facilities. Date Advance Directives Provider Source Jun 15, 2001 ADVANCE DIRECTIVE DISCUSSION TITO [facility] Jun 09, 2001 ADVANCE DIRECTIVE JAE WATERMAN [facility]
--- NOTE | 2024-08-02 13:28 | ECG_ITS ---
Test Reason : pre op Blood Pressure : / mmHG Vent. Rate : 062 BPM Atrial Rate : 062 BPM P-R Int : 170 ms QRS Dur : 080 ms QT Int : 410 ms P-R-T Axes : 000 -29 051 degrees QTc Int : 416 ms Normal sinus rhythm Normal ECG When compared with ECG of 26-APR-2023 16:41, No significant change was found Referred By: Navjot Winter Electronically Signed By:PADDY VILLA
--- OUTSIDE RECORDS SUMMARY | 2024-08-02 13:28 | XMS_ITS | Encounter Summary ---
Author Name [facility] [place] [facility] [place] [facility] [place] [facility] [place] Address [address] [facility], [place] [address] Care Team Providers Care Recovery Manager Name Role Phone JAE OBRIEN Primary Care [...] BASIC FAMIL Y Aug 15, 2001 [id number] [phone] KATHERINE JAMES PATIENT ANTHEM BCBS CT FEDERAL PREFERRED PROVIDER ORGANIZAT ION (PPO) BASIC SELF Aug 15, 2001 111 [id number] [phone] KATHERINE JAMES PATIENT BCBS [place] FEP PREFERRED PROVIDER ORGANIZAT ION (PPO) BASIC INDIV IDUAL Aug 15, 2001 [id number] KATHERINE JAMES PATIENT [place] OF [place] ([place]ED[place]) PREFERRED PROVIDER ORGANIZAT ION (PPO) BASIC INDIV IDUAL 111 Jun 15, 2016 111 [id number] [phone] KATHERINE JAMES PATIENT [place] PREFERRED PROVIDER ORGANIZAT ION (PPO) BASIC SELF Aug 15, 2001 111 [id number] KATHERINE JAMES PATIENT [place] F[place] DENTAL DENTAL INSURANCE BASIC Aug 15, 2001 DENTAL [id number] KATHERINE JAMES PATIENT CAREMARK ([id number]) PRESCRIPT ION FEP Aug 15, 2010 [id number] KATHERINE JAMES PATIENT [place] FEP BCBS PRESCRIPT ION CAREM ARK FEPRX PLAN Jun 15, 2016 [id number] KATHERINE JAMES PATIENT [place] FEPRX PLAN PRESCRIPT ION CAREM ARK FEPRX Aug 15, 2010 [id number] KATHERINE JAMES PATIENT CAREMARK-F EP BCBS PRESCRIPT ION FEP CAREM ARK Aug 15, 2010 [id number] KATHERINE JAMES PATIENT MEDICARE (WNR) MEDICARE () PART A Jun 15, 2016 PART A [id number] KATHERINE JAMES PATIENT MEDICARE (WNR) MEDICARE () PART B Jun 15, 2016 PART B [id number] KATHERINE JAMES PATIENT MEDICARE (WNR) MEDICARE () PART A Jun 15, 2016 PART A [id number] KATHERINE JAMES PATIENT MEDICARE (WNR) MEDICARE () PART B Jun 15, 2016 PART B [id number] KATHERINE JAMES PATIENT MEDICARE (WNR) MEDICARE (M) PART A Jun 15, 2016 PART A [id number] KATHERINE JAMES PATIENT MEDICARE (WNR) MEDICARE (M) PART B Jun 15, 2016 PART B [id number] KATHERINE JAMES PATIENT MEDICARE (WNR) MEDICARE (M) PART A Jun 15, 2016 PART A [id number] [phone] KATHERINE JAMES PATIENT MEDICARE (WNR) MEDICARE (M) PART B Jun 15, 2016 PART B [id number] KATHERINE JAMES PATIENT MEDICARE (WNR) MEDICARE (M) PART A Jun 15, 2016 PART A [id number] KATHERINE JAMES PATIENT MEDICARE (WNR) MEDICARE (M) PART B Jun 15, 2016 PART B [id number] KATHERINE JAMES PATIENT Selected Encounter This section includes the information on record at [place] for the Encounter. Date/Time Encounter Type Encounter Description Reason Provider Source Jan 25, 2024 01:00 PM OFFICE O/P EST MOD 30 MIN PRIMARY CARE/MEDICINE ICD-10-CM E78.00 Pure hypercholesterole ale, unspecified MICAHJAE VICTORIA Encounter Template Text not used by [place] Assessments - Encounter Diagnoses This section includes the primary and secondary diagnoses documented for the Encounter. Date/Time Primary/Secondary Diagnosis Diagnosis Name Provider Source Feb 21, 2024 10:27 AM PRIMARY Pure hypercholesterolemia, unspecified JAE OBRIEN Feb 21, 2024 10:27 AM SECONDARY Essential (primary) hypertension JAE OBRIEN Feb 21, 2024 10:27 AM SECONDARY Malignant neoplasm of prostate JAE OBRIEN GRACIELA Feb 21, 2024 10:27 AM SECONDARY Other specified hypothyroidism JAE OBRIEN Plan of Treatment: Future Appointments (+ 6 months) and Future Tests (+/- 45 days) The Plan of Treatment section includes future care activities for the patient from all [place] treatmentfacilities. This section includes future appointments and future orders which are active, pending or scheduled. Future Appointments This section includes appointments that were scheduled to occur 6 months from the date of the Encounter, up to a maximum of 20 appointments. The data comes from all [place] treatment facilities. Appointment Date/Time Appointment Type Appointme nt Facility Name May 14, 2024 01:00 PM AM[facility]ULAT[facility] [place] [facility] Lab Results: +/- 30 days of the encounter This section includes the Chemistry and Hematology Lab Results on record with [place] for the patient. Radiology Reports and Pathology Reports are provided separately, in subsequent sections. Lab Results This section contains the Chemistry/Hematology Results that were resulted 30 days before or 30 daysafter the date of the Encounter. Date/Time Source Result Type Result - Unit Interpretation Reference Range Comment Jan 19, 2024 02:09 PM GRACIELA LIPID PANEL FASTING Specimen Type: SERUM No comment entered. Ordering Provider: JAE OBRIEN Report Released Date/Time: January 10, 2024 01:44 PM Reporting Lab: [address] [address] Performing Lab: [address] [address] CHOLESTEROL 137 mg/dL TRIGLYCERIDE 83 mg/dL 0-150 LDL calculated 65 mg/dL 0-129 CHOL/HDL 2.5 HDL CHOLESTEROL 55 mg/dL 40-60 Jan 19, 2024 02:09 PM [facility] HEMOGLOBIN A1C PANEL Specimen Type: BLOOD Comment: [...] January 10, 2024 01:44 PM Reporting Lab: [address] [address] Performing Lab: [address] [address] HEMOGLOBIN A1C 5.3 4.0-5.6 Jan 19, 2024 02:09 PM [facility] BASIC METABOLIC PANEL (fasting) Specime n Type: SERUM No comment entered. Ordering Provider: JAE OBRIEN Report Released Date/Time: January 10, 2024 01:44 PM Reporting Lab: [address] [address] Performing Lab: [address] [address] UREA NITROGEN 22 mg/dL 7-25 GLUCOSE 107 mg/dL H 65-100 SODIUM 140 mmol/L 135-145 POTASSIUM 4.3 mmol/L 3.5-5.0 CHLORIDE 107 mmol/L 100-110 CO2 26 meq/L 20-30 CREATININE, Serum 0.89 mg/dL 0.50-1.40 eGFR(CKD-EPI 2020) 90 mL/min >60 Jan 19, 2024 02:09 PM [facility] LIVER FUNCTION Specimen Type: SERUM No comment entered. Ordering Provider: JAE OBRIEN Report Released Date/Time: January 10, 2024 01:44 PM Reporting Lab: [facility] [address] [facility] [address] Performing Lab: [facility] [address] PROTEIN,TOTAL 6.8 g/dL 6.0-8.3 ALBUMIN 3.6 g/dL 3.5-5.0 ALKALINE PHOSPHATASE 67 U/L 40-150 AST 14 U/L 5-34 ALT 15 U/L BILIRUBIN, TOTAL 1.3 mg/dL H 0.2-1.2 BILIRUBIN, DIRECT 0.5 mg/dL 0-0.5 Jan 19, 2024 02:09 PM [facility] CALCIUM Specimen Type: SERUM No comment entered. Ordering Provider: JAE OBRIEN Report Released Date/Time: January 10, 2024 01:44 PM Reporting Lab: [facility] [address] Performing Lab: [facility] [address] CALCIUM 8.5 mg/dL 8.5-10.2 Jan 19, 2024 02:09 PM [facility] URIC ACID Specimen Type: SERUM No comment entered. Ordering Provider: JAE OBRIEN Report Released Date/Time: January 10, 2024 01:44 PM Reporting Lab: [facility]ITAL[facility] [address] [address] Performing Lab: [facility] [address] [address] URIC ACID 3.1 mg/dL L 3.5-7.2 Jan 19, 2024 02:09 PM [facility] TSH Specimen Type: SERUM No comment entered. Ordering Provider: JAE OBRIEN Report Released Date/Time: January 10, 2024 01:44 PM Reporting Lab: [facility] [address] Performing Lab: [facility] [address] TSH 1.23 u[IU]/mL 0.35-5.00 Jan 19, 2024 02:09 PM [facility] PSA Specimen Type: SERUM No comment entered. Ordering Provider: JAE OBRIEN Report Released Date/Time: January 10, 2024 01:44 PM Reporting Lab: [address] [address] Performing Lab: [address] [address] PSA < 0.10 ng/mL 0.00-4.00 Jan 19, 2024 02:09 PM [facility] VITAMIN D (25-OH) Specimen Type: SERUM No comment entered. Ordering Provider: JAE OBRIEN Report Released Date/Time: January 10, 2024 01:44 PM Reporting Lab: [address] [address] Performing Lab: [address] [address] VITAMIN D (25-OH) 35 ng/mL 20-50 Jan 19, 2024 02:09 PM [facility] CBC AND DIFF (AUTO) Specimen Type: BLOOD No comment entered. Ordering Provider: JAE OBRIEN Report Released Date/Time: January 10, 2024 01:44 PM Reporting Lab: [address] [address] Performing Lab: [address] [address] WBC 6.19 10*3/uL 4.50-11.00 RBC 4.35 10*6/uL 4.23-5.66 HGB 13.5 g/dL 12.8-17 HCT 41.4 39.2-50.4 MCV 95.2 fL 82-99 MCHC 32.6 g/dL 30.8-35.1 PLT 164 10*3/uL 140-360 RDW-CV 14.9 12.0-16.0 [place], Abs 0.54 10*3/uL 0.30-1.10 MCH 31.0 pg 26.2-32.6 Neut % 59.7 43.7-75.8 Lymph % 25.4 14.0-42.3 [place] % 8.7 5.1-13.7 Eos % 4.2 0.4-6.8 Baso % 1.5 0.1-2.0 Neut, Abs 3.70 10*3/uL 2.20-7.60 Lymph, Abs 1.57 10*3/uL 1.00-3.20 Eos, Abs 0.26 10*3/uL 0.03-0.44 Baso, Abs 0.09 10*3/uL 0.01-0.13 Immature Gran % 0.5 0.0-0.7 Immature Gran, Abs 0.03 10*3/uL 0.00-0.06 Vital Signs: All taken on the encounter date This section contains inpatient and outpatient Vital Signs collected on the date of the Encounter. Date/Time Temperature Pulse Blood Pressure Respiratory Rate SP02 Pain Height Weight Body Mass Index Source Jan 25, 2024 02:10 PM 59 122/68 18 94 240 39 [place] Jan 25, 2024 01:21 PM 122/66 [facility] Social History: Smoking Status (Most current) and Tobacco Use (All prior to encounter date) This section includes the most current, and the historical, smoking and tobacco- related health factors from the [place] facility where the Encounter took place. Current Smoking Status This section includes the most current smoking, or tobacco-related health factor, from the [place] facility where the Encounter took place. Date/Time Current Smoking Status Comment Facil [facility] Jan 25, 2024 01:00 PM VA-TOBACCO NEVER USED [facility] Tobacco Use History This section includes a history of the smoking, or tobacco-related health factors, that were collected on or before the date of the Encounter. The data comes from the [place] facility where the Encounter took place. Date/Time Smoking Status/Tobacco Use Comment F acility Jan 25, 2024 01:00 PM VA-TOBACCO NEVER USED [facility] Jan 25, 2024 01:00 PM VA-TOBACCO QUIT 15 YRS OR MORE [facility] Jul 19, 2022 01:00 PM VA-TOBACCO FORMER USER [facility] Jul 19, 2022 01:00 PM VA-TOBACCO QUIT 15 YRS OR MORE [facility] Feb 26, 2021 01:00 PM VA-TOBACCO FORMER USER [facility] Feb 26, 2021 01:00 PM VA-TOBACCO QUIT 5 TO < 15 YRS [facility] Feb 18, 2020 11:31 AM VA-TOBACCO FORMER USER [facility] Feb 18, 2020 11:31 AM VA-TOBACCO QUIT 15 YRS OR MORE [facility] Jan 26, 2019 02:24 PM VA-TOBACCO FORMER USER [facility] Jan 26, 2019 02:24 PM VA-TOBACCO QUIT 15 YRS OR MORE [facility] Feb 27, 2018 01:17 PM QUIT TOBACCO USE > 7 YEARS AGO does nkt smoke [facility] Feb 11, 2017 12:04 PM QUIT TOBACCO USE > 7 YEARS AGO stopped smoking 10 years ago [facility] Jan 30, 2016 11:11 AM QUIT TOBACCO USE > 7 YEARS AGO [facility] Jan 13, 2015 10:04 AM QUIT TOBACCO USE 1 -7 YEARS AGO quit 6 years ago [facility] Mar 30, 2013 11:38 AM QUIT TOBACCO USE 1 -7 YEARS AGO Pt. ststed he quit smoking 5 years ago. [facility] Apr 25, 2012 12:52 PM QUIT TOBACCO USE 1 -7 YEARS AGO [facility] Advance Directives: All historical and current Section Date Range: From patient's date of to the date document was created. This section includes ALL of a patient's completed or amended [place] Advance and Rescinded Directives. The entries below indicate that a directive exists for the patient, but an actual copy is not included with this document. The data comes from all [place] facilities. Date Advance Directives Provider Source Jun 15, 2001 ADVANCE DIRECTIVE DISCUSSION TITO [facility] Jun 09, 2001 ADVANCE DIRECTIVE JAE WATERMAN DEPT [facility] Encounter Notes: All associated encounter notes This section contains the clinical notes associated to the Encounter. Date/Time Encounter Note(s) Provider Source Jan 25, 2024 02:11 PM PREVENTIVE MEDICIN E NURSING NOTE: LOCAL TITLE: CLINICAL REMINDERS/NURSING STANDARD TITLE: PREVENTIVE MEDICINE NURSING NOTE DATE OF NOTE: JAN 25, 2024@14:11 ENTRY DATE: JAN 25, 2024@14:11:30 AUTHOR: MEGHNA FREEMAN EXP COSIGNER: URGENCY: STATUS: COMPLETED Pneumococcal PPSV23 (Pneumovax): The patient may have been vaccinated in the past but written documentation of vaccination is not available today. Patient instructed to obtain a written record of the prior vaccine and bring it to the next appointment. Influenza Immunization: No influenza vaccination was received during the recent influenza season. COVID-19 Immunization: Refused Moderna Monovalent COVID-19 vaccine Immunization: COVID-19 (MODERNA), MRNA, LNP-S, PF, 50 MCG/0.5 ML (AGES 12+ YEARS) Refusal Reason: PATIENT DECISION Patient refuses all immunization(s) in the COVID-19 group Date Documented: 01/25/24 14:14 Herpes Zoster (Shingles) Vaccine: The patient declines to receive the recommended dose of zoster (shingles) vaccine. Immunization: ZOSTER RECOMBINANT Refusal Reason: PATIENT DECISION Patient refuses all immunization(s) in the ZOSTER group Date Documented: 01/25/24 14:15 RHS Screen: RHS Screen Environmental Check Upon inquiry, the individual reports that the environment is safe to proceed. Informed Consent to Screen and Document The individual consents to proceed with screening. The individual consents to documentation of responses. PRIMARY SCREEN: In the past 12 months, how often did a current or former intimate partner (e.g., boyfriend, girlfriend, , , sexual partner): 1. Scream or curse at you Never 2. Insult or talk down to you Never 3. Threaten you with harm Never 4. Physically hurt you Never 5. Force or pressure you to have sexual contact against your will, or when you were unable to say no Never ?? The HITS tool (items 1-4 above) is [place] copyright protected by Jose Luis Bunch MD, and the user has full rights to use it throughout the [place] system. PRIMARY SCREEN RESULT: The Primary Screen is NEGATIVE. The individual answered never to all forms of IPV above (i.e., answered never to all 5 items) The individual accepts education and/or resources: No EDUCATION: Other: /diego/ MEGHNA FREEMAN LPN LICENSED PRACTICAL NURSE Signed: 01/25/2024 14:21 MEGHNA FREEMAN [facility] Jan 25, 2024 01:03 PM PHYSICIAN ASSISTAN T NOTE: LOCAL TITLE: PA NOTE STANDARD TITLE: PHYSICIAN KARATE BLACK BELT NOTE DATE OF NOTE: JAN 25, 2024@13:03 ENTRY DATE: JAN 25, 2024@13:03:03 AUTHOR: JAE OBRIEN COSIGNER: URGENCY: STATUS: COMPLETED NICK NOTE Has ADDENDA S - routine re-eval O - coop A&Ox3 NAD W-N/H/D HEENT: normocephalic NECK: supple mobile no bruits not tender and no adeno LUNGS: resp full reg unlabored; CTA b/l COR: RRR, no M ABD: soft, not tender no mass, megaly EXT: no LLE or calf tenderness LABS: reviewed w/ pt A/P - 1) HTN - BP 122/66 2) Renal Function Intact - Creat 0.8 and K 4.3 in FEBRUARY 05; eGFR 90 - cont Norvasc 3) C/V Stable - never [place] Has No Chest Sx, But Will Be Undergoing EKG, ECHO, and a Pharmacologic Stress Test as Part of an Excutive PE outside [place] 4) Neuro Stable - never CVA/TIA 5) Hypercholesterolemia - LDL 65 in FEBRUARY 05 6) On Anti-Coag Therapy?? YES (see below) - cont ASA - cont Lipitor and Zetia; LFT's WNL - diet, wt 7) Normoglycemic 8) CBC Profile: All WNL 9) Health Maintenance - stays active 10) Stress? - nothing untoward 11) Prostate CA and s/p RT - PSA < Zero in FEBRUARY 05 - follows w/ URO as directed 12) h/o Gout - Ur Acid 3.1 in FEBRUARY 05 - takes Allopurinol 13) Hypothyroidism - TSH 1.23 in FEBRUARY 05 - cont Synthroid RTC SEP 08 - labs before Alcohol Use Screen (AUDIT-C): Alcohol Scre Sexual Orientation: The patient thinks of their sexual orientation as: Straight or Heterosexual Medication Reconciliation: Outpatient: Has the patient been taking medications as documented in the EMLR? YES: The patient has been taking medications as documented in the EMLR. Essential Medication List for Review used to complete this medication reconciliation. INCLUDED IN THIS LIST: Alphabetical list of active outpatient prescriptions dispensed from this [place] (local) and dispensed from another [place] or [place] facility (remote) as well as inpatient orders (local, pending and active), local clinic medications, locally documented non-VA medications, and local prescriptions that have or been discontinued in the past 90 days. - All changes in medications, including all non-VA/Herbal/OTC medications were entered into CPRS. - If there were any medications the patient should no longer take, they were discontinued. - The patient/caregiver was instructed to update this list, discard old lists, and take this list to the next appointment, whether with a VA or non-VA provider. Alcohol Use Screen (AUDIT-C): Alcohol Screen: SCREEN FOR ALCOHOL (AUDIT-C) An alcohol screening test (AUDIT-C) was negative (score=1). 1. How often did you have a drink containing alcohol in the past year? Consider a drink to be a 12 ounce can or bottle of regular beer, 8 ounces of malt liquor, a 5 ounce glass of table wine, or a 1.5 ounce shot of liquor (like scotch, gin, or vodka). Monthly or less 2. How many drinks containing alcohol did you have on a typical day when you were drinking in the past year? One or two drinks 3. How often did you have six or more drinks on one occasion in Tobacco Use Screening: The patient is a former tobacco user. The patient quit fifteen or more years ago. Melanoma Follow-up: Patient is followed by Dermatology OUTSIDE this [facility], for Melanoma F/U. Last Visit: 2023 ? Exact date is unknown Location: Outside Healthcare Provider Prognosis: ses private derm as diorec Depression Screening: Perform PHQ-2 A PHQ-2 screen was performed. The score was 0 which is a negative screen for depression. Over the past two weeks, how often have you been bothered by the following problems? 1. Little interest or pleasure in doing things Not at all 2. Feeling down, depressed, or hopeless Not at all /diego/ JAE OBRIEN PA-C STAFF PHYSICIAN KARATE BLACK BELT Signed: 01/25/2024 13:32 01/25/2024 ADDENDUM STATUS: COMPLETED correction: PMH: +cad and h/o ami /diego/ JAE OBRIEN PA-C STAFF PHYSICIAN KARATE BLACK BELT Signed: 01/25/2024 13:34 JAE OBRIEN
--- OUTSIDE RECORDS SUMMARY | 2024-08-02 13:28 | XMS_ITS | Encounter Summary ---
Author Name [facility] [place] [facility] [place] Address [address] [place] [address] Care Team Providers Care Coffee Maker Servicer Name Role Phone JAE OBRIEN Primary Care [...] BASIC FAMIL Y Aug 15, 2001 [id number] [phone] KATHERINE SCHULZ PATIENT ANTHEM BCBS CT FEDERAL PREFERRED PROVIDER ORGANIZAT ION (PPO) BASIC SELF Aug 15, 2001 111 [id number] [phone] KATHERINE SCHULZ PATIENT BCBS [place] FEP PREFERRED PROVIDER ORGANIZAT ION (PPO) BASIC INDIV IDUAL Aug 15, 2001 111 [id number] KATHERINE SCHULZ PATIENT [place] ([place]) PREFERRED PROVIDER ORGANIZAT ION (PPO) BASIC INDIV IDUAL 111 Jun 15, 2016 111 [id number] [phone] KATHERINE SCHULZ PATIENT [place] PREFERRED PROVIDER ORGANIZAT ION (PPO) BASIC SELF Aug 15, 2001 111 [id number] [phone] KATHERINE SCHULZ PATIENT [place] F[place] DENTAL DENTAL INSURANCE BASIC Aug 15, 2001 DENTAL [id number] [phone] KATHERINE SCHULZ PATIENT CAREMARK ([id number]) PRESCRIPT ION FEP Aug 15, 2010 [id number] [phone] KATHERINE SCHULZ PATIENT [place] FEP BCBS PRESCRIPT ION CAREM ARK FEPRX PLAN Jun 15, 2016 [id number] KATHERINE SCHULZ PATIENT [employer] FEPRX PLAN PRESCRIPT ION CAREM ARK FEPRX Aug 15, 2010 [id number] KATHERINE SCHULZ PATIENT [place]ARK-F EP BCBS PRESCRIPT ION FEP CAREM ARK Aug 15, 2010 [id number] [phone] KATHERINE SCHULZ PATIENT MEDICARE (WNR) MEDICARE (M) PART A Jun 15, 2016 PART A [id number] KATHERINE SCHULZ PATIENT MEDICARE (WNR) MEDICARE () PART B Jun 15, 2016 PART B [id number] KATHERINE SCHULZ PATIENT MEDICARE (WNR) MEDICARE () PART A Jun 15, 2016 PART A [id number] KATHERINE SCHULZ PATIENT MEDICARE (WNR) MEDICARE (M) PART B Jun 15, 2016 PART B [id number] KATHERINE SCHULZ PATIENT MEDICARE (WNR) MEDICARE (M) PART A Jun 15, 2016 PART A [id number] [phone] KATHERINE SCHULZ PATIENT MEDICARE (WNR) MEDICARE (M) PART B Jun 15, 2016 PART B [id number] [phone] KATHERINE SCHULZ PATIENT MEDICARE (WNR) MEDICARE (M) PART A Jun 15, 2016 PART A [id number] [phone] KATHERINE SCHULZ PATIENT MEDICARE (WNR) MEDICARE (M) PART B Jun 15, 2016 PART B [id number] KATHERINE SCHULZ PATIENT MEDICARE (WNR) MEDICARE (M) PART A Jun 15, 2016 PART A [id number] KATHERINE SCHULZ PATIENT MEDICARE (WNR) MEDICARE (M) PART B Jun 15, 2016 PART B [id number] [id number] KATHERINE SCHULZ PATIENT Selected Encounter This section includes the information on record at [place] for the Encounter. Date/Time Encounter Type Encounter Description Reason Provider Source May 08, 2024 02:31 PM SPECIAL SUPPLIES PHYS/QHP TELEPHONE/MEDICIN E ICD-10-CM G47.30 Sleep apnea, unspecified ASHLEY SAUCEDO Encounter Template Text not used by [place] Assessments - Encounter Diagnoses This section includes the primary and secondary diagnoses documented for the Encounter. Date/Time Primary/Secondary Diagnosis Diagnosis Name Provider Source May 08, 2024 02:31 PM PRIMARY Sleep apnea, unspecified ASHLEY SAUCEDO [facility] ([id number]) Plan of Treatment: Future Appointments (+ 6 [...] 14, 2024 01:00 PM AMBULAT[facility] - [facility] Active, Pending, and Scheduled Orders This section includes a listing of several types of active, pending, and scheduled orders, including clinic medications orders, diagnostic test orders, procedure orders and consult orders; where the start date of the order is 45 days before the date of the Encounter or 45 days after the date of theEncounter. The data comes from all [place] treatment facilities. Test Date/Time Test Type Test Details Facility Name Apr 06, 2024 02:52 PM Consult Order COMMUNITY CARE-DENTAL GENERAL Cons Communications Specialist's Choice [facility] Advance Directives: All historical and [...] Source Jun 15, 2001 ADVANCE DIRECTIVE DISCUSSION JUVENAL,TITO BARRON Mosqueda [facility] Jun 09, 2001 ADVANCE DIRECTIVE JAE WATERMAN [facility] Encounter Notes: All associated encounter notes This section contains the clinical notes associated to the Encounter. Date/Time Encounter Note(s) Provider Source May 08, 2024 02:31 PM RESPIRATORY THERAP Y NOTE: LOCAL TITLE: RESPIRATORY THERAPY NOTE(BLANK) STANDARD TITLE: RESPIRATORY THERAPY NOTE DATE OF NOTE: MAY 08, 2024@14:31 ENTRY DATE: MAY 08, 2024@14:31:33 AUTHOR: ASHLEY SAUCEDO COSIGNER: URGENCY: STATUS: COMPLETED Clyde diagnosed with sleep apnea is due for cpap renewalvet called to confirm mask call lasted 10 minutes. a review of airview shows great use and theraputic results vet issued new equipment and new rtc placed. Airview compliance: Jake Schulz 04/08/2024 - 05/07/2024 : 1950 Age: 73 years [facility] Compliance Report Compliance Payor Standard Usage 04/08/2024 - 05/07/2024 Usage days 30/30 days (100%) >= 4 hours 30 days (100%) < 4 hours 0 days (0%) Usage hours 263 hours 56 minutes Average usage (total days) 8 hours 48 minutes Average usage (days used) 8 hours 48 minutes Median usage (days used) 9 hours 1 minutes Total used hours (value since last reset - 05/07/2024) 15,283 hours AirCurve 10 VAuto Serial number [id number] Mode VAuto Max IPAP 21 cmH2O Min EPAP 10 cmH2O Pressure Support 5 cmH2O Therapy Leaks - L/min Median: 0.0 95th percentile: 12.8 Maximum: 52.4 Events per hour AI: 1.1 HI: 0.0 AHI: 1.1 Apnea Index Central: 0.5 Obstructive: 0.6 Unknown: 0.0 Usage - hours Printed on 05/08/2024 - Apertio version 4.47.0-4.0 Page 1 of /diego/ ASHLEY SAUCEDO,SILVER STEWARD RESPIRATORY THERAPIST Signed: 05/08/2024 14:34 ASHLEY SAUCEDO [facility] ([id number])
--- OUTSIDE RECORDS SUMMARY | 2024-08-02 13:28 | XMS_ITS ---
Author Name [facility] [place] [facility] [place] Address [address] [place] [address] Care Team Providers Care Supervisor Electric Motor Testing Name Role Phone WILSONJAE RUBIN Primary Care [...] BASIC FAMIL Y Aug [birth year], 2001 112 [id number] [phone] KATHERINE JAMES PATIENT ANTHEM BCBS CT FEDERAL PREFERRED PROVIDER ORGANIZAT ION (PPO) BASIC SELF Aug 15, 2001 111 [id number] [phone] KATHERINE JAMES PATIENT BCBS [place] FEP PREFERRED PROVIDER ORGANIZAT ION (PPO) BASIC INDIV IDUAL Aug 15, 2001 111 [id number] KATHERINE JAMES PATIENT [place] ([place]) PREFERRED PROVIDER ORGANIZAT ION (PPO) BASIC INDIV IDUAL 111 Jun 15, 2016 111 [id number] [phone] KATHERINE JAMES PATIENT [place] F[place] PREFERRED PROVIDER ORGANIZAT ION (PPO) BASIC SELF Aug 15, 2001 111 [id number] KATHERINE JAMES PATIENT [place] DENTAL DENTAL INSURANCE BASIC Aug 15, 2001 DENTAL [id number] KATHERINE JAMES PATIENT CAR[employer]ARK ([id number]) PRESCRIPT ION FEP Aug 15, 2010 [id number] [phone] KATHERINE JAMES PATIENT [place] FEP BCBS PRESCRIPT ION CAREM ARK FEPRX PLAN Jun 15, 2016 [id number] KATHERINE JAMES PATIENT [employer] FEPRX PLAN PRESCRIPT ION CAREM ARK FEPRX Aug 15, 2010 [id number] KATHERINE JAMES PATIENT [place]-F EP BCBS PRESCRIPT ION FEP CAREM ARK Aug 15, 2010 [id number] KATHERINE JAMES PATIENT MEDICARE (WNR) MEDICARE (M) PART A Jun 15, 2016 PART A [id number] KATHERINE JAMES PATIENT MEDICARE (WNR) MEDICARE () PART B Jun 15, 2016 PART B [id number] KATHERINE JAMES PATIENT MEDICARE (WNR) MEDICARE () PART A Jun 15, 2016 PART A [id number] KATHERINE JAMES PATIENT MEDICARE (WNR) MEDICARE (M) PART B Jun 15, 2016 PART B [id number] KTAHERINE JAMES PATIENT MEDICARE (WNR) MEDICARE (M) PART A Jun 15, 2016 PART A [id number] [phone] KATHERINE JAMES PATIENT MEDICARE (WNR) MEDICARE (M) PART B Jun 15, 2016 PART B [id number] KATHERINE JAMES PATIENT MEDICARE (WNR) MEDICARE (M) PART A Jun 15, 2016 PART A [id number] KATHERINE JAMES PATIENT MEDICARE (WNR) MEDICARE (M) PART B Jun 15, 2016 PART B [id number] KATHERINE JAMES PATIENT MEDICARE (WNR) MEDICARE (M) PART A Jun 15, 2016 PART A [id number] KATHERINE JAMES PATIENT MEDICARE (WNR) MEDICARE (M) PART B Jun 15, 2016 PART B [id number] [id number] KATHERINE JAMES PATIENT Selected Encounter This section includes the information on record at [place] for the Encounter. Date/Time Encounter Type Encounter Description Reason Pro vider Source Apr 20, 2024 03:10 PM Outpatient Encounter PRIMARY CARE/MEDICINE I[facility] Encounter Template Text not used by [place] Plan of Treatment: Future Appointments (+ 6 months) and Future Tests (+/- 45 days) The Plan of Treatment section includes future care activities for the patient from all [place] treatmentfacilities. This section includes future appointments and future orders which are active, pending or scheduled. Future Appointments This section includes appointments that were scheduled to occur 6 months from the date of the Encounter, up to a maximum of 20 appointments. The data comes from all [facility] facilities. Appointment Date/Time Appointment Type Appointme nt Facility Name May 14, 2024 01:00 PM [facility] Active, Pending, and Scheduled Orders This section includes a listing of several types of active, pending, and scheduled orders, including clinic medications orders, diagnostic test orders, procedure orders and consult orders; where the start date of the order is 45 days before the date of the Encounter or 45 days after the date of theEncounter. The data comes from all [facility]. Test Date/Time Test Type Test Details Facility Name Apr 06, 2024 02:52 PM Consult Order COMMUNITY CARE-DENTAL GENERAL Cons Manufacturing Engineering Technician's Choice [place] [facility] Advance Directives: All historical and current Section Date Range: From patient's date of to the date document was created. This section includes ALL of a patient's completed or amended [place] Advance and Rescinded Directives. The entries below indicate that a directive exists for the patient, but an actual copy is not included with this document. The data comes from all [place] facilities. Date Advance Directives Provider Source Jun 15, 2001 ADVANCE DIRECTIVE DISCUSSION TITO SANFORD [facility] Jun 09, 2001 ADVANCE DIRECTIVE JAE WATERMAN DEPT OF [facility] Encounter Notes: All associated encounter notes This section contains the clinical notes associated to the Encounter. Date/Time Encounter Note(s) Provider Source Apr 20, 2024 03:10 PM PRIMARY CARE SECUR E MESSAGING: LOCAL TITLE: PRIMARY CARE SECURE MESSAGING STANDARD TITLE: PRIMARY CARE SECURE MESSAGING DATE OF NOTE: APR 20, 2024@15:10 ENTRY DATE: APR 20, 2024@15:10:20 AUTHOR: TR BAKER EXP COSIGNER: URGENCY: STATUS: COMPLETED ------Original Message -------- Sent: 04/20/2024 03:07 PM ET From: HARRIS JAMES To: Charley WILSON_PRIMARY CARE_SPOPC Subject: Medication:SILDENAFIL CITRATE 100MG TAB Mr Wilson, Could you please provide me refills of this prescription as I have no refills left...Thank You.. Prescription Information for: SILDENAFIL CITRATE 100MG TAB Prescription Number [id number] Instructions TAKE ONE TABLET BY MOUTH DIRECTED TAKE 1 HOUR PRIOR TO SEXUAL ACTIVITY Refills Remaining 0 /es/ ALCIE BAKER Advanced Application Support Intern Signed: 04/20/2024 15:10 Receipt Acknowledged By: 04/20/2024 15:21 /es/ GEMA KAMINSKIN,RN-BC REGISTERED NURSE (RN) for ROSSANA ARREGUIN 04/20/2024 16:30 /es/ AMADOU JAMESC STAFF PHYSICIAN TELESERVICES REPRESENTATIVE TR BAKER [place] [facility]
[2024-08-02 13:47] LABS: MANUAL DIFF FLAG NO
[2024-08-02 14:05] LABS: Basophils Absolute Auto 0.1 X10*3/uL (0.0-0.2); Basophils Percent Auto 1.4 % (0-2); Eosinophils Absolute Auto 0.4 X10*3/uL (0.0-0.4); Eosinophils Percent Auto 4.8 % (0-4); Hematocrit 41.4 % (42.0-52.0); Hemoglobin 13.5 g/dl (14.0-18.0); Imm Gran Abs Auto 0.06 X10*3/uL (0.00-0.03); Imm Gran Pct Auto 0.8 % (0.0-0.4); Lymphocytes Absolute Auto 1.6 X10*3/uL (1.2-4.9); Lymphocytes Percent Auto 21.6 % (20-40); Mean Corpuscular HGB Conc 32.6 g/dl (31.0-36.0); Mean Corpuscular Hemoglobin 31.3 pg (27.0-33.0); Mean Corpuscular Volume 95.8 fL (80.0-98.0); Mean Platelet Volume 11.2 fL (9.4-12.4); Monocytes Absolute Auto 0.7 X10*3/uL (0.1-1.2); Monocytes Percent Auto 9.4 % (2-11); Neutrophils Absolute Auto 4.6 x10*3/uL (2.0-8.3); Platelet Count 147 X10*3/uL (160-400); Red Blood Count 4.32 X10*6/uL (4.60-5.80); Red Cell Distribution Width 14.5 % (11.0-16.0); White Blood Count 7.3 X10*3/uL (4.8-10.8)
[2024-08-02 14:26] LABS: Appearance Urine Cloudy; Color Urine Yellow; Glucose Urine UA Negative (Negative); Leukocyte Esterase Urine Negative (Negative); Nitrite Urine Negative (Negative); PH 5.5 (5.0-9.0); Specific Gravity - Urine 1.025 (1.005-1.025); Urine Blood Negative (Negative); Urine Ketones Negative (Negative); Urine Protein Trace mg/dL (Neg-Trace)
[2024-08-02 14:37] LABS: Alanine Aminotransferase 28 U/L (0-40); Albumin Level 3.7 g/dL (3.5-5.0); Alkaline Phosphatase 70 U/L (39-117); Anion Gap 8 (12-20); Aspartate Amino Transferase 26 U/L (5-37); Bilirubin Total 0.8 mg/dL (0.0-1.0); Blood Urea Nitrogen 21 mg/dL (9-16); Calcium 8.7 mg/dL (8.4-10.2); Carbon Dioxide 29 mmol/L (22-29); Chloride 112 mmol/L (96-108); Estimated Glomerular Filt Rate > 60; Glucose Random 118 mg/dL (60-115); Potassium 4.2 mmol/L (3.3-5.1); Sodium 145 mmol/L (135-145)
[2024-08-02 14:50] LABS: TSH reflex Free T4 4.03 uIU/mL (0.32-4.0)
[2024-08-02 15:06] LABS: Folate 8.2 ng/mL (> or = 4.0); Prostate Specific Antigen Scr < 0.10 ng/mL (<0.05-4.0); Vitamin B12 743 pg/mL (200-900)
[2024-08-02 15:29] LABS: Free T4 (Free Thyroxine) 0.89 ng/dL (0.71-1.85)
== END 2024-08-02 13:22 | disposition home or self-care (01) ==
LOC: HO.LAB 13:21
PROVIDERS: PCP Nurse Practitioner Family; Visit Provider Nurse Practitioner Family
DX: Z01.818 Encounter for other preprocedural examination (principal); I10 Essential (primary) hypertension; E78.5 Hyperlipidemia, unspecified; Z12.5 Encounter for screening for malignant neoplasm of prostate; E53.8 Deficiency of other specified B group vitamins
CPT/HCPCS: 36415; 80053; 81003; 82607; 82746; 84153; 84439; 84443; 85025; 93005

== ENCOUNTER → 2024-08-02 13:28 | Outpatient (BNV) | payer MEDICARE, BC, SELFPAY | PROVIDERS: PCP Nurse Practitioner Family; Visit Provider Internal Medicine | DX: Z01.818 Encounter for other preprocedural examination (principal) | CPT/HCPCS: 93010 ==

== ENCOUNTER 2024-10-24 13:37 | Outpatient (AMB) | payer MEDICARE, BC, SELFPAY ==
--- NOTE | 2024-10-24 13:38 | MHC.OFFVIS ---
Vital Signs 10/24/24 13:50 Height 5 ft 6 in Weight 253 lb 1.451 oz BMI 40.8 BP 148/66 H Blood Pressure Location Rt brachial Position Sitting Pulse 66 Pulse Source Pulse Oximeter Pulse Oximetry (%) 94 Oxygen Delivery Method Room Air Intake Visit Reasons: ~ 1 YR FUV. R/S from 07/25/24 Intake Note: ESTABLISHED PATIENT for mgmt of Navarrete's and fecal abn. Chief Complaint; Pt states that he is doing much better since his last visit. Very occasional IBS sx but nothing compared to what he started with. No concerns per pt currently. Credit Report Checker Required: No Accompanied by: Self / Same As Patient Allergies No Known Allergies Allergy (Verified 10/24/24 13:39) HPI HPI ~ 1 YR FUV. 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 May take fiber supplement if needed. Will hold off on sending him for ablation for now. Symptoms resolved with the sucralfate colonic treatment. Continue current dose of PPI. Discussed with patient avoiding dietary triggers and late night snacking. Staying upright for minimum 3 hours after meals discussed with patient. Patient will return in the office in 8 months, sooner on as needed basis. He is agreeable to this plan and verbalizes understanding of instructions. He was given the opportunity to ask questions and all questions answered. TODAY'S VISIT: Patient is here today for follow-up and to discuss going for colonoscopy. Patient had suboptimal prep last colonoscopy in need to repeated. Denies any issues with anesthesia. History of sleep apnea. Patient is not on any anticoagulation medication. Sees cardiology for follow-ups, next appointment in December. Denies any cardiac or respiratory symptoms. Patient has been feeling good in the past few months. Occasional acid reflux, however feels like omeprazole has been working for him. 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 Patient denies any melena, hematochezia, unintentional weight loss or ribbon like stools. Patient reports that his bowels have been regulated. Occasional however depending on what he eats loose stools. Patient reports that for the most part everything is controlled. 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 Son No problems noted. Son No problems noted. Social History Household Members: None Housing: Condominium Do you presently have visiting nurse or other home services: No Alcohol intake: never Patient Tobacco Use Status: Former Tobacco user e-Cigarette/Vaping Use: Never Used Second Hand Smoke Exposure: No Substance Use Type: Marijuana service: Yes Current occupational status: retired Current occupation: rt handed Cognitive needs: No Hearing needs: No Vision needs: No Review of Systems Const Denies weight gain and Denies weight loss ENT Reports no additional complaints, Denies dysphagia and Denies odynophagia Card Reports no additional complaints Resp Reports no additional complaints GI Denies abdominal pain, Denies belching, Denies melena, Denies bloating, Denies change in bowel habits, Denies dysphagia, Denies excessive flatus, Denies dyspepsia, Reports heartburn (Occasional controlled for the most part), Denies diarrhea, Reports loose stools (Occasional), Denies nausea, Denies odynophagia and Denies vomiting Reports no additional complaints Musc Reports no additional complaints Neuro Reports no additional complaints Psych Reports no additional complaints Endo Reports no additional complaints Physical Exam Vital Signs: Last Vital Signs Pulse 66 10/24/24 13:50 BP 148/66 H 10/24/24 13:50 Pulse Ox 94 10/24/24 13:50 Oxygen Delivery Method Room Air 10/24/24 13:50 BMI result Body Mass Index 40.8 Const General: healthy appearing and no acute distress Nutritional Appearance: obese Orientation/consciousness: patient oriented x3 Resp Effort & Inspection: normal respiratory effort, able to speak in complete sentences, no tracheal deviation and symmetric chest movement Auscultation: clear to auscultation bilaterally Cardio Rate: regular rate GI Inspection: Yes normal to inspection, No distended and Yes obesity Palpation (GI): Soft to palpation, not firm, nontender and No hepatosplenomegaly present Auscultation: normal bowel sounds General: Yes no CVA tenderness Back/Spine/Pelvis Back: no CVA tenderness Skin General skin exam: elasticity normal, turgor normal and dry skin Neuro General: patient oriented x3 Psych Appearance: grossly normal Mental Status: mental status grossly normal Assessment & Plan Assessment & Plan (1) Radiation proctitis: Code(s): K62.7 - Radiation proctitis Category: Medical (2) Tubular adenoma: Code(s): D36.9 - Benign neoplasm, unspecified site Category: Medical (3) 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: Code(s): K22.70 - Navarrete's esophagus without dysplasia Category: Medical (4) IBS (irritable bowel syndrome): Code(s): K58.9 - Irritable bowel syndrome, unspecified Category: Medical Qualifiers: Irritable bowel syndrome type: with both diarrhea and constipation Qualified Code(s): K58.2 - Mixed irritable bowel syndrome (5) GERD (gastroesophageal reflux disease): Code(s): K21.9 - Gastro-esophageal reflux disease without esophagitis Qualifiers: Esophagitis presence: esophagitis presence not specified Qualified Code(s): K21.9 - Gastro-esophageal reflux disease without esophagitis (6) Diverticulosis: Code(s): K57.90 - Diverticulosis of intestine, part unspecified, without perforation or abscess without bleeding (7) Screen for colon cancer: Code(s): Z12.11 - Encounter for screening for malignant neoplasm of colon Plan Continue omeprazole. Patient will be sent for upper endoscopy, diagnosed with Barretts on previous endoscopies. What to expect before, during and after the procedure discussed with patient. Stressed the importance of good bowel prep and clear liquid diet day before procedure. Patient sees cardiology in December will ask for risk stratification and clearance. Patient is not on any anticoagulation medication. He does have a history of sleep apnea. Patient denies any issues with anesthesia in the past. Follow-up after procedure. Patient will call us if he will have any GI concerning symptoms. He is agreeable to this plan and verbalizes understanding of instructions. He was given the opportunity to ask questions and all questions answered. Thank you for allowing me to participate in his care Medications: New polyethylene glycol 3350 (Miralax) As directed by gastroenterology department at [facility] 238 grams PO ONCE 238 grams 0RF Z12.11 - Encounter for screening for malignant neoplasm of colon bisacodyl (Dulcolax (bisacodyl)) Start taking 2 tablet every night 7 days before the procedure and 1 day before procedure take 4 tablets at noon time followed by MiraLax prep 10 mg (2 x 5 mg) PO BEDTIME 16 tabs 0RF Z12.11 - Encounter for screening for malignant neoplasm of colon Coding Level of Care Code Est Pt Level 4 (42560) Complex EM visit Add On G2211 Diagnoses Radiation proctitis K62.7 Tubular adenoma D36.9 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
[2024-10-24 13:50] VITALS: BP 148/66; PULSE 66; O2SAT 94; BMI 40.8
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
--- OUTSIDE RECORDS SUMMARY | 2024-10-24 16:03 | XMS_ITS | Clinical Summary ---
Author Organization [facility] Address [address] [place] [address] Care Team Providers Care Housing Assistant Name Role Phone Unavailable Primary Care Provider Unavailabl e Immunizations Immunization Administration Dates Next Due Moderna SARS-CoV-2 Vaccination 11/06/2020,2020 Social History Tobacco Use Types Packs/Day Years Used Date Smoking Tobacco: Never Assessed Sex and Gender Information Value Date Recorded Sex Assigned at Male 11/12/2021 3:58 PM EDT Legal Sex Male 2:01 PM EST Gender Identity Male 11/12/2021 3:58 PM EDT Sexual Orientation Choose not to disclose 2021 3:58 PM EDT Plan of Treatment Health Maintenance Due Date Last Done Comments CT Colonography 1951 Colonoscopy 1950 Colorectal Cancer Screening 1950 FIT-DNA 1950 FIT 1950 FOBT 1950 Sigmoidoscopy 1950 Medicare Annual Wellness Visit 1969 Tdap and Td Vaccines Adult 1970 Pneumococcal Vaccine: 50+ Years (1 of 1 - PCV) 2001 Zoster Vaccines (1 of 2) 2001 Fall Risk Screening 2016 COVID-19 Vaccine ( - 2023-2 5 season) 2024 11/06/2020, 10/09/2020 Influenza Vaccine (#1) 2024 RSV 60+ (1 - 1-dose 75+ series) 2026 HIB Vaccines Aged Out No longer eligi ble based on patient's age to complete this topic HPV Vaccines Aged Out No longer eligi ble based on patient's age to complete this topic Hepatitis A Vaccines Aged Out No long er eligible based on patient's age to complete this topic IPV Vaccines Aged Out No longer eligi ble based on patient's age to complete this topic Meningococcal Vaccine Aged Out No prasad anderson eligible based on patient's age to complete this topic RSV <20 Months Aged Out No longer kenny gible based on patient's age to complete this topic Insurance MEDICARE
--- OUTSIDE RECORDS SUMMARY | 2024-10-24 16:03 | XMS_ITS | Clinical Summary ---
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 Name Role Phone Unavailable Primary Care Provider Unavailabl e Social History Tobacco Use Types Packs/Day Years Used Date Smoking Tobacco: Never Assessed Sex and Gender Information Value Date Recorded Sex Assigned at Not on file Legal Sex Male 7:41 PM EST Gender Identity Not on file Sexual Orientation Not on file Plan of Treatment Health Maintenance Due Date Last Done Comments DTaP,Tdap,and Td Vaccines (1 - Tdap) 1970 Pneumococcal Vaccine: 50+ Ye ars (1 of 1 - PCV) 2001 Zoster Vaccines (1 of 2) 2001 COVID-19 Vaccine ( - 2023-2 5 season) 2024 Influenza Vaccine (#1) 2024 RSV Immunization Patients 60 + Years Old (1 - 1-dose 75+ series) 2026 HIB Vaccines Aged Out No longer eligi ble based on patient's age to complete this topic HPV Vaccines Aged Out No longer eligi ble based on patient's age to complete this topic Hepatitis A Vaccines Aged Out No long er eligible based on patient's age to complete this topic Hepatitis B Vaccines Aged Out No long er eligible based on patient's age to complete this topic IPV Vaccines Aged Out No longer eligi ble based on patient's age to complete this topic MMR Vaccines Aged Out No longer eligi ble based on patient's age to complete this topic Meningococcal ACWY Vaccine Aged Out N o longer eligible based on patient's age to complete this topic Meningococcal B Vacine Aged Out No lo nger eligible based on patient's age to complete this topic RSV Immunization Patients Un rox 20 months Aged Out No longer eligible b ased on patient's age to complete this topic Varicella Vaccines Aged Out No longer eligible based on patient's age to complete this topic
== END 2024-10-24 14:55 | disposition home or self-care (01) ==
LOC: HO.HGI 13:38
PROVIDERS: PCP Nurse Practitioner Family; Visit Provider Nurse Practitioner Family
DX: K62.7 Radiation proctitis (principal); Z86.0100 Personal history of colon polyps, unspecified; K22.70 Barrett's esophagus without dysplasia; K58.2 Mixed irritable bowel syndrome; K21.9 Gastro-esophageal reflux disease without esophagitis; K57.90 Diverticulosis of intestine, part unspecified, without perforation or abscess without bleeding
CPT/HCPCS: 99214; G2211

== ENCOUNTER → 2024-10-24 13:37 | Outpatient (BNVA) | payer MEDICARE, BC, SELFPAY | PROVIDERS: PCP Nurse Practitioner Family; Visit Provider Nurse Practitioner Family | DX: Z12.11 Encounter for screening for malignant neoplasm of colon (principal); K22.70 Barrett's esophagus without dysplasia; K21.9 Gastro-esophageal reflux disease without esophagitis; K58.2 Mixed irritable bowel syndrome; K62.7 Radiation proctitis; K57.90 Diverticulosis of intestine, part unspecified, without perforation or abscess without bleeding; D36.9 Benign neoplasm, unspecified site | CPT/HCPCS: 99212 ==

== ENCOUNTER 2024-12-17 12:31 | Outpatient (AMB) | payer MEDICARE, BC, SELFPAY ==
[2024-12-17 12:34] VITALS: BP 160/88; PULSE 66; BMI 40.2
--- NOTE | 2024-12-17 12:34 | A.OFFVIS_ITS ---
Vital Signs 12/17/24 12:34 Height 5 ft 6 in Weight 249 lb 1.957 oz BMI 40.2 BP 160/88 H Blood Pressure Location Lt brachial Position Sitting Pulse 66 Intake Visit Reasons: 1 year fu/ clear colon and upper endo Intake Note: 1 year follow-up with ekg also pre-op clearance upper and lower endo feeling good Wood Box Maker Required: No Allergies No Known Allergies Allergy (Verified 10/24/24 13:39) Medication List - Last Reconciled 12/17/24 by Emir Elmore MD allopurinol 300 mg PO DAILY alprazolam 2 mg PO TID 90 days atenolol 25 mg PO DAILY atorvastatin 80 mg PO BEDTIME bisacodyl (Dulcolax (bisacodyl)) 10 mg (2 x 5 mg) PO BEDTIME cetirizine 10 mg PO DAILY cholecalciferol (vitamin D3) 50 mcg PO DAILY cyanocobalamin (vitamin B-12) 1,000 mcg PO DAILY ezetimibe 10 mg PO DAILY fluticasone propionate 50 mcg/actuation 1 spray intranasal DAILY levothyroxine (Synthroid) 125 mcg PO DAILY losartan 100 mg PO DAILY omeprazole 20 mg PO DAILY sildenafil 25 - 100 mg PO DAILY HPI Comments Details: Jake comes for follow-up. He said he has not been very active. Overall he does not have any anginal symptoms. Currently off amlodipine therapy, was discontinued he does not recall why. He says since then his blood pressures been high. He has had multiple recent surgeries and says doing well with the surgery systolic blood pressures as high as 190. He denies exertional chest pain. Denies any exertional shortness of breath. No orthopnea, PND, leg edema he has not been able [facility] Medical History Detached retina, left Radiation proctitis Tubular adenoma 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 Emphysema of lung ONIEL treated with BiPAP Prostate CA Erectile dysfunction CAD (coronary artery disease) HTN (hypertension) Hyperlipidemia Morbid obesity Surgical History History of esophagogastroduodenoscopy (EGD) Hx of cholecystectomy History of transurethral resection of prostate History of Mohs micrographic surgery for skin cancer S/P lumbar microdiscectomy Stented coronary artery Hx of cardiac cath Family History Father CVD (cardiovascular disease) Mother No problems noted. Son No problems noted. Son No problems noted. Social History Household Members: None Housing: Condominium Do you presently have visiting nurse or other home services: No Alcohol intake: never Patient Tobacco Use Status: Former Tobacco user e-Cigarette/Vaping Use: Never Used Second Hand Smoke Exposure: No Substance Use Type: Marijuana service: Yes Current occupational status: retired Current occupation: rt handed Cognitive needs: No Hearing needs: No Vision needs: No Review of Systems Const Denies chills, Denies fatigue, Denies fever(s), Denies frequent falls, Denies weakness, Denies weight gain and Denies weight loss ENT Denies dizziness Card Denies chest pain, Denies leg edema, Denies lightheadedness, Denies palpitations, Denies dyspnea, Denies dyspnea on exertion, Denies orthopnea and Denies other (loss of consciousness) Resp Denies cough, Denies dyspnea and Denies dyspnea on exertion GI Denies hematochezia and Denies change in stool character Musc Denies abnormal gait, Denies muscle weakness, Denies numbness, Denies radiating pain into limb and Denies tingling Neuro Denies abnormal gait, Denies dizziness, Denies frequent falls, Denies numbness, Denies tingling and Denies weakness Endo Denies fatigue and Denies palpitations Physical Exam Vital Signs: Last Vital Signs Pulse 66 12/17/24 12:34 BP 160/88 H 12/17/24 12:34 BMI result Body Mass Index 40.2 Const General: cooperative, comfortable and no acute distress Orientation/consciousness: patient oriented x3 HEENT Head: Yes normal to inspection Neck Neck: Yes normal visual inspection and Yes no JVD Carotids: normal carotid upstroke Resp Effort & Inspection: normal respiratory effort Auscultation: clear to auscultation bilaterally, no crackles, no rales, no rhonchi and no wheezes Cardio Jugular venous distension: no JVD Rate: regular rate Rhythm: regular rhythm Heart sounds: S1 normal heart sound present, S2 normal heart sound present, no gallops, no murmurs and no rubs Peripheral pulses: Peripheral pulses 2+ throughout GI Inspection: Yes normal to inspection Neuro General: patient oriented x3 Extrem General: Yes normal to inspection, No no pedal edema and No calf tenderness Office Procedures EKG Details: EKG shows normal sinus rhythm with nonspecific ST changes 04132-Ihhgkkwvkovqsikgo, Complete Assessment & Plan Assessment & Plan (1) CAD (coronary artery disease): Code(s): I25.10 - Atherosclerotic heart disease of [place] coronary artery without angina pectoris Category: Medical Plan: CAD with remote stenting of the circumflex artery with myocardial perfusion imaging last year within normal limits. Currently not having any significant symptoms. Continue low-dose aspirin therapy for life. Continue aggressive risk factor modification. Continue high-intensity statin therapy along with ezetimibe. Importance of regular lipid panel was discussed. He said he will follow-up with lipid panel in near future. Participate in aggressive weight loss program was discussed. Aggressive blood pressure control was needed and blood pressure is currently not well optimized. See below. (2) HTN (hypertension): Code(s): I10 - Essential (primary) hypertension Category: Medical Plan: Will resume amlodipine 5 mg for uncontrolled blood pressure. Target goal blood pressure less than 130/84. Orthostatic precautions were discussed. Advised to monitor blood pressure at home maintain a log. Low-dose salt diet was discussed. Continue stress mitigation strategies. Continue also losartan therapy for blood pressure control. Will follow up in the clinic in 1 year's time, sooner p.r.n.. Thank you for allowing me to partake in his care Orders: Orders Lipid Panel Today I25.10 - Atherosclerotic heart disease of [place] coronary artery without angina pectoris Medications: New 2 amlodipine 5 mg PO DAILY 30 tabs 5RF Coding Level of Care Code Est Pt Level 4 (85180) Complex EM visit Add On G2211 Diagnoses CAD (coronary artery disease) I25.10 HTN (hypertension) I10 CPT Codes EKG - CPT: 26842-Tkesaxudwzbqhxwlm, Complete ([id number])
--- OUTSIDE RECORDS SUMMARY | 2024-12-17 14:03 | XMS_ITS | Clinical Summary ---
Author Organization [facility] Address [address] [place] [address] Care Team Providers Care Cooking Teacher Name Role Phone Unavailable Primary Care Provider [...] - 2023-2 5 season) 2024 Influenza Vaccine (Season Ended) 2025 RSV Immunization Adult Patie nts (1 - 1-dose 75+ series) 2026 HIB [...] age to complete this topic Meningococcal B Vaccine Aged Out No l onger eligible based on patient's age to complete this topic RSV Immunization Patients Un rox 20 months Aged Out No longer eligible b ased on patient's age to complete this topic Varicella Vaccines Aged Out No longer eligible based on patient's age to complete this topic
--- OUTSIDE RECORDS SUMMARY | 2024-12-17 14:03 | XMS_ITS | Encounter Summary ---
Author Name [facility] [place] [facility] [place] Address [address], [place] [address] Care Team Providers Care Civil Estimator Name Role Phone JAE OBRIEN Primary Care [...] BASIC FAMIL Y Aug 15, 2001 [id number] [phone] KATHERINE JAMES PATIENT ANTHEM BCBS CT FEDERAL PREFERRED PROVIDER ORGANIZAT ION (PPO) BASIC SELF Aug 15, 2001 111 [id number] [phone] KATHERINE JAMES PATIENT BCBS [place] FEP PREFERRED PROVIDER ORGANIZAT ION (PPO) BASIC INDIV IDUAL Aug 15, 2001 111 [id number] KATHERINE JAMES PATIENT [place] (FEDER[place]) PREFERRED PROVIDER ORGANIZAT ION (PPO) BASIC INDIV IDUAL 111 Jun 15, 2016 111 [id number] [phone] KATHERINE JAMES PATIENT [place] PREFERRED PROVIDER ORGANIZAT ION (PPO) BASIC SELF Aug 15, 2001 111 [id number] [phone] KATHERINE JAMES PATIENT [place] FEP DENTAL DENTAL INSURANCE BASIC Aug 15, 2001 DENTAL [id number] KATHERINE JAMES PATIENT CAREMARK ([id number]) PRESCRIPT ION FEP Aug 15, 2010 [id number] [phone] KATHERINE JAMES PATIENT [place] FEP BCBS PRESCRIPT ION CAREM ARK FEPRX PLAN Jun 15, 2016 [id number] KATHERINE JAMES PATIENT [place] FEPRX PLAN PRESCRIPT ION CAREM ARK FEPRX Aug 15, 2010 [id number] KATHERINE JAMES PATIENT CAR[place]ARK-F EP BCBS PRESCRIPT ION FEP CAREM ARK Aug 15, 2010 [id number] KATHERINE JAMES PATIENT MEDICARE (WNR) MEDICARE () PART A Jun 15, 2016 PART A [id number] [phone] KATHERINE JAMES PATIENT MEDICARE (WNR) MEDICARE () PART B Jun 15, 2016 PART B [id number] [phone] KATHERINE JAMES PATIENT MEDICARE (WNR) MEDICARE () PART A Jun 15, 2016 PART A [id number] [phone] KATHERINE JAMES PATIENT MEDICARE (WNR) MEDICARE () PART B Jun 15, 2016 PART B [id number] KATHERINE JAMES PATIENT MEDICARE (WNR) MEDICARE (M) PART A Jun 15, 2016 PART A [id number] [phone] KATHERINE JAMES PATIENT MEDICARE (WNR) MEDICARE (M) PART B Jun 15, 2016 PART B [id number] KATHERINE JAMES PATIENT MEDICARE (WNR) MEDICARE (M) PART A Jun 15, 2016 PART A [id number] KATHERINE JAMES PATIENT MEDICARE (WNR) MEDICARE (M) PART B Jun 15, 2016 PART B [id number] KATHERINE JAMES PATIENT MEDICARE (WNR) MEDICARE (M) PART A Jun 15, 2016 PART A [id number] KATHERINE JAMES PATIENT MEDICARE (WNR) MEDICARE (M) PART B Jun 15, 2016 PART B [id number] KATHERINE JAMES PATIENT Selected Encounter This section includes the information on record at [place] for the Encounter. Date/Time Encounter Type Encounter Description Reason Provider Source Jan 25, 2024 01:00 PM OFFICE O/P EST MOD 30 MIN PRIMARY CARE/MEDICINE ICD-10-CM E78.00 Pure hypercholesterole ale, unspecified JAE OBRIEN Edwin Encounter Template Text not used by [place] Assessments - Encounter Diagnoses This section includes the primary and secondary diagnoses documented for the Encounter. Date/Time Primary/Secondary Diagnosis Diagnosis Name Provider Source Feb 21, 2024 10:27 AM PRIMARY Pure hypercholesterolemia, unspecified JAE OBRIEN [facility] Feb 21, 2024 10:27 AM SECONDARY Essential (primary) hypertension JAE OBRIEN [facility] Feb 21, 2024 10:27 AM SECONDARY Malignant neoplasm of prostate JAE OBRIEN [facility] Feb 21, 2024 10:27 AM SECONDARY Other specified hypothyroidism JAE OBRIEN [facility] Plan of Treatment: Future Appointments (+ 6 months) and Future Tests (+/- 45 days) The Plan of Treatment section includes future care activities for the patient from all [place] treatmentfacilities. This section includes future appointments and future orders which are active, pending or scheduled. Future Appointments This section includes appointments that were scheduled to occur 6 months from the date of the Encounter, up to a maximum of 20 appointments. The data comes from all [place] treatment facilities. Appointment Date/Time Appointment Type Appointme nt Facility Name May 14, 2024 01:00 PM AMBULATORY - MEDICINE [place] [facility] Lab Results: +/- 30 days of the encounter This section includes the Chemistry and Hematology Lab Results on record with [place] for the patient. Radiology Reports and Pathology Reports are provided separately, in subsequent sections. Lab Results This section contains the Chemistry/Hematology Results that were resulted 30 days before or 30 daysafter the date of the Encounter. Date/Time Source Result Type Result - Unit Interpretation Reference Range Specimen Type Comment Jan 19, 2024 02:09 PM [facility] TSH SERUM Specimen Type: SERUM No comment entered. Ordering Provider: JAE OBRIEN Report Released Date/Time: January 10, 2024 01:44 PM Reporting Lab: [address] [address] Performing Lab: [address] [address] TSH 1.23 u[IU]/mL 0.35-5.00 Jan 19, 2024 02:09 PM [facility] HEMOGLOBIN A1C PANEL BLOOD Specimen T ype: BLOOD Comment: Values obtained from A1C measurements can vary. For atypical A1C assays, a reported value of 7.0 could actually be between 6.72 and 7.28 if measured by a reference method. A reported value of 9.0 could actually be between 8.73 and 9.27. Ref: http://www.ngsp.org/CAPdata.asp Ordering Provider: JAE OBRIEN Report Released Date/Time: January 10, 2024 01:44 PM Reporting Lab: [address] [address] Performing Lab: [address] [address] HEMOGLOBIN A1C 5.3 4.0-5.6 Jan 19, 2024 02:09 PM [facility] LIPID PANEL FASTING SERUM Specimen Ty pe: SERUM No comment entered. Ordering Provider: JAE OBRIEN Report Released Date/Time: January 10, 2024 01:44 PM Reporting Lab: [address] [address] Performing Lab: [address] [address] CHOLESTEROL 137 mg/dL TRIGLYCERIDE 83 mg/dL 0-150 LDL calculated 65 mg/dL 0-129 CHOL/HDL 2.5 HDL CHOLESTEROL 55 mg/dL 40-60 Jan 19, 2024 02:09 PM [facility] LIVER FUNCTION SERUM Specimen Type: SERUM No comment entered. Ordering Provider: JAE OBRIEN Report Released Date/Time: January 10, 2024 01:44 PM Reporting Lab: [address] [address] Performing Lab: [facility] [address] PROTEIN,TOTAL 6.8 g/dL 6.0-8.3 ALBUMIN 3.6 g/dL 3.5-5.0 ALKALINE PHOSPHATASE 67 U/L 40-150 AST 14 U/L 5-34 ALT 15 U/L BILIRUBIN, TOTAL 1.3 mg/dL H 0.2-1.2 BILIRUBIN, DIRECT 0.5 mg/dL 0-0.5 Jan 19, 2024 02:09 PM [facility] BASIC METABOLIC PANEL (fasting) SERUM Specimen Type: SERUM No comment entered. Ordering Provider: JAE OBRIEN Report Released Date/Time: January 10, 2024 01:44 PM Reporting Lab: [address] [address] Performing Lab: [address] [address] UREA NITROGEN 22 mg/dL 7-25 GLUCOSE 107 mg/dL H 65-100 SODIUM 140 mmol/L 135-145 POTASSIUM 4.3 mmol/L 3.5-5.0 CHLORIDE 107 mmol/L 100-110 CO2 26 meq/L 20-30 CREATININE, Serum 0.89 mg/dL 0.50-1.40 eGFR(CKD-EPI 2020) 90 mL/min >60 Jan 19, 2024 02:09 PM [facility] CALCIUM SERUM Sp ecimen Type: SERUM No comment entered. Ordering Provider: JAE OBRIEN Report Released Date/Time: January 10, 2024 01:44 PM Reporting Lab: [address] [address] Performing Lab: [address] [address] CALCIUM 8.5 mg/dL 8.5-10.2 Jan 19, 2024 02:09 PM [facility] URIC ACID SERUM Sp ecimen Type: SERUM No comment entered. Ordering Provider: JAE OBRIEN Report Released Date/Time: January 10, 2024 01:44 PM Reporting Lab: [address] [address] Performing Lab: [address] [address] URIC ACID 3.1 mg/dL L 3.5-7.2 Jan 19, 2024 02:09 PM [facility] PSA SERUM Sp ecimen Type: SERUM No comment entered. Ordering Provider: JAE OBRIEN Report Released Date/Time: January 10, 2024 01:44 PM Reporting Lab: [address] [address] Performing Lab: [address] [address] PSA < 0.10 ng/mL 0.00-4.00 Jan 19, 2024 02:09 PM [facility] VITAMIN D (25-OH) SERUM Specimen Type: SERUM No comment entered. Ordering Provider: JAE OBRIEN Report Released Date/Time: January 10, 2024 01:44 PM Reporting Lab: [address] [address] Performing Lab: [address] [address] VITAMIN D (25-OH) 35 ng/mL 20-50 Jan 19, 2024 02:09 PM [facility] CBC AND DIFF (AUTO) BLOOD Specimen Ty pe: BLOOD No comment entered. Ordering Provider: JAE OBRIEN Report Released Date/Time: January 10, 2024 01:44 PM Reporting Lab: [address] [address] Performing Lab: [address] [address] WBC 6.19 10*3/uL 4.50-11.00 RBC 4.35 10*6/uL 4.23-5.66 HGB 13.5 g/dL 12.8-17 HCT 41.4 39.2-50.4 MCV 95.2 fL 82-99 MCHC 32.6 g/dL 30.8-35.1 PLT 164 10*3/uL 140-360 RDW-CV 14.9 12.0-16.0 [place], Abs 0.54 10*3/uL 0.30-1.10 MCH 31.0 pg 26.2-32.6 Neut % 59.7 43.7-75.8 Lymph % 25.4 14.0-42.3 [place] % 8.7 5.1-13.7 Eos % 4.2 0.4-6.8 Baso % 1.5 0.1-2.0 Neut, Abs 3.70 10*3/uL 2.20-7.60 Lymph, Abs 1.57 10*3/uL 1.00-3.20 Eos, Abs 0.26 10*3/uL 0.03-0.44 Baso, Abs 0.09 10*3/uL 0.01-0.13 Immature Gran % 0.5 0.0-0.7 Immature Gran, Abs 0.03 10*3/uL 0.00-0.0 6 Vital Signs: All taken on the encounter date This section contains inpatient and outpatient Vital Signs collected on the date of the Encounter. Date/Time Temperature Pulse Blood Pressure Respiratory Rate SP02 Pain Height Weight Body Mass Index Source Jan 25, 2024 02:10 PM 59 122/68 18 94 240 39 [facility] [place] Jan 25, 2024 01:21 PM 122/66 [facility] Social History: Smoking Status (Most current) and Tobacco Use (All prior to encounter date) This section includes the most current, and the historical, smoking and tobacco- related health factors from the [place] facility where the Encounter took place. Current Smoking Status This section includes the most current smoking, or tobacco-related health factor, from the [place] facility where the Encounter took place. Date/Time Current Smoking Status Comment Facil [facility] Jan 25, 2024 01:00 PM VA-TOBACCO NEVER USED [facility] Tobacco Use History This section includes a history of the smoking, or tobacco-related health factors, that were collected on or before the date of the Encounter. The data comes from the [place] facility where the Encounter took place. Date/Time Smoking Status/Tobacco Use Comment F acility Jan 25, 2024 01:00 PM VA-TOBACCO NEVER USED [facility] Jan 25, 2024 01:00 PM VA-TOBACCO QUIT 15 YRS OR MORE [facility] Jul 19, 2022 01:00 PM VA-TOBACCO FORMER USER [facility] Jul 19, 2022 01:00 PM VA-TOBACCO QUIT 15 YRS OR MORE [facility] Feb 26, 2021 01:00 PM VA-TOBACCO FORMER USER [facility] Feb 26, 2021 01:00 PM VA-TOBACCO QUIT 5 TO < 15 YRS [facility] Feb 18, 2020 11:31 AM VA-TOBACCO FORMER USER [facility] Feb 18, 2020 11:31 AM VA-TOBACCO QUIT 15 YRS OR MORE [facility] Jan 26, 2019 02:24 PM VA-TOBACCO FORMER USER [facility] Jan 26, 2019 02:24 PM VA-TOBACCO QUIT 15 YRS OR MORE [facility] Feb 27, 2018 01:17 PM QUIT TOBACCO USE > 7 YEARS AGO does nkt smoke [facility] Feb 11, 2017 12:04 PM QUIT TOBACCO USE > 7 YEARS AGO stopped smoking 10 years ago [facility] Jan 30, 2016 11:11 AM QUIT TOBACCO USE > 7 YEARS AGO [facility] Jan 13, 2015 10:04 AM QUIT TOBACCO USE 1 -7 YEARS AGO quit 6 years ago [facility] Mar 30, 2013 11:38 AM QUIT TOBACCO USE 1 -7 YEARS AGO Pt. ststed he quit smoking 5 years ago. [facility] Apr 25, 2012 12:52 PM QUIT TOBACCO USE 1 -7 YEARS AGO [facility] Advance Directives: All historical and current Section Date Range: From patient's date of to the date document was created. This section includes ALL of a patient's completed or amended [place] Advance and Rescinded Directives. The entries below indicate that a directive exists for the patient, but an actual copy is not included with this document. The data comes from all [place] facilities. Date Advance Directives Provider Source Jun 15, 2001 ADVANCE DIRECTIVE DISCUSSION TITO [facility] Jun 09, 2001 ADVANCE DIRECTIVE JAE WATERMAN [facility] Encounter Notes: All associated encounter notes This section contains the clinical notes associated to the Encounter. Date/Time Encounter Note(s) Provider Source Jan 25, 2024 02:11 PM PREVENTIVE MEDICIN E NURSING NOTE: LOCAL TITLE: CLINICAL REMINDERS/NURSING STANDARD TITLE: PREVENTIVE MEDICINE NURSING NOTE DATE OF NOTE: JAN 25, 2024@14:11 ENTRY DATE: JAN 25, 2024@14:11:30 AUTHOR: MEGHNA FREEMAN COSIGNER: URGENCY: STATUS: COMPLETED Pneumococcal PPSV23 (Pneumovax): [...] full rights to use it throughout the [place] system. PRIMARY SCREEN RESULT: The Primary Screen is NEGATIVE. The individual answered never to all forms of IPV above (i.e., answered never to all 5 items) The individual accepts education and/or resources: No EDUCATION: Other: /diego/ MEGHNA FREEMAN LPN LICENSED PRACTICAL NURSE Signed: 01/25/2024 14:21 MEGHNA FREEMAN [facility] Jan 25, 2024 01:03 PM PHYSICIAN ASSISTLAXMI T NOTE: LOCAL TITLE: PA NOTE STANDARD TITLE: PHYSICIAN JOINT MACHINE OPERATOR NOTE DATE OF NOTE: JAN 25, 2024@13:03 ENTRY DATE: JAN 25, 2024@13:03:03 AUTHOR: JAE OBRIEN COSIGNER: URGENCY: STATUS: COMPLETED PA NOTE Has ADDENDA S - routine re-eval [...] cont Norvasc 3) C/V Stable - never HI Has No Chest Sx, But Will Be [...] of active outpatient prescriptions [facility]) and dispensed from another [place] or [facility]D facility (remote) as well as [...] Patient is followed by Dermatology OUTSIDE this [facility], for Melanoma F/U. Last Visit: 2023 ? [...] all /diego/ JAE OBRIEN PA-C STAFF PHYSICIAN JOINT MACHINE OPERATOR Signed: 01/25/2024 13:32 01/25/2024 ADDENDUM STATUS: COMPLETED correction: PMH: +cad and h/o ami /diego/ JAE OBRIEN PA-C STAFF PHYSICIAN JOINT MACHINE OPERATOR Signed: 01/25/2024 13:34 JAE OBRIEN
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
--- OUTSIDE RECORDS SUMMARY | 2024-12-17 14:03 | XMS_ITS | Clinical Summary ---
Author Organization [employer] Address [address] [place] [address] Care Team Providers Care Production Line Worker Name Role Phone Unavailable Primary Care Provider [...] 5 season) 2024 11/06/2020, 10/09/2020 Influenza Vaccine (Season Ended) 2025 RSV 60+ (1 - 1-dose 75+ series) [...]
--- OUTSIDE RECORDS SUMMARY | 2024-12-17 14:03 | XMS_ITS | Continuity of Care Document ---
Author Organization [facility] Address [address] [place] [address]- Care Team Providers Care Metal Box Maker Name Role Phone Maggy AVALOS, Navjot Whitehead Primary Care Physician Encounter [place] Date(s): 11/15/24 - 12/15/24 [facility] [address], [place] [id number] Attending Physician: AdmJoby cross Admitting Physician: AdmtrJoby Referring Physician: Admtr, [id number] Encounter Type: Triage Allergies, Adverse Reactions, Alerts Substance Criticality Severity Reaction Reaction Severity Status Tylenol Low criticality Mild n/v Acti ve Medications Aleve sodium 220 mg oral tablet 1 tablet = 220 mg, By Mouth, Every 12 hours, PRN as needed for pain, Maintenance, 11/19/24 1:41:00 PMEDT Start Date: 11/19/24 Status: Ordered Repeat number: 1 allopurinol 300 mg oral tablet 1 tablet = 300 mg, By Mouth, Daily in AM, 0 Refills, Maintenance, 04/11/12 6:21:42 PM EDT, Tablet Start Date: 04/11/12 Status: Ordered Repeat number: 1 amLODIPine 5 mg oral tablet 1 tablet = 5 mg, By Mouth, Daily in AM, 0 Refills, Maintenance, 12/25/20 12:43:00 PM EDT, Tablet Start Date: 12/25/20 Status: Ordered Repeat number: 1 aspirin 81 mg oral tablet 1 tablet = 81 mg, By Mouth, Daily, # 30 tablet, 0 Refills, Maintenance, 04/11/12 6:23:13 PM EDT, Tablet Start Date: 04/11/12 Status: Ordered Quantity: 30.0 Unit: tablet Repeat number: 1 atenolol 25 mg oral tablet 1 tablet = 25 mg, By Mouth, Daily, 0 Refills, Maintenance, 04/11/12 6:21:11 PM EDT, Tablet Start Date: 04/11/12 Status: Ordered Repeat number: 1 atorvastatin 80 mg oral tablet 1 tablet = 80 mg, By Mouth, Daily at bedtime, 0 Refills, Maintenance, 11/19/24 1:29:00 PM EDT Start Date: 11/19/24 Status: Ordered Repeat number: 1 ezetimibe 10 mg oral tablet 1 tablet = 10 mg, By Mouth, Daily in AM, 0 Refills, Maintenance, 12/25/20 12:44:00 PM EDT, Tablet Start Date: 12/25/20 Status: Ordered Repeat number: 1 Fluticasone Nasal 2 sprays, Nares, Both, Daily, 0 Refills, Maintenance, 03/02/14 8:59:21 PM EDT Start Date: 03/02/14 Status: Ordered Repeat number: 1 levothyroxine 150 mcg (0.15 mg) oral tablet 1 tablet = 0.15 mg, By Mouth, Daily in AM, 0 Refills, Maintenance, 04/11/12 6:21:22 PM EDT, Tablet Start Date: 04/11/12 Status: Ordered Repeat number: 1 losartan 100 mg oral tablet 1 tablet = 100 mg, By Mouth, Daily in AM, 0 Refills, Maintenance, 11/19/24 1:38:00 PM EDT Start Date: 11/19/24 Status: Ordered Repeat number: 1 omeprazole 20 mg oral enteric coated capsule 1 capsule = 20 mg, By Mouth, Daily in AM, 0 Refills, Maintenance, 04/11/12 6:22:03 PM EDT, EC Capsule Start Date: 04/11/12 Status: Ordered Repeat number: 1 Vitamin B12 1000 mcg oral tablet 1 tablet = 1,000 mcg, By Mouth, Daily in AM, 0 Refills, Maintenance, 01/13/17 1:07:20 PM EDT Start Date: 01/13/17 Status: Ordered Repeat number: 1 Vitamin D3 oral tablet = 25 mcg, By Mouth, Daily in AM, 0 Refills, Maintenance, 03/11/22 3:51:00 PM EDT, Tablet Start Date: 03/11/22 Status: Ordered Repeat number: 1 Xanax 2 mg oral tablet 1 tablet = 2 mg, By Mouth, 3 times a day, PRN as needed for anxiety, 0 Refills, Maintenance, 04/11/12 6:20:57 PM EDT, Tablet Start Date: 04/11/12 Status: Ordered Repeat number: 1 Zyrtec 10 mg oral tablet 1 tablet = 10 mg, By Mouth, Daily in AM, 0 Refills, Maintenance, 03/02/14 8:58:21 PM EDT Start Date: 03/02/14 Status: Ordered Repeat number: 1 Problem List Condition Confirmation Course Effective Dates Status H ealth Status Informant Limitation due to disability 1 Confirmed Active Drug or alcohol risk assessment or counseling 2 Confirmed Active 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 History of medical problems 3 Confirmed Active Lumbar postlaminectomy syndrome Confirmed Active Obstructive sleep apnea 4 Confirmed Active Severe obesity (BMI 35.0-39.9) with comorbidity Confirmed Active Moderate somatic symptom disorder with predominant pain Confirmed Active 1initial Oswestry Disability Index: 54% ( severe disability ) on 01/13/17; initial [place] Back Pain Scale: 69 on 01/13/17; initial [place]: 0 on 01/13/17 2SOAPP-R: 19 on 01/13/17 3See problem list below 4Reports being compliant with use of noninvasive ventilation Social History Social History Type Response Smoking Status Former smoker; Stop ed at age: 56; entered on: 01/13/17 Sex Sex Representation Male (finding) Implantable Device List Procedure Provider Procedure Date Device Type Site Reconstruction with Flap Andrew Light MD 11/21/24 Christian nowjose ramon Nose Device Identifier Serial Number Lot or Batch Number Manufacturing Date Expiration Date Distinct Identification Code MRI Safety Implantable Status Assigning Authority Unknown [id number] Unknown Unknown 09/05/26 Unknown Unknown Active Unknown Patient Care team information Care Team Personnel Name: Lily Rangel RN Position: [facility] Nurse Member Role: Primary Care Nurse Name: Navjot Winter NP Position: Reference Physician Member Role: PCP Address: [address] [place] [id number] Telecom: Name: Tila Rubi [place] Position: [facility] [employer] RN Member Role: Primary Care Nurse Name: Mega Lange RN Position: S RN Member Role: Primary Care Nurse Care Team Related Persons Name: JOCELYNN JAMES Name: DOROTHY NOEL Insurance Providers Guarantor name: HARRIS JAMES Health Plan Information #: 1 Payer: MEDICARE PART B OUTPT Member Number: NA Policy Number: NA Group Number: NA Health Plan Information #: 2 Payer: [employer] Member Number: NA Policy Number: NA Group Number: NA
--- OUTSIDE RECORDS SUMMARY | 2024-12-17 14:03 | XMS_ITS | Continuity of Care Document ---
Author Name [facility] Organization [facility] Care Team Providers Care [employer] Piping Designer Name Role Phone [facility] Unavailable Unavailable Problems Combined list of problems from Department of Defense and Veterans Affairs facilities. It does not include entries that were removed or entered in error. Problem Status Onset Date Problem Type Date of Resolution Comments Source Cholecystectomy planned Active 2020 Condition May 12, 2021 Entered By: JAE OBRIEN Comment: Cholecystectomy planned 05/18/21 [facility]. Managed by [facility]. [place] [facility] [place] [facility] Actinic keratosis (SNOMED CT 109022395) Active Condition [facility] Allergic rhinitis due to other allergen Active Condition [facility] ARTHRITIS,CHRONIC Active Condition [facility] Navarrete's esophagus with esophagitis Active Condition Jan 24 Entered By: JAE OBRIEN Comment: Dx of Barretts per EGD Done 2022; Take PPIJan 25, 2024 Entered By: JAE OBRIEN Comment: repeat EGD 2025 (or as directed by GI) [facility] Benign hypertension Active Condition May 24, 2018 Entered By: JAE OBRIEN Comment: US, Aorta JUN 01: no AAA [facility] choecystectomy Active Condition December Entered By: JAE OBRIEN Comment: Cholecystectomy JUN 04: Not Emergent Case [facility] Chronic Maxillary Sinusitis Active Condition [facility] Chronic post-traumatic stress disorder Active Condition [facility] [place] [facility] Chronic post-traumatic stress disorder (SNOMED CT 393598014) Active Condition Sep 27, 2007 Entered By: YOUSUF [place] Comment: with panic attacks and agoraphobia [facility] Chronic post-traumatic stress disorder following combat (SNOMED CT 620591763) Active Condition December Entered By: HODAN PALUMBO Comment: updated. [facility] Chronic rhinitis Active Condition [facility] Colitis Active Condition Mar 23 Entered By: JAE OBRIEN Comment: Diagnostic Colonoscopy Planned MAY 07;Mar 23, 2023 Entered By: JAE OBRIEN Comment: Dx of Colitis in ED in APR 06: Presented to ED w/ Hematochezia [facility] Coronary arteriosclerosis Active Condition Mar 23 Entered By: JAE OBRIEN Comment: [place] Yrs Ago ; Still Sees Cardio as of Mar Entered By: JAE OBRIEN Comment: pending EKG, TTE, Pharmacologic Stress Test 2023 via Private Cardio [facility] Coronary artery disease (SNOMED CT 60230558) Active Condition Apr 25, 2012 Entered By: JAE OBRIEN Comment: AMI; Stented, MAR 26, [facility] Mar Entered By: JAE OBRIEN Comment: Sees Private Cardio [facility] as of MARCH 01Au2017 Entered By: [...] as of 2020 - Stable per pt [facility] Coronary atherosclerosis (SNOMED CT 425284954) Active Condition Jun Entered By: JAE MARAVILLA Comment: MARCH 2012: Stent x 1 [facility] Depressive disorder Active Condition January 01, 2022 Entered By: HODAN PALUMBO Comment: updated. [facility] Gastroesophageal Reflux Disorder * (ICD-9-CM 530.81) Active Condition [facility] GERD Active Condition May 04 Entered By: JAE OBRIEN Comment: also EGD 2009: no Barretts or CA; on PPI (or H2 Antag) [facility] Gout (SNOMED CT 02363292) Active Condition [facility] Herpes zoster Active Condition Feb Entered By: JAE OBRIEN Comment: Had it in 2017 while in [place]; Tx'd, Gone [facility] History of colonoscopy Active Condition Apr 25, 2012 Entered By: JAE OBRIEN Comment: Screen Colonoscopy 2009 at [facility]; Neg CRC, PolypsSep 2011 Entered By: JAE [...] 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 [facility] History of malignant melanoma of the skin Active Condition [facility] History of Melanoma (Removed) Active Condition [facility] History of melanoma in situ of skin Active Condition Apr 25, 2012 Entered By: JAE OBRIEN Comment: Excised, Bx NOV 24; Graft; no METS per PET; [facility] 2011 Entered By: JAE OBRIEN [facility] Entered By: JAE OBRIEN Comment: Also Goes [place] DERM as of MARCH 01 [facility] Hypercholesterolemia (SNOMED CT 28980386) Active Condition [facility] HYPERLIPIDEMIA Active Condition [facility] Hypertension (SNOMED CT 53345909) Active Condition [facility] Hypnotic or anxiolytic dependence, continuous Active Condition [facility] [place] [facility] Hypogonadism (SNOMED CT 20435713) Active Condition [facility] Hypothyroidism (SNOMED CT 98884148) Active Condition [facility] Insomnia * (ICD-9-CM 780.52) Active Condition [facility] Lumbar radiculopathy Active Condition Apr 02, 2014 Entered By: JAE OBRIEN Comment: MRI, MAR 28, [place]: +Central Stenosis L4/L5,Apr 02, 2014 Entered By: JAE OBRIEN Comment: Broad-Based Central Disc Protrusion L5/S1Ju2016 Entered By: JAE OBRIEN Comment: Last Saw Pain Mgmn't [facility] NOV 29: Dr Fortune;Feb 25, 2017 Entered By: JAE OBRIEN Comment: See My Note Dated FEBRUARY 28Jul 2016 Entered By: JAE OBRIEN Comment: Another MRI done APR 30: Did PT & Streoid Inj. Then; Little BenefitMay 2020 Entered By: JAE OBRIEN Comment: pending New MRI of L Spine FEBRUARY 02 at [facility];January 06, 2021 Entered By: JAE OBRIEN Comment: Planned Appt w/ Neuro Surg [facility] 2020Oct 2013 Entered By: KELVIN DARLING Comment: [place] Dr. Gaines L5-S1 herniation, microdiscectomy 05/2014 [facility] Malignant melanoma of skin of lower limb, including hip (ICD-9-CM 172.7) Active Condition [facility] Mixed hyperlipidemia Active Condition [facility] Morbid obesity Active Condition [facility] Neoplasm of uncertain behavior of skin Active Condition [facility] Noncompliance with Treatment (ICD-9-CM V15.81) Active Condition [facility] Obesity * (ICD-9-CM 278.00) Active Condition [facility] Obstructive sleep apnea of adult (SNOMED CT 9529128832955) Active Condition Jun 23, 2012 Entered By: JAE MARAVILLA Comment: Beeap [facility] Osteoarthritis Active Condition Apr 152011 Entered By: JAE OBRIEN Comment: Both Knees; has had Inj's [facility] Postsurgical Percutaneous Transluminal Coronary Angioplasty Status Active Condition [facility] Prostate cancer Active Condition Mar 07, 2014 Entered By: JAE OBRIEN Comment: Cysto FEBRUARY 25: Neg CA; see Note Dated 05 MARCH 14Jul 2013 Entered By: JAE OBRIEN Comment: Presented ED [facility] w/ Gross HemeJul 2013 Entered By: JAE [...] [address] Garrison [phone]; Indication: Macroscop HematuriaJul 2016 Entered By: JAE [...] RT JUN 05; Rx's Testost GEL ONCO [facility] Renal cyst Active Condition Apr 09 [...] Entered By: JAE OBRIEN Comment: Nothing Supicious [facility] screeing malignant neoplasm colon Active Condition December 17, 2021 Entered By: JAE OBRIEN Comment: NEG Colon-Guard JUN 04 [facility] Sleep apnea (SNOMED CT 62614794) Active Condition Apr 25, 2012 Entered By: JAE OBRIEN Comment: has CPAP [facility] TESTOSTERONE Active Condition Apr 25, 2012 Entered By: JAE OBRIEN Comment: Low Testos - on Gel [facility] Unspecified Psychosocial Circumstance (ICD-9-CM V62.9) Active Condition [facility] Anxiety Inactive Condition 09/27/2007 [facility] DEPRESSION Inactive Condition 09/27/2007 [facility] DIVERTICULOSIS Inactive Condition 06/23/2012 [facility] Dry Eye * (ICD-9-CM 375.15) Inactive Condition 06/23/2012 [facility] HEME POSITIVE Inactive Condition 06/22/2012 [facility] HEMORRHOID,INTERNAL Inactive Condition 06/23/2012 [facility] HIATAL HERNIA Inactive Condition 06/22/2012 [facility] KERATOSIS,ACTINIC Inactive Condition 06/23/2012 [facility] KNEE Inactive Condition 06/22/2012 [facility] Knee: arthralgia * (ICD-9-CM 719.46) Inactive Condition 06/22/2012 [facility] Noncompliance, Dietary Regimen Inactive Condition 07/05/2008 [facility] Noncompliance, Dietary Regimen (ICD-9-CM V15.81) Inactive Condition 06/22/2012 [facility] Skin Lesion, Unsp Inactive Condition 06/22/2012 [facility] Diagnosis: ICD-10-CM G47.30 Sleep apnea, unspecified Active Diagnosis [facility] (631[facility]) Diagnosis: ICD-10-CM E78.00 Pure hypercholesterolemia, unspecified Active Diagnosis [facility] Medications Combined list of outpatient medications from Department of Defense and [facility] Affairs facilities.Medications provided include 1) outpatient medications from the last 15 months, and 2) patient-reported medications. Medication Details Route Status Patient Instructions Prescription Expires Prescription Number Last Dispense Date Ordering Provider Order Date Order Qty Source ALLOPURINOL 300MG TAB TAKE ONE TABLET BY MOUTH ONCE DAILY FOR GOUT ORAL SUSPEND ED 09/06/2025 [id number] 5 DESMOND OBRIEN [address] [facility] IELD ALLOPURINOL 300MG TAB TAKE ONE TABLET BY MOUTH ONCE DAILY FOR GOUT ORAL DISCONT INUED 01/25/2025 [id number] 5 DESMOND OBRIEN 2023 90 [place] ALLOPURINOL 300MG TAB TAKE ONE TABLET BY MOUTH ONCE DAILY FOR GOUT ORAL DISCONT INUED 03/23/2024 [id number] 4 DESMOND OBRIEN 2022 90 [place] ALPRAZOLAM 1MG TAB TAKE ONE TABLET BY MOUTH SIX TIMES A DAY ORAL ACTIVE DEEPALIORIANALedy [place] AMLODIPINE BESYLATE 5MG TAB TAKE ONE TABLET BY MOUTH ONCE DAILY FOR BLOOD PRESSURE /HEART, DO NOT TAKE WITH GRAPEFRU IT JUICE ORAL SUSPEND ED 09/05/2025 [id number] 5 DESMOND OBRIEN [address] [facility] IELD AMLODIPINE BESYLATE 5MG TAB TAKE ONE TABLET BY MOUTH ONCE DAILY FOR BLOOD PRESSURE /HEART, DO NOT TAKE WITH GRAPEFRU IT JUICE ORAL DISCONT INUED 12/27/2024 [id number] 5 DESMOND OBRIEN 2023 90 [place] ASPIRIN 81MG TAB,EC TAKE ONE TABLET BY MOUTH EVERY DAY ORAL ACTIVE DESMOND OBRIEN 2011 [place] ASPIRIN PLAIN TAB TAKE 81MG BY MOUTH DAILY AT BEDTIME ORAL ACTIVE Charley MARAVILLA P 2011 [facility] ATENOLOL 25MG TAB TAKE ONE TABLET BY MOUTH ONCE DAILY FOR BLOOD PRESSURE /HEART ORAL SUSPEND ED 09/06/2025 [id number] 5 DESMOND OBRIEN [address] [facility] IELD ATENOLOL 25MG TAB TAKE ONE TABLET BY MOUTH ONCE DAILY FOR BLOOD PRESSURE /HEART ORAL DISCONT INUED 12/19/2024 [id number] 4 DESMOND OBRIEN [address] [facility] IELD ATENOLOL 25MG TAB TAKE ONE TABLET BY MOUTH ONCE DAILY FOR BLOOD PRESSURE /HEART ORAL DISCONT INUED 03/23/2024 [id number] 4 DESMOND OBRIEN [address] [facility] IELD ATORVASTATI N CA 80MG TAB TAKE ONE TABLET BY MOUTH ONCE DAILY FOR CHOLESTE ROL ORAL SUSPEND ED 09/06/2025 [id number] 5 DESMOND OBRIEN [address] [facility] IELD ATORVASTATI N CA 80MG TAB TAKE ONE TABLET BY MOUTH ONCE DAILY FOR CHOLESTE ROL ORAL DISCONT INUED 01/25/2025 [id number] 5 DESMOND OBRIEN 2023 90 [place] ATORVASTATI N CA 80MG TAB TAKE ONE TABLET BY MOUTH ONCE DAILY FOR CHOLESTE ROL ORAL DISCONT INUED 03/23/2024 [id number] 4 DESMOND OBRIEN 2022 90 [place] CETIRIZINE HCL 10MG TAB TAKE ONE TABLET BY MOUTH ONCE DAILY FOR ALLERGIE S ORAL SUSPEND ED 09/06/2025 [id number] 5 DESMOND OBRIEN 2024 90 [place] CETIRIZINE HCL 10MG TAB TAKE ONE TABLET BY MOUTH ONCE DAILY FOR ALLERGIE S ORAL DISCONT INUED 12/07/2024 [id number] 4 DESMOND OBRIEN 2023 90 [facility] [place] [facility] CETIRIZINE HCL 10MG TAB TAKE ONE TABLET BY MOUTH ONCE DAILY FOR ALLERGIE S ORAL DISCONT INUED 03/23/2024 [id number] 4 DESMOND OBRIEN 2022 90 [place] CIPROFLOXAC IN HCL 500MG TAB TAKE ONE TABLET BY MOUTH TWICE DAILY FOR INFECTIO N ORAL 10/19/2023 [id number] DESMOND ORBIEN 2023 10 [place] CYANOCOBALA MIN 500MCG TAB TAKE ONE TABLET BY MOUTH TWICE DAILY FOR VITAMIN SUPPLEME NTATION ORAL SUSPEND ED 09/06/2025 [id number] 5 DESMOND OBRIEN 2024 200 [place] CYANOCOBALA MIN 500MCG TAB TAKE ONE TABLET BY MOUTH TWICE DAILY FOR VITAMIN SUPPLEME NTATION ORAL DISCONT INUED 01/25/2025 [id number] 5 DESMOND OBRIEN 2023 200 [place] CYANOCOBALA MIN 500MCG TAB TAKE ONE TABLET BY MOUTH TWICE DAILY FOR VITAMIN SUPPLEME NTATION ORAL DISCONT INUED 03/23/2024 [id number] 4 DESMOND OBRIEN 2022 200 [place] EZETIMIBE 10MG TAB TAKE ONE TABLET BY MOUTH ONCE DAILY TO LOWER CHOLESTE ROL ORAL SUSPEND ED 09/05/2025 [id number] 5 DESMOND OBRIEN 2024 90 [place] EZETIMIBE 10MG TAB TAKE ONE TABLET BY MOUTH ONCE DAILY TO LOWER CHOLESTE ROL ORAL DISCONT INUED 12/19/2024 [id number] 4 DESMOND OBRIEN 2023 90 [place] EZETIMIBE 10MG TAB TAKE ONE TABLET BY MOUTH ONCE DAILY TO LOWER CHOLESTE ROL ORAL DISCONT INUED 03/23/2024 [id number] 4 DESMOND OBRIEN 2022 90 [place] FLUTICASONE PROPIONATE 50MCG/SPRAY SOLN,NASAL, 16GM INSTILL 1 SPRAY INTO EACH NOSTRIL TWICE DAILY FOR NASAL IRRITATI ON/INFLA MMATION NASAL SUSPEND ED 08/28/2025 [id number] 5 DESMOND OBRIEN 2024 3 [place] FLUTICASONE PROPIONATE 50MCG/SPRAY SOLN,NASAL, 16GM INSTILL 1 SPRAY INTO EACH NOSTRIL TWICE DAILY FOR NASAL IRRITATI ON/INFLA MMATION NASAL DISCONT INUED 01/25/2025 [id number] 4 DESMOND OBRIEN 2023 3 [place] FLUTICASONE PROPIONATE 50MCG/SPRAY SOLN,NASAL, 16GM INSTILL 1 SPRAY INTO EACH NOSTRIL TWICE DAILY FOR NASAL IRRITATI ON/INFLA MMATION NASAL DISCONT INUED 12/05/2024 [id number] 4 DESMOND OBRIEN 2023 3 [place] FLUTICASONE PROPIONATE 50MCG/SPRAY SOLN,NASAL, 16GM INSTILL 1 SPRAY INTO EACH NOSTRIL TWICE DAILY FOR NASAL IRRITATI ON/INFLA MMATION NASAL DISCONT INUED 03/23/2024 [id number] 4 DESMOND OBRIEN 2022 1 [place] LEVOTHYROXI NE NA 125MCG TAB TAKE ONE TABLET BY MOUTH EVERY MORNING 30 MINUTES BEFORE BREAKFAS T FOR THYROID - TAKE ON AN EMPTY STOMACH WITH A FULL GLASS OF WATER ORAL SUSPEND ED 09/06/2025 [id number] 5 DESMOND OBRIEN 2024 90 [place] LEVOTHYROXI NE NA 125MCG TAB (SYNTHROID) TAKE ONE TABLET BY MOUTH EVERY MORNING 30 MINUTES BEFORE BREAKFAS T FOR THYROID - TAKE ON AN EMPTY STOMACH WITH A FULL GLASS OF WATER ORAL DISCONT INUED 12/19/2024 [id number] 4 DESMOND OBRIEN 2023 90 [place] LEVOTHYROXI NE NA 125MCG TAB (SYNTHROID) TAKE ONE TABLET BY MOUTH EVERY MORNING 30 MINUTES BEFORE BREAKFAS T FOR THYROID - TAKE ON AN EMPTY STOMACH WITH A FULL GLASS OF WATER ORAL DISCONT INUED 03/23/2024 [id number] 4 DESMOND OBRIEN 2022 90 [place] LOSARTAN POTASSIUM 100MG TAB TAKE ONE TABLET BY MOUTH ONCE DAILY FOR BLOOD PRESSURE /HEART ORAL SUSPEND ED 09/06/2025 [id number] 5 DESMOND OBRIEN 2024 90 [place] LOSARTAN POTASSIUM 100MG TAB TAKE ONE TABLET BY MOUTH ONCE DAILY FOR BLOOD PRESSURE /HEART ORAL DISCONT INUED 01/25/2025 [id number] 5 DESMOND OBRIEN 2023 90 [place] LOSARTAN POTASSIUM 100MG TAB TAKE ONE TABLET BY MOUTH ONCE DAILY FOR BLOOD PRESSURE /HEART ORAL DISCONT INUED 03/23/2024 [id number] 4 DESMOND OBRIEN 2022 90 [place] NAPHAZOLINE HCL 0.025%/PHEN IRAMINE 0.3% SOLN,OPH INSTILL 1 DROP INTO EACH EYE TWICE DAILY NEEDED FOR RED EYES OPHTHA LMIC SUSPEND ED 08/28/2025 [id number] 5 Isatu LUX ICHELE 2024 15 [facility] NAPHAZOLINE HCL 0.025%/PHEN IRAMINE 0.3% SOLN,OPH INSTILL 1 DROP INTO EACH EYE TWICE DAILY NEEDED FOR RED EYES OPHTHA LMIC DISCONT INUED 01/25/2025 [id number] 4 DESMOND OBRIEN 2023 15 [place] NAPHAZOLINE HCL 0.025%/PHEN IRAMINE 0.3% SOLN,OPH INSTILL 1 DROP INTO EACH EYE TWICE DAILY NEEDED FOR RED EYES OPHTHA LMIC DISCONT INUED 03/07/2024 [id number] Isatu LUX SEEMA 2022 15 [facility] NITROGLYCER IN 0.4MG TAB,SUBLING UAL DISSOLVE ONE TABLET UNDER THE TONGUE Q5MIN PRN SUBLIN GUAL ACTIVE DESMOND OBRIEN [address] [facility] IELD OMEPRAZOLE 20MG CAP,EC TAKE ONE CAPSULE BY MOUTH EVERY MORNING 30 MINUTES BEFORE BREAKFAS T ORAL SUSPEND ED 09/06/2025 [id number] 5 DESMOND OBRIEN [address] [facility] IELD OMEPRAZOLE 20MG CAP,EC TAKE ONE CAPSULE BY MOUTH EVERY MORNING 30 MINUTES BEFORE BREAKFAS T ORAL DISCONT INUED 01/25/2025 [id number] 4 DESMOND OBRIEN [address] [facility] IELD OMEPRAZOLE 20MG CAP,EC TAKE ONE CAPSULE BY MOUTH EVERY MORNING 30 MINUTES BEFORE BREAKFAS T ORAL DISCONT INUED 03/23/2024 [id number] 4 DESMOND OBRIEN [address] [facility] IELD OTHER CAP/TAB SUNSCREE N EVERY DAY ACTIVE DESMOND OBRIEN [address] [facility] IELD POLYETHYLEN E GLYCOL 3350 PWDR,ORAL TAKE 17 GRAMS(FI LL CAP TO 17GM LINE) BY MOUTH ONCE DAILY FOR CONSTIPA TION [MIX WITH 4 TO 8OZ. OF BEVERAGE ] ORAL DISCONT INUED BY PROVIDE R 12/05/2024 [id number] 4 DESMOND OBRIEN [address] [facility] IELD SILDENAFIL CITRATE 100MG TAB TAKE ONE TABLET BY MOUTH DIRECTED TAKE 1 HOUR PRIOR TO SEXUAL ACTIVITY ORAL SUSPEND ED 09/06/2025 [id number] 5 DESMOND OBRIEN [address] [facility] IELD SILDENAFIL CITRATE 100MG TAB TAKE ONE TABLET BY MOUTH DIRECTED TAKE 1 HOUR PRIOR TO SEXUAL ACTIVITY ORAL DISCONT INUED 04/21/2025 [id number] 5 DESMOND OBRIEN 2023 4 [place] SILDENAFIL CITRATE 100MG TAB TAKE ONE TABLET BY MOUTH DIRECTED TAKE 1 HOUR PRIOR TO SEXUAL ACTIVITY ORAL DISCONT INUED 12/05/2024 [id number] 4 DESMOND OBRIEN 2023 4 [place] SILDENAFIL CITRATE 100MG TAB TAKE ONE TABLET BY MOUTH DIRECTED TAKE 1 HOUR PRIOR TO SEXUAL ACTIVITY ORAL DISCONT INUED 03/23/2024 [id number] 4 DESMOND OBRIEN 2022 4 [place] SODIUM FLUORIDE 1.1% TOOTHPASTE BRUSH SMALL AMOUNT TO TEETH TWICE DAILY DENTAL SUSPEND ED 09/06/2025 [id number] 5 DESMOND OBRIEN 2024 102 [place] SODIUM FLUORIDE 1.1% TOOTHPASTE BRUSH SMALL AMOUNT TO TEETH TWICE DAILY DENTAL DISCONT INUED 01/25/2025 [id number] 4 DESMOND OBRIEN 2023 102 [place] SODIUM FLUORIDE 1.1% TOOTHPASTE BRUSH SMALL AMOUNT TO TEETH TWICE DAILY DENTAL DISCONT INUED 12/09/2023 [id number] 4 DESMOND OBRIEN 2022 100 [place] TAMSULOSIN HCL 0.4MG CAP TAKE ONE CAPSULE BY MOUTH ONCE DAILY ORAL ACTIVE 09/06/2025 [id number] 5 DESMOND OBRIEN 2024 90 [place] TAMSULOSIN HCL 0.4MG CAP TAKE ONE CAPSULE BY MOUTH ONCE DAILY ORAL DISCONT INUED 01/25/2025 [id number] 4 DESMOND OBRIEN 2023 90 [place] TAMSULOSIN HCL 0.4MG CAP TAKE ONE CAPSULE BY MOUTH ONCE DAILY ORAL DISCONT INUED 08/16/2024 [id number] DESMOND OBRIEN 2023 90 [place] TESTOSTERON E (EQV-ANDROG EL) 1% 5GM/PKT GEL,TOP APPLY 1 PACKET TOPICALL Y EVERY DAY TOPICA L ACTIVE DESMOND OBRIEN 2011 [place] Allergies, Adverse Reactions, Alerts Combined list of allergies from Department of Defense and Veterans Affairs facilities. It does not include entries that were removed or entered in error. Substance Category Reaction Severity Reaction type Status Date Reported Comments Source LISINOPRIL Propensity to adverse reactions to drug (finding) active 07/02/[address] [facility] PAROXETINE Propensity to adverse reactions to drug (finding) Vertigo active 09/20/2011 [facility] Immunizations Combined list of available immunizations from the Department of Defense and Veterans Affairs facilities. Immunization Series Date Given Administered By Site Reaction Lot Number CVX Code Drug Rubber Cutting Machine Tender Status Comments Source INFLUENZA, UNSPECIFIED FORMULATION 2021 88 complet ed [facility] COVID-19 (MODERNA), MRNA, LNP-S, PF, 100 MCG/0.5ML DOSE OR 50 MCG/0.25ML DOSE 3 2020 207 complet ed [facility] COVID-19 (MODERNA), MRNA, LNP-S, PF, 100 MCG/0.5 ML DOSE 2 2020 207 complet ed TANK JUAREZ E COVID-19 (MODERNA), MRNA, LNP-S, PF, 100 MCG/0.5 ML DOSE 1 2020 207 complet ed [facility] INFLUENZA, UNSPECIFIED FORMULATION [...] INFLUENZA, UNSPECIFIED FORMULATION 2015 88 complet ed Marcos schultz [place] [facility] INFLUENZA, UNSPECIFIED FORMULATION 2015 88 complet ed [facility] INFLUENZA, UNSPECIFIED FORMULATION 2014 88 complet ed [facility] INFLUENZA, UNSPECIFIED FORMULATION 2013 88 complet ed [facility] INFLUENZA, UNSPECIFIED FORMULATION 2013 88 complet ed [facility] FLU,3 YRS (HISTORICAL) 2013 88 complet ed Site: Left Deltoid [place] INFLUENZA, UNSPECIFIED FORMULATION 2012 NONE 88 complet ed Right Deltoid (IM) [facility] FLU,3 YRS (HISTORICAL) 2012 88 complet ed [facility] FLU,3 YRS (HISTORICAL) 2011 88 complet ed Site: Left Deltoid [place] INFLUENZA, UNSPECIFIED FORMULATION 2010 NONE 88 complet ed Left Deltoid (IM) [facility] INFLUENZA, UNSPECIFIED FORMULATION 2009 NONE 88 complet ed [facility] INFLUENZA, UNSPECIFIED FORMULATION 2008 NONE 88 complet ed Right Deltoid (IM)Exp. 0 [facility] INFLUENZA, UNSPECIFIED FORMULATION 2007 NONE 88 complet ed Left Deltoid (IM), Lot Number:[id number];EXP 01/21 [facility] INFLUENZA, UNSPECIFIED FORMULATION 2006 NONE 88 complet ed Left Deltoid (IM), Lot Number:[id number] Exp: FEB 12 2008 [facility] INFLUENZA, UNSPECIFIED FORMULATION 2005 NONE 88 complet ed Left Deltoid (IM), Lot Number:[id number], exp: [facility] INFLUENZA, UNSPECIFIED FORMULATION 2004 NONE 88 complet ed Left Deltoid (IM), Lot Number:[id number]. Exp. February 11, 2006. [facility] INFLUENZA, UNSPECIFIED FORMULATION 2003 NONE 88 complet ed Left Deltoid (IM), Lot Number:[id number], exp Feb 11 [facility] FLU,3 YRS (HISTORICAL) 2002 COCO GAUTHIER 88 complet ed [facility] TETANUS TOXOID, UNSPECIFIED FORMULATION 2002 NONE 112 complet ed Completed Series, Left Deltoid 0.5ml. given IM without problem.L ot# [id number]-- Exp.. [facility] INFLUENZA, UNSPECIFIED FORMULATION 2001 NONE 88 complet ed Completed Series, Left Deltoid [facility] FLU,3 YRS (HISTORICAL) 2000 88 complet ed [facility] TETANUS TOXOID, UNSPECIFIED FORMULATION 2000 112 complet ed Date of last Tetanus inj. unknwon. [facility] Results Combined list of recent chemistry, hematology and other laboratory results from Department of Defense and Veterans Affairs, ranging from 15 months to all on record, depending upon the facility. Order Name Results Value Reference Range Date Interpretation Specimen Comments Source LIPID PANEL FASTING CHOLESTEROL [MASS/VOLUM E] IN SERUM OR PLASMA 137 mg/dL 01/18 Specimen Type: SERUM No comment entered. Ordering Provider: JAE OBRIEN Report Released Date/Time: January 10, 2024 01:44 PM Reporting Lab: [address] [address] Performing Lab: [address] [address] [place] LIPID PANEL FASTING TRIGLYCERID E [MASS/VOLUM E] IN SERUM OR PLASMA 83 mg/dL 0 - 150 01/18 Specimen Type: SERUM No comment entered. Ordering Provider: JAE OBRIEN Report Released Date/Time: January 10, 2024 01:44 PM Reporting Lab: [address] [address] Performing Lab: [address] [address] [place] LIPID PANEL FASTING CHOLESTEROL IN LDL [MASS/VOLUM E] IN SERUM OR PLASMA BY CALCULATION 65 mg/dL 0 - 129 01/18 Specimen Type: SERUM No comment entered. Ordering Provider: JAE OBRIEN Report Released Date/Time: January 10, 2024 01:44 PM Reporting Lab: [facility] [address] [facility] [address] Performing Lab: [facility] [address] [facility] [facility] [address] [place] LIPID PANEL FASTING CHOLESTEROL .TOTAL/CHOL ESTEROL IN HDL [MASS RATIO] IN SERUM OR PLASMA 2.5 01/18 Specimen Type: SERUM No comment entered. Ordering Provider: JAE OBRIEN Report Released Date/Time: January 10, 2024 01:44 PM Reporting Lab: [facility] [address] [facility] [address] [facility]forming [facility] [address] [address] [place] LIPID PANEL FASTING CHOLESTEROL IN HDL [MASS/VOLUM E] IN SERUM OR PLASMA 55 mg/dL 40 - 60 01/18 Specimen Type: SERUM No comment entered. Ordering Provider: JAE OBRIEN Report Released Date/Time: January 10, 2024 01:44 PM [facility] [address] [address] Performing [facility] [address] [address] [place] BASIC METABOLIC PANEL (fasting) UREA NITROGEN [MASS/VOLUM E] IN SERUM OR PLASMA 22 mg/dL 7 - 25 01/18 Specimen Type: SERUM No comment entered. Ordering Provider: JAE OBRIEN Report Released Date/Time: January 10, 2024 01:44 PM Reporting [facility] [address] [address] Performing [facility] [address] [address] [place] BASIC METABOLIC PANEL (fasting) GLUCOSE [MASS/VOLUM E] IN SERUM OR PLASMA 107 mg/dL 65 - 100 01/18 H Specimen Type: SERUM No comment entered. Ordering Provider: JAE OBRIEN Report Released Date/Time: January 10, 2024 01:44 PM Reporting [facility] [address] [facility] [address] Performing Lab: [facility] [address] [facility] [address] [place] BASIC METABOLIC PANEL (fasting) SODIUM [MOLES/VOLU ME] IN SERUM OR PLASMA 140 mmol/L 135 - 145 01/18 Specimen Type: SERUM No comment entered. Ordering Provider: JAE OBRIEN Report Released Date/Time: January 10, 2024 01:44 PM Reporting Lab: [facility] [address] [facility] [facility] [address] Performing Lab: [facility] [address] [facility] [address] [place] BASIC METABOLIC PANEL (fasting) POTASSIUM [MOLES/VOLU ME] IN SERUM OR PLASMA 4.3 mmol/L 3.5 - 5.0 01/18 Specimen Type: SERUM No comment entered. Ordering Provider: JAE OBRIEN Report Released Date/Time: January 10, 2024 01:44 PM Reporting Lab: [facility] [address] [facility] [facility] [address] Performing Lab: [facility] [address] [facility] [facility] [address] [place] BASIC METABOLIC PANEL (fasting) CHLORIDE [MOLES/VOLU ME] IN SERUM OR PLASMA 107 mmol/L 100 - 110 01/18 Specimen Type: SERUM No comment entered. Ordering Provider: JAE OBRIEN Report Released Date/Time: January 10, 2024 01:44 PM Reporting Lab: [facility] [address] [facility] [facility] [address] Performing Lab: [facility]ITALUSE[address] [address] [place] BASIC METABOLIC PANEL (fasting) CARBON DIOXIDE, TOTAL [MOLES/VOLU ME] IN SERUM OR PLASMA 26 meq/L 20 - 30 01/18 Specimen Type: SERUM No comment entered. Ordering Provider: JAE OBRIEN Report Released Date/Time: January 10, 2024 01:44 PM Reporting Lab: [facility] [address] [facility] [address] Performing Lab: [facility] [address] [facility] [address] [place] BASIC METABOLIC PANEL (fasting) CREATININE [MASS/VOLUM E] IN SERUM OR PLASMA 0.89 mg/dL 0.50 - 1.40 01/18 Specimen Type: SERUM No comment entered. Ordering Provider: JAE OBRIEN Report Released Date/Time: January 10, 2024 01:44 PM Reporting Lab: [facility] [place] [facility] [address] [facility] [address] Performing Lab: [facility] [address] [place] BASIC METABOLIC PANEL (fasting) GLOMERULAR FILTRATION RATE/1.73 SQ M.PREDICTED [VOLUME RATE/AREA] IN SERUM, PLASMA OR BLOOD BY CREATININE- BASED FORMULA (CKD-EPI 2020) 90 mL/min 60 01/18 Specimen Type: SERUM No comment entered. Ordering Provider: JAE OBRIEN Report Released Date/Time: January 10, 2024 01:44 PM Reporting Lab: [facility] [place] [address] [address] Performing Lab: [facility] [place] [address] [address] [place] LIVER FUNCTION PROTEIN [MASS/VOLUM E] IN SERUM OR PLASMA 6.8 g/dL 6.0 - 8.3 01/18 Specimen Type: SERUM No comment entered. Ordering Provider: JAE OBRIEN Report Released Date/Time: January 10, 2024 01:44 PM Reporting Lab: [facility] [place] [facility] [address] [facility] [facility] [address] Performing Lab: [facility] [address] [address] [place] LIVER FUNCTION ALBUMIN [MASS/VOLUM E] IN SERUM OR PLASMA 3.6 g/dL 3.5 - 5.0 01/18 Specimen Type: SERUM No comment entered. Ordering Provider: JAE OBRINE Report Released Date/Time: January 10, 2024 01:44 PM Reporting Lab: [facility] [place] [facility] [address] [facility] [address] Performing Lab: [facility] [place] [facility] [address] [facility] [address] [place] LIVER FUNCTION ALKALINE PHOSPHATASE [ENZYMATIC ACTIVITY/VO LUME] IN SERUM OR PLASMA 67 U/L 40 - 150 01/18 Specimen Type: SERUM No comment entered. Ordering Provider: JAE OBRIEN Report Released Date/Time: January 10, 2024 01:44 PM Reporting Lab: [facility] [place] [facility] [address] [facility] [address] Performing Lab: [facility] [place] [address] [address] [place] LIVER FUNCTION ASPARTATE AMINOTRANSF ERASE [ENZYMATIC ACTIVITY/VO LUME] IN SERUM OR PLASMA 14 U/L 5 - 34 01/18 Specimen Type: SERUM No comment entered. Ordering Provider: JAE OBRIEN Report Released Date/Time: January 10, 2024 01:44 PM Reporting Lab: [facility] [place] [address] [address] Performing Lab: [facility] [place] [address] [address] [place] LIVER FUNCTION ALANINE AMINOTRANSF ERASE [ENZYMATIC ACTIVITY/VO LUME] IN SERUM OR PLASMA 15 U/L 01/18 Specimen Type: SERUM No comment entered. Ordering Provider: JAE OBRIEN Report Released Date/Time: January 10, 2024 01:44 PM Reporting Lab: [facility] [place] [address] [address] Performing Lab: [facility] [place] [address] [address] [place] LIVER FUNCTION BILIRUBIN.T OTAL [MASS/VOLUM E] IN SERUM OR PLASMA 1.3 mg/dL 0.2 - 1.2 01/18 H Specimen Type: SERUM No comment entered. Ordering Provider: JAE OBRIEN Report Released Date/Time: January 10, 2024 01:44 PM Reporting Lab: [facility] [address] [address] Performing Lab: [facility] [address] [facility] [address] [place] LIVER FUNCTION BILIRUBIN.D IRECT [MASS/VOLUM E] IN SERUM OR PLASMA 0.5 mg/dL 0 - 0.5 01/18 Specimen Type: SERUM No comment entered. Ordering Provider: JAE OBRIEN Report Released Date/Time: January 10, 2024 01:44 PM Reporting Lab: [facility] [address] [facility] [address] Performing Lab: [address] [address] [place] TSH THYROTROPIN [UNITS/VOLU ME] IN SERUM OR PLASMA 1.23 u[IU]/ mL 0.35 - 5.00 01/18 Specimen Type: SERUM No comment entered. Ordering Provider: JAE OBRIEN Report Released Date/Time: January 10, 2024 01:44 PM Reporting Lab: [address] [address] Performing Lab: [address] [address] [place] HEMOGLOBI N A1C PANEL HEMOGLOBIN A1C/HEMOGLO BIN.TOTAL [...] be between 8.73 and 9.27. Ref: http://www. ngsp.org/[place] Pdata.asp Ordering Provider: JAE OBRIEN Report Released Date/Time: January 10, 2024 01:44 PM Reporting Lab: [address] [address] Performing Lab: [address] [address] [place] CALCIUM CALCIUM [MASS/VOLUM E] IN SERUM OR PLASMA 8.5 mg/dL 8.5 - 10.2 01/18 Specimen Type: SERUM No comment entered. Ordering Provider: JAE OBRIEN Report Released Date/Time: January 10, 2024 01:44 PM Reporting Lab: [address] [address] Performing Lab: [address] [address] [place] URIC ACID URATE [MASS/VOLUM E] IN SERUM OR PLASMA 3.1 mg/dL 3.5 - 7.2 01/18 L Specimen Type: SERUM No comment entered. Ordering Provider: JAE OBRIEN Report Released Date/Time: January 10, 2024 01:44 PM Reporting Lab: [address] [address] Performing Lab: [address] [address] [place] PSA PROSTATE SPECIFIC AG [MASS/VOLUM E] IN SERUM OR PLASMA < 0.10ng /mL 0.00 - 4.00 01/18 Specimen Type: SERUM No comment entered. Ordering Provider: JAE OBRIEN Report Released Date/Time: January 10, 2024 01:44 PM Reporting Lab: [address] [address] Performing Lab: [address] [address] [place] VITAMIN D (25-OH) 25-HYDROXYV ITAMIN D3 [MASS/VOLUM E] IN SERUM OR PLASMA 35 ng/mL 20 - 50 01/18 Specimen Type: SERUM No comment entered. Ordering Provider: JAE OBRIEN Report Released Date/Time: January 10, 2024 01:44 PM Reporting Lab: [address] [address] Performing Lab: [address] [address] [place] CBC AND DIFF (AUTO) LEUKOCYTES [#/VOLUME] IN BLOOD BY AUTOMATED COUNT 6.19 10*3/u L 4.50 - 11.00 01/18 Specimen Type: BLOOD No comment entered. Ordering Provider: JAE OBRIEN Report Released Date/Time: January 10, 2024 01:44 PM Reporting [facility] [address] [address] Performing Lab: [facility] [address] [address] [place] CBC AND DIFF (AUTO) ERYTHROCYTE S [#/VOLUME] IN BLOOD BY AUTOMATED COUNT 4.35 10*6/u L 4.23 - 5.66 01/18 Specimen Type: BLOOD No comment entered. Ordering Provider: JAE OBRIEN Report Released Date/Time: January 10, 2024 01:44 PM Reporting [facility] [address] [address] Performing Lab: [facility] [address] [address] [place] CBC AND DIFF (AUTO) HEMOGLOBIN [MASS/VOLUM E] IN BLOOD 13.5 g/dL 12.8 - 17 01/18 Specimen Type: BLOOD No comment entered. Ordering Provider: JAE OBRIEN Report Released Date/Time: January 10, 2024 01:44 PM Reporting [facility] [address] [address] Performing [facility] [address] [address] [place] CBC AND DIFF (AUTO) HEMATOCRIT [VOLUME FRACTION] OF BLOOD BY AUTOMATED COUNT 41.4 39.2 - 50.4 01/18 Specimen Type: BLOOD No comment entered. Ordering Provider: JAE OBRIEN Report Released Date/Time: January 10, 2024 01:44 PM Reporting [facility] [address] [address] Per[facility]: [facility] [address] [address] [place] CBC AND DIFF (AUTO) MCV [ENTITIC VOLUME] BY AUTOMATED COUNT 95.2 fL 82 - 99 01/18 Specimen Type: BLOOD No comment entered. Ordering Provider: AJE OBRIEN Report Released Date/Time: January 10, 2024 01:44 PM Reporting Lab: [facility] [address] [address] Performing Lab: [facility]ITALUSE[address] [address] [place] CBC AND DIFF (AUTO) MCHC [MASS/VOLUM E] BY AUTOMATED COUNT 32.6 g/dL 30.8 - 35.1 01/18 Specimen Type: BLOOD No comment entered. Ordering Provider: JAE OBRIEN Report Released Date/Time: January 10, 2024 01:44 PM Reporting Lab: [facility] [address] [address] Performing Lab: [facility] [address] [place] CBC AND DIFF (AUTO) PLATELETS [#/VOLUME] IN BLOOD BY AUTOMATED COUNT 164 10*3/u L 140 - 360 01/18 Specimen Type: BLOOD No comment entered. Ordering Provider: JAE OBRIEN Report Released Date/Time: January 10, 2024 01:44 PM Reporting Lab: [facility] [address] [address] Performing Lab: [facility] [address] [address] [place] CBC AND DIFF (AUTO) ERYTHROCYTE DISTRIBUTIO N WIDTH [RATIO] BY AUTOMATED COUNT 14.9 12.0 - 16.0 01/18 Specimen Type: BLOOD No comment entered. Ordering Provider: JAE OBRIEN Report Released Date/Time: January 10, 2024 01:44 PM Reporting Lab: [facility] [address] [address] Per[facility]: [facility] [address] [place] CBC AND DIFF (AUTO) MONOCYTES [#/VOLUME] IN BLOOD BY AUTOMATED COUNT 0.54 10*3/u L 0.30 - 1.10 01/18 Specimen Type: BLOOD No comment entered. Ordering Provider: JAE OBRIEN Report Released Date/Time: January 10, 2024 01:44 PM Reporting Lab: [facility] [place] [address] [address] Performing Lab: [facility] [address] [address] [place] CBC AND DIFF (AUTO) MCH [ENTITIC MASS] BY AUTOMATED COUNT 31.0 pg 26.2 - 32.6 01/18 Specimen Type: BLOOD No comment entered. Ordering Provider: JAE OBRIEN Report Released Date/Time: January 10, 2024 01:44 PM Reporting Lab: [facility] [address] [address] Performing Lab: [facility] [address] [place] CBC AND DIFF (AUTO) NEUTROPHILS /100 LEUKOCYTES IN BLOOD BY AUTOMATED COUNT 59.7 43.7 - 75.8 01/18 Specimen Type: BLOOD No comment entered. Ordering Provider: JAE OBRIEN Report Released Date/Time: January 10, 2024 01:44 PM Reporting Lab: [facility] [place] [address] [address] Performing Lab: [facility] [address] [address] [place] CBC AND DIFF (AUTO) LYMPHOCYTES /100 LEUKOCYTES IN BLOOD BY AUTOMATED COUNT 25.4 14.0 - 42.3 01/18 Specimen Type: BLOOD No comment entered. Ordering Provider: JAE OBRIEN Report Released Date/Time: January 10, 2024 01:44 PM Reporting Lab: [facility] [place] [address] [address] Performing Lab: [facility] [place] [address] [address] [place] CBC AND DIFF (AUTO) MONOCYTES/1 00 LEUKOCYTES IN BLOOD BY AUTOMATED COUNT 8.7 5.1 - 13.7 01/18 Specimen Type: BLOOD No comment entered. Ordering Provider: JAE OBRIEN Report Released Date/Time: January 10, 2024 01:44 PM Reporting Lab: [facility] [address] [address] Performing Lab: [facility] [address] [address] [place] CBC AND DIFF (AUTO) EOSINOPHILS /100 LEUKOCYTES IN BLOOD BY AUTOMATED COUNT 4.2 0.4 - 6.8 01/18 Specimen Type: BLOOD No comment entered. Ordering Provider: JAE OBRIEN Report Released Date/Time: January 10, 2024 01:44 PM Reporting Lab: [facility] [place] [address] [address] Performing Lab: [facility] [address] [address] [place] CBC AND DIFF (AUTO) BASOPHILS/1 00 LEUKOCYTES IN BLOOD BY AUTOMATED COUNT 1.5 0.1 - 2.0 01/18 Specimen Type: BLOOD No comment entered. Ordering Provider: JAE OBRIEN Report Released Date/Time: January 10, 2024 01:44 PM Reporting Lab: [facility] [address] [address] Performing Lab: [facility] [address] [address] [place] CBC AND DIFF (AUTO) NEUTROPHILS [#/VOLUME] IN BLOOD BY AUTOMATED COUNT 3.70 10*3/u L 2.20 - 7.60 01/18 Specimen Type: BLOOD No comment entered. Ordering Provider: JAE OBRIEN Report Released Date/Time: January 10, 2024 01:44 PM Reporting Lab: [facility] [address] [address] Performing Lab: [facility] [address] [address] [place] CBC AND DIFF (AUTO) LYMPHOCYTES [#/VOLUME] IN BLOOD BY AUTOMATED COUNT 1.57 10*3/u L 1.00 - 3.20 01/18 Specimen Type: BLOOD No comment entered. Ordering Provider: JAE OBRIEN Report Released Date/Time: January 10, 2024 01:44 PM Reporting Lab: [facility] [address] [address] Performing Lab: [facility] [address] [address] [place] CBC AND DIFF (AUTO) EOSINOPHILS [#/VOLUME] IN BLOOD BY AUTOMATED COUNT 0.26 10*3/u L 0.03 - 0.44 01/18 Specimen Type: BLOOD No comment entered. Ordering Provider: JAE OBRIEN Report Released Date/Time: January 10, 2024 01:44 PM Reporting Lab: [facility] [address] Performing Lab: [facility] [address] [address] [place] CBC AND DIFF (AUTO) BASOPHILS [#/VOLUME] IN BLOOD BY AUTOMATED COUNT 0.09 10*3/u L 0.01 - 0.13 01/18 Specimen Type: BLOOD No comment entered. Ordering Provider: JAE OBRIEN Report Released Date/Time: January 10, 2024 01:44 PM Reporting Lab: [facility] [address] [address] Performing Lab: [facility] [address] [address] [place] CBC AND DIFF (AUTO) IMMATURE GRANULOCYTE S/100 LEUKOCYTES IN BLOOD BY AUTOMATED COUNT 0.5 0.0 - 0.7 01/18 Specimen Type: BLOOD No comment entered. Ordering Provider: JAE OBRIEN Report Released Date/Time: January 10, 2024 01:44 PM Reporting Lab: [facility] [address] [address] Performing Lab: [facility] [address] [address] [place] CBC AND DIFF (AUTO) IMMATURE GRANULOCYTE S [#/VOLUME] IN BLOOD 0.03 10*3/u L 0.00 - 0.06 01/18 Specimen Type: BLOOD No comment entered. Ordering Provider: JAE OBRIEN Report Released Date/Time: January 10, 2024 01:44 PM Reporting Lab: [facility] [address] [address] Performing Lab: [facility] [place] [facility] [address] [facility] [facility] [address] MARCOS SCHULTZ Vital Signs Combined list of inpatient and outpatient Vital Signs from Department of Defense and Veterans Affairs, ranging from 12 months to all on record, depending upon the facility. Vital Sign Value Date Comments Source SYSTOLIC BLOOD PRESSURE 122 01/25/2024 13:21:24 [facility] DIASTOLIC BLOOD PRESSURE 66 01/25/2024 13:21:24 [facility] Encounters Combined list of: 1) Encounters from Department of Veterans Affairs facilities going backup to the last 18 months, not all VA inpatient encounters are included; 2) Encounters from the Department of Defense facilities going backup to 280 months. Location Location Details Encounter Type Encounter Number Reason For Visit Attending Provider ADM Date DC Date Status Disposition Source [facility] En[facility] [id number] 08/16 [facility] [id number] 08/16 [facility] [id number] 08/22 [facility] En[facility] [id number] 12/04 [facility] En[facility] [id number] 12/04 [facility] [id number] 12/06 [facility] [id number] 12/18 [facility] En[facility] [id number] 12/18 [facility] [id number] 12/22 [facility] [id number] 12/26 [facility] [id number] 01/10 [facility] [id number] 01/11 [facility] [id number] 01/11 [facility] En[facility] [id number] 01/13 [facility] OFFICE O/P EST MOD 30 MIN [id number] Diagnos is: ICD-10- CM 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, unspeci OLI Floyd 01/24 [facility] En[facility] [id number] 04/20 [facility] (89[facility] SPECIAL SUPPLIES PHYS/QHP [id number] Diagnos is: ICD-10- CM G47.30 Sleep apnea, unspeci fiVERNELL Calvert 05/08 [facility]89[facility] En[facility] [id number] 05/14 [facility] En[facility] [id number] OLI OBRIEN 05/14 [facility] En[facility] [id number] RAKESH LUX 08/27 [facility] En[facility] [id number] 08/27 [facility] En[facility] [id number] 09/04 [facility] [id number] 09/05 [facility] En[facility] [id number] 09/05 [facility] [place] Social History Combined list of available smoking, tobacco, and other social history from Department of Defense and Veterans Affairs facilities. Social History Type Response Date Comment Source Tobacco smoking status [facility] NEVER USED 01/25/2024 [facility] History of tobacco use [facility] FORMER USER 01/25/2024 [facility] History of tobacco use [facility]-TOBACCO QUIT 15 YRS OR MORE 07/19/2022 [facility] History of tobacco use [place]-TO[facility]AC[facility] FORMER USER 02/26/2021 [facility] History of tobacco use [place]-TO[facility]AC[facility] QUIT 15 YRS OR MORE 02/18/2020 [facility] History of tobacco use [place]-TOBACCO QUIT 15 YRS OR MORE 01/26/2019 [facility] History of tobacco use QUIT TOBACCO USE > 7 YEARS AGO 02/27/2018 does nkt smoke [facility] History of tobacco use QUIT TOBACCO USE > 7 YEARS AGO 02/11/2017 stopped smoking 10 years ago [facility] History of tobacco use LIFETIME NON TOBACCO USER 09/03/2016 [facility] History of tobacco use QUIT TOBACCO USE > 7 YEARS AGO 01/30/2016 [facility] History of tobacco use PREVIOUS TOBACCO USER 09/03/2015 quit 6Y ago [facility] History of tobacco use QUIT TOBACCO USE 1-7 YEARS AGO 01/13/2015 quit 6 years ago [facility] History of tobacco use LIFETIME NON TOBACCO USER 09/11/2014 [facility] History of tobacco use LIFETIME NON TOBACCO USER 07/05/2014 [facility] History of tobacco use PREVIOUS TOBACCO USER 11/27/2013 [facility] History of tobacco use LIFETIME NON TOBACCO USER 11/23/[address] [facility] History of tobacco use PREVIOUS TOBACCO USER 07/17/2013 quit 5 years ago [facility] History of tobacco use QUIT TOBACCO USE 1-7 YEARS AGO 03/30/[address] [facility] quit smoking 5 years ago. [facility] History of tobacco use LIFETIME NON TOBACCO USER 06/23/2012 [facility] History of tobacco use QUIT TOBACCO USE 1-7 YEARS AGO 04/25/2012 [facility] History of tobacco use LIFETIME NON TOBACCO USER 10/06/2011 [facility] History of tobacco use LIFETIME NON TOBACCO USER 06/21/2011 [facility] History of tobacco use LIFETIME NON TOBACCO USER 12/15/2010 [facility] History of tobacco use PREVIOUS TOBACCO USER 07/02/2010 patient quit 5 years ago. [facility] History of tobacco use LIFETIME NON TOBACCO USER 11/26/2009 [facility] History of tobacco use PREVIOUS TOBACCO USER 06/24/2009 quit smoking 4 yrs ago [facility] History of tobacco use LIFETIME NON TOBACCO USER 07/01/2008 quit 2.5 years ago. [facility] History of tobacco use LIFETIME NON TOBACCO USER 06/28/2007 [facility] History of tobacco use LIFETIME NON TOBACCO USER 02/24/2005 [facility] History of tobacco use REFUSED SMOKING CESSATION PROGRAM 11/05/2003 2 cigarettes a day [facility] History of tobacco use REFUSED SMOKING CESSATION PROGRAM 05/07/2003 [facility] History of tobacco use REFUSED SMOKING CESSATION PROGRAM 10/30/2002 [facility] History of tobacco use PREVIOUS SMOKER/USER 03/01/2002 quit 1999. [facility] History of tobacco use REFUSED TOBACCO COUNSELING/PROGRAM 06/09/2001 [facility] Plan of Care List of future care activities from [facility] of [facility] facilities. Additional future care activities may be listed in the Assessment and Plan section. Date/Time Care Activity Care Activity Detail Facili ty 01/09/2025 [facility] Advance Directives List of completed, amended, or rescinded Advance Directives on record at [facility] facilities. An actual copy of the Directive is not included. Date Advance Directive Provider Source 06/15/2001 ADVANCE DIRECTIVE DISCUSSION TITO SANFORD [facility] 06/09/2001 ADVANCE DIRECTIVE JAE WATERMAN [facility]PT OF [facility]
== END 2024-12-17 12:53 | disposition home or self-care (01) ==
LOC: HO.HCS 12:32
PROVIDERS: PCP Nurse Practitioner Family; Visit Provider Internal Medicine Cardiovascular Disease
DX: I25.10 Atherosclerotic heart disease of native coronary artery without angina pectoris (principal); I10 Essential (primary) hypertension
CPT/HCPCS: 93010; 99214; G2211

== ENCOUNTER → 2024-12-17 12:31 | Outpatient (BNVA) | payer MEDICARE, BC, SELFPAY | PROVIDERS: PCP Nurse Practitioner Family; Visit Provider Internal Medicine Cardiovascular Disease | DX: I25.10 Atherosclerotic heart disease of native coronary artery without angina pectoris (principal); I10 Essential (primary) hypertension; R94.31 Abnormal electrocardiogram [ECG] [EKG] | CPT/HCPCS: 93005; 99212 ==

== ENCOUNTER 2024-12-20 14:23 | Outpatient (REF) | payer MEDICARE, BC, SELFPAY ==
--- OUTSIDE RECORDS SUMMARY | 2024-12-20 15:12 | XMS_ITS | Clinical Summary ---
Author Organization [employer] Address [address] [place] [address] Care Team Providers Care Java Swing Developer Name Role Phone Unavailable Primary Care Provider [...]
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
--- OUTSIDE RECORDS SUMMARY | 2024-12-20 15:13 | XMS_ITS | Clinical Summary ---
[facility] Organization [facility] Address [address] [place] [address] Care Team Providers Care Cash Management Clerk Name Role Phone Unavailable Primary Care Provider [...]
--- OUTSIDE RECORDS SUMMARY | 2024-12-20 15:13 | XMS_ITS | Continuity of Care Document ---
Author Name [facility] Organization [facility] Care Team Providers Care Deputy Controller Name Role Phone [facility] Unavailable Unavailable Problems Combined list of problems from Department of Defense and Veterans Affairs facilities. It does not include entries that were removed or entered in error. Problem Status Onset Date Problem Type Date of Resolution Comments Source Cholecystectomy planned Active 2020 Condition May 12, 2021 Entered By: JAE OBRIEN Comment: Cholecystectomy planned 05/18/21 [facility]. Managed by [facility]. [facility] [facility] [place] [facility] Actinic keratosis (SNOMED CT 377247393) Active Condition [facility] Allergic rhinitis due to other allergen Active Condition [facility] ARTHRITIS,CHRONIC Active Condition [facility] Navarrete's esophagus with esophagitis Active Condition Jan 24 Entered By: JAE OBRIEN Comment: Dx of Barretts per EGD Done 2022; Take PPIJan 25, 2024 Entered By: JAE OBRIEN Comment: repeat EGD 2025 (or as directed by GI) THICKET Benign hypertension Active Condition May 24, 2018 Entered By: JAE OBRIEN Comment: US, Aorta JUN 01: no AAA THICKET choecystectomy Active Condition December Entered By: JAE OBRIEN Comment: Cholecystectomy JUN 04: Not Emergent Case THICKET Chronic Maxillary Sinusitis Active Condition [facility] Chronic post-traumatic stress disorder Active Condition [facility] [facility] Chronic post-traumatic stress disorder (SNOMED CT 895346104) Active Condition Sep 27, 2007 Entered By: YOUSUF [place] Comment: with panic attacks and agoraphobia [facility] Chronic post-traumatic stress disorder following combat (SNOMED CT 549984355) Active Condition December Entered By: HODAN PALUMBO Comment: updated. THICKET Chronic rhinitis Active Condition [facility] Colitis Active Condition Mar 23 Entered By: JAE OBRIEN Comment: Diagnostic Colonoscopy Planned MAY 07;Mar 23, 2023 Entered By: JAE OBRIEN Comment: Dx of Colitis in ED in APR 06: Presented to ED w/ Hematochezia THICKET Coronary arteriosclerosis Active Condition Mar 23 Entered By: JAE OBRIEN Comment: SD Yrs Ago ; Still Sees Cardio as of Mar Entered By: JAE OBRIEN Comment: pending EKG, TTE, Pharmacologic Stress Test 2023 via Private Cardio THICKET Coronary artery disease (SNOMED CT 28506824) Active Condition Apr 25, 2012 Entered By: JAE OBRIEN Comment: AMI; Stented, MAR 26, [facility] Mar Entered By: JAE OBRIEN Comment: Sees Private Card[facility] as of MARCH 01Au2017 Entered By: [...] as of 2020 - Stable per pt THICKET Coronary atherosclerosis (SNOMED CT 734301101) Active Condition Jun Entered By: JAE MARAVILLA Comment: MARCH 2012: Stent x 1 [facility] Depressive disorder Active Condition January 01, 2022 Entered By: HODAN PALUMBO Comment: updated. THICKET Gastroesophageal Reflux Disorder * (ICD-9-CM 530.81) Active Condition [facility] GERD Active Condition May 04 Entered By: JAE OBRIEN Comment: also EGD 2009: no Barretts or CA; on PPI (or H2 Antag) THICKET Gout (SNOMED CT 11254566) Active Condition THICKET Herpes zoster Active Condition Feb Entered By: JAE OBRIEN Comment: Had it in 2017 while in [place]; Tx'd, Gone THICKET History of colonoscopy Active Condition Apr 25, 2012 Entered By: JAE OBRIEN Comment: Screen Colonoscopy 2009 at [facility]; Neg CRC, PolypsSep 2011 Entered By: JAE [...] 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 THICKET History of malignant melanoma of the skin Active Condition [facility] History of Melanoma (Removed) Active Condition [facility] History of melanoma in situ of skin Active Condition Apr 25, 2012 Entered By: JAE OBRIEN Comment: Excised, Bx NOV 24; Graft; no METS per PET; [facility] VASep 2011 Entered By: JAE OBRIEN Comment: [facility] Entered By: JAE OBRIEN Comment: Also Goes NE DERM as of MARCH 01 THICKET Hypercholesterolemia (SNOMED CT 80293358) Active Condition [facility] HYPERLIPIDEMIA Active Condition [facility] Hypertension (SNOMED CT 27569487) Active Condition [facility] Hypnotic or anxiolytic dependence, continuous Active Condition [facility] [place] [facility] Hypogonadism (SNOMED CT 14026488) Active Condition [facility] Hypothyroidism (SNOMED CT 12497457) Active Condition [facility] Insomnia * (ICD-9-CM 780.52) Active Condition [facility] Lumbar radiculopathy Active Condition Apr 02, 2014 [...] MRI of L Spine FEBRUARY 02 at [facility];January 06, 2021 Entered By: JAE OBRIEN Comment: Planned Appt w/ Neuro Surg [facility] 2020Oct 2013 Entered By: KELVIN DARLING Comment: [facility] Dr. Gaines L5-S1 herniation, microdiscectomy 05/2014 THICKET Malignant melanoma of skin of lower limb, including hip (ICD-9-CM 172.7) Active Condition [facility] Mixed hyperlipidemia Active Condition [facility] Morbid obesity Active Condition [facility] Neoplasm of uncertain behavior of skin Active Condition [facility] Noncompliance with Treatment (ICD-9-CM V15.81) Active Condition [facility] Obesity * (ICD-9-CM 278.00) Active Condition [facility] Obstructive sleep apnea of adult (SNOMED CT 6264230855892) Active Condition Jun 23, 2012 Entered By: JAE MARAVILLA Comment: Beeap [facility] Osteoarthritis Active Condition Apr 152011 Entered By: JAE OBRIEN Comment: Both Knees; has had Inj's THICKET Postsurgical Percutaneous Transluminal Coronary Angioplasty Status Active Condition [facility] Prostate cancer Active Condition Mar 07, 2014 Entered By: JAE OBRIEN Comment: Cysto FEBRUARY 25: Neg CA; see Note Dated 05 MARCH 14Jul 2013 Entered By: JAE OBRIEN Comment: Presented ED [facility] w/ Gross HemeJul 2013 Entered By: JAE [...] [address] [place] [phone]; Indication: Macroscop HematuriaJul 2016 Entered By: JAE [...] RT JUN 05; Rx's Testost GEL ONCO [facility] Renal cyst Active Condition Apr 09 014 [...] Entered By: JAE OBRIEN Comment: Nothing Supicious THICKET screeing malignant neoplasm colon Active Condition December 17, 2021 Entered By: JAE OBRIEN Comment: NEG Colon-Guard JUN 04 THICKET Sleep apnea (SNOMED CT 58283411) Active Condition Apr 25, 2012 Entered By: JAE OBRIEN Comment: has CPAP THICKET TESTOSTERONE Active Condition Apr 25, 2012 Entered By: JAE OBRIEN Comment: Low Testos - on Gel THICKET Unspecified Psychosocial Circumstance (ICD-9-CM V62.9) Active Condition [facility] Anxiety Inactive Condition 09/27/2007 [facility] DEPRESSION Inactive Condition 09/27/2007 [facility] DIVERTICULOSIS Inactive Condition 06/23/2012 [facility] Dry Eye * (ICD-9-CM 375.15) Inactive Condition 06/23/2012 [facility] HEME POSITIVE Inactive Condition 06/22/2012 [facility] HEMORRHOID,INTERNAL Inactive Condition 06/23/2012 [facility] HIATAL HERNIA Inactive Condition 06/22/2012 [facility] KERATOSIS,ACTINIC Inactive Condition 06/23/2012 [facility] KNEE Inactive Condition 06/22/2012 [facility] Knee: arthralgia * (ICD-9-CM 719.46) Inactive Condition 06/22/2012 [facility] Noncompliance, Dietary Regimen Inactive Condition 07/05/2008 [facility] Noncompliance, Dietary Regimen (ICD-9-CM V15.81) Inactive Condition 06/22/2012 [facility] Skin Lesion, Unsp Inactive Condition 06/22/2012 [facility] Diagnosis: ICD-10-CM G47.30 Sleep apnea, unspecified Active Diagnosis [facility] ([id number] Diagnosis: ICD-10-CM E78.00 Pure hypercholesterolemia, unspecified Active Diagnosis THICKET Medications Combined list of outpatient medications from Department of Defense and [facility] Affairs facilities.Medications provided include 1) outpatient medications from the last 15 months, and 2) patient-reported medications. Medication Details Route Status Patient Instructions Prescription Expires Prescription Number Last Dispense Date Ordering Provider Order Date Order Qty Source ALLOPURINOL 300MG TAB TAKE ONE TABLET BY MOUTH ONCE DAILY FOR GOUT ORAL SUSPEND ED 09/06/2025 [id number] 5 DESMOND OBRIEN 2024 90 [facility] IELD ALLOPURINOL 300MG TAB TAKE ONE TABLET BY MOUTH ONCE DAILY FOR GOUT ORAL DISCONT INUED 01/25/2025 [id number] 5 DESMOND OBRIEN 2023 90 [place] ALLOPURINOL 300MG TAB TAKE ONE TABLET BY MOUTH ONCE DAILY FOR GOUT ORAL DISCONT INUED 03/23/2024 [id number] 4 DESMOND OBRIEN 2022 90 [place] ALPRAZOLAM 1MG TAB TAKE ONE TABLET BY MOUTH SIX TIMES A DAY ORAL ACTIVE DEEPALIORIANALedy [place] AMLODIPINE BESYLATE 5MG TAB TAKE ONE TABLET BY MOUTH ONCE DAILY FOR BLOOD PRESSURE /HEART, DO NOT TAKE WITH GRAPEFRU IT JUICE ORAL SUSPEND ED 09/05/2025 [id number] 5 DESMOND OBRIEN 2024 90 [facility] IELD AMLODIPINE BESYLATE 5MG TAB TAKE ONE TABLET BY MOUTH ONCE DAILY FOR BLOOD PRESSURE /HEART, DO NOT TAKE WITH GRAPEFRU IT JUICE ORAL DISCONT INUED 12/27/2024 [id number] 5 DESMOND OBRIEN 2023 90 [place] ASPIRIN 81MG TAB,EC TAKE ONE TABLET BY MOUTH EVERY DAY ORAL ACTIVE DESMOND OBRIEN 2011 [place] ASPIRIN PLAIN TAB TAKE 81MG BY MOUTH DAILY AT BEDTIME ORAL ACTIVE Charley MARAVILLA P 2011 [facility] ATENOLOL 25MG TAB TAKE ONE TABLET BY MOUTH ONCE DAILY FOR BLOOD PRESSURE /HEART ORAL SUSPEND ED 09/06/2025 [id number] 5 DESMOND OBRIEN 2024 90 [facility] IELD ATENOLOL 25MG TAB TAKE ONE TABLET BY MOUTH ONCE DAILY FOR BLOOD PRESSURE /HEART ORAL DISCONT INUED 12/19/2024 [id number] 4 DESMOND OBRIEN 2023 90 [facility] IELD ATENOLOL 25MG TAB TAKE ONE TABLET BY MOUTH ONCE DAILY FOR BLOOD PRESSURE /HEART ORAL DISCONT INUED 03/23/2024 [id number] 4 DESMOND OBRIEN 2022 90 [facility] IELD ATORVASTATI N CA 80MG TAB TAKE ONE TABLET BY MOUTH ONCE DAILY FOR CHOLESTE ROL ORAL SUSPEND ED 09/06/2025 [id number] 5 DESMOND OBRIEN 2024 90 [facility] IELD ATORVASTATI N CA 80MG TAB TAKE ONE TABLET BY MOUTH ONCE DAILY FOR CHOLESTE ROL ORAL DISCONT INUED 01/25/2025 [id number] 5 DESMOND OBRIEN 2023 90 [place] ATORVASTATI N CA 80MG TAB TAKE ONE TABLET BY MOUTH ONCE DAILY FOR CHOLESTE ROL ORAL DISCONT INUED 03/23/2024 [id number] 4 DESMOND OBRIEN 2022 90 [place] CETIRIZINE HCL 10MG TAB TAKE ONE TABLET BY MOUTH ONCE DAILY FOR ALLERGIE S ORAL SUSPEND ED 09/06/2025 [id number] 5 DESMOND OBRIEN 2024 90 [place] CETIRIZINE HCL 10MG TAB TAKE ONE TABLET BY MOUTH ONCE DAILY FOR ALLERGIE S ORAL DISCONT INUED 12/07/2024 [id number] 4 DESMOND OBRIEN 2023 90 [facility] [place] [facility] CETIRIZINE HCL 10MG TAB TAKE ONE TABLET BY MOUTH ONCE DAILY FOR ALLERGIE S ORAL DISCONT INUED 03/23/2024 [id number] 4 DESMOND OBRIEN 2022 90 [place] CIPROFLOXAC IN HCL 500MG TAB TAKE ONE TABLET BY MOUTH TWICE DAILY FOR INFECTIO N ORAL 10/19/2023 [id number] DESMOND OBRIEN 2023 10 [place] CYANOCOBALA MIN 500MCG TAB TAKE ONE TABLET BY MOUTH TWICE DAILY FOR VITAMIN SUPPLEME NTATION ORAL SUSPEND ED 09/06/2025 [id number] 5 DESMOND OBRIEN 2024 200 [place] CYANOCOBALA MIN 500MCG TAB TAKE ONE TABLET BY MOUTH TWICE DAILY FOR VITAMIN SUPPLEME NTATION ORAL DISCONT INUED 01/25/2025 [id number] 5 DESMOND OBRIEN 2023 200 [place] CYANOCOBALA MIN 500MCG TAB TAKE ONE TABLET BY MOUTH TWICE DAILY FOR VITAMIN SUPPLEME NTATION ORAL DISCONT INUED 03/23/2024 [id number] 4 DESMOND OBRIEN 2022 200 [place] EZETIMIBE 10MG TAB TAKE ONE TABLET BY MOUTH ONCE DAILY TO LOWER CHOLESTE ROL ORAL SUSPEND ED 09/05/2025 [id number] 5 DESMOND OBRIEN 2024 90 [place] EZETIMIBE 10MG TAB TAKE ONE TABLET BY MOUTH ONCE DAILY TO LOWER CHOLESTE ROL ORAL DISCONT INUED 12/19/2024 [id number] 4 DESMOND OBRIEN 2023 90 [place] EZETIMIBE 10MG TAB TAKE ONE TABLET BY MOUTH ONCE DAILY TO LOWER CHOLESTE ROL ORAL DISCONT INUED 03/23/2024 [id number] 4 DESMOND OBRIEN 2022 90 [place] FLUTICASONE PROPIONATE 50MCG/SPRAY SOLN,NASAL, 16GM INSTILL 1 SPRAY INTO EACH NOSTRIL TWICE DAILY FOR NASAL IRRITATI ON/INFLA MMATION NASAL SUSPEND ED 08/28/2025 [id number] 5 DESMOND OBRIEN 2024 3 [place] FLUTICASONE PROPIONATE 50MCG/SPRAY SOLN,NASAL, 16GM INSTILL 1 SPRAY INTO EACH NOSTRIL TWICE DAILY FOR NASAL IRRITATI ON/INFLA MMATION NASAL DISCONT INUED 01/25/2025 [id number] 4 DESMOND OBRIEN 2023 3 [place] FLUTICASONE PROPIONATE 50MCG/SPRAY SOLN,NASAL, 16GM INSTILL 1 SPRAY INTO EACH NOSTRIL TWICE DAILY FOR NASAL IRRITATI ON/INFLA MMATION NASAL DISCONT INUED 12/05/2024 [id number] 4 DESMOND OBRIEN 2023 3 [place] FLUTICASONE PROPIONATE 50MCG/SPRAY SOLN,NASAL, 16GM INSTILL 1 SPRAY INTO EACH NOSTRIL TWICE DAILY FOR NASAL IRRITATI ON/INFLA MMATION NASAL DISCONT INUED 03/23/2024 [id number] 4 DESMOND OBRIEN 2022 1 [place] LEVOTHYROXI NE NA 125MCG TAB TAKE ONE TABLET BY MOUTH EVERY MORNING 30 MINUTES BEFORE BREAKFAS T FOR THYROID - TAKE ON AN EMPTY STOMACH WITH A FULL GLASS OF WATER ORAL ACTIVE 09/06/2025 [id number] 5 DESMOND OBRIEN 2024 90 [place] LEVOTHYROXI NE NA 125MCG TAB (SYNTHROID) TAKE ONE TABLET BY MOUTH EVERY MORNING 30 MINUTES BEFORE BREAKFAS T FOR THYROID - TAKE ON AN EMPTY STOMACH WITH A FULL GLASS OF WATER ORAL DISCONT INUED 12/19/2024 [id number] 4 DESMOND OBRIEN 2023 90 [place] LEVOTHYROXI NE NA 125MCG TAB (SYNTHROID) TAKE ONE TABLET BY MOUTH EVERY MORNING 30 MINUTES BEFORE BREAKFAS T FOR THYROID - TAKE ON AN EMPTY STOMACH WITH A FULL GLASS OF WATER ORAL DISCONT INUED 03/23/2024 [id number] 4 DESMOND OBRIEN 2022 90 [place] LOSARTAN POTASSIUM 100MG TAB TAKE ONE TABLET BY MOUTH ONCE DAILY FOR BLOOD PRESSURE /HEART ORAL SUSPEND ED 09/06/2025 [id number] 5 DESMOND OBRIEN 2024 90 [place] LOSARTAN POTASSIUM 100MG TAB TAKE ONE TABLET BY MOUTH ONCE DAILY FOR BLOOD PRESSURE /HEART ORAL DISCONT INUED 01/25/2025 [id number] 5 DESMOND OBRIEN 2023 90 [place] LOSARTAN POTASSIUM 100MG TAB TAKE ONE TABLET BY MOUTH ONCE DAILY FOR BLOOD PRESSURE /HEART ORAL DISCONT INUED 03/23/2024 [id number] 4 DESMOND OBRIEN 2022 90 [place] NAPHAZOLINE HCL 0.025%/PHEN IRAMINE 0.3% SOLN,OPH INSTILL 1 DROP INTO EACH EYE TWICE DAILY NEEDED FOR RED EYES OPHTHA LMIC SUSPEND ED 08/28/2025 [id number] 5 Isatu LUX ICHELE 2024 15 [facility] NAPHAZOLINE HCL 0.025%/PHEN IRAMINE 0.3% SOLN,OPH INSTILL 1 DROP INTO EACH EYE TWICE DAILY NEEDED FOR RED EYES OPHTHA LMIC DISCONT INUED 01/25/2025 [id number] 4 DESMOND OBRIEN 2023 15 [place] NAPHAZOLINE HCL 0.025%/PHEN IRAMINE 0.3% SOLN,OPH INSTILL 1 DROP INTO EACH EYE TWICE DAILY NEEDED FOR RED EYES OPHTHA LMIC DISCONT INUED 03/07/2024 [id number] Isatu LUX ICHELE 2022 15 [facility] NITROGLYCER IN 0.4MG TAB,SUBLING UAL DISSOLVE ONE TABLET UNDER THE TONGUE Q5MIN PRN SUBLIN GUAL ACTIVE DESMOND OBRIEN 2011 [facility] IELD OMEPRAZOLE 20MG CAP,EC TAKE ONE CAPSULE BY MOUTH EVERY MORNING 30 MINUTES BEFORE BREAKFAS T ORAL SUSPEND ED 09/06/2025 [id number] 5 DESMOND OBRIEN 2024 90 [facility] IELD OMEPRAZOLE 20MG CAP,EC TAKE ONE CAPSULE BY MOUTH EVERY MORNING 30 MINUTES BEFORE BREAKFAS T ORAL DISCONT INUED 01/25/2025 [id number] 4 DESMOND OBRIEN 2023 90 [facility] IELD OMEPRAZOLE 20MG CAP,EC TAKE ONE CAPSULE BY MOUTH EVERY MORNING 30 MINUTES BEFORE BREAKFAS T ORAL DISCONT INUED 03/23/2024 [id number] 4 DESMOND OBRIEN 2022 90 [facility] IELD OTHER CAP/TAB SUNSCREE N EVERY DAY ACTIVE DESMOND OBRIEN 2011 [facility] IELD POLYETHYLEN E GLYCOL 3350 PWDR,ORAL TAKE 17 GRAMS(FI LL CAP TO 17GM LINE) BY MOUTH ONCE DAILY FOR CONSTIPA TION [MIX WITH 4 TO 8OZ. OF BEVERAGE ] ORAL DISCONT INUED BY DUSTY R 12/05/2024 [id number] 4 DESMOND OBRIEN 2023 510 [facility] IELD SILDENAFIL CITRATE 100MG TAB TAKE ONE TABLET BY MOUTH DIRECTED TAKE 1 HOUR PRIOR TO SEXUAL ACTIVITY ORAL ACTIVE 09/06/2025 [id number] 5 DESMOND OBRIEN 2024 4 [facility] IELD SILDENAFIL CITRATE 100MG TAB TAKE ONE TABLET BY MOUTH DIRECTED TAKE 1 HOUR PRIOR TO SEXUAL ACTIVITY ORAL DISCONT INUED 04/21/2025 [id number] 5 DESMOND OBRIEN 2023 4 [place] SILDENAFIL CITRATE 100MG TAB TAKE ONE TABLET BY MOUTH DIRECTED TAKE 1 HOUR PRIOR TO SEXUAL ACTIVITY ORAL DISCONT INUED 12/05/2024 [id number] 4 DESMOND OBRIEN 2023 4 [place] SILDENAFIL CITRATE 100MG TAB TAKE ONE TABLET BY MOUTH DIRECTED TAKE 1 HOUR PRIOR TO SEXUAL ACTIVITY ORAL DISCONT INUED 03/23/2024 [id number] 4 DESMOND OBRIEN 2022 4 [place] SODIUM FLUORIDE 1.1% TOOTHPASTE BRUSH SMALL AMOUNT TO TEETH TWICE DAILY DENTAL SUSPEND ED 09/06/2025 [id number] 5 DESMOND OBRIEN 2024 102 [place] SODIUM FLUORIDE 1.1% TOOTHPASTE BRUSH SMALL AMOUNT TO TEETH TWICE DAILY DENTAL DISCONT INUED 01/25/2025 [id number] 4 DESMOND OBRIEN 2023 102 [place] SODIUM FLUORIDE 1.1% TOOTHPASTE BRUSH SMALL AMOUNT TO TEETH TWICE DAILY DENTAL DISCONT INUED 12/09/2023 [id number] 4 DESMOND OBRIEN 2022 100 [facility] IELD TAMSULOSIN HCL 0.4MG CAP TAKE ONE CAPSULE BY MOUTH ONCE DAILY ORAL ACTIVE 09/06/2025 [id number] 5 DESMOND OBRIEN 2024 90 [facility] IELD TAMSULOSIN HCL 0.4MG CAP TAKE ONE CAPSULE BY MOUTH ONCE DAILY ORAL DISCONT INUED 01/25/2025 [id number] 4 DESMOND OBRIEN 2023 90 [facility] IELD TAMSULOSIN HCL 0.4MG CAP TAKE ONE CAPSULE BY MOUTH ONCE DAILY ORAL DISCONT INUED 08/16/2024 [id number] DESMOND OBRIEN 2023 90 [facility] IELD TESTOSTERON E (EQV-ANDROG EL) 1% 5GM/PKT [...] drug (finding) active 07/02/2013 [facility] PAROXETINE Propensity to adverse reactions to drug (finding) Vertigo active 09/20/[address] [facility] [facility] Immunizations Combined list of available immunizations from the Department of Defense and Veterans Affairs facilities. Immunization Series Date Given Administered By Site Reaction Lot Number CVX Code Drug Records Management Assistant Status Comments Source INFLUENZA, UNSPECIFIED FORMULATION 2021 [...] FORMULATION 2015 88 complet ed Marcos schultz [facility] INFLUENZA, UNSPECIFIED FORMULATION 2015 88 complet ed [facility] INFLUENZA, UNSPECIFIED FORMULATION 2014 88 complet ed [facility] INFLUENZA, UNSPECIFIED FORMULATION 2013 88 complet ed [facility] INFLUENZA, UNSPECIFIED FORMULATION 2013 88 complet ed [facility] FLU,3 YRS (HISTORICAL) 2013 88 complet ed Site: Left Deltoid [place] INFLUENZA, UNSPECIFIED FORMULATION 2012 NONE 88 complet ed Right Deltoid (IM) [facility] FLU,3 YRS (HISTORICAL) 2012 88 complet ed [facility] FLU,3 YRS (HISTORICAL) 2011 88 complet ed Site: Left Deltoid [place] INFLUENZA, UNSPECIFIED FORMULATION 2010 NONE 88 complet ed Left Deltoid (IM) [facility] INFLUENZA, UNSPECIFIED FORMULATION 2009 NONE 88 complet ed [facility] INFLUENZA, UNSPECIFIED FORMULATION 2008 NONE 88 complet ed Right Deltoid (IM)Exp. 0 [facility] INFLUENZA, UNSPECIFIED FORMULATION 2007 NONE 88 complet ed Left Deltoid (IM), Lot Number:[id number];EXP 01/21 [facility] INFLUENZA, UNSPECIFIED FORMULATION 2006 NONE 88 complet ed Left Deltoid (IM), Lot Number:[id number] Exp: FEB 12 2008 [facility] INFLUENZA, UNSPECIFIED FORMULATION 2005 NONE 88 complet ed Left Deltoid (IM), Lot Number:[id number], exp: [facility] FLU,3 YRS (HISTORICAL) 2004 ZABRINA CULLEN 88 complet ed [facility] INFLUENZA, UNSPECIFIED FORMULATION 2003 NONE 88 complet ed Left Deltoid (IM), Lot Number:[id number], exp Feb 11 [facility] FLU,3 YRS (HISTORICAL) 2002 DISHAJOSEIrlanda KateyKimberli M 88 complet ed [facility] TETANUS TOXOID, UNSPECIFIED FORMULATION 2002 NONE 112 complet ed Completed Series, Left Deltoid 0.5ml. given IM without problem.L ot# [id number] Exp.. [facility] INFLUENZA, UNSPECIFIED FORMULATION 2001 NONE 88 complet ed Completed Series, Left Deltoid [facility] INFLUENZA, UNSPECIFIED FORMULATION 2000 NONE 88 complet ed Completed Series, 0.5ml.giv en IM left deltoid without problem.A ventia Lot# [id number]. [facility] TETANUS TOXOID, UNSPECIFIED FORMULATION 2000 112 complet ed Date of last Tetanus inj. unknwon. [facility] Results Combined list of recent chemistry, hematology [...] 10, 2024 01:44 PM Reporting Lab: [address] [address] Performing Lab: [address] [address] [facility] LIPID PANEL FASTING CHOLESTEROL [MASS/VOLUM E] IN SERUM OR PLASMA 137 mg/dL 01/18 Specimen Type: SERUM No comment entered. Ordering Provider: JAE OBRIEN Report Released Date/Time: January 10, 2024 01:44 PM Reporting Lab[facility] [address] [facility] [address] Performing Lab: [facility] [address] [address] [place] LIPID PANEL FASTING TRIGLYCERID E [MASS/VOLUM E] IN SERUM OR PLASMA 83 mg/dL 0 - 150 01/18 Specimen Type: SERUM No comment entered. Ordering Provider: JAE OBRIEN Report Released Date/Time: January 10, 2024 01:44 PM Reporting Lab: [facility] [address] [facility] [address] Performing Lab: [facility] [address] [address] [place] LIPID PANEL FASTING CHOLESTEROL IN LDL [MASS/VOLUM E] IN SERUM OR PLASMA BY CALCULATION 65 mg/dL 0 - 129 01/18 Specimen Type: SERUM No comment entered. Ordering Provider: JAE OBRIEN Report Released Date/Time: January 10, 2024 01:44 PM Reporting Lab: [facility] [address] [address] Performing Lab: [facility] [address] [address] [place] LIPID PANEL FASTING CHOLESTEROL .TOTAL/CHOL ESTEROL IN HDL [MASS RATIO] IN SERUM OR PLASMA 2.5 01/18 Specimen Type: SERUM No comment entered. Ordering Provider: JAE OBRIEN Report Released Date/Time: January 10, 2024 01:44 PM Reporting Lab: [facility] [address] Performing Lab: [facility] [address] [address] [place] LIPID PANEL FASTING CHOLESTEROL IN HDL [MASS/VOLUM E] IN SERUM OR PLASMA 55 mg/dL 40 - 60 01/18 Specimen Type: SERUM No comment entered. Ordering Provider: JAE OBRIEN Report Released Date/Time: January 10, 2024 01:44 PM Reporting Lab: [facility] [address] [address] Performing Lab: [facility] [place] [facility] [address] [address] [place] TSH THYROTROPIN [UNITS/VOLU ME] IN SERUM OR PLASMA 1.23 u[IU]/ mL 0.35 - 5.00 01/18 Specimen Type: SERUM No comment entered. Ordering Provider: JAE OBRIEN Report Released Date/Time: January 10, 2024 01:44 PM Reporting Lab: [facility] [place] [facility] [address] [facility] [address] Performing Lab: [facility] [address] [address] [place] LIVER FUNCTION PROTEIN [MASS/VOLUM E] IN SERUM OR PLASMA 6.8 g/dL 6.0 - 8.3 01/18 Specimen Type: SERUM No comment entered. Ordering Provider: JAE OBRIEN Report Released Date/Time: January 10, 2024 01:44 PM Reporting Lab: [facility] [address] [facility] [address] [address] Performing Lab: [facility]ITALRDECAT[facility]ITALN [facility]USER[facility] [address] [address] [place] FUNCTION ALBUMIN [MASS/VOLUM E] IN SERUM OR PLASMA 3.6 g/dL 3.5 - 5.0 01/18 Specimen Type: SERUM No comment entered. Ordering Provider: JAE OBRIEN Report Released Date/Time: January 10, 2024 01:44 PM Reporting Lab: [facility] [address] [facility] [address] Performing Lab: [facility]ATRN [place] [facility] [address] [facility] [address] [place] LIVER FUNCTION ALKALINE PHOSPHATASE [ENZYMATIC ACTIVITY/VO LUME] IN SERUM OR PLASMA 67 U/L 40 - 150 01/18 Specimen Type: SERUM No comment entered. Ordering Provider: JAE OBRIEN Report Released Date/Time: January 10, 2024 01:44 PM Reporting Lab: [facility] [address] [address] Performing Lab: [facility] [address] [place] LIVER FUNCTION ASPARTATE AMINOTRANSF ERASE [ENZYMATIC ACTIVITY/VO LUME] IN SERUM OR PLASMA 14 U/L 5 - 34 01/18 Specimen Type: SERUM No comment entered. Ordering Provider: JAE OBRIEN Report Released Date/Time: January 10, 2024 01:44 PM Reporting Lab: [facility] [address] [address] Performing Lab: [facility] [place] [facility] [address] [facility] [address] [place] ALANINE AMINOTRANSF ERASE [ENZYMATIC ACTIVITY/VO LUME] IN SERUM OR PLASMA 15 U/L 01/18 Specimen Type: SERUM No comment entered. Ordering Provider: JAE OBRIEN Report Released Date/Time: January 10, 2024 01:44 PM Reporting Lab: [facility] [place] [address] Performing Lab: [facility] [place] [address] [address] [facility] LIVER FUNCTION BILIRUBIN.T OTAL [MASS/VOLUM E] IN SERUM OR PLASMA 1.3 mg/dL 0.2 - 1.2 01/18 H Specimen Type: SERUM No comment entered. Ordering Provider: JAE OBRIEN Report Released Date/Time: January 10, 2024 01:44 PM Reporting Lab: [facility] [address] [address] Performing Lab: [facility] [place] [address] [address] [place]IVER FUNCTION BILIRUBIN.D IRECT [MASS/VOLUM E] IN SERUM OR PLASMA 0.5 mg/dL 0 - 0.5 01/18 Specimen Type: SERUM No comment entered. Ordering Provider: JAE OBRIEN Report Released Date/Time: January 10, 2024 01:44 PM Reporting Lab: [facility] [place] [address] [address] Performing Lab: [facility] [address] [place] BASIC METABOLIC PANEL (fasting) UREA NITROGEN [MASS/VOLUM E] IN SERUM OR PLASMA 22 mg/dL 7 - 25 01/18 Specimen Type: SERUM No comment entered. Ordering Provider: JAE OBRIEN Report Released Date/Time: January 10, 2024 01:44 PM Reporting Lab: [facility] [address] [facility] [address] Performing Lab: [address] [address] [place] BASIC METABOLIC PANEL (fasting) GLUCOSE [MASS/VOLUM E] IN SERUM OR PLASMA 107 mg/dL 65 - 100 01/18 H Specimen Type: SERUM No comment entered. Ordering Provider: JAE OBRIEN Report Released Date/Time: January 10, 2024 01:44 PM Reporting Lab: [address] [address] Performing Lab: [address] [address] [place] BASIC METABOLIC PANEL (fasting) SODIUM [MOLES/VOLU ME] IN SERUM OR PLASMA 140 mmol/L 135 - 145 01/18 Specimen Type: SERUM No comment entered. Ordering Provider: JAE OBRIEN Report Released Date/Time: January 10, 2024 01:44 PM Reporting Lab: [address] [address] Performing Lab: [address] [address] [place] BASIC METABOLIC PANEL (fasting) POTASSIUM [MOLES/VOLU ME] IN SERUM OR PLASMA 4.3 mmol/L 3.5 - 5.0 01/18 Specimen Type: SERUM No comment entered. Ordering Provider: JAE OBRIEN Report Released Date/Time: January 10, 2024 01:44 PM Reporting Lab: [facility] [address] [address] Performing Lab: [facility] [address] [address] [place] in Practice[place] BASIC METABOLIC PANEL (fasting) CHLORIDE [MOLES/VOLU ME] IN SERUM OR PLASMA 107 mmol/L 100 - 110 01/18 Specimen Type: SERUM No comment entered. Ordering Provider: JAE OBRIEN Report Released Date/Time: January 10, 2024 01:44 PM Reporting Lab: [address] [address] Performing Lab: [facility] [address] [address] [place] BASIC METABOLIC PANEL (fasting) CARBON DIOXIDE, TOTAL [MOLES/VOLU ME] IN SERUM OR PLASMA 26 meq/L 20 - 30 01/18 Specimen Type: SERUM No comment entered. Ordering Provider: JAE OBRIEN Report Released Date/Time: January 10, 2024 01:44 PM Reporting Lab: [address] [address] Performing Lab: [address] [address] [place] BASIC METABOLIC PANEL (fasting) CREATININE [MASS/VOLUM E] IN SERUM OR PLASMA 0.89 mg/dL 0.50 - 1.40 01/18 Specimen Type: SERUM No comment entered. Ordering Provider: JAE OBRIEN Report Released Date/Time: January 10, 2024 01:44 PM Reporting Lab: [address] [address] Performing Lab: [address] [address] [place] BASIC METABOLIC PANEL (fasting) GLOMERULAR FILTRATION RATE/1.73 SQ M.PREDICTED [VOLUME RATE/AREA] IN SERUM, PLASMA OR BLOOD BY CREATININE- BASED FORMULA (CKD-EPI 2020) 90 mL/min 60 01/18 Specimen Type: SERUM No comment entered. Ordering Provider: JAE OBRIEN Report Released Date/Time: January 10, 2024 01:44 PM Reporting Lab: [facility] [address] [address] Performing Lab: [facility] [address] [address] [place] CALCIUM CALCIUM [MASS/VOLUM E] IN SERUM OR PLASMA 8.5 mg/dL 8.5 - 10.2 01/18 Specimen Type: SERUM No comment entered. Ordering Provider: JAE OBRIEN Report Released Date/Time: January 10, 2024 01:44 PM Reporting Lab: [address] [address] Performing Lab: [address] [address] [place] URIC ACID URATE [MASS/VOLUM E] IN SERUM OR PLASMA 3.1 mg/dL 3.5 - 7.2 01/18 L Specimen Type: SERUM No comment entered. Ordering Provider: JAE OBRIEN Report Released Date/Time: January 10, 2024 01:44 PM Reporting Lab: [address] [address] Performing Lab: [address] [address] [place] PSA PROSTATE SPECIFIC AG [MASS/VOLUM E] IN SERUM OR PLASMA < 0.10ng /mL 0.00 - 4.00 01/18 Specimen Type: SERUM No comment entered. Ordering Provider: JAE OBRIEN Report Released Date/Time: January 10, 2024 01:44 PM Reporting Lab: [address] [address] Performing Lab: [address] [address] [place] VITAMIN D (25-OH) 25-HYDROXYV ITAMIN D3 [MASS/VOLUM E] IN SERUM OR PLASMA 35 ng/mL 20 - 50 01/18 Specimen Type: SERUM No comment entered. Ordering Provider: JAE OBRIEN Report Released Date/Time: January 10, 2024 01:44 PM Reporting Lab: [address] [address] Performing Lab: [address] [address] [place] CBC AND DIFF (AUTO) LEUKOCYTES [#/VOLUME] IN BLOOD BY AUTOMATED COUNT 6.19 10*3/u L 4.50 - 11.00 01/18 Specimen Type: BLOOD No comment entered. Ordering Provider: JAE OBRIEN Report Released Date/Time: January 10, 2024 01:44 PM Reporting Lab: [facility] [address] [address] Performing Lab: [address] [address] [place] CBC AND DIFF (AUTO) ERYTHROCYTE S [#/VOLUME] IN BLOOD BY AUTOMATED COUNT 4.35 10*6/u L 4.23 - 5.66 01/18 Specimen Type: BLOOD No comment entered. Ordering Provider: JAE OBRIEN Report Released Date/Time: January 10, 2024 01:44 PM Reporting Lab: [address] [address] Performing Lab: [address] [address] [place] CBC AND DIFF (AUTO) HEMOGLOBIN [MASS/VOLUM E] IN BLOOD 13.5 g/dL 12.8 - 17 01/18 Specimen Type: BLOOD No comment entered. Ordering Provider: JAE OBRIEN Report Released Date/Time: January 10, 2024 01:44 PM Reporting Lab: [address] [address] Performing Lab: [address] [address] [place] CBC AND DIFF (AUTO) HEMATOCRIT [VOLUME FRACTION] OF BLOOD BY AUTOMATED COUNT 41.4 39.2 - 50.4 01/18 Specimen Type: BLOOD No comment entered. Ordering Provider: JAE OBRIEN Report Released Date/Time: January 10, 2024 01:44 PM Reporting Lab: [address] [address] Performing Lab: [address] [address] [place] CBC AND DIFF (AUTO) MCV [ENTITIC VOLUME] BY AUTOMATED COUNT 95.2 fL 82 - 99 01/18 Specimen Type: BLOOD No comment entered. Ordering Provider: JAE OBRIEN Report Released Date/Time: January 10, 2024 01:44 PM Reporting Lab: [facility]RT[facility] ALABAMATRN [address] [address] Performing Lab: [facility]ITALRDECAT[facility]N [address] [address] [place] CBC AND DIFF (AUTO) MCHC [MASS/VOLUM E] BY AUTOMATED COUNT 32.6 g/dL 30.8 - 35.1 01/18 Specimen Type: BLOOD No comment entered. Ordering Provider: JAE OBRIEN Report Released Date/Time: January 10, 2024 01:44 PM Reporting Lab: [facility] [address] [address] Performing Lab: [facility] [address] [address] [place] CBC AND DIFF (AUTO) PLATELETS [#/VOLUME] IN BLOOD BY AUTOMATED COUNT 164 10*3/u L 140 - 360 01/18 Specimen Type: BLOOD No comment entered. Ordering Provider: JAE OBRIEN Report Released Date/Time: January 10, 2024 01:44 PM Reporting Lab: [facility] [address] [address] Performing Lab: [facility]ITALRDE[facility]ITALN [address] [address] [place] CBC AND DIFF (AUTO) ERYTHROCYTE DISTRIBUTIO N WIDTH [RATIO] BY AUTOMATED COUNT 14.9 12.0 - 16.0 01/18 Specimen Type: BLOOD No comment entered. Ordering Provider: JAE OBRIEN Report Released Date/Time: January 10, 2024 01:44 PM Reporting Lab: [facility] [address] [address] Performing Lab: [facility] [address] [address] [place] CBC AND DIFF (AUTO) MONOCYTES [#/VOLUME] IN BLOOD BY AUTOMATED COUNT 0.54 10*3/u L 0.30 - 1.10 01/18 Specimen Type: BLOOD No comment entered. Ordering Provider: JAE OBRIEN Report Released Date/Time: January 10, 2024 01:44 PM Reporting Lab: [facility] [place] [address] [address] Performing Lab: [facility] [address] [address] [place] CBC AND DIFF (AUTO) MCH [ENTITIC MASS] BY AUTOMATED COUNT 31.0 pg 26.2 - 32.6 01/18 Specimen Type: BLOOD No comment entered. Ordering Provider: JAE OBRIEN Report Released Date/Time: January 10, 2024 01:44 PM Reporting Lab: [facility] [place] [address] [address] Performing Lab: [facility] [address] [address] [place] CBC AND DIFF (AUTO) NEUTROPHILS /100 LEUKOCYTES IN BLOOD BY AUTOMATED COUNT 59.7 43.7 - 75.8 01/18 Specimen Type: BLOOD No comment entered. Ordering Provider: JAE OBRIEN Report Released Date/Time: January 10, 2024 01:44 PM Reporting Lab: [facility]ITALRT[facility]ATRN [place] [address] [address] Performing Lab: [facility] [place] [address] [address] [place] CBC AND DIFF (AUTO) LYMPHOCYTES /100 LEUKOCYTES IN BLOOD BY AUTOMATED COUNT 25.4 14.0 - 42.3 01/18 Specimen Type: BLOOD No comment entered. Ordering Provider: JAE OBRIEN Report Released Date/Time: January 10, 2024 01:44 PM Reporting Lab: [facility] [place] [address] [address] Performing Lab: [facility]ITALRL TRN [facility] [address] [address] [place] CBC AND DIFF (AUTO) MONOCYTES/1 00 LEUKOCYTES IN BLOOD BY AUTOMATED COUNT 8.7 5.1 - 13.7 01/18 Specimen Type: BLOOD No comment entered. Ordering Provider: JAE OBRIEN Report Released Date/Time: January 10, 2024 01:44 PM Reporting Lab: [facility] [place] [address] [address] Performing Lab: [facility] [place] [address] [address] [place] CBC AND DIFF (AUTO) EOSINOPHILS /100 LEUKOCYTES IN BLOOD BY AUTOMATED COUNT 4.2 0.4 - 6.8 01/18 Specimen Type: BLOOD No comment entered. Ordering Provider: JAE OBRIEN Report Released Date/Time: January 10, 2024 01:44 PM Reporting Lab: [facility] [place] [address] [address] Performing Lab: [facility] [address] [address] [place] CBC AND DIFF (AUTO) BASOPHILS/1 00 LEUKOCYTES IN BLOOD BY AUTOMATED COUNT 1.5 0.1 - 2.0 01/18 Specimen Type: BLOOD No comment entered. Ordering Provider: JAE OBRIEN Report Released Date/Time: January 10, 2024 01:44 PM Reporting Lab: [facility] [address] [address] Performing Lab: [facility] [address] [address] [place] CBC AND DIFF (AUTO) NEUTROPHILS [#/VOLUME] IN BLOOD BY AUTOMATED COUNT 3.70 10*3/u L 2.20 - 7.60 01/18 Specimen Type: BLOOD No comment entered. Ordering Provider: JAE OBRIEN Report Released Date/Time: January 10, 2024 01:44 PM Reporting Lab: [facility] [address] [address] Performing Lab: [facility] [address] [address] [place] CBC AND DIFF (AUTO) LYMPHOCYTES [#/VOLUME] IN BLOOD BY AUTOMATED COUNT 1.57 10*3/u L 1.00 - 3.20 01/18 Specimen Type: BLOOD No comment entered. Ordering Provider: JAE OBRIEN Report Released Date/Time: January 10, 2024 01:44 PM Reporting Lab: [facility] [place] [facility] [address] [address] Performing Lab: [facility]ITALRL TRN [facility]USER[facility] [address] [address] [place] CBC AND DIFF (AUTO) EOSINOPHILS [#/VOLUME] IN BLOOD BY AUTOMATED COUNT 0.26 10*3/u L 0.03 - 0.44 01/18 Specimen Type: BLOOD No comment entered. Ordering Provider: JAE OBRIEN Report Released Date/Time: January 10, 2024 01:44 PM Reporting Lab: [facility]ITALRL WSTRN [facility]ITALUSER[facility] [address] [facility] [address] Performing Lab: [facility]ITALRTAN[facility] ALABAMATRN [facility]ITALUSE[address] [address] [place] CBC AND DIFF (AUTO) BASOPHILS [#/VOLUME] IN BLOOD BY AUTOMATED COUNT 0.09 10*3/u L 0.01 - 0.13 01/18 Specimen Type: BLOOD No comment entered. Ordering Provider: JAE OBRIEN Report Released Date/Time: January 10, 2024 01:44 PM Reporting Lab: [facility]ITALRL TRN [facility]ITALUSEROCKE[facility] [address] [facility] [address] Performing Lab: [facility]ITALUSE[address] [address] [place] CBC AND DIFF (AUTO) IMMATURE GRANULOCYTE S/100 LEUKOCYTES IN BLOOD BY AUTOMATED COUNT 0.5 0.0 - 0.7 01/18 Specimen Type: BLOOD No comment entered. Ordering Provider: JAE OBRIEN Report Released Date/Time: January 10, 2024 01:44 PM Reporting Lab: [facility]ITALRL TRN [facility]ITAL[facility] [address] [address] Performing Lab: [facility]ITALRTAN[facility] ALABAMATRN [facility]ITALUSE[address] [address] [place] CBC AND DIFF (AUTO) IMMATURE GRANULOCYTE S [#/VOLUME] IN BLOOD 0.03 10*3/u L 0.00 - 0.06 01/18 Specimen Type: BLOOD No comment entered. Ordering Provider: JAE OBRIEN Report Released Date/Time: January 10, 2024 01:44 PM Reporting Lab: [facility] [place] [facility] [address] [facility] [address] Performing Lab: [facility] [place] [facility] [address] [address] [place] Vital Signs Combined list of inpatient and outpatient Vital Signs from Department of Defense and Veterans Affairs, ranging from 12 months to all on record, depending upon the facility. Vital Sign Value Date Comments Source SYSTOLIC BLOOD PRESSURE 122 01/25/2024 13:21:24 THICKET DIASTOLIC BLOOD PRESSURE 66 01/25/2024 13:21:24 THICKET Encounters Combined list of: 1) Encounters from [...] [facility] [id number] 08/16 [facility] En[facility] [id number] 08/16 [facility] En[facility] [id number] 08/22 [facility] En[facility] [id number] 12/04 [facility] En[facility] [id number] 12/04 [facility] En[facility] [id number] 12/06 [facility] En[facility] [id number] 12/18 [facility] En[facility] [id number] 12/18 [facility] En[facility] [id number] 12/22 [facility] En[facility] [id number] 12/26 [facility] En[facility] [id number] 01/10 [facility] En[facility] [id number] 01/11 [facility] [id number] 01/11 [facility] En[facility] [id number] 01/13 [facility] [place] [facility] O/P EST MOD 30 MIN [id number] Diagnos is: ICD-10- CM 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, unspeci fiOLI Hayes 01/24 [facility] En[facility] [id number] 04/20 [facility] [place] [facility] (89[facility] SPECIAL SUPPLIES PHYS/QHP [id number] Diagnos is: ICD-10- CM G47.30 Sleep apnea, unspeci fiVERNELL Calvert 05/08 [facility]7[facility] En[facility] [id number] 05/14 [facility] En[facility] [id number] OLI OBRIEN 05/14 [facility] En[facility] [id number] RAKESH LUX 08/27 [facility] En[facility] [id number] 08/27 [facility] En[facility] [id number] 09/04 [facility] En[facility] [id number] 09/05 [facility] En[facility] [id number] 09/05 [facility] [place] [facility] Social History Combined list of available smoking, tobacco, and other social history from Department of Defense and Veterans Affairs facilities. Social History Type Response Date Comment Source Tobacco smoking status [facility]-TOBACCO FORMER USER 01/25/2024 THICKET History of tobacco use [facility] NEVER USED 01/25/2024 THICKET History of tobacco use [place] FORMER USER 07/19/2022 THICKET History of tobacco use [place]AC[place] FORMER USER 02/26/2021 THICKET History of tobacco use [place]-TOBAC[facility] QUIT 15 YRS OR MORE 02/18/2020 THICKET History of tobacco use [place]-TOBACCO QUIT 15 YRS OR MORE 01/26/2019 THICKET History of tobacco use QUIT TOBACCO USE > 7 YEARS AGO 02/27/2018 does nkt smoke THICKET History of tobacco use QUIT TOBACCO USE > 7 YEARS AGO 02/11/2017 stopped smoking 10 years ago THICKET History of tobacco use LIFETIME NON TOBACCO USER 09/03/2016 [facility] History of tobacco use QUIT TOBACCO USE > 7 YEARS AGO 01/30/2016 THICKET History of tobacco use PREVIOUS TOBACCO USER 09/03/2015 quit 6Y ago [facility] History of tobacco use QUIT TOBACCO USE 1-7 YEARS AGO 01/13/2015 quit 6 years ago THICKET History of tobacco use LIFETIME NON TOBACCO USER 09/11/2014 [facility] History of tobacco use LIFETIME NON TOBACCO USER 07/05/2014 Mera [facility] DEPT [facility] History of tobacco use PREVIOUS TOBACCO USER 11/27/2013 [facility] History of tobacco use LIFETIME NON TOBACCO USER 11/23/2013 Mera GUAMAN DEPT [facility] History of tobacco use PREVIOUS TOBACCO USER 07/17/2013 quit 5 years ago [facility] History of tobacco use QUIT TOBACCO USE 1-7 YEARS AGO 03/30/[address] quit smoking 5 years ago. THICKET History of tobacco use LIFETIME NON TOBACCO USER 06/23/2012 [facility] History of tobacco use QUIT TOBACCO USE 1-7 YEARS AGO 04/25/2012 THICKET History of tobacco use LIFETIME NON TOBACCO USER 10/06/2011 [facility] History of tobacco use LIFETIME NON TOBACCO USER 06/21/2011 [facility] History of tobacco use LIFETIME NON TOBACCO USER 12/15/2010 [facility] History of tobacco use PREVIOUS TOBACCO USER 07/02/2010 patient quit 5 years ago. [facility] History of tobacco use LIFETIME NON TOBACCO USER 11/26/2009 [facility] History of tobacco use PREVIOUS TOBACCO USER 06/24/2009 quit smoking 4 yrs ago [facility] History of tobacco use LIFETIME NON TOBACCO USER 07/01/2008 quit 2.5 years ago. [facility] History of tobacco use LIFETIME NON TOBACCO USER 06/28/2007 [facility] History of tobacco use LIFETIME NON TOBACCO USER 02/24/2005 [facility] History of tobacco use REFUSED SMOKING CESSATION PROGRAM 11/05/2003 2 cigarettes a day [facility] History of tobacco use REFUSED SMOKING CESSATION PROGRAM 05/07/2003 [facility] History of tobacco use REFUSED SMOKING CESSATION PROGRAM 10/30/2002 [facility] History of tobacco use PREVIOUS SMOKER/USER 03/01/2002 quit 1999. [facility] History of tobacco use REFUSED TOBACCO COUNSELING/PROGRAM 06/09/2001 [facility] Plan of Care List of future care activities from [facility] facilities. Additional future care activities may be listed in the Assessment and Plan section. Date/Time Care Activity Care Activity Detail Facili ty 01/09/2025 AMBULATORY - MEDICINE AMBULATORY - MEDICI [facility] Advance Directives List of completed, amended, or rescinded Advance Directives on record at [facility] facilities. An actual copy of the Directive is not included. Date Advance Directive Provider Source 06/15/2001 ADVANCE DIRECTIVE DISCUSSION TIT[facility] 06/09/2001 ADVANCE DIRECTIVE JAE WATERMAN [facility]
[2024-12-20 16:01] LABS: MANUAL DIFF FLAG NO
[2024-12-20 16:06] LABS: Basophils Absolute Auto 0.1 X10*3/uL (0.0-0.2); Basophils Percent Auto 1.1 % (0-2); Eosinophils Absolute Auto 0.5 X10*3/uL (0.0-0.4); Eosinophils Percent Auto 6.1 % (0-4); Hematocrit 44.6 % (42.0-52.0); Hemoglobin 14.7 g/dl (14.0-18.0); Imm Gran Abs Auto 0.04 X10*3/uL (0.00-0.03); Imm Gran Pct Auto 0.5 % (0.0-0.4); Lymphocytes Percent Auto 23.1 % (20-40); Mean Corpuscular Hemoglobin 30.6 pg (27.0-33.0); Mean Corpuscular Volume 92.7 fL (80.0-98.0); Mean Platelet Volume 10.9 fL (9.4-12.4); Monocytes Absolute Auto 0.7 X10*3/uL (0.1-1.2); Neutrophils Absolute Auto 5.3 x10*3/uL (2.0-8.3); Neutrophils Percent Auto 61.2 % (45-73); Platelet Count 187 X10*3/uL (160-400); Red Blood Count 4.81 X10*6/uL (4.60-5.80); Red Cell Distribution Width 14.6 % (11.0-16.0); White Blood Count 8.7 X10*3/uL (4.8-10.8)
[2024-12-20 16:09] LABS: Appearance Urine Clear; Color Urine Yellow; Glucose Urine UA Negative (Negative); Leukocyte Esterase Urine Negative (Negative); Nitrite Urine Negative (Negative); Specific Gravity - Urine >= 1.030 (1.005-1.025); Urine Blood Negative (Negative); Urine Ketones Negative (Negative); Urine Protein Negative (Neg-Trace)
[2024-12-20 16:23] LABS: Cholesterol 154 mg/dL (<200); HDL Cholesterol 52 mg/dL (>40); LDL Cholesterol Calculated 74 mg/dL (<100); Triglycerides 144 mg/dL (<150)
[2024-12-20 16:57] LABS: Prostate Specific Antigen Scr < 0.10 ng/mL (<0.05-4.0)
== END 2024-12-20 14:24 | disposition home or self-care (01) ==
LOC: HO.HMGCLDS 14:23
PROVIDERS: Internal Medicine Cardiovascular Disease; PCP Nurse Practitioner Family; Visit Provider Nurse Practitioner Family
DX: E78.5 Hyperlipidemia, unspecified (principal); I10 Essential (primary) hypertension; I25.10 Atherosclerotic heart disease of native coronary artery without angina pectoris; Z12.5 Encounter for screening for malignant neoplasm of prostate
CPT/HCPCS: 36415; 80061; 81003; 84153; 85025

== ENCOUNTER 2024-12-27 13:18 | Outpatient (AMB) | payer MEDICARE, BC, SELFPAY ==
--- NOTE | 2024-12-27 13:21 | A.OFFPC_ITS ---
Vital Signs 12/27/24 13:22 12/27/24 14:01 Height 5 ft 6 in Weight 248 lb BMI 40.0 BP 142/90 H 126/86 Blood Pressure Location Rt brachial Rt brachial Position Sitting Sitting Pulse 68 Pulse Source Pulse Oximeter Pulse Oximetry (%) 95 Oxygen Delivery Method Room Air Intake Visit Reasons: Follow up Setup Technician Required: No Accompanied by: Self / Same As Patient Allergies No Known Allergies Allergy (Verified 12/27/24 13:22) Tobacco use date assessed: 12/27/24 Fall risk assessment: No Falls in past year Last assessed Fall Risk: 12/27/24 Dental Screening Dental Screen Date: 12/27/24 Did you have a dental visit in the last 12 months?: Yes Did you have a dental problem in the last 6 months where you did not have access to dental care?: No Was dental information given to patient?: Patient has dentist HPI Follow up HPI Details Chief Complaint The patient reports multiple facial surgeries related to skin cancer and seeks follow-up care. History of Present Illness The patient is a 74-year-old male presenting with recent facial skin cancer surgeries. Over the last two months, he has undergone approximately seven operations related to skin cancer excision and subsequent reconstructive plastic surgery due to extensive tissue removal from the cancer procedures. While stating he feels well overall, he firmly denies issues such as chest pain, dyspnea, headaches, vision problems, or dizziness. [facility], and his latest cholesterol panel indicates an LDL of 74 mg/dL. The patient voices unease about potential inaccuracies in current lab results, necessitating a repeat to ensure accurate monitoring of his health status. Social History - Regular visits to the [facility] for healthcare services. Health Maintenance - Repeat labs planned due to concerns ab out current lab report accuracy, despite previous normal LDL cholesterol results. Review of Systems - Cardiovascular: Denies chest pain and shortness of breath. - Neurological: Denies headaches, vision changes, and dizziness. Physical Exam General: Cooperative, healthy appearing, comfortable, no acute distress and well developed, morbidly obese Orientation: Patient oriented x3 Limitations: No limitations Head: Normal to inspection Ears: Hearing grossly normal bilaterally Nose: Normal external nose present Face and sinus: Normal facial exam Eyes: Appearance normal, both eyes and all related structures Neck: Normal visual inspection and Yes full ROM Respiratory: Normal respiratory effort and able to speak in complete sentences. Clear to auscultation bilaterally Cardiovascular: Regular rate and rhythm. Normal S1 and S2 GI: Normal to inspection. Soft to palpation and nontender Skin: Multiple surgeries related to skin cancer on the face, plastic surgery noted (especially to right external nare). just lateral to left nare, faint erythema Neuro: Patient oriented x3 Extremities: Normal to inspection Results - Labs: Most recent cholesterol panel sh owed LDL of 74 mg/dL. No anemia noted on recent laboratory assessments. Plan I will address the patient's recent multiple facial skin cancer surgeries with follow-up and repeat labs to resolve potential discrepancies in prior test results. Management will continue based on monitoring his LDL, showing successful control, and evaluating any surgical sequelae, involving coordination with his [facility] support to manage recovery and health parameters efficiently. Discussion Notes I discussed with the patient the importance of ongoing monitoring of his health status post-surgeries and addressed his concerns about current laboratory result discrepancies. I explained the plan to repeat the lab tests to ensure accuracy, providing context for why maintaining consistent laboratory data is crucial in his post-operative health management. I reassured him about his cholesterol management, highlighting the latest LDL result as satisfactory. We reviewed the necessity of continuous oversight of his surgical recovery, adjusting care plans based on outcomes and collaboration with his [facility] team to coordinate comprehensive care. Patient Instructions - Follow up for repeat laboratory tests to verify current health status. - Monitor recovery from surgeries and re port any concerning symptoms. - Continue with current medication and h ealth regimen. - Seek immediate care if experiencing an y new or worsening symptoms. 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 Son No problems noted. Son No problems noted. Social History Household Members: None Housing: Condominium Do you presently have visiting nurse or other home services: No Alcohol intake: never Patient Tobacco Use Status: Former Tobacco user e-Cigarette/Vaping Use: Never Used Second Hand Smoke Exposure: No Substance Use Type: Marijuana service: Yes Current occupational status: retired Current occupation: rt handed Cognitive needs: No Hearing needs: No Vision needs: No Questionnaire PHQ-9 Over the last 2 weeks, how often have you been bothered by any of the following problems? 1. Little interest or pleasure in doing things: not at all 2. Feeling down, depressed, or hopeless: not at all 3. Trouble falling or staying asleep, or sleeping too much: not at all 4. Feeling tired or having little energy: not at all 5. Poor appetite or overeating: not at all 6. Feeling bad about yourself - or that you are a failure or have let yourself or your family down: not at all 7. Trouble concentrating on things, such as reading the newspaper or watching television: not at all 8. Moving or speaking so slowly that other people could have noticed. Or the opposite - being so fidgety or restless that you have been moving around a lot more than usual: not at all 9. Thoughts that you would be better off or of hurting yourself in some way: not at all Total score: 0 Depression Screening Interpretation: Negative Depression Screening Done: Yes 20593 - PHQ-9 Billing: Yes Source: Developed by Drs. Dev Moya, Yesi Moseley, Nikunj Crenshaw and colleagues, with an educational nasrin from [employer]. Thrive Questionnaire Date Thrive assessed: 12/27/24 I am a: Patient What is your living situation today?: I have a steady place to live Within the past 12 months, did the food you bought not last and you didn't have the money to get more?: Never true Within the past 12 months, did you worry whether your food would run out before you got money to buy more?: Never true Do you have trouble paying for medicines?: No Do you have trouble getting transportation to medical appointments?: No Do you have trouble paying your heating and electricity bill?: No Do you have trouble taking care of your child, family member or friend?: No Do you have trouble with day-to-day activities such as bathing, preparing meals, shopping, managing finances, etc.?: No Are you currently unemployed and looking for a job?: No Are you interested in more education?: No Please select the resources that you would like help with: None Currently or been in a relationship where the following occur: I choose not to answer THRIVE Score: 0 AUDIT C Alcohol Use Questionnaire (AUDIT-C) 1. How often do you have a drink containing alcohol?: Never 3. How often do you have six or more drinks on one occasion?: Never Total Score: 0 Score Reviewed/Action Taken: Yes ALIRIO-7 AMB Questionnaire ALIRIO-7 Date ALIRIO - 7 assessed: 12/27/24 Feeling nervous, anxious, or on edge: 1 = Several days Not being able to stop or control worryin = Several days Worrying too much about different things: 1 = Several days Trouble relaxin = Not at all Being so restless that it is hard to sit still: 0 = Not at all Becoming easily annoyed or irritable: 0 = Not at all Feeling afraid as if something awful might happen: 0 = Not at all Total ALIRIO-7 score (0-4 normal; 5-9 mild; 10-14 moderate; 15-21 severe): 3 Source: Developed by Drs. Dev Moya, Yesi Moseley, Nikunj Crenshaw and colleagues, with an educational nasrin from [employer]. ALIRIO-7 Assessment Billing ALIRIO-7 Assessment Tool: ALIRIO-7 Assessment 81483 Physical exam (Primary Care) Vital Signs: Last Vital Signs Pulse 68 12/27/24 13:22 BP 142/90 H 12/27/24 13:22 Pulse Ox 95 12/27/24 13:22 Oxygen Delivery Method Room Air 12/27/24 13:22 BMI result Body Mass Index 40.0 Tobacco/Smoking Status: Tobacco use Status Tobacco use date assessed 12/27/24 12/27/24 13:23 Patient Tobacco Use Status Former Tobacco user 12/27/24 13:23 e-Cigarette/Vaping Use Never Used 12/27/24 13:23 PHQ-9: PHQ-9 Score PHQ-9: Total score 0 12/27/24 13:48 Depression Screening Interpretation: Negative Thrive Assessment: Date of Thrive Assessment Date Thrive assessed 12/27/24 12/27/24 13:23 Currently or been in a relationship where the following occur: I choose not to answer Coding Level of Care Code Est Pt Level 3 (90449) Diagnoses Hyperlipidemia E78.5 HTN (hypertension) I10 B12 deficiency E53.8 History of gout Z87.39 Elevated PSA R97.20 Additional Codes ALIRIO-7 Assessment Billing - ALIRIO-7 Assessment Tool: ALIRIO-7 Assessment 88289 ([id number]) PHQ-9 - 74714 - PHQ-9 Billing: Yes ([id number]) Assessment & Plan Assessment & Plan (1) Hyperlipidemia: Code(s): E78.5 - Hyperlipidemia, unspecified Category: Medical (2) HTN (hypertension): Code(s): I10 - Essential (primary) hypertension Category: Medical (3) B12 deficiency: Code(s): E53.8 - Deficiency of other specified B group vitamins Category: Medical (4) History of gout: Code(s): Z87.39 - Personal history of other diseases of the musculoskeletal system and connective tissue Category: Medical (5) Elevated PSA: Code(s): R97.20 - Elevated prostate specific antigen [PSA] Category: Medical Plan . Orders: Orders Comprehensive Addison. Panel Fast Today E78.5 - Hyperlipidemia, unspecified, I10 - Essential (primary) hypertension TSH reflex Free T4 Today E78.5 - Hyperlipidemia, unspecified, I10 - Essential (primary) hypertension UA CC w/rflx Micro + Cult Today E78.5 - Hyperlipidemia, unspecified, I10 - Essential (primary) hypertension Vitamin B12 and Folate Today E53.8 - Deficiency of other specified B group vitamins Uric Acid Today Z87.39 - Personal history of other diseases of the musculoskeletal system and connective tissue Prostate Specific Antigen Scr Today R97.20 - Elevated prostate specific antigen [PSA] Complete Blood Count Auto Diff Today E78.5 - Hyperlipidemia, unspecified, I10 - Essential (primary) hypertension Lipid Panel Today E78.5 - Hyperlipidemia, unspecified, I10 - Essential (primary) hypertension
[2024-12-27 13:22] VITALS: BP 142/90; PULSE 68; O2SAT 95; BMI 40.0
--- OUTSIDE RECORDS SUMMARY | 2024-12-27 13:52 | XMS_ITS | Clinical Summary ---
Author Organization [facility] Address [address] [place] [id number] Care Team Providers Care Plumber Apprentice Name Role Phone Unavailable Primary Care Provider [...]
--- OUTSIDE RECORDS SUMMARY | 2024-12-27 13:53 | XMS_ITS | Continuity of Care Document ---
Author Name [facility] Organization [facility] Care Team Providers Care Personnel Director Name Role Phone [facility] Unavailable Unavailable Problems Combined list of problems from Department of Defense and Veterans Affairs facilities. It does not include entries that were removed or entered in error. Problem Status Onset Date Problem Type Date of Resolution Comments Source Cholecystectomy planned Active 2020 Condition May 12, 2021 Entered By: JAE OBRIEN Comment: Cholecystectomy planned 05/18/21 [facility]. Managed by [facility]. [facility] [place] [facility] Actinic keratosis (SNOMED CT 448924546) Active Condition [facility] Allergic rhinitis due to other allergen Active Condition [facility] ARTHRITIS,CHRONIC Active Condition [facility] Navarrete's esophagus with esophagitis Active Condition Jan 24 Entered By: JAE OBRIEN Comment: Dx of Barretts per EGD Done 2022; Take PPIJan 25, 2024 Entered By: JAE OBRIEN Comment: repeat EGD 2025 (or as directed by GI) [place] Benign hypertension Active Condition May 24, 2018 Entered By: JAE OBRIEN Comment: US, Aorta JUN 01: no AAA [place] choecystectomy Active Condition December Entered By: JAE OBRIEN Comment: Cholecystectomy JUN 04: Not Emergent Case [place] Chronic Maxillary Sinusitis Active Condition [facility] Chronic post-traumatic stress disorder Active Condition [facility] [place] [facility] Chronic post-traumatic stress disorder (SNOMED CT 058891830) Active Condition Sep 27, 2007 Entered By: YOUSUF [place] Comment: with panic attacks and agoraphobia [facility] Chronic post-traumatic stress disorder following combat (SNOMED CT 068369711) Active Condition December Entered By: HODAN PALUMBO Comment: updated. [place] Chronic rhinitis Active Condition [facility] Colitis Active Condition Mar 23 Entered By: JAE OBRIEN Comment: Diagnostic Colonoscopy Planned MAY 07;Mar 23, 2023 Entered By: JAE OBRIEN Comment: Dx of Colitis in ED in APR 06: Presented to ED w/ Hematochezia [place] Coronary arteriosclerosis Active Condition Mar 23 Entered By: JAE OBRIEN Comment: NE Yrs Ago ; Still Sees Cardio as of Mar Entered By: JAE OBRIEN Comment: pending EKG, TTE, Pharmacologic Stress Test 2023 via Private Cardio [place] Coronary artery disease (SNOMED CT 81342331) Active Condition Apr 25, 2012 Entered By: JAE OBRIEN Comment: AMI; Stented, MAR 26, [facility] Mar Entered By: JAE OBRIEN Comment: Sees Private [facility] as of MARCH 01Au2017 Entered By: [...] as of 2020 - Stable per pt [place] Coronary atherosclerosis (SNOMED CT 593029989) Active Condition Jun Entered By: JAE MARAVILLA Comment: MARCH 2012: Stent x 1 [facility] Depressive disorder Active Condition January 01, 2022 Entered By: HODAN PALUMBO Comment: updated. 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 [place] History of malignant melanoma of the skin Active Condition [facility] History of Melanoma (Removed) Active Condition [facility] History of melanoma in situ of skin Active Condition Apr 25, 2012 Entered By: JAE OBRIEN Comment: Excised, Bx NOV 24; Graft; no METS per PET; [facility] VASep 2011 Entered By: JAE OBRIEN [facility] Entered By: JAE OBRIEN Comment: Also Goes [place] [facility]ERM as of MARCH 01 [place] Hypercholesterolemia (SNOMED CT 42972847) Active Condition [facility] [place] HYPERLIPIDEMIA Active Condition [facility] Hypertension (SNOMED CT 72663696) Active Condition [facility] Hypnotic or anxiolytic dependence, continuous Active Condition [facility] Hypogonadism (SNOMED CT 45640350) Active Condition [facility] Hypothyroidism (SNOMED CT 39970404) Active Condition [facility] Insomnia * (ICD-9-CM 780.52) Active Condition [facility] Lumbar radiculopathy Active Condition Apr 02, 2014 [...] MRI of L Spine FEBRUARY 02 at [facility];January 06, 2021 Entered By: JAE OBRIEN Comment: Planned Appt w/ Neuro Surg [facility] 2020Oct 2013 Entered By: KELVIN DARLING Comment: Vandemerestate Dr. Gaines L5-S1 herniation, microdiscectomy 05/2014 [place] Malignant melanoma of skin of lower limb, including hip (ICD-9-CM 172.7) Active Condition [facility] Mixed hyperlipidemia Active Condition [facility] Morbid obesity Active Condition [facility] Neoplasm of uncertain behavior of skin Active Condition [facility] Noncompliance with Treatment (ICD-9-CM V15.81) Active Condition [facility] Obesity * (ICD-9-CM 278.00) Active Condition [facility] Obstructive sleep apnea of adult (SNOMED CT 5536355527109) Active Condition Jun 23, 2012 Entered By: JAE MARAVILLA Comment: Beeap [facility] Osteoarthritis Active Condition Apr 152011 Entered By: JAE OBRIEN Comment: Both Knees; has had Inj's [place] Postsurgical Percutaneous Transluminal Coronary Angioplasty Status Active Condition [facility] Prostate cancer Active Condition Mar 07, 2014 Entered By: JAE OBRIEN Comment: Cysto FEBRUARY 25: Neg CA; see Note Dated 05 MARCH 14Jul 2013 Entered By: JAE OBRIEN Comment: Presented ED [facility] w/ Gross HemeJul 2013 Entered By: JAE OBRIEN Comment: Cysto Neg Bladder Tumor; +Clots; no Active BleedingJul 2013 Entered By: JAE OBRIEN Comment: see URO noted dated Mar 14Jul 2013 Entered By: JAE OBRIEN Comment: went EDSingh on FEBRUARY 25: Leg Pain '; DVT Ruled OutJul 2013 Entered By: AJE OBRIEN Comment: Dx: Sciatica vs. Zoster (so, was not a clot from bladder)Feb 25, 2017 Entered By: JAE OBRIEN Comment: Cysto, JANUARY [address] Garrison [phone]; Indication: Macroscop HematuriaJul 2016 Entered By: JAE [...] RT JUN 05; Rx's Testost GEL ONCO [facility] Renal cyst Active Condition Apr 09 [...] Entered By: JAE OBRIEN Comment: Nothing Supicious [place] screeing malignant neoplasm colon Active Condition December 17, 2021 Entered By: JAE OBRIEN Comment: NEG Colon-Guard JUN 04 [place] Sleep apnea (SNOMED CT 17138029) Active Condition Apr 25, 2012 Entered By: JAE OBRIEN Comment: has CPAP [place] TESTOSTERONE Active Condition Apr 25, 2012 Entered By: JAE OBRIEN Comment: Low Testos - on Gel [place] Unspecified Psychosocial Circumstance (ICD-9-CM V62.9) Active Condition [facility] Anxiety Inactive Condition 09/27/2007 [facility] DEPRESSION Inactive Condition 09/27/2007 [facility] DIVERTICULOSIS Inactive Condition 06/23/2012 [facility] Dry Eye * (ICD-9-CM 375.15) Inactive Condition 06/23/2012 [facility] HEME POSITIVE Inactive Condition 06/22/2012 [facility] HEMORRHOID,INTERNAL Inactive Condition 06/23/2012 [facility] HIATAL HERNIA Inactive Condition 06/22/2012 [facility] KERATOSIS,ACTINIC Inactive Condition 06/23/2012 [facility] KNEE Inactive Condition 06/22/2012 [facility] Knee: arthralgia * (ICD-9-CM 719.46) Inactive Condition 06/22/2012 [facility] Noncompliance, Dietary Regimen Inactive Condition 07/05/2008 [facility] Noncompliance, Dietary Regimen (ICD-9-CM V15.81) Inactive Condition 06/22/2012 [facility] Skin Lesion, Unsp Inactive Condition 06/22/2012 [facility] Diagnosis: ICD-10-CM G47.30 Sleep apnea, unspecified Active Diagnosis [facility] ([id number]) Diagnosis: ICD-10-CM E78.00 Pure hypercholesterolemia, unspecified Active Diagnosis [place] Medications Combined list of outpatient medications from Department of [facility] and [facility] Affairs facilities.Medications provided include 1) outpatient medications from the last 15 months, and 2) patient-reported medications. Medication Details Route Status Patient Instructions Prescription Expires Prescription Number Last Dispense Date Ordering Provider Order Date Order Qty Source ALLOPURINOL 300MG TAB TAKE ONE TABLET BY MOUTH ONCE DAILY FOR GOUT ORAL SUSPEND ED 09/06/2025 [id number] 5 DESMOND OBRIEN 2024 90 [facility] IELD ALLOPURINOL 300MG TAB TAKE ONE TABLET BY MOUTH ONCE DAILY FOR GOUT ORAL DISCONT INUED 01/25/2025 [id number] 5 DESMOND OBRIEN 2023 90 [place] ALLOPURINOL 300MG TAB TAKE ONE TABLET BY MOUTH ONCE DAILY FOR GOUT ORAL DISCONT INUED 03/23/2024 [id number] 4 DESMOND OBRIEN 2022 90 [place] ALPRAZOLAM 1MG TAB TAKE ONE TABLET BY MOUTH SIX TIMES A DAY ORAL ACTIVE DEEPALIORIANALedy [place] AMLODIPINE BESYLATE 5MG TAB TAKE ONE TABLET BY MOUTH ONCE DAILY FOR BLOOD PRESSURE /HEART, DO NOT TAKE WITH GRAPEFRU IT JUICE ORAL SUSPEND ED 09/05/2025 [id number] 5 DESMOND OBRIEN 2024 90 [facility] IELD AMLODIPINE BESYLATE 5MG TAB TAKE ONE TABLET BY MOUTH ONCE DAILY FOR BLOOD PRESSURE /HEART, DO NOT TAKE WITH GRAPEFRU IT JUICE ORAL DISCONT INUED 12/27/2024 [id number] 5 DESMOND OBRIEN 2023 90 [place] ASPIRIN 81MG TAB,EC TAKE ONE TABLET BY MOUTH EVERY DAY ORAL ACTIVE DESMOND OBRIEN 2011 [place] ASPIRIN PLAIN TAB TAKE 81MG BY MOUTH DAILY AT BEDTIME ORAL ACTIVE Charley MARAVILLA P 2011 [facility] ATENOLOL 25MG TAB TAKE ONE TABLET BY MOUTH ONCE DAILY FOR BLOOD PRESSURE /HEART ORAL SUSPEND ED 09/06/2025 [id number] 5 DESMOND OBRIEN 2024 90 [facility] [place] ATENOLOL 25MG TAB TAKE ONE TABLET BY MOUTH ONCE DAILY FOR BLOOD PRESSURE /HEART ORAL DISCONT INUED 12/19/2024 [id number] 4 DESMOND OBRIEN 2023 90 [facility] I[place] ATENOLOL 25MG TAB TAKE ONE TABLET BY MOUTH ONCE DAILY FOR BLOOD PRESSURE /HEART ORAL DISCONT INUED 03/23/2024 [id number] 4 DESMOND OBRIEN 2022 90 [facility] IELD ATORVASTATI N CA 80MG TAB TAKE ONE TABLET BY MOUTH ONCE DAILY FOR CHOLESTE ROL ORAL SUSPEND ED 09/06/2025 [id number] 5 DESMOND OBRIEN 2024 90 [facility] IELD ATORVASTATI N CA 80MG TAB TAKE ONE TABLET BY MOUTH ONCE DAILY FOR CHOLESTE ROL ORAL DISCONT INUED 01/25/2025 [id number] 5 DESMOND OBRIEN 2023 90 [place] ATORVASTATI N CA 80MG TAB TAKE ONE TABLET BY MOUTH ONCE DAILY FOR CHOLESTE ROL ORAL DISCONT INUED 03/23/2024 [id number] 4 DESMOND OBRIEN 2022 90 [place] CETIRIZINE HCL 10MG TAB TAKE ONE TABLET BY MOUTH ONCE DAILY FOR ALLERGIE S ORAL SUSPEND ED 09/06/2025 [id number] 5 DESMOND OBRIEN 2024 90 [place] CETIRIZINE HCL 10MG TAB TAKE ONE TABLET BY MOUTH ONCE DAILY FOR ALLERGIE S ORAL DISCONT INUED 12/07/2024 [id number] 4 DESMOND OBRIEN 2023 90 [facility] CETIRIZINE HCL 10MG TAB TAKE ONE TABLET BY MOUTH ONCE DAILY FOR ALLERGIE S ORAL DISCONT INUED 03/23/2024 [id number] 4 DESMOND OBRIEN 2022 90 [place] CYANOCOBALA MIN 500MCG TAB TAKE ONE TABLET BY MOUTH TWICE DAILY FOR VITAMIN SUPPLEME NTATION ORAL SUSPEND ED 09/06/2025 [id number] 5 DESMOND OBRIEN 2024 200 [place] CYANOCOBALA MIN 500MCG TAB TAKE ONE TABLET BY MOUTH TWICE DAILY FOR VITAMIN SUPPLEME NTATION ORAL DISCONT INUED 01/25/2025 [id number] 5 DESMOND OBRIEN 2023 200 [place] CYANOCOBALA MIN 500MCG TAB TAKE ONE TABLET BY MOUTH TWICE DAILY FOR VITAMIN SUPPLEME NTATION ORAL DISCONT INUED 03/23/2024 [id number] 4 DESMOND OBRIEN 2022 200 [place] EZETIMIBE 10MG TAB TAKE ONE TABLET BY MOUTH ONCE DAILY TO LOWER CHOLESTE ROL ORAL SUSPEND ED 09/05/2025 [id number] 5 DESMOND OBRIEN 2024 90 [place] EZETIMIBE 10MG TAB TAKE ONE TABLET BY MOUTH ONCE DAILY TO LOWER CHOLESTE ROL ORAL DISCONT INUED 12/19/2024 [id number] 4 DESMOND OBRIEN 2023 90 [place] EZETIMIBE 10MG TAB TAKE ONE TABLET BY MOUTH ONCE DAILY TO LOWER CHOLESTE ROL ORAL DISCONT INUED 03/23/2024 [id number] 4 DESMOND OBRIEN 2022 90 [place] FLUTICASONE PROPIONATE 50MCG/SPRAY SOLN,NASAL, 16GM INSTILL 1 SPRAY INTO EACH NOSTRIL TWICE DAILY FOR NASAL IRRITATI ON/INFLA MMATION NASAL SUSPEND ED 08/28/2025 [id number] 5 DESMOND OBRIEN 2024 3 [place] FLUTICASONE PROPIONATE 50MCG/SPRAY SOLN,NASAL, 16GM INSTILL 1 SPRAY INTO EACH NOSTRIL TWICE DAILY FOR NASAL IRRITATI ON/INFLA MMATION NASAL DISCONT INUED 01/25/2025 [id number] 4 DESMOND OBRIEN 2023 3 [place] FLUTICASONE PROPIONATE 50MCG/SPRAY SOLN,NASAL, 16GM INSTILL 1 SPRAY INTO EACH NOSTRIL TWICE DAILY FOR NASAL IRRITATI ON/INFLA MMATION NASAL DISCONT INUED 12/05/2024 [id number] 4 DESMOND OBRIEN 2023 3 [place] FLUTICASONE PROPIONATE 50MCG/SPRAY SOLN,NASAL, 16GM INSTILL 1 SPRAY INTO EACH NOSTRIL TWICE DAILY FOR NASAL IRRITATI ON/INFLA MMATION NASAL DISCONT INUED 03/23/2024 [id number] 4 DESMOND OBRIEN 2022 1 [place] LEVOTHYROXI NE NA 125MCG TAB TAKE ONE TABLET BY MOUTH EVERY MORNING 30 MINUTES BEFORE BREAKFAS T FOR THYROID - TAKE ON AN EMPTY STOMACH WITH A FULL GLASS OF WATER ORAL ACTIVE 09/06/2025 [id number] 5 DESMOND OBRIEN 2024 90 [place] LEVOTHYROXI NE NA 125MCG TAB (SYNTHROID) TAKE ONE TABLET BY MOUTH EVERY MORNING 30 MINUTES BEFORE BREAKFAS T FOR THYROID - TAKE ON AN EMPTY STOMACH WITH A FULL GLASS OF WATER ORAL DISCONT INUED 12/19/2024 [id number] 4 DESMOND OBRIEN 2023 90 [facility] I[place] LEVOTHYROXI NE NA 125MCG TAB (SYNTHROID) TAKE ONE TABLET BY MOUTH EVERY MORNING 30 MINUTES BEFORE BREAKFAS T FOR THYROID - TAKE ON AN EMPTY STOMACH WITH A FULL GLASS OF WATER ORAL DISCONT INUED 03/23/2024 [id number] 4 DESMOND OBRIEN 2022 90 [place] LOSARTAN POTASSIUM 100MG TAB TAKE ONE TABLET BY MOUTH ONCE DAILY FOR BLOOD PRESSURE /HEART ORAL SUSPEND ED 09/06/2025 [id number] 5 DESMOND OBRIEN 2024 90 [facility] I[place] POTASSIUM 100MG TAB TAKE ONE TABLET BY MOUTH ONCE DAILY FOR BLOOD PRESSURE /HEART ORAL DISCONT INUED 01/25/2025 [id number] 5 DESMOND OBRIEN 2023 90 [facility] I[place] POTASSIUM 100MG TAB TAKE ONE TABLET BY MOUTH ONCE DAILY FOR BLOOD PRESSURE /HEART ORAL DISCONT INUED 03/23/2024 [id number] 4 DESMOND OBRIEN 2022 90 [facility] I[place] NAPHAZOLINE HCL 0.025%/PHEN IRAMINE 0.3% SOLN,OPH INSTILL 1 DROP INTO EACH EYE TWICE DAILY NEEDED FOR RED EYES OPHTHA LMIC ACTIVE 08/28/2025 [id number] 5 Isatu LUX 2024 15 [facility] NAPHAZOLINE HCL 0.025%/PHEN IRAMINE 0.3% SOLN,OPH INSTILL 1 DROP INTO EACH EYE TWICE DAILY NEEDED FOR RED EYES OPHTHA LMIC DISCONT INUED 01/25/2025 [id number] 4 DESMOND OBRIEN 2023 15 [place] NAPHAZOLINE HCL 0.025%/PHEN IRAMINE 0.3% SOLN,OPH INSTILL 1 DROP INTO EACH EYE TWICE DAILY NEEDED FOR RED EYES OPHTHA LMIC DISCONT INUED 03/07/2024 [id number] Isatu LUX 2022 15 [facility] NITROGLYCER IN 0.4MG TAB,SUBLING UAL DISSOLVE ONE TABLET UNDER THE TONGUE Q5MIN PRN SUBLIN GUAL ACTIVE DESMOND OBRIEN 2011 [facility] IELD OMEPRAZOLE 20MG CAP,EC TAKE ONE CAPSULE BY MOUTH EVERY MORNING 30 MINUTES BEFORE BREAKFAS T ORAL SUSPEND ED 09/06/2025 [id number] 5 DESMOND OBRIEN 2024 90 [facility] [place] OMEPRAZOLE 20MG CAP,EC TAKE ONE CAPSULE BY MOUTH EVERY MORNING 30 MINUTES BEFORE BREAKFAS T ORAL DISCONT INUED 01/25/2025 [id number] 4 DESMOND OBRIEN 2023 90 [facility] [place] OMEPRAZOLE 20MG CAP,EC TAKE ONE CAPSULE BY MOUTH EVERY MORNING 30 MINUTES BEFORE BREAKFAS T ORAL DISCONT INUED 03/23/2024 [id number] 4 DESMOND OBRIEN 2022 90 [facility] [place] OTHER CAP/TAB SUNSCREE N EVERY DAY ACTIVE DESMOND OBRIEN [place] POLYETHYLEN E GLYCOL 3350 PWDR,ORAL TAKE 17 GRAMS(FI LL CAP TO 17GM LINE) BY MOUTH ONCE DAILY FOR CONSTIPA TION [MIX WITH 4 TO 8OZ. OF BEVERAGE ] ORAL DISCONT INUED BY PROVIDE R 12/05/2024 [id number] 4 DESMOND OBRIEN 2023 510 [place] SILDENAFIL CITRATE 100MG TAB TAKE ONE TABLET BY MOUTH DIRECTED TAKE 1 HOUR PRIOR TO SEXUAL ACTIVITY ORAL ACTIVE 09/06/2025 [id number] 5 DESMOND OBRIEN 2024 4 [place] SILDENAFIL CITRATE 100MG TAB TAKE ONE TABLET BY MOUTH DIRECTED TAKE 1 HOUR PRIOR TO SEXUAL ACTIVITY ORAL DISCONT INUED 04/21/2025 [id number] 5 DESMOND OBRIEN 2023 4 [facility] I[place] SILDENAFIL CITRATE 100MG TAB TAKE ONE TABLET BY MOUTH DIRECTED TAKE 1 HOUR PRIOR TO SEXUAL ACTIVITY ORAL DISCONT INUED 12/05/2024 [id number] 4 DESMOND OBRIEN EHSAN 2023 4 [place] SODIUM FLUORIDE 1.1% TOOTHPASTE BRUSH SMALL AMOUNT TO TEETH TWICE DAILY DENTAL SUSPEND ED 09/06/2025 [id number] 5 DESMOND OBRIEN EHSAN 2024 102 [place] SODIUM FLUORIDE 1.1% TOOTHPASTE BRUSH SMALL AMOUNT TO TEETH TWICE DAILY DENTAL DISCONT INUED 01/25/2025 [id number] 4 MICAHDESMOND MOSER 2023 102 [place] SODIUM FLUORIDE 1.1% TOOTHPASTE BRUSH SMALL AMOUNT TO TEETH TWICE DAILY DENTAL DISCONT INUED 12/09/2023 [id number] 4 OBRIENDESMOND MOSER 2022 100 [place] TAMSULOSIN HCL 0.4MG CAP TAKE ONE CAPSULE BY MOUTH ONCE DAILY ORAL ACTIVE 09/06/2025 [id number] 5 OBRIENDESMOND MOSER 2024 90 [facility] [place] TAMSULOSIN HCL 0.4MG CAP TAKE ONE CAPSULE BY MOUTH ONCE DAILY ORAL DISCONT INUED 01/25/2025 [id number] 4 OBRIENDESMOND MOSER 2023 90 [place] TAMSULOSIN HCL 0.4MG CAP TAKE ONE CAPSULE BY MOUTH ONCE DAILY ORAL DISCONT INUED 08/16/2024 [id number] OBRIENDESMOND MOSER 2023 90 [facility] IELD TESTOSTERON E (EQV-ANDROG EL) 1% 5GM/PKT GEL,TOP APPLY 1 PACKET TOPICALL Y EVERY DAY TOPICA L ACTIVE DESMOND OBRIEN EHSAN 2011 [facility] IELD Allergies, Adverse Reactions, Alerts Combined list of allergies from Department of Defense and Veterans Affairs facilities. It does not include entries that were removed or entered in error. Substance Category Reaction Severity Reaction type Status Date Reported Comments Source LISINOPRIL Propensity to adverse reactions to drug (finding) active 07/02/2013 [facility] PAROXETINE Propensity to adverse reactions to drug (finding) Vertigo active 09/20/2011 [facility] Immunizations Combined list of available immunizations from the Department of Defense and Veterans Affairs facilities. Immunization Series Date Given Administered By Site Reaction Lot Number CVX Code Drug Field Sales Manager Status Comments Source INFLUENZA, UNSPECIFIED FORMULATION 2021 88 complet ed [facility] COVID-19 (MODERNA), MRNA, LNP-S, PF, 100 MCG/0.5ML DOSE OR 50 MCG/0.25ML DOSE 3 2020 207 complet ed [facility] COVID-19 (MODERNA), MRNA, LNP-S, PF, 100 MCG/0.5 ML DOSE 2 2020 207 complet ed [facility] COVID-19 (MODERNA), MRNA, LNP-S, PF, 100 [...] INFLUENZA, SEASONAL, INJECTABLE 2017 141 complet ed [facility] FLU,3 YRS (HISTORICAL) 2015 88 complet ed Site: Left Deltoid [place] PNEUMOCOCCAL POLYSACCHARID E PPV23 2015 33 complet ed [place] INFLUENZA, UNSPECIFIED FORMULATION 2015 88 complet ed [facility] INFLUENZA, UNSPECIFIED FORMULATION 2015 88 complet ed [facility] INFLUENZA, UNSPECIFIED FORMULATION 2014 88 complet ed [facility] INFLUENZA, UNSPECIFIED FORMULATION 2013 88 complet ed [facility] INFLUENZA, UNSPECIFIED FORMULATION 2013 88 complet ed [facility] FLU,3 YRS (HISTORICAL) 2013 88 complet ed Site: Left Deltoid [place] INFLUENZA, UNSPECIFIED FORMULATION 2012 NONE 88 complet ed Right Deltoid (IM) [facility] FLU,3 YRS (HISTORICAL) 2012 88 complet ed [facility] FLU,3 YRS (HISTORICAL) 2011 88 complet ed Site: Left Deltoid [place] INFLUENZA, UNSPECIFIED FORMULATION 2010 NONE 88 complet ed Left Deltoid (IM) [facility] INFLUENZA, UNSPECIFIED FORMULATION 2009 NONE 88 complet ed [facility] INFLUENZA, UNSPECIFIED FORMULATION 2008 NONE 88 complet ed Right Deltoid (IM)Exp. 0 [facility] INFLUENZA, UNSPECIFIED FORMULATION 2007 NONE 88 complet ed Left Deltoid (IM), Lot Number:[id number];EXP 01/21 [facility] INFLUENZA, UNSPECIFIED FORMULATION 2006 NONE 88 complet ed Left Deltoid (IM), Lot Number:[id number] Exp: FEB 12 2008 [facility] INFLUENZA, UNSPECIFIED FORMULATION 2005 NONE 88 complet ed Left Deltoid (IM), Lot Number:[id number], exp: [facility] INFLUENZA, UNSPECIFIED FORMULATION 2004 NONE 88 complet ed Left Deltoid (IM), Lot Number:[id number]. Exp. February 11, 2006. [facility] INFLUENZA, UNSPECIFIED FORMULATION 2003 NONE 88 complet ed Left Deltoid (IM), Lot Number:[id number], exp Feb 11 [facility] FLU,3 YRS (HISTORICAL) 2002 [facility] GAUT[facility]ER 88 complet ed [facility] TETANUS TOXOID, UNSPECIFIED FORMULATION 2002 NONE 112 complet ed Completed Series, Left Deltoid 0.5ml. given IM without problem.L ot# [id number]-- Exp.. [facility] INFLUENZA, UNSPECIFIED FORMULATION 2001 NONE 88 complet ed Completed Series, Left Deltoid [facility] FLU,3 YRS (HISTORICAL) 2000 88 complet ed [facility] TETANUS TOXOID, UNSPECIFIED FORMULATION 2000 112 complet ed Date of last Tetanus inj. unknwon. [facility] Results Combined list of recent chemistry, hematology and other laboratory results from Department of Defense and Veterans Affairs, ranging from 15 months to all on record, depending upon the facility. Order Name Results Value Reference Range Date Interpretation Specimen Comments Source BASIC METABOLIC PANEL (fasting) UREA NITROGEN [MASS/VOLUM E] IN SERUM OR PLASMA 22 mg/dL 7 - 25 01/18 Specimen Type: SERUM No comment entered. Ordering Provider: JAE OBRIEN Report Released Date/Time: January 10, 2024 01:44 PM Reporting Lab: [facility] [employer] [address] [address] Performing Lab: [facility] [employer] [address] [email or web address] BASIC METABOLIC PANEL (fasting) GLUCOSE [MASS/VOLUM E] IN SERUM OR PLASMA 107 mg/dL 65 - 100 01/18 H Specimen Type: SERUM No comment entered. Ordering Provider: JAE OBRIEN Report Released Date/Time: January 10, 2024 01:44 PM Reporting Lab: [facility] [employer] [address] [address] Performing Lab: [facility] [employer] [phone] [email or web address] BASIC METABOLIC PANEL (fasting) SODIUM [MOLES/VOLU ME] IN SERUM OR PLASMA 140 mmol/L 135 - 145 01/18 Specimen Type: SERUM No comment entered. Ordering Provider: JAE OBRIEN Report Released Date/Time: January 10, 2024 01:44 PM Reporting Lab: [facility] [employer] [address] [address] Performing Lab: [facility] [facility] [address] [address] [employer] BASIC METABOLIC PANEL (fasting) POTASSIUM [MOLES/VOLU ME] IN SERUM OR PLASMA 4.3 mmol/L 3.5 - 5.0 01/18 Specimen Type: SERUM No comment entered. Ordering Provider: JAE OBRIEN Report Released Date/Time: January 10, 2024 01:44 PM Reporting [facility] [address] [facility] [address] Performing Lab: [address] [address] [place] BASIC METABOLIC PANEL (fasting) CHLORIDE [MOLES/VOLU ME] IN SERUM OR PLASMA 107 mmol/L 100 - 110 01/18 Specimen Type: SERUM No comment entered. Ordering Provider: JAE OBRIEN Report Released Date/Time: January 10, 2024 01:44 PM Reporting Lab: [address] [address] Performing Lab: [address] [address] [place] BASIC METABOLIC PANEL (fasting) CARBON DIOXIDE, TOTAL [MOLES/VOLU ME] IN SERUM OR PLASMA 26 meq/L 20 - 30 01/18 Specimen Type: SERUM No comment entered. Ordering Provider: JAE OBRIEN Report Released Date/Time: January 10, 2024 01:44 PM Reporting Lab: [address] [address] Performing Lab: [address] [address] [place] BASIC METABOLIC PANEL (fasting) CREATININE [MASS/VOLUM E] IN SERUM OR PLASMA 0.89 mg/dL 0.50 - 1.40 01/18 Specimen Type: SERUM No comment entered. Ordering Provider: JAE OBRIEN Report Released Date/Time: January 10, 2024 01:44 PM [facility] [address] [address] Performing Lab: [facility] [address] [address] [place] BASIC METABOLIC PANEL (fasting) GLOMERULAR FILTRATION RATE/1.73 SQ M.PREDICTED [VOLUME RATE/AREA] IN SERUM, PLASMA OR BLOOD BY CREATININE- BASED FORMULA (CKD-EPI 2020) 90 mL/min 60 01/18 Specimen Type: SERUM No comment entered. Ordering Provider: JAE OBRIEN Report Released Date/Time: January 10, 2024 01:44 PM Reporting Lab: [address] [address] Performing Lab: [address] [address] [place] CALCIUM CALCIUM [MASS/VOLUM E] IN SERUM OR PLASMA 8.5 mg/dL 8.5 - 10.2 01/18 Specimen Type: SERUM No comment entered. Ordering Provider: JAE OBRIEN Report Released Date/Time: January 10, 2024 01:44 PM Reporting Lab: [address] [address] Performing Lab: [address] [address] [place] CBC AND DIFF (AUTO) LEUKOCYTES [#/VOLUME] IN BLOOD BY AUTOMATED COUNT 6.19 10*3/u L 4.50 - 11.00 01/18 Specimen Type: BLOOD No comment entered. Ordering Provider: JAE OBRIEN Report Released Date/Time: January 10, 2024 01:44 PM Reporting Lab: [address] [address] Performing Lab: [address] [address] [place] CBC AND DIFF (AUTO) ERYTHROCYTE S [#/VOLUME] IN BLOOD BY AUTOMATED COUNT 4.35 10*6/u L 4.23 - 5.66 01/18 Specimen Type: BLOOD No comment entered. Ordering Provider: JAE OBRIEN Report Released Date/Time: January 10, 2024 01:44 PM Reporting Lab: [address] [address] Performing Lab: [address] [address] [place] CBC AND DIFF (AUTO) HEMOGLOBIN [MASS/VOLUM E] IN BLOOD 13.5 g/dL 12.8 - 17 01/18 Specimen Type: BLOOD No comment entered. Ordering Provider: JAE OBRIEN Report Released Date/Time: January 10, 2024 01:44 PM Reporting Lab: [facility] [address] [address] Performing [facility]: [facility] [address] [address] [place] CBC AND DIFF (AUTO) HEMATOCRIT [VOLUME FRACTION] OF BLOOD BY AUTOMATED COUNT 41.4 39.2 - 50.4 01/18 Specimen Type: BLOOD No comment entered. Ordering Provider: JAE OBRIEN Report Released Date/Time: January 10, 2024 01:44 PM Reporting [facility] [address] [address] Performing [facility]: [facility] [address] [address] [place] CBC AND DIFF (AUTO) MCV [ENTITIC VOLUME] BY AUTOMATED COUNT 95.2 fL 82 - 99 01/18 Specimen Type: BLOOD No comment entered. Ordering Provider: JAE OBRIEN Report Released Date/Time: January 10, 2024 01:44 PM Reporting [facility] [address] [address] Performing [facility]: [facility] [address] [address] [place] CBC AND DIFF (AUTO) MCHC [MASS/VOLUM E] BY AUTOMATED COUNT 32.6 g/dL 30.8 - 35.1 01/18 Specimen Type: BLOOD No comment entered. Ordering Provider: JAE OBRIEN Report Released Date/Time: January 10, 2024 01:44 PM Reporting [facility] [address] [address] Performing [facility]: [facility] [address] [address] [place] CBC AND DIFF (AUTO) PLATELETS [#/VOLUME] IN BLOOD BY AUTOMATED COUNT 164 10*3/u L 140 - 360 01/18 Specimen Type: BLOOD No comment entered. Ordering Provider: JAE OBRIEN Report Released Date/Time: January 10, 2024 01:44 PM Reporting Lab: [facility] [address] [address] Performing Lab: [facility] [address] [address] [place] CBC AND DIFF (AUTO) ERYTHROCYTE DISTRIBUTIO N WIDTH [RATIO] BY AUTOMATED COUNT 14.9 12.0 - 16.0 01/18 Specimen Type: BLOOD No comment entered. Ordering Provider: JAE OBRIEN Report Released Date/Time: January 10, 2024 01:44 PM Reporting [facility] [address] [address] Performing [facility]: [facility] [address] [address] [place] CBC AND DIFF (AUTO) MONOCYTES [#/VOLUME] IN BLOOD BY AUTOMATED COUNT 0.54 10*3/u L 0.30 - 1.10 01/18 Specimen Type: BLOOD No comment entered. Ordering Provider: JAE OBRIEN Report Released Date/Time: January 10, 2024 01:44 PM Reporting [facility] [address] [address] Performing Lab: [facility] [address] [address] [place] CBC AND DIFF (AUTO) MCH [ENTITIC MASS] BY AUTOMATED COUNT 31.0 pg 26.2 - 32.6 01/18 Specimen Type: BLOOD No comment entered. Ordering Provider: JAE OBRIEN Report Released Date/Time: January 10, 2024 01:44 PM Reporting [facility] [address] [address] Performing Lab: [facility] [address] [address] [place] CBC AND DIFF (AUTO) NEUTROPHILS /100 LEUKOCYTES IN BLOOD BY AUTOMATED COUNT 59.7 43.7 - 75.8 01/18 Specimen Type: BLOOD No comment entered. Ordering Provider: JAE OBRIEN Report Released Date/Time: January 10, 2024 01:44 PM Reporting Lab: [facility] [address] [facility] [address] Performing Lab: [facility] [address] [address] [place] CBC AND DIFF (AUTO) LYMPHOCYTES /100 LEUKOCYTES IN BLOOD BY AUTOMATED COUNT 25.4 14.0 - 42.3 01/18 Specimen Type: BLOOD No comment entered. Ordering Provider: JAE OBRIEN Report Released Date/Time: January 10, 2024 01:44 PM Reporting Lab: [facility] [address] [address] Performing Lab: [facility] [address] [address] [place] CBC AND DIFF (AUTO) MONOCYTES/1 00 LEUKOCYTES IN BLOOD BY AUTOMATED COUNT 8.7 5.1 - 13.7 01/18 Specimen Type: BLOOD No comment entered. Ordering Provider: JAE OBRIEN Report Released Date/Time: January 10, 2024 01:44 PM Reporting Lab: [facility] [address] [address] Performing Lab: [facility] [address] [address] [place] CBC AND DIFF (AUTO) EOSINOPHILS /100 LEUKOCYTES IN BLOOD BY AUTOMATED COUNT 4.2 0.4 - 6.8 01/18 Specimen Type: BLOOD No comment entered. Ordering Provider: JAE OBRIEN Report Released Date/Time: January 10, 2024 01:44 PM Reporting Lab: [facility] [place] [address] [address] Performing Lab: [facility] [address] [address] [place] CBC AND DIFF (AUTO) BASOPHILS/1 00 LEUKOCYTES IN BLOOD BY AUTOMATED COUNT 1.5 0.1 - 2.0 01/18 Specimen Type: BLOOD No comment entered. Ordering Provider: JAE OBRIEN Report Released Date/Time: January 10, 2024 01:44 PM Reporting Lab: [facility] [place] [facility] [address] [facility] [address] Performing Lab: [facility] [address] [facility] [address] [place] CBC AND DIFF (AUTO) NEUTROPHILS [#/VOLUME] IN BLOOD BY AUTOMATED COUNT 3.70 10*3/u L 2.20 - 7.60 01/18 Specimen Type: BLOOD No comment entered. Ordering Provider: JAE OBRIEN Report Released Date/Time: January 10, 2024 01:44 PM Reporting Lab: [facility] [address] [facility] [address] Performing Lab: [facility] [address] [address] [place] CBC AND DIFF (AUTO) LYMPHOCYTES [#/VOLUME] IN BLOOD BY AUTOMATED COUNT 1.57 10*3/u L 1.00 - 3.20 01/18 Specimen Type: BLOOD No comment entered. Ordering Provider: JAE OBRIEN Report Released Date/Time: January 10, 2024 01:44 PM Reporting Lab: [facility] [address] Performing Lab: [facility] [address] [place] CBC AND DIFF (AUTO) EOSINOPHILS [#/VOLUME] IN BLOOD BY AUTOMATED COUNT 0.26 10*3/u L 0.03 - 0.44 01/18 Specimen Type: BLOOD No comment entered. Ordering Provider: JAE OBRIEN Report Released Date/Time: January 10, 2024 01:44 PM Reporting Lab: [facility] [address] [address] Performing Lab: [facility]ITALRC[facility]ENTERTRN [facility] [address] [place] CBC AND DIFF (AUTO) BASOPHILS [#/VOLUME] IN BLOOD BY AUTOMATED COUNT 0.09 10*3/u L 0.01 - 0.13 01/18 Specimen Type: BLOOD No comment entered. Ordering Provider: JAE OBRIEN Report Released Date/Time: January 10, 2024 01:44 PM Reporting Lab: [facility] [address] [facility] [address] Performing Lab: [address] [address] [place] CBC AND DIFF (AUTO) IMMATURE GRANULOCYTE S/100 LEUKOCYTES IN BLOOD BY AUTOMATED COUNT 0.5 0.0 - 0.7 01/18 Specimen Type: BLOOD No comment entered. Ordering Provider: JAE OBRIEN Report Released Date/Time: January 10, 2024 01:44 PM Reporting Lab: [facility] [address] [facility] [address] Performing Lab: [address] [address] [place] CBC AND DIFF (AUTO) IMMATURE GRANULOCYTE S [#/VOLUME] IN BLOOD 0.03 10*3/u L 0.00 - 0.06 01/18 Specimen Type: BLOOD No comment entered. Ordering Provider: JAE OBRIEN Report Released Date/Time: January 10, 2024 01:44 PM Reporting Lab: [address] [address] Performing Lab: [address] [address] [place] HEMOGLOBI N A1C PANEL HEMOGLOBIN A1C/HEMOGLO [...] January 10, 2024 01:44 PM Reporting Lab: [address] [address] Performing Lab: [address] [address] [place] LIPID PANEL FASTING CHOLESTEROL [MASS/VOLUM E] IN SERUM OR PLASMA 137 mg/dL 01/18 Specimen Type: SERUM No comment entered. Ordering Provider: JAE OBRIEN Report Released Date/Time: January 10, 2024 01:44 PM Reporting Lab: [facility] [address] [facility] [address] Performing Lab: [address] [address] [place] LIPID PANEL FASTING TRIGLYCERID E [MASS/VOLUM E] IN SERUM OR PLASMA 83 mg/dL 0 - 150 01/18 Specimen Type: SERUM No comment entered. Ordering Provider: JAE OBRIEN Report Released Date/Time: January 10, 2024 01:44 PM Reporting Lab: [address] [address] Performing Lab: [address] [address] [place] LIPID PANEL FASTING CHOLESTEROL IN LDL [MASS/VOLUM E] IN SERUM OR PLASMA BY CALCULATION 65 mg/dL 0 - 129 01/18 Specimen Type: SERUM No comment entered. Ordering Provider: JAE OBRIEN Report Released Date/Time: January 10, 2024 01:44 PM Reporting Lab: [address] [address] Performing Lab: [address] [address] [place] LIPID PANEL FASTING CHOLESTEROL .TOTAL/CHOL ESTEROL IN HDL [MASS RATIO] IN SERUM OR PLASMA 2.5 01/18 Specimen Type: SERUM No comment entered. Ordering Provider: JAE OBRIEN Report Released Date/Time: January 10, 2024 01:44 PM Reporting Lab: [address] [address] Performing Lab: [address] [address] [place] LIPID PANEL FASTING CHOLESTEROL IN HDL [MASS/VOLUM E] IN SERUM OR PLASMA 55 mg/dL 40 - 60 01/18 Specimen Type: SERUM No comment entered. Ordering Provider: JAE OBRIEN Report Released Date/Time: January 10, 2024 01:44 PM Reporting Lab: [facility]RC[facility]ENTERTRN [facility] [address] Performing Lab: [facility]ITALRBRYAN [facility]N [address] [address] [place] LIVER FUNCTION PROTEIN [MASS/VOLUM E] IN SERUM OR PLASMA 6.8 g/dL 6.0 - 8.3 01/18 Specimen Type: SERUM No comment entered. Ordering Provider: JAE OBRIEN Report Released Date/Time: January 10, 2024 01:44 PM Reporting Lab[facility] [address] [address] Performing [facility]: [facility] [address] [address] [place] LIVER FUNCTION ALBUMIN [MASS/VOLUM E] IN SERUM OR PLASMA 3.6 g/dL 3.5 - 5.0 01/18 Specimen Type: SERUM No comment entered. Ordering Provider: JAE OBRIEN Report Released Date/Time: January 10, 2024 01:44 PM Reporting Lab: [facility] [address] [address] Performing [facility]: [facility] [address] [address] [place] LIVER FUNCTION ALKALINE PHOSPHATASE [ENZYMATIC ACTIVITY/VO LUME] IN SERUM OR PLASMA 67 U/L 40 - 150 01/18 Specimen Type: SERUM No comment entered. Ordering Provider: JAE OBRIEN Report Released Date/Time: January 10, 2024 01:44 PM Reporting Lab: [facility]N [address] [address] Performing [facility]: [facility] [address] [address] [place] LIVER FUNCTION ASPARTATE AMINOTRANSF ERASE [ENZYMATIC ACTIVITY/VO LUME] IN SERUM OR PLASMA 14 U/L 5 - 34 01/18 Specimen Type: SERUM No comment entered. Ordering Provider: JAE OBRIEN Report Released Date/Time: January 10, 2024 01:44 PM Reporting Lab: [facility] [place] [facility] [address] [facility] [address] Performing Lab: [facility] [address] [facility] [address] [place] LIVER FUNCTION ALANINE AMINOTRANSF ERASE [ENZYMATIC ACTIVITY/VO LUME] IN SERUM OR PLASMA 15 U/L 01/18 Specimen Type: SERUM No comment entered. Ordering Provider: JAE OBRIEN Report Released Date/Time: January 10, 2024 01:44 PM Reporting Lab: [facility] [place] [facility] [address] [facility] [address] Performing Lab: [facility]ITALRL TRN [facility] [address] [place] LIVER FUNCTION BILIRUBIN.T OTAL [MASS/VOLUM E] IN SERUM OR PLASMA 1.3 mg/dL 0.2 - 1.2 01/18 H Specimen Type: SERUM No comment entered. Ordering Provider: JAE OBRIEN Report Released Date/Time: January 10, 2024 01:44 PM Reporting Lab: [facility] [place] [address] [address] Performing Lab: [facility] [address] [address] [place] LIVER FUNCTION BILIRUBIN.D IRECT [MASS/VOLUM E] IN SERUM OR PLASMA 0.5 mg/dL 0 - 0.5 01/18 Specimen Type: SERUM No comment entered. Ordering Provider: JAE OBRIEN Report Released Date/Time: January 10, 2024 01:44 PM Reporting Lab: [facility] [place] [address] [address] Performing Lab: [facility] [address] [address] [place] PSA PROSTATE SPECIFIC AG [MASS/VOLUM E] IN SERUM OR PLASMA < 0.10ng /mL 0.00 - 4.00 01/18 Specimen Type: SERUM No comment entered. Ordering Provider: JAE OBRIEN Report Released Date/Time: January 10, 2024 01:44 PM Reporting Lab: [facility] [address] [facility] [address] Performing Lab: [facility] [address] [facility] [address] [place] TSH THYROTROPIN [UNITS/VOLU ME] IN SERUM OR PLASMA 1.23 u[IU]/ mL 0.35 - 5.00 01/18 Specimen Type: SERUM No comment entered. Ordering Provider: JAE OBRIEN Report Released Date/Time: January 10, 2024 01:44 PM Reporting Lab: [facility] [address] [facility] [address] Performing Lab: [address] [address] [place] URIC ACID URATE [MASS/VOLUM E] IN SERUM OR PLASMA 3.1 mg/dL 3.5 - 7.2 01/18 L Specimen Type: SERUM No comment entered. Ordering Provider: JAE OBRIEN Report Released Date/Time: January 10, 2024 01:44 PM Reporting Lab: [facility] [address] [facility] [address] Performing Lab: [address] [address] [place] VITAMIN D (25-OH) 25-HYDROXYV ITAMIN D3 [MASS/VOLUM E] IN SERUM OR PLASMA 35 ng/mL 20 - 50 01/18 Specimen Type: SERUM No comment entered. Ordering Provider: JAE OBRIEN Report Released Date/Time: January 10, 2024 01:44 PM Reporting Lab: [address] [address] Performing Lab: [address] [address] [place] Vital Signs Combined list of inpatient and outpatient Vital Signs from Department of Defense and Veterans Affairs, ranging from 12 months to all on record, depending upon the facility. Vital Sign Value Date Comments Source SYSTOLIC BLOOD PRESSURE 122 01/25/2024 13:21:24 [place] DIASTOLIC BLOOD PRESSURE 66 01/25/2024 13:21:24 [place] Encounters Combined list of: 1) Encounters from [...] [facility] [id number] 08[facility]16 [facility] En[facility] [id number] 08/16 [facility] En[facility] [id number] 08/22 [facility] En[facility] [id number] 12/04 [facility] En[facility] [id number] 12/04 [facility] En[facility] [id number] 12/06 [facility] En[facility] [id number] 12/18 [facility] En[facility] [id number] 12/18 [facility] En[facility] [id number] 12/22 [facility] En[facility] [id number] 12/26 [facility] En[facility] [id number] 01/10 [facility] En[facility] [id number]/11 [facility] [id number] 01/11 [facility] En[facility] [id number] 01/13 [facility] [place] [facility] 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, unspeci fiOLI Hayes 01/24 [facility] [facility] [place] [facility] Outpatient Encounter [id number] 04/20 [facility] [place] [facility] (631[facility] SPECIAL SUPPLIES PHYS/QHP [id number] Diagnos is: ICD-10- CM G47.30 Sleep apnea, unspeci fied VERNELL SAUCEDO E 05/08 [facility]89[facility] En[facility] [id number] 05/14 [facility] En[facility] [id number] OLI OBRIEN 05/14 [facility] En[facility] [id number] RAKESH LUX 08/27 [facility] En[facility] [id number] 08/27 [facility] En[facility] [id number] 09/04 [facility] En[facility] [id number] 09/05 [facility] En[facility] [id number] 09/05 [facility] En[facility] [id number] 12/25 [facility] En[facility] [id number] 12/26 [facility] [place] [facility] Social History Combined list of available smoking, tobacco, and other social history from Department of Defense and Veterans Affairs facilities. Social History Type Response Date Comment Source Tobacco smoking status [facility] VA-TOBACCO NEVER USED 01/25/2024 [place] History of tobacco use [place] QUIT 15 YRS OR MORE 01/25/2024 [place] History of tobacco use VA-TOBACCO FORMER USER 07/19/2022 [place] History of tobacco use [facility]-TOBACCO FORMER USER 02/26/2021 [place] History of tobacco use VA-TOBACCO FORMER USER 02/18/2020 [place] History of tobacco use [place]-TOBACCO QUIT 15 YRS OR MORE 01/26/2019 [place] History of tobacco use QUIT TOBACCO USE > 7 YEARS AGO 02/27/2018 does nkt smoke [place] History of tobacco use QUIT TOBACCO USE > 7 YEARS AGO 02/11/2017 stopped smoking 10 years ago [place] History of tobacco use LIFETIME NON TOBACCO USER 09/03/2016 [facility] History of tobacco use QUIT TOBACCO USE > 7 YEARS AGO 01/30/2016 [place] History of tobacco use PREVIOUS TOBACCO USER 09/03/2015 quit 6Y ago [facility] History of tobacco use QUIT TOBACCO USE 1-7 YEARS AGO 01/13/2015 quit 6 years ago [place] History of tobacco use LIFETIME NON TOBACCO USER 09/11/2014 [facility] History of tobacco use LIFETIME NON TOBACCO USER 07/05/2014 [facility] History of tobacco use PREVIOUS TOBACCO USER 11/27/2013 [facility] History of tobacco use LIFETIME NON TOBACCO USER 11/23/2013 [facility] History of tobacco use PREVIOUS TOBACCO USER 07/17/2013 quit 5 years ago [facility] History of tobacco use QUIT TOBACCO USE 1-7 YEARS AGO 03/30/[address] [facility] [facility] quit smoking 5 years ago. [place] History of tobacco use LIFETIME NON TOBACCO USER 06/23/2012 [facility] History of tobacco use QUIT TOBACCO USE 1-7 YEARS AGO 04/25/2012 [place] History of tobacco use LIFETIME NON TOBACCO USER 10/06/2011 [facility] History of tobacco use LIFETIME NON TOBACCO USER 06/21/2011 [facility] History of tobacco use LIFETIME NON TOBACCO USER 12/15/2010 [facility] History of tobacco use PREVIOUS TOBACCO USER 07/02/2010 patient quit 5 years ago. [facility] History of tobacco use LIFETIME NON TOBACCO USER 11/26/2009 [facility] History of tobacco use PREVIOUS TOBACCO USER 06/24/2009 quit smoking 4 yrs ago [facility] History of tobacco use LIFETIME NON TOBACCO USER 07/01/2008 quit 2.5 years ago. [facility] History of tobacco use LIFETIME NON TOBACCO USER 06/28/2007 [facility] History of tobacco use LIFETIME NON TOBACCO USER 02/24/2005 [facility] History of tobacco use REFUSED SMOKING CESSATION PROGRAM 11/05/2003 2 cigarettes a day [facility] History of tobacco use REFUSED SMOKING CESSATION PROGRAM 05/07/2003 [facility] History of tobacco use REFUSED SMOKING CESSATION PROGRAM 10/30/2002 [facility] History of tobacco use PREVIOUS SMOKER/USER 03/01/2002 quit 2000. [facility] History of tobacco use REFUSED TOBACCO COUNSELING/PROGRAM 06/09/2001 [facility] Plan of Care List of future care activities from Department of [facility] facilities. Additional future care activities may be listed in the Assessment and Plan section. Date/Time Care Activity Care Activity Detail Facili ty 01/09/2025 AMBULATORY - MEDICINE AMBULATORY - MEDICI [facility] Advance Directives List of completed, amended, or rescinded Advance Directives on record at Department of [facility] facilities. An actual copy of the Directive is not included. Date Advance Directive Provider Source 06/15/2001 ADVANCE DIRECTIVE DISCUSSION TITO SAN[facility]ORD [facility] 06/09/2001 ADVANCE DIRECTIVE JAE WATERMAN [facility]
--- OUTSIDE RECORDS SUMMARY | 2024-12-27 13:53 | XMS_ITS | Encounter Summary ---
Author Name [facility] [place] Organization [facility] [place] Address [address] [place] [address] Care Team Providers Care Closet Organizer Name Role Phone JAE OBRIEN Primary Care [...] BASIC FAMIL Y Aug 15, 2001 [id number] [phone] KATHERINE JAMES PATIENT ANTHEM BCBS CT FEDERAL PREFERRED PROVIDER ORGANIZAT ION (PPO) BASIC SELF Aug 15, 2001 111 [id number] [phone] KATHERINE JAMES PATIENT BCBS [place] FEP PREFERRED PROVIDER ORGANIZAT ION (PPO) BASIC INDIV IDUAL Aug 15, 2001 111 [id number] KATHERINE JAMES PATIENT [place] OF [place] ([place]EDER[place]) PREFERRED PROVIDER ORGANIZAT ION (PPO) BASIC INDIV IDUAL 111 Jun 15, 2016 111 [id number] [phone] KATHERINE JAMES PATIENT [place] PREFERRED PROVIDER ORGANIZAT ION (PPO) BASIC SELF Aug 15, 2001 111 [id number] KATHERINE JAMES PATIENT [place] F[place] DENTAL DENTAL INSURANCE BASIC Aug 15, 2001 DENTAL [id number] KATHERINE JAMES PATIENT CAREMARK ([id number]) PRESCRIPT ION FEP Aug 15, 2010 [id number] [phone] KATHERINE JAMES PATIENT CAR[place] FEP BCBS PRESCRIPT ION CAREM ARK FEPRX PLAN Jun 15, 2016 [id number] KATHERINE JAMES PATIENT CAREMARK FEPRX PLAN PRESCRIPT ION CAREM ARK FEPRX Aug 15, 2010 [id number] KATHERINE JAMES PATIENT CAREMARK-F EP BCBS PRESCRIPT ION FEP CAREM ARK Aug 15, 2010 [id number] [phone] KATHERINE JAMES PATIENT MEDICARE (WNR) MEDICARE (M) PART A Jun 15, 2016 PART A [id number] KATHERINE JAMES PATIENT MEDICARE (WNR) MEDICARE () PART B Jun 15, 2016 PART B [id number] KATHERINE JAMES PATIENT MEDICARE (WNR) MEDICARE () PART A Jun 15, 2016 PART A [id number] [phone] KATHERINE JAMES PATIENT MEDICARE (WNR) MEDICARE () PART B Jun 15, 2016 PART B [id number] KATHERINE JAMES PATIENT MEDICARE (WNR) MEDICARE (M) PART A Jun 15, 2016 PART A [id number] KATHERINE JAMES PATIENT MEDICARE (WNR) MEDICARE (M) PART B Jun 15, 2016 PART B [id number] KATHERINE JAMES PATIENT MEDICARE (WNR) MEDICARE (M) PART A Jun 15, 2016 PART A [id number] KATHERINE JAMES PATIENT MEDICARE (WNR) MEDICARE (M) PART B Jun 15, 2016 PART B [id number] KATHERINE JAMES PATIENT MEDICARE (WNR) MEDICARE (M) PART A Jun 15, 2016 PART A [id number] KATHERINE JAMES PATIENT MEDICARE (WNR) MEDICARE (M) PART B Jun 15, 2016 PART B [id number] KATHERINE JAMES PATIENT Selected Encounter This section includes the information on record at [place] for the Encounter. Date/Time Encounter Type Encounter Description Reason Pro vider Source December 26, 2024 11:29 AM Outpatient Encounter ADMIN PAT ACTIVTIES (MASNONCT) IHE Encounter Template Text not used by [...] Date/Time Appointment Type Appointme nt Facility Name January 09, 2025 01:30 PM AMBULATORY - MEDICINE [place] Active, Pending, and Scheduled Orders This section includes a listing of several types of active, pending, and scheduled orders, including clinic medications orders, diagnostic test orders, procedure orders and consult orders; where the start date of the order is 45 days before the date of the Encounter or 45 days after the date of theEncounter. The data comes from all [place] treatment facilities. Test Date/Time Test Type Test Details Facility Name Dec 12, 2024 05:32 PM Consult Order COMMUNITY CARE-DENTAL GENERAL Cons Plant Reliability Engineer's Choice [place] [facility] [place] [facility] December 24, 2024 12:00 AM Laboratory - Chemistry Order FERRITIN BLOOD (SST-SERUM) [facility] December 24, 2024 12:00 AM Laboratory - Chemistry Order VITAMIN D (25-OH) BLOOD (SST-SERUM) [facility] December 24, 2024 12:00 AM Laboratory - Chemistry Order RETICULOCYTES BLOOD (LAV-BLOOD) [facility] December 24, 2024 12:00 AM Laboratory - Chemistry Order PSA BLOOD (SST-SERUM) [facility] December 24, 2024 12:00 AM Laboratory - Chemistry Order BASIC METABOLIC PANEL (fasting) BLOOD (SST-SERUM) [facility] December 24, 2024 12:00 AM Laboratory - Chemistry Order LIPID PANEL FASTING BLOOD (SST-SERUM) [facility] December 24, 2024 12:00 AM Laboratory - Chemistry Order LIVER FUNCTION BLOOD (SST-SERUM) [facility] December 24, 2024 12:00 AM Laboratory - Chemistry Order CBC AND DIFF (AUTO) BLOOD (LAV-BLOOD) [facility] December 24, 2024 12:00 AM Laboratory - Chemistry Order HEMOGLOBIN A1C PANEL BLOOD (LAV-BLOOD) [facility] December 24, 2024 12:00 AM Laboratory - Chemistry Order TSH BLOOD (SST-SERUM) [facility] December 24, 2024 12:00 AM Laboratory - Chemistry Order CALCIUM BLOOD (SST-SERUM) [facility] December 24, 2024 12:00 AM Laboratory - Chemistry Order URIC ACID BLOOD (SST-SERUM) [facility] Advance Directives: All historical and current [...] 15, 2001 ADVANCE DIRECTIVE DISCUSSION TITO SANFORD [facility] Jun 09, 2001 ADVANCE DIRECTIVE JAE WATERMAN [facility] Encounter Notes: All associated encounter notes This section contains the clinical notes associated to the Encounter. Date/Time Encounter Note(s) Provider Source December 26, 2024 11:29 AM ADMINISTRATIVE NOT E: LOCAL TITLE: CCC: SCHEDULING ADMINISTRATION STANDARD TITLE: ADMINISTRATIVE NOTE DATE OF NOTE: DECEMBER 26, 2024@11:29:16 ENTRY DATE: DECEMBER 26, 2024@11:29:16 AUTHOR: BRITTANEY RÍOS COSIGNER: URGENCY: STATUS: COMPLETED CCC: SCHEDULING ADMINISTRATION Has ADDENDA Caller Verification Call Back Number: [phone] Emergency Contact: DOROTHY NOEL Emergency Contact Caller/Recipient Relation to Patient: Self Caller Name: HARRIS JAMES Administrative Administrative Note Reason: Returned Call Administrative Note Comments: PT RETURNING RN'S PHONE CALL. IMPORTANT: This note was created by [facility] staff. Please do not alert the staff member by adding them as a signer for future communications. Alerts are not monitored by this user. /nery RÍOS ADVANCED CLERICAL ADVISER Signed: 12/26/2024 11:29 Receipt Acknowledged By: 12/26/2024 13:21 /diego/ Scarlett Santos RN Registered Nurse (RN) 12/26/2024 13:28 /diego/ ALICE BAKER Advanced Cutter Grind Tool Technician 12/26/2024 ADDENDUM STATUS: COMPLETED Spoke with , advised that we received the official lab results from [facility], it appears that not all the tests that were ordered were done. The comment states: The following tests were cancelled: CMP, Uric acid, Liver & Kidney function test, Lipid panel and TSH. Discussed that there are results reported for Lipid and TSH BUT may not be accurate. So he does need to repeat here at the [place], verbalized an understanding. /diego/ Scarlett Santos, KELSIE Registered Nurse (RN) Signed: 12/26/2024 13:21 BRITTANEY RÍOS [place] [facility]
--- OUTSIDE RECORDS SUMMARY | 2024-12-27 13:53 | XMS_ITS | Clinical Summary ---
Author Organization [facility] ity Address [address] [place] [address] Care Team Providers Care Unit Controller Name Role Phone Unavailable Primary Care Provider [...]
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
--- OUTSIDE RECORDS SUMMARY | 2024-12-27 13:53 | XMS_ITS | Encounter Summary ---
Author Name [facility] [place] [facility] [place] Address [address] [place] [address] Care Team Providers Care Squirrel Worker Name Role Phone WILSONJAE RUBIN Primary Care [...] BASIC FAMIL Y Aug 15, 2001 [id number] [phone] KATHERINE JAMES PATIENT ANTHEM BCBS CT FEDERAL PREFERRED PROVIDER ORGANIZAT ION (PPO) BASIC SELF Aug 15, 2001 111 [id number] [phone] KATHERINE JAMES PATIENT BCBS [place] FEP PREFERRED PROVIDER ORGANIZAT ION (PPO) BASIC INDIV IDUAL Aug 15, 2001 111 [id number] KATHERINE JAMES PATIENT BCBS OF [place] (FEDER[place]) PREFERRED PROVIDER ORGANIZAT ION (PPO) BASIC INDIV IDUAL 111 Jun 15, 2016 111 [id number] [phone] KATHERINE JAMES PATIENT BCBS [place] F[place] PREFERRED PROVIDER ORGANIZAT ION (PPO) BASIC SELF Aug 15, 2001 111 [id number] KATHERINE JAMES PATIENT [place] FEP DENTAL DENTAL INSURANCE BASIC Aug 15, 2001 DENTAL [id number] KATHERINE JAMES PATIENT CAREMARK ([id number]) PRESCRIPT ION FEP Aug 15, 2010 [id number] [phone] KATHERINE JAMES PATIENT [place] FEP BCBS PRESCRIPT ION CAREM ARK FEPRX PLAN Jun 15, 2016 [id number] KATHERINE JAMES PATIENT CAREMARK FEPRX PLAN PRESCRIPT ION CAREM ARK FEPRX Aug 15, 2010 [id number] [phone] KATHERINE JAMES PATIENT CAREMARK-F EP BCBS PRESCRIPT ION FEP CAREM ARK Aug 15, 2010 [id number] KATHERINE JAMES PATIENT MEDICARE (WNR) MEDICARE () PART A Jun 15, 2016 PART A [id number] KATHERINE JAMES PATIENT MEDICARE (WNR) MEDICARE () PART B Jun 15, 2016 PART B [id number] KATHERINE JAMES PATIENT MEDICARE (WNR) MEDICARE () PART A Jun 15, 2016 PART A [id number] [phone] KATHERINE JAMES PATIENT MEDICARE (WNR) MEDICARE () PART B Jun 15, 2016 PART B [id number] [phone] KATHERINE JAMES PATIENT MEDICARE (WNR) MEDICARE () PART A Jun 15, 2016 PART A [id number] [phone] KATHERINE JAMES PATIENT MEDICARE (WNR) MEDICARE () PART B Jun 15, 2016 PART B [id number] KATHERINE JAMES PATIENT MEDICARE (WNR) MEDICARE () PART A Jun 15, 2016 PART A [id number] KATHERINE JAMES PATIENT MEDICARE (WNR) MEDICARE (M) PART B Jun 15, 2016 PART B [id number] KATHERINE JAMES PATIENT MEDICARE (WNR) MEDICARE (M) PART A Jun 15, 2016 PART A [id number] KATHERINE JAMES PATIENT MEDICARE (WNR) MEDICARE (M) PART B Jun 15, 2016 PART B [id number] KATHERINE JAMES PATIENT Selected Encounter This section includes the information on record at [place] for the Encounter. Date/Time Encounter Type Encounter Description Reason Pro vider Source December 25, 2024 09:39 AM Outpatient Encounter PRIMARY CARE/MEDICINE IHE Encounter Template Text not used by [place] Plan of Treatment: Future Appointments (+ 6 months) and Future Tests (+/- 45 days) The Plan of Treatment section includes future care activities for the patient from all [place] treatmentfacilities. This section includes future appointments and future orders which are active, pending or scheduled. Future Appointments This section includes appointments that were scheduled to occur 6 months from the date of the Encounter, up to a maximum of 20 appointments. The data comes from all [place] treatment facilities. Appointment Date/Time Appointment Type Appointme [...] of theEncounter. The data comes from all [place] treatment facilities. Test Date/Time Test Type Test Details Facility Name Dec 12, 2024 05:32 PM Consult Order COMMUNITY CARE-DENTAL GENERAL Cons Tinter Photograph's Choice [place] [facility] [place] [facility] December 24, 2024 12:00 AM Laboratory - Chemistry Order FERRITIN BLOOD (SST-SERUM) [facility] December 24, 2024 12:00 AM Laboratory - Chemistry Order VITAMIN D (25-OH) BLOOD (SST-SERUM) [facility] December 24, 2024 12:00 AM Laboratory - Chemistry Order RETICULOCYTES BLOOD (LAV-BLOOD) [facility] December 24, 2024 12:00 AM Laboratory - Chemistry Order PSA BLOOD (SST-SERUM) [facility] December 24, 2024 12:00 AM Laboratory - Chemistry Order BASIC METABOLIC PANEL (fasting) BLOOD (SST-SERUM) [facility] December 24, 2024 12:00 AM Laboratory - Chemistry Order LIPID PANEL FASTING BLOOD (SST-SERUM) [facility] December 24, 2024 12:00 AM Laboratory - Chemistry Order LIVER FUNCTION BLOOD (SST-SERUM) [facility] December 24, 2024 12:00 AM Laboratory - Chemistry Order CBC AND DIFF (AUTO) BLOOD (LAV-BLOOD) [facility] December 24, 2024 12:00 AM Laboratory - Chemistry Order HEMOGLOBIN A1C PANEL BLOOD (LAV-BLOOD) [facility] December 24, 2024 12:00 AM Laboratory - Chemistry Order TSH BLOOD (SST-SERUM) [facility] December 24, 2024 12:00 AM Laboratory - Chemistry Order CALCIUM BLOOD (SST-SERUM) [facility] December 24, 2024 12:00 AM Laboratory - Chemistry Order URIC ACID BLOOD (SST-SERUM) [facility] Advance Directives: All historical and current Section Date Range: From patient's date of to the date document was created. This section includes ALL of a patient's completed or amended [place] Advance and Rescinded Directives. The entries below indicate that a directive exists for the patient, but an actual copy is not included with this document. The data comes from all [place] facilities. Date Advance Directives Provider Source Jun 15, 2001 ADVANCE DIRECTIVE DISCUSSION TITO SANFORD [facility] Jun 09, 2001 ADVANCE DIRECTIVE JAE WATERMAN [facility] Encounter Notes: All associated encounter notes This section contains the clinical notes associated to the Encounter. Date/Time Encounter Note(s) Provider Source December 25, 2024 10:37 AM ADDENDUM: LOCAL TITLE: Addendum STANDARD TITLE: ADDENDUM DATE OF NOTE: DECEMBER 25, 2024@10:37:18 ENTRY DATE: DECEMBER 25, 2024@10:37:18 AUTHOR: ROSSANA SANTOS EXP COSIGNER: URGENCY: STATUS: COMPLETED AMSA--Please obtain an official copy of results from [facility]. Thanks /diego/ Rossana Santos RN Registered Nurse (RN) Signed: 12/25/2024 10:38 Receipt Acknowledged By: 12/25/2024 11:15 /diego/ ALICE BAKER Advanced Assignment Clerk ====== --- Original Document --- 12/25/24 PRIMARY CARE SECURE MESSAGING: ------Original Message ------- Sent: 12/25/2024 02:04 AM ET From: HARRIS JAMES To: Charley WILSON_PRIMARY CARE_[facility] Subject: Test:Blood Work and Apppointment soon Attachments: 2024-12-25 (1).png (184.84 KB), 2024-12-25 (3).png (187.37 KB), 2024-12-25 (5).png (185.83 KB) Mr Wilson, I have an appointment with YOU in 2 weeks on January 09 for my annual physical and fasting blood work....I just a few days ago (December 20, 2024) had the same thing , to include fasting blood work and provided a urine sample as well with my [facility] doctor Jae Lara at [facility]..I also had an EKG then also with my hydroelectric systems technician Dr Elmore at [facility] who told me my EKG showed no changes and good and to return to him in 1 year in 2025..Below is my blood work results which was the full blood work up to include lipids , PSA, and all other full blood work results...Do you want to have me do more blood work again prior to my appointment with you in 2 weeks on January 09? .. .Also I have provided 3 screen shots ATTACHED to make it easier for you to view ALL the blood tests results that I just had done a few days ago at [facility].. Select a test below to view Laboratory and Microbiology results. The most recent result of the test displays on this initial screen. Click on a test to view the complete history of results of that test. Each of the column headers are sortable when clicked on. For example, to sort your results alphabetically, simply click on the Test column header. Select to view result comments Collection Date Test Result Reference RangeFlag December 20, 2024 2:32 pm White Blood Count 8.7 X10*3/uL 4.8-10.8 X10*3/uL December 20, 2024 2:32 pm Red Blood Count 4.81 X10*6/uL 4.60-5.80 X10*6/uL December 20, 2024 2:32 pm Hemoglobin 14.7 g/dl 14.0-18.0 g/dl December 20, 2024 2:32 pm Hematocrit 44.6 % 42.0-52.0 % December 20, 2024 2:32 pm Mean Corpuscular Volume 92.7 fL 80.0-98.0 fL December 20, 2024 2:32 pm Mean Corpuscular Hemoglobin 30.6 pg 27.0-33.0 pg December 20, 2024 2:32 pm Mean Corpuscular Hemoglobin Concent 33.0 g/dl 31.0-36.0 g/dl December 20, 2024 2:32 pm Red Cell Distribution Width 14.6 % 11.0-16.0 % December 20, 2024 2:32 pm Platelet Count 187 X10*3/uL 160-400 X10*3/uL December 20, 2024 2:32 pm Mean Platelet Volume 10.9 fL 9.4-12.4 fL December 20, 2024 2:32 pm Immature Granulocyte % (Auto) 0.5 % 0.0-0.4 % H December 20, 2024 2:32 pm Neutrophils (%) (Auto) 61.2 % 45-73 % December 20, 2024 2:32 pm Lymphocytes (%) (Auto) 23.1 % 20-40 % December 20, 2024 2:32 pm Monocytes (%) (Auto) 8.0 % 2-11 % December 20, 2024 2:32 pm Eosinophils (%) (Auto) 6.1 % 0-4 % H December 20, 2024 2:32 pm Basophils (%) (Auto) 1.1 % 0-2 % December 20, 2024 2:32 pm Lymphocytes # (Auto) 2.0 X10*3/uL 1.2-4.9 X10*3/uL December 20, 2024 2:32 pm Monocytes # (Auto) 0.7 X10*3/uL 0.1-1.2 X10*3/uL December 20, 2024 2:32 pm Eosinophils # (Auto) 0.5 X10*3/uL 0.0-0.4 X10*3/uL H December 20, 2024 2:32 pm Basophils # (Auto) 0.1 X10*3/uL 0.0-0.2 X10*3/uL December 20, 2024 2:32 pm Absolute Immature Granulocyte (auto 0.04 X10*3/uL 0.00-0.03 X10*3/uL H December 20, 2024 2:32 pm Absolute Neutrophils (auto) 5.3 x10*3/uL 2.0-8.3 x10*3/uL December 20, 2024 2:32 pm Nucleated RBC Absolute Count (auto) 0.000 X10*3/uL 0.0-0.012 X10*3/uL December 20, 2024 2:32 pm Nucleated Red Blood Cells % (auto) 0.0 /100WBC 0.0-0.2 /100WBC December 20, 2024 11:30 am Urine Color Yellow December 20, 2024 11:30 am Urine Appearance Clear December 20, 2024 11:30 am Urine pH 7.0 5.0-9.0 December 20, 2024 11:30 am Urine Specific [place]me >= 1.030 1.005-1.025 H December 20, 2024 11:30 am Urine Protein Negative mg/dL Neg-Trace mg/dL December 20, 2024 11:30 am Urine Glucose (UA) Negative mg/dL Negative mg/dL December 20, 2024 11:30 am Urine Ketones Negative mg/dL Negative mg/dL December 20, 2024 11:30 am Urine Blood Negative Negative December 20, 2024 11:30 am Urine Nitrite Negative Negative December 20, 2024 11:30 am Urine Leukocyte Esterase Negative Negative December 20, 2024 2:32 pm Prostate Specific Antigen Screen < 0.10 ng/mL <0.05-4.0 ng/mL December 20, 2024 2:32 pm Triglycerides Level 144 mg/dL <150 mg/dL December 20, 2024 2:32 pm Cholesterol Level 154 mg/dL <200 mg/dL December 20, 2024 2:32 pm LDL Cholesterol, Calculated 74 mg/dL <100 mg/dL December 20, 2024 2:32 pm HDL Cholesterol 52 mg/dL >40 mg/dL /diego/ ALICE BAKER Advanced Assignment Clerk Signed: 12/25/2024 09:39 Receipt Acknowledged By: * AWAITING SIGNATURE * ROSSANA SANTOS 12/25/2024 ADDENDUM STATUS: UNSIGNED You may not VIEW this UNSIGNED Addendum. RODRÍGUEZROSSANA Ag [place] [facility] [place] [facility] December 25, 2024 09:39 AM PRIMARY CARE SECURE MESSAGING: LOCAL TITLE: PRIMARY CARE SECURE MESSAGING STANDARD TITLE: PRIMARY CARE SECURE MESSAGING DATE OF NOTE: DECEMBER 25, 2024@09:39 ENTRY DATE: DECEMBER 25, 2024@09:39:35 AUTHOR: TR BAKER EXP COSIGNER: URGENCY: STATUS: COMPLETED PRIMARY CARE SECURE MESSAGING Has ADDENDA ------Original Message ------- Sent: 12/25/2024 02:04 AM ET From: HARRIS JAMES To: Charley WILSON_[facility]IMARY [facility] Subject: Test:Blood Work and Apppointment soon Attachments: 2024-12-25 (1).png (184.84 KB), 2024-12-25 (3).png (187.37 KB), 2024-12-25 (5).png (185.83 KB) Mr Wilson, I have an appointment with YOU in 2 weeks on January 09 for my annual physical and fasting blood work....I just a few days ago (December 20, 2024) had the same thing , to include fasting blood work and provided a urine sample as well with my NON [facility] doctor Jae Lara at [facility]..I also had an EKG then also with my hydroelectric systems technician Dr Elmore at [facility] who told me my EKG showed no changes and good and to return to him in 1 year in 2025..Below is my blood work results which was the full blood work up to include lipids , PSA, and all other full blood work results...Do you want to have me do more blood work again prior to my appointment with you in 2 weeks on January 09? .. .Also I have provided 3 screen shots ATTACHED to make it easier for you to view ALL the blood tests results that I just had done a few days ago at [facility].. Select a test below to view Laboratory and Microbiology results. The most recent result of the test displays on this initial screen. Click on a test to view the complete history of results of that test. Each of the column headers are sortable when clicked on. For example, to sort your results alphabetically, simply click on the Test column header. Select to view result comments Collection Date Test Result Reference RangeFlag December 20, 2024 2:32 pm White Blood Count 8.7 X10*3/uL 4.8-10.8 X10*3/uL December 20, 2024 2:32 pm Red Blood Count 4.81 X10*6/uL 4.60-5.80 X10*6/uL December 20, 2024 2:32 pm Hemoglobin 14.7 g/dl 14.0-18.0 g/dl December 20, 2024 2:32 pm Hematocrit 44.6 % 42.0-52.0 % December 20, 2024 2:32 pm Mean Corpuscular Volume 92.7 fL 80.0-98.0 fL December 20, 2024 2:32 pm Mean Corpuscular Hemoglobin 30.6 pg 27.0-33.0 pg December 20, 2024 2:32 pm Mean Corpuscular Hemoglobin Concent 33.0 g/dl 31.0-36.0 g/dl December 20, 2024 2:32 pm Red Cell Distribution Width 14.6 % 11.0-16.0 % December 20, 2024 2:32 pm Platelet Count 187 X10*3/uL 160-400 X10*3/uL December 20, 2024 2:32 pm Mean Platelet Volume 10.9 fL 9.4-12.4 fL December 20, 2024 2:32 pm Immature Granulocyte % (Auto) 0.5 % 0.0-0.4 % H December 20, 2024 2:32 pm Neutrophils (%) (Auto) 61.2 % 45-73 % December 20, 2024 2:32 pm Lymphocytes (%) (Auto) 23.1 % 20-40 % December 20, 2024 2:32 pm Monocytes (%) (Auto) 8.0 % 2-11 % December 20, 2024 2:32 pm Eosinophils (%) (Auto) 6.1 % 0-4 % H December 20, 2024 2:32 pm Basophils (%) (Auto) 1.1 % 0-2 % December 20, 2024 2:32 pm Lymphocytes # (Auto) 2.0 X10*3/uL 1.2-4.9 X10*3/uL December 20, 2024 2:32 pm Monocytes # (Auto) 0.7 X10*3/uL 0.1-1.2 X10*3/uL December 20, 2024 2:32 pm Eosinophils # (Auto) 0.5 X10*3/uL 0.0-0.4 X10*3/uL H December 20, 2024 2:32 pm Basophils # (Auto) 0.1 X10*3/uL 0.0-0.2 X10*3/uL December 20, 2024 2:32 pm Absolute Immature Granulocyte (auto 0.04 X10*3/uL 0.00-0.03 X10*3/uL H December 20, 2024 2:32 pm Absolute Neutrophils (auto) 5.3 x10*3/uL 2.0-8.3 x10*3/uL December 20, 2024 2:32 pm Nucleated RBC Absolute Count (auto) 0.000 X10*3/uL 0.0-0.012 X10*3/uL December 20, 2024 2:32 pm Nucleated Red Blood Cells % (auto) 0.0 /100WBC 0.0-0.2 /100WBC December 20, 2024 11:30 am Urine Color Yellow December 20, 2024 11:30 am Urine Appearance Clear December 20, 2024 11:30 am Urine pH 7.0 5.0-9.0 December 20, 2024 11:30 am Urine Specific Acme >= 1.030 1.005-1.025 H December 20, 2024 11:30 am Urine Protein Negative mg/dL Neg-Trace mg/dL December 20, 2024 11:30 am Urine Glucose (UA) Negative mg/dL Negative mg/dL December 20, 2024 11:30 am Urine Ketones Negative mg/dL Negative mg/dL December 20, 2024 11:30 am Urine Blood Negative Negative December 20, 2024 11:30 am Urine Nitrite Negative Negative December 20, 2024 11:30 am Urine Leukocyte Esterase Negative Negative December 20, 2024 2:32 pm Prostate Specific Antigen Screen < 0.10 ng/mL <0.05-4.0 ng/mL December 20, 2024 2:32 pm Triglycerides Level 144 mg/dL <150 mg/dL December 20, 2024 2:32 pm Cholesterol Level 154 mg/dL <200 mg/dL December 20, 2024 2:32 pm LDL Cholesterol, Calculated 74 mg/dL <100 mg/dL December 20, 2024 2:32 pm HDL Cholesterol 52 mg/dL >40 mg/dL /diego/ ALICE BAKER Advanced Assignment Clerk Signed: 12/25/2024 09:39 Receipt Acknowledged By: 12/26/2024 13:21 /nery Santos RN Registered Nurse (RN) 12/25/2024 ADDENDUM STATUS: COMPLETED AMSA--Please obtain an official copy of results from [facility]. Thanks /diego/ Rossana Santos RN Registered Nurse (RN) Signed: 12/25/2024 10:38 Receipt Acknowledged By: 12/25/2024 11:15 /diego/ ALICE BAKER Advanced Assignment Clerk 12/25/2024 ADDENDUM STATUS: COMPLETED LAB REPORT requested /nery BAKER Advanced Assignment Clerk Signed: 12/25/2024 11:16 12/26/2024 ADDENDUM STATUS: COMPLETED Called without success, LVM to call back as I was unable to respomd to via [facility]. /diego/ Rossana Santos RN Registered Nurse (RN) Signed: 12/26/2024 10:12 12/26/2024 ADDENDUM STATUS: COMPLETED Spoke with , advised that we received the official lab results from [facility], it appears that not all the tests that were ordered were done. The comment states: The following tests were cancelled: CMP, Uric acid, Liver & Kidney function test, Lipid panel and TSH. Discussed that there are results reported for Lipid and TSH BUT may not be accurate. So he does need to repeat here at the [place], verbalized an understanding. /nery Santos RN Registered Nurse (RN) Signed: 12/26/2024 13:22 TR [facility]AKER [facility]
[2024-12-27 14:01] VITALS: BP 126/86
== END 2024-12-27 14:46 | disposition home or self-care (01) ==
LOC: HO.HMCC 13:19
PROVIDERS: PCP Nurse Practitioner Family; Visit Provider Nurse Practitioner Family
DX: E78.5 Hyperlipidemia, unspecified (principal); I10 Essential (primary) hypertension; E53.8 Deficiency of other specified B group vitamins; Z87.39 Personal history of other diseases of the musculoskeletal system and connective tissue; R97.20 Elevated prostate specific antigen [PSA]

== ENCOUNTER → 2024-12-27 13:18 | Outpatient (BNVA) | payer MEDICARE, BC, SELFPAY | PROVIDERS: PCP Nurse Practitioner Family; Visit Provider Nurse Practitioner Family | DX: E78.5 Hyperlipidemia, unspecified (principal); E53.8 Deficiency of other specified B group vitamins; I10 Essential (primary) hypertension; R97.20 Elevated prostate specific antigen [PSA]; Z87.39 Personal history of other diseases of the musculoskeletal system and connective tissue | CPT/HCPCS: 96127; 99212 ==

== ENCOUNTER 2025-01-03 14:54 | Outpatient (REF) | payer MEDICARE, BC, SELFPAY ==
--- OUTSIDE RECORDS SUMMARY | 2025-01-03 14:57 | XMS_ITS | Clinical Summary ---
Author Organization [employer] Address [address] [place] [id number] Care Team Providers Care Patent Clerk Name Role Phone Unavailable Primary Care [...]
[2025-01-03 16:02] LABS: MANUAL DIFF FLAG NO
[2025-01-03 16:03] LABS: Basophils Absolute Auto 0.1 X10*3/uL (0.0-0.2); Eosinophils Absolute Auto 0.2 X10*3/uL (0.0-0.4); Eosinophils Percent Auto 3.5 % (0-4); Hematocrit 45.1 % (42.0-52.0); Hemoglobin 14.8 g/dl (14.0-18.0); Imm Gran Abs Auto 0.02 X10*3/uL (0.00-0.03); Imm Gran Pct Auto 0.3 % (0.0-0.4); Lymphocytes Absolute Auto 1.4 X10*3/uL (1.2-4.9); Lymphocytes Percent Auto 20.8 % (20-40); Mean Corpuscular HGB Conc 32.8 g/dl (31.0-36.0); Mean Corpuscular Hemoglobin 30.8 pg (27.0-33.0); Mean Platelet Volume 10.6 fL (9.4-12.4); Monocytes Absolute Auto 0.6 X10*3/uL (0.1-1.2); Monocytes Percent Auto 8.3 % (2-11); Neutrophils Absolute Auto 4.5 x10*3/uL (2.0-8.3); Neutrophils Percent Auto 66.1 % (45-73); Platelet Count 169 X10*3/uL (160-400); Red Cell Distribution Width 14.5 % (11.0-16.0); White Blood Count 6.9 X10*3/uL (4.8-10.8)
[2025-01-03 16:48] LABS: Alanine Aminotransferase 18 U/L (0-40); Albumin Level 3.9 g/dL (3.5-5.0); Alkaline Phosphatase 84 U/L (39-117); Anion Gap 12 (12-20); Aspartate Amino Transferase 20 U/L (5-37); Bilirubin Total 1.6 mg/dL (0.0-1.0); Blood Urea Nitrogen 19 mg/dL (9-16); Carbon Dioxide 26 mmol/L (22-29); Chloride 111 mmol/L (96-108); Cholesterol 145 mg/dL (<200); Estimated Glomerular Filt Rate > 60; Glucose Fasting 108 mg/dL (60-99); HDL Cholesterol 51 mg/dL (>40); LDL Cholesterol Calculated 66 mg/dL (<100); Potassium 3.8 mmol/L (3.3-5.1); Sodium 145 mmol/L (135-145); Total Protein 7.2 g/dL (6.5-8.0); Triglycerides 144 mg/dL (<150)
[2025-01-03 16:59] LABS: Uric Acid 3.5 mg/dL (3.4-7.0)
[2025-01-03 17:01] LABS: TSH reflex Free T4 2.54 uIU/mL (0.32-4.0)
[2025-01-03 17:17] LABS: Folate 8.3 ng/mL (> or = 4.0); Prostate Specific Antigen Scr < 0.10 ng/mL (<0.05-4.0); Vitamin B12 723 pg/mL (200-900)
== END 2025-01-03 14:55 | disposition home or self-care (01) ==
LOC: HO.HMGCLDS 14:54
PROVIDERS: PCP Nurse Practitioner Family; Visit Provider Nurse Practitioner Family
DX: E78.5 Hyperlipidemia, unspecified (principal); R97.20 Elevated prostate specific antigen [PSA]; I10 Essential (primary) hypertension; E53.8 Deficiency of other specified B group vitamins; Z87.39 Personal history of other diseases of the musculoskeletal system and connective tissue; Z12.5 Encounter for screening for malignant neoplasm of prostate
CPT/HCPCS: 36415; 80053; 80061; 82607; 82746; 84153; 84443; 84550; 85025

== ENCOUNTER 2025-04-17 12:58 | Outpatient (AMB) | payer MEDICARE, BC, SELFPAY ==
--- OUTSIDE RECORDS SUMMARY | 2025-01-09 09:30 | XMS_ITS | Encounter Summary ---
Author Name [facility] [place] [facility] [place] [facility] [place] [facility] [place] Address [address] [facility] [facility], [place] [address] Care Team Providers Care Hotel Breakfast Attendant Name Role Phone OBRIENJAE RUBIN Primary Care [...] BASIC FAMIL Y Aug 15, 2001 [id number] [phone] KATHERINE JAMES PATIENT ANTHEM BCBS CT FEDERAL PREFERRED PROVIDER ORGANIZAT ION (PPO) BASIC SELF Aug 15, 2001 111 [id number] [phone] KATHERINE JAMES PATIENT BCBS [place] FEP PREFERRED PROVIDER ORGANIZAT ION (PPO) BASIC INDIV IDUAL Aug 15, 2001 111 [id number] KATHERINE JAMES PATIENT [place] (FEDER[place]) PREFERRED PROVIDER ORGANIZAT ION (PPO) BASIC INDIV IDUAL 111 Jun 15, 2016 111 [id number] [phone] KATHERINE JAMES PATIENT [place] PREFERRED PROVIDER ORGANIZAT ION (PPO) BASIC SELF Aug 15, 2001 111 [id number] [phone] KATHERINE JAMES PATIENT [place] FEP DENTAL DENTAL INSURANCE BASIC Aug 15, 2001 DENTAL [id number] KATHERINE JAMES PATIENT CAR[place]ARK ([id number]) PRESCRIPT ION FEP Aug 15, 2010 [id number] [phone] KATHERINE JAMES PATIENT [place] FEP BCBS PRESCRIPT ION CAREM ARK FEPRX PLAN Jun 15, 2016 [id number] KATHERINE JAMES PATIENT [place] FEPRX PLAN PRESCRIPT ION CAREM ARK FEPRX Aug 15, 2010 [id number] KATHERINE JAMES PATIENT [place]-F EP BCBS PRESCRIPT ION FEP CAREM ARK Aug 15, 2010 [id number] KATHERINE JAMES PATIENT MEDICARE (WNR) MEDICARE (M) PART A Jun 15, 2016 PART A [id number] KATHERINE JAMES PATIENT MEDICARE (WNR) MEDICARE () PART B Jun 15, 2016 PART B [id number] KATHERINE JAMES PATIENT MEDICARE (WNR) MEDICARE () PART A Jun 15, 2016 PART A [id number] KATHERINE JAMES PATIENT MEDICARE (WNR) MEDICARE (M) PART A Jun 15, 2016 PART A [id number] KATHERINE JAMES PATIENT MEDICARE (WNR) MEDICARE (M) PART B Jun 15, 2016 PART B [id number] KATHERINE JAMES PATIENT MEDICARE (WNR) MEDICARE (M) PART B Jun 15, 2016 PART B [id number] KATHERINE JAMES PATIENT MEDICARE (WNR) MEDICARE (M) PART A Jun 15, 2016 PART A [id number] [phone] KATHERINE JAMES PATIENT MEDICARE (WNR) MEDICARE (M) PART B Jun 15, 2016 PART B [id number] KATHERINE JAMES PATIENT MEDICARE (WNR) MEDICARE (M) PART A Jun 15, 2016 PART A [id number] [phone] KATHERINE JAMES PATIENT MEDICARE (WNR) MEDICARE (M) PART B Jun 15, 2016 PART B [id number] KATHERINE JAMES PATIENT MEDICARE (WNR) MEDICARE (M) PART A Jun 15, 2016 PART A [id number] KATHERINE JAMES PATIENT MEDICARE (WNR) MEDICARE (M) PART B Jun 15, 2016 PART B [id number] KATHERINE JAMES PATIENT Selected Encounter This section includes the information on record at [place] for the Encounter. Date/Time Encounter Type Encounter Description Reason Provider Source January 09, 2025 01:30 PM OFFICE O/P EST MOD 30 MIN PRIMARY CARE/MEDICINE ICD-10-CM I25.10 Athscl heart disease of [place] coronary artery w/o JAE Ashford Encounter Template Text not used by [place] Assessments - Encounter Diagnoses This section includes the primary and secondary diagnoses documented for the Encounter. Date/Time Primary/Secondary Diagnosis Diagnosis Name Provider Source January 09, 2025 01:56 PM PRIMARY Athscl heart disease of [place] coronary artery w/o JAE Ashford January 09, 2025 01:56 PM SECONDARY Essential (primary) hypertension JAE OBREIN January 09, 2025 01:56 PM SECONDARY Other specified hypothyroidism JAE OBRIEN Plan [...] Appointment Type Appointme nt Facility Name Jan 16, 2025 10:30 AM AMBULATORY [facility] MED[facility]INE [facility] Mar 14, 2025 03:00 PM [facility] Apr 12, 2025 01:30 PM AMBULATORY - MEDICINE [facility] Active, Pending, and Scheduled Orders This section includes a listing of several types of active, pending, and scheduled orders, including clinic medications orders, diagnostic test orders, procedure orders and consult orders; where the start date of the order is 45 days before the date of the Encounter or 45 days after the date of theEncounter. The data comes from all [place] treatment facilities. Test Date/Time Test Type Test Details Facility Name Dec 12, 2024 05:32 PM Consult Order COMMUNITY CARE-DENTAL GENERAL Cons [employer] [place] [facility] December 24, 2024 12:00 AM Laboratory - Chemistry Order FERRITIN BLOOD (SST-SERUM) [facility] December 24, 2024 12:00 AM Laboratory - Chemistry Order VITAMIN D (25-OH) BLOOD (SST-SERUM) [facility] December 24, 2024 12:00 AM Laboratory - Chemistry Order RETICULOCYTES BLOOD (LAV-BLOOD) [facility] December 24, 2024 12:00 AM Laboratory - Chemistry Order PSA BLOOD (SST-SERUM) [facility] December 24, 2024 12:00 AM Laboratory - Chemistry Order BASIC METABOLIC PANEL (fasting) BLOOD (SST-SERUM) [facility] December 24, 2024 12:00 AM Laboratory - Chemistry Order LIPID PANEL FASTING BLOOD (SST-SERUM) [facility] December 24, 2024 12:00 AM Laboratory - Chemistry Order CBC AND DIFF (AUTO) BLOOD (LAV-BLOOD) [facility] December 24, 2024 12:00 AM Laboratory - Chemistry Order HEMOGLOBIN A1C PANEL BLOOD (LAV-BLOOD) [facility] December 24, 2024 12:00 AM Laboratory - Chemistry Order LIVER FUNCTION BLOOD (SST-SERUM) [facility] December 24, 2024 12:00 AM Laboratory - Chemistry Order CALCIUM BLOOD (SST-SERUM) [facility] December 24, 2024 12:00 AM Laboratory - Chemistry Order URIC ACID BLOOD (SST-SERUM) [facility] December 24, 2024 12:00 AM Laboratory - Chemistry Order TSH BLOOD (SST-SERUM) [facility] Vital Signs: All taken on the encounter date This section contains inpatient and outpatient Vital Signs collected on the date of the Encounter. Date/Time Temperature Pulse Blood Pressure Respiratory Rate SP02 Pain Height Weight Body Mass Index Source January 09, 2025 01:40 PM 97.7 66 125/73 92 250 40 [facility] Social History: Smoking Status (Most current) and Tobacco Use (All prior to encounter date) This section includes the most current, and the historical, smoking and tobacco- related health factors from the [place] facility where the Encounter took place. Current Smoking Status This section includes the most current smoking, or tobacco-related health factor, from the [place] facility where the Encounter took place. Date/Time Current Smoking Status Comment Facil ity Jan 25, 2024 01:00 PM VA-TOBACCO NEVER USED [facility] Tobacco Use History This section includes a history of the smoking, or tobacco-related health factors, that were collected on or before the date of the Encounter. The data comes from the [place] facility where the Encounter took place. Date/Time Smoking Status/Tobacco Use Comment F acility Jan 25, 2024 01:00 PM VA-TOBACCO NEVER USED [facility] Jan 25, 2024 01:00 PM VA-TOBACCO QUIT 15 YRS OR MORE [facility] Jul 19, 2022 01:00 PM VA-TOBACCO FORMER USER [facility] Jul 19, 2022 01:00 PM VA-TOBACCO QUIT 15 YRS OR MORE [facility] Feb 26, 2021 01:00 PM VA-TOBACCO FORMER USER [facility] Feb 26, 2021 01:00 PM VA-TOBACCO QUIT 5 TO < 15 YRS [facility] Feb 18, 2020 11:31 AM VA-TOBACCO FORMER USER [facility] Feb 18, 2020 11:31 AM VA-TOBACCO QUIT 15 YRS OR MORE [facility] Jan 26, 2019 02:24 PM VA-TOBACCO FORMER USER [facility] Jan 26, 2019 02:24 PM VA-TOBACCO QUIT 15 YRS OR MORE [facility] Feb 27, 2018 01:17 PM QUIT TOBACCO USE > 7 YEARS AGO does nkt smoke [facility] Feb 11, 2017 12:04 PM QUIT TOBACCO USE > 7 YEARS AGO stopped smoking 10 years ago [facility] Jan 30, 2016 11:11 AM QUIT TOBACCO USE > 7 YEARS AGO [facility] Jan 13, 2015 10:04 AM QUIT TOBACCO USE 1 -7 YEARS AGO quit 6 years ago [facility] Mar 30, 2013 11:38 AM QUIT TOBACCO USE 1 -7 YEARS AGO Pt. ststed he quit smoking 5 years ago. [facility] Apr 25, 2012 12:52 PM QUIT TOBACCO USE 1 -7 YEARS AGO [facility] Advance Directives: All historical and current Section Date Range: From patient's date of to the date document was created. This section includes ALL of a patient's completed or amended [facility] Advance and Rescinded Directives. The entries below [...] Encounter. 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 all better now new pain the in the back or, resting/night pain involving bones or joints - no unintentional wt loss - no loss appetite - no early satiety w/ meals - no any new or changing skin lesions - yes - recent excisons of bcc's new or unexplained cough - no hemoptysis - no jaundice - no blood stools - no melena - no blood urine - no new testicular mass/lump - no easy bruising or excess bleeding - no O - coop A&Ox3 NAD W-N/H/D HEENT: normocephalic NECK: supple mobile no bruits not tender and no adeno LUNGS: resp full reg unlabored; CTA b/l COR: RRR, no M ABD: soft, not tender no mass, megaly EXT: no LLE or calf tenderness LABS: reviewed w/ pt labs done outside [facility] A/P - 1) HTN - BP 126/74 2) Renal Function Intact - Creat 0.8 and K 3.8 in JANUARY 06; eGFR 60 - cont Cozaar - cont Norvasc 3) CAD - Stable 4) Neuro Stable - never CVA/TIA 5) Hypercholesterolemia - LDL 66 in JANUARY 06 6) On Anti-Coag Therapy?? YES - cont ASA - cont Atenol - HR 74 - cont Lipitor and Zetia; LFT's WNL (ALT 20 and AST 18 and Alk Phos 84)) - diet, wt - just saw Cardio DEC 07 - Stable ; next cardio re-eval planned DEC 08 7) Normoglycemic 8) CBC Profile: WBC's and RBC's H/H and MCV Ferritin All WNL H/H 14.8 / 45.1 in JANUARY 06; MCV 94.0 9) Over-Arching G-U Disorders? hx Prostate CA No Sx of UTI Hematuria - No Gross Heme BPH Sx - Seldom any Nocturia PSA - < Zero - cont Flomax - still sees [facility]RO as of 2024 10) Health Maintenance - 11) Stress? - nothing untoward 12) MEDS: - Reconciled - Refilled - Annotating Any Med Changes as Indicated 13) I Spent 30 Minutes: - on history and physical exam - chart review, especially updating problem list with new relevant data - treatment planning, e.g., medication management, labs orders, imaging requests, consults as required - placing order (s) - any education germane to todays's visit (see A/P above) 14) Hypothyroidism - TSH 2.54 in JANUARY 06 - cont Synthroid RTC JANUARY 07 - labs before Medication Reconciliation: Outpatient: Has the patient been taking medications as documented in the EMLR? YES: The patient has been taking medications as documented in the EMLR. Essential Medication List for Review used to complete this medication reconciliation. INCLUDED IN THIS LIST: Alphabetical list of active outpatient prescriptions dispensed from this [facility] (local) and dispensed from another VA or [facility]D facility (remote) as well as inpatient orders (local, pending and active), local clinic medications, locally documented non-VA medications, and local prescriptions that have or been discontinued in the past 90 days. - All changes in medications, including all non-VA/Herbal/OTC medications were entered into CPRS. Changes: nt - If there were any medications the patient should no longer take, they were discontinued. - The patient/caregiver was instructed to update this list, discard old lists, and take this list to the next appointment, whether with a VA or non-VA provider. /diego/ JAE OBRIEN PA-C STAFF PHYSICIAN LOAN EXPEDITOR Signed: 01/09/2025 13:56 JAE OBRIEN
--- OUTSIDE RECORDS SUMMARY | 2025-04-17 10:10 | XMS_ITS | Continuity of Care Document ---
Author Name [facility] Organization [facility] Care Team Providers Care Ergonomist Name Role Phone [facility] Unavailable Unavailable Problems Combined list of problems from Department of Defense and Veterans Affairs facilities. It does not include entries that were removed or entered in error. Problem Status Onset Date Problem Type Date of Resolution Comments Source Cholecystectomy planned Active 2020 Condition May 12, 2021 Entered By: JAE OBRIEN Comment: Cholecystectomy planned 05/18/21 [facility]. Managed by [facility]. [facility] [place] [facility] Actinic keratosis (SNOMED CT 179586520) Active Condition [facility] Allergic rhinitis due to other allergen Active Condition [facility] ARTHRITIS,CHRONIC Active Condition [facility] Navarrete's esophagus with esophagitis Active Condition Jan 24 Entered By: JAE OBRIEN Comment: Dx of Barretts per EGD Done 2022; Take PPIJan 25, 2024 Entered By: JAE OBRIEN Comment: repeat EGD 2025 (or as directed by GI) LIND Benign hypertension Active Condition May 24, 2018 Entered By: JAE OBRIEN Comment: US, Aorta JUN 01: no AAA LIND choecystectomy Active Condition December Entered By: JAE OBRIEN Comment: Cholecystectomy JUN 04: Not Emergent Case LIND Chronic Maxillary Sinusitis Active Condition [facility] Chronic post-traumatic stress disorder Active Condition [facility] [place] [facility] Chronic post-traumatic stress disorder (SNOMED CT 321678730) Active Condition Sep 27, 2007 Entered By: YOUSUF [place] Comment: with panic attacks and agoraphobia [facility] Chronic post-traumatic stress disorder following combat (SNOMED CT 503894526) Active Condition December Entered By: HODAN PALUMBO Comment: updated. LIND Chronic rhinitis Active Condition [facility] Colitis Active Condition Mar 23 Entered By: JAE OBRIEN Comment: Diagnostic Colonoscopy Planned MAY 07;Mar 23, 2023 Entered By: JAE OBRIEN Comment: Dx of Colitis in ED in APR 06: Presented to ED w/ Hematochezia LIND Coronary arteriosclerosis Active Condition January 09 Entered By: JAE OBRIEN Comment: [place] Yrs Ago ; Still Sees Cardio as of APR 06; One Stent PlacedJan 25, 2024 Entered By: JAE OBRIEN Comment: pending EKG, TTE, Pharmacologic Stress Test 2023 via Private CardioMay 2024 Entered By: JAE OBRIEN Comment: Still Sees Cardio as of NOV 2024; Deemed Stable ; f/u DEC 08 LIND Coronary artery disease (SNOMED CT 66799925) Active Condition Apr 25, 2012 Entered By: JAE OBRIEN Comment: AMI; Stented, MAR 26, [facility] MAR [id number] Entered By: JAE OBRIEN Comment: Sees Private Cardio [facility] as of MARCH 01Au2017 Entered By: [...] By: JAE OBRIEN Comment: Stability per EKG, ECHOJan 2020 Entered By: JAE OBRIEN Comment: Still Sees Private Cardio as of 2020 - Stable per pt LIND Coronary atherosclerosis (SNOMED CT 711201027) Active Condition Jun Entered By: JAE MARAVILLA Comment: MARCH 2012: Stent x 1 [facility] Depressive disorder Active Condition January 01, 2022 Entered By: HODAN PALUMBO Comment: updated. LIND Gastroesophageal Reflux Disorder * (ICD-9-CM 530.81) Active Condition [facility] GER[facility] Active Condition May 04 Entered By: JAE OBRIEN Comment: also EGD 2009: no Barretts or CA; on PPI (or H2 Antag) LIND Gout (SNOMED CT 22981369) Active Condition LIND H/O: retinal detachment Active Condition January 09, 2025 Entered By: JAE OBRIEN Comment: Retin Detach, O.S. 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 LIND History of malignant melanoma of the skin Active Condition [facility] History of Melanoma (Removed) Active Condition [facility] History of melanoma in situ of skin Active Condition Apr 25, 2012 Entered By: JAE OBRIEN Comment: Excised, Bx NOV 24; Graft; no METS per PET; [facility] VASep 2011 Entered By: JAE OBRIEN Comment: sees DER[facility] 2017 Entered By: JAE OBRIEN Comment: Also Goes NE DERM as of MARCH 01 LIND Hypercholesterolemia (SNOMED CT 32675249) [facility] Active Condition [facility] Hypertension (SNOMED CT 46150644) Active Condition [facility] Hypnotic or anxiolytic dependence, continuous Active Condition [facility] Hypogonadism (SNOMED CT 00452505) Active Condition [facility] Hypothyroidism (SNOMED CT 46350873) Active Condition [facility] Insomnia * (ICD-9-CM 780.52) Active Condition [facility] Lumbar radiculopathy Active Condition Apr 02, 2014 Entered By: JAE OBRIEN Comment: MRI, MAR 28, [place]: +Central Stenosis L4/L5,Apr 02, 2014 Entered By: JAE OBRIEN Comment: Broad-Based Central Disc Protrusion L5/S1Ju2016 Entered By: JAE OBRIEN Comment: Last Saw Pain Mgmn't [facility] NOV 29: Dr Fortune;Feb 25, 2017 Entered By: JAE OBRIEN Comment: See My Note Dated FEBRUARY 28Ju2016 Entered By: JAE OBRIEN Comment: Another MRI done APR 30: Did PT & Streoid Inj. Then; Little BenefitMay 2020 Entered By: JAE OBRIEN Comment: pending New MRI of L Spine FEBRUARY 02 at [facility];January 06, 2021 Entered By: JAE OBRIEN Comment: Planned Appt w/ Neuro Surg [facility] 2013 Entered By: KELVIN DARLING Comment: [facility] Dr. Gaines L5-S1 herniation, microdiscectomy 05/2014 LIND Malignant melanoma of skin of lower limb, including hip (ICD-9-CM 172.7) Active Condition [facility] Mixed hyperlipidemia Active Condition [facility] Morbid obesity Active Condition [facility] Neoplasm of uncertain behavior of skin Active Condition [facility] Noncompliance with Treatment (ICD-9-CM V15.81) Active Condition [facility] Obesity * (ICD-9-CM 278.00) Active Condition [facility] Obstructive sleep apnea of adult (SNOMED CT 7033137981597) Active Condition Jun 23, 2012 Entered By: JAE MARAVILLA Comment: [facility] Osteoarthritis Active Condition Apr 152011 Entered By: JAE OBRIEN Comment: Both Knees; has had Inj's LIND Postsurgical Percutaneous Transluminal Coronary Angioplasty Status Active Condition [facility] Prostate cancer Active Condition Mar 07, 2014 Entered By: JAE OBRIEN Comment: Cysto FEBRUARY 25: Neg CA; see Note Dated FEBRUARY 25Jul 2013 Entered By: JAE OBRIEN Comment: Presented ED [facility] w/ Gross HemeJul 2013 Entered By: JAE OBRIEN Comment: Cysto Neg Bladder Tumor; +Clots; no Active BleedingJul 2013 Entered By: JAE OBRIEN Comment: see URO noted dated MAR 28Jul 2013 Entered By: JAE OBRIEN Comment: went ED, [place] on FEBRUARY 25: Leg Pain '; DVT Ruled OutJul 2013 Entered By: JAE OBRIEN Comment: Dx: Sciatica vs. Zoster (so, was not a clot from bladder)Feb 25, 2017 Entered By: JAE OBRIEN Comment: Cysto, JANUARY [address] [facility] Garrison [phone]; Indication: Macroscop HematuriaJu2016 Entered By: JAE OBRIEN Comment: Source of Heme: Likely Prostatic Bld, Given Its Episodic Nature;Feb 25, 2017 Entered By: JAE OBRIEN Comment: No Upper Tract Pathology; Cont Proscar; Do TURP if Bleed PersistsJu2016 Entered By: JAE OBRIEN Comment: F/U w./ URO Once Yr (or prn for more Sx)Sep 01, 2017 Entered By: JAE OBRIEN Comment: TURP in SEP 01: no Longer Needs Flomax, ProscarJan 2019 Entered By: JAE OBRIEN Comment: Goes to [facility] URO as of SEP 03Jan 2020 Entered By: JAE OBRIEN Comment: PSA up to 5.7 in SEP 04; He Will Alert URO; Next Routine URO Eval Not Till MAY 05Dec 2021 Entered By: JAE OBRIEN Comment: Completed RT JUN 05; Rx's Testost GEL ONCO [facility] Renal cyst Active Condition Apr 09 014 [...] Entered By: JAE OBRIEN Comment: Nothing Supicious LIND screeing malignant neoplasm colon Active Condition December 17, 2021 Entered By: JAE OBRIEN Comment: NEG Colon-Guard JUN 04 LIND Sleep apnea (SNOMED CT 95760005) Active Condition Apr 25, 2012 Entered By: JAE OBRIEN Comment: has CPAP LIND Spontaneous pneumothorax Active Condition January 09, 2025 Entered By: JAE OBRIEN Comment: Unprovoked Pneumothorax (R?) Lung 2023; Thoracotomy Done [facility] LIND TESTOSTERONE Active Condition Apr 25, 2012 Entered By: JAE OBRIEN Comment: Low Testos - on Gel LIND Unspecified Psychosocial Circumstance (ICD-9-CM V62.9) Active Condition [facility] Anxiety Inactive Condition 09/27/2007 [facility] DEPRESSION Inactive Condition 09/27/2007 [facility] DIVERTICULOSIS Inactive Condition 06/23/2012 [facility] Dry Eye * (ICD-9-CM 375.15) Inactive Condition 06/23/2012 [facility] HEME POSITIVE Inactive Condition 06/22/2012 [facility] HEMORRHOID,INTERNAL Inactive Condition 06/23/2012 [facility] HIATAL HERNIA Inactive Condition 06/22/2012 [facility] KERATOSIS,ACTINIC Inactive Condition 06/23/2012 [facility] KNEE Inactive Condition 06/22/2012 [facility] Knee: arthralgia * (ICD-9-CM 719.46) Inactive Condition 06/22/2012 [facility] Noncompliance, Dietary Regimen Inactive Condition 07/05/2008 [facility] Noncompliance, Dietary Regimen (ICD-9-CM V15.81) Inactive Condition 06/22/2012 [facility] Skin Lesion, Unsp Inactive Condition 06/22/2012 [facility] Diagnosis: ICD-10-CM F52.21 Male erectile disorder Active Diagnosis LIND Diagnosis: ICD-10-CM I25.10 Athscl heart disease of [place] coronary artery w/o ang pctrs Active Diagnosis LIND Diagnosis: ICD-10-CM G47.30 Sleep apnea, unspecified Active Diagnosis [facility] (631[facility]) Diagnosis: ICD-10-CM E78.00 Pure hypercholesterolemia, unspecified Active Diagnosis LIND Medications Combined list of outpatient medications from Department of Defense and [facility] Affairs facilities.Medications provided include 1) outpatient medications from the last 15 months, and 2) patient-reported medications. Medication Details Route Status Patient Instructions Prescription Expires Prescription Number Last Dispense Date Ordering Provider Order Date Order Qty Source ALLOPURINOL 300MG TAB TAKE ONE TABLET BY MOUTH ONCE DAILY FOR GOUT ORAL SUSPEND ED 09/06/2025 [id number] 5 DESMOND OBRIEN 2024 90 [place] ALLOPURINOL 300MG TAB TAKE ONE TABLET BY MOUTH ONCE DAILY FOR GOUT ORAL DISCONT INUED 01/25/2025 [id number] 5 DESMOND OBRIEN 2023 90 [place] ALPRAZOLAM 1MG TAB TAKE ONE TABLET BY MOUTH SIX TIMES A DAY ORAL ACTIVE OR[place]NA PAL[place]BO [place] AMLODIPINE BESYLATE 5MG TAB TAKE ONE TABLET BY MOUTH ONCE DAILY FOR BLOOD PRESSURE /HEART, DO NOT TAKE WITH GRAPEFRU IT JUICE ORAL SUSPEND ED 09/05/2025 [id number] 5 DESMOND OBRIEN [address] [facility] IELD AMLODIPINE BESYLATE 5MG TAB TAKE ONE TABLET BY MOUTH ONCE DAILY FOR BLOOD PRESSURE /HEART, DO NOT TAKE WITH GRAPEFRU IT JUICE ORAL DISCONT INUED 12/27/2024 [id number] 5 DESMOND OBRIEN 2023 90 [place] ASPIRIN 81MG TAB,EC TAKE ONE TABLET BY MOUTH EVERY DAY ORAL ACTIVE DESMOND OBRIEN [place] ASPIRIN PLAIN TAB TAKE 81MG BY MOUTH DAILY AT BEDTIME ORAL ACTIVE Charley MARAVILLA P 2011 [facility] ATENOLOL 25MG TAB TAKE ONE TABLET BY MOUTH ONCE DAILY FOR BLOOD PRESSURE /HEART ORAL SUSPEND ED 09/06/2025 [id number] 5 DESMOND OBRIEN [address] [facility] IELD ATENOLOL 25MG TAB TAKE ONE TABLET BY MOUTH ONCE DAILY FOR BLOOD PRESSURE /HEART ORAL DISCONT INUED 12/19/2024 [id number] 4 DESMOND OBRIEN 2023 90 [place] ATORVASTATI N CA 80MG TAB TAKE ONE TABLET BY MOUTH ONCE DAILY FOR CHOLESTE ROL ORAL SUSPEND ED 09/06/2025 [id number] 5 DESMOND OBRIEN 2024 90 [place] ATORVASTATI N CA 80MG TAB TAKE ONE TABLET BY MOUTH ONCE DAILY FOR CHOLESTE ROL ORAL DISCONT INUED 01/25/2025 [id number] 5 DESMOND OBRIEN 2023 90 [place] CETIRIZINE HCL 10MG TAB TAKE ONE TABLET BY MOUTH ONCE DAILY FOR ALLERGIE S ORAL SUSPEND ED 09/06/2025 [id number] 5 DESMOND OBRIEN 2024 90 [place] CETIRIZINE HCL 10MG TAB TAKE ONE TABLET BY MOUTH ONCE DAILY FOR ALLERGIE S ORAL DISCONT INUED 12/07/2024 [id number] 4 DESMOND OBRIEN 2023 90 [facility] CYANOCOBALA MIN 500MCG TAB TAKE ONE TABLET BY MOUTH TWICE DAILY FOR VITAMIN SUPPLEME NTATION ORAL SUSPEND ED 09/06/2025 [id number] 5 DESMOND OBRIEN 2024 200 [place] CYANOCOBALA MIN 500MCG TAB TAKE ONE TABLET BY MOUTH TWICE DAILY FOR VITAMIN SUPPLEME NTATION ORAL DISCONT INUED 01/25/2025 [id number] 5 DESMOND OBRIEN 2023 200 [place] EZETIMIBE 10MG TAB TAKE ONE TABLET BY MOUTH ONCE DAILY TO LOWER CHOLESTE ROL ORAL SUSPEND ED 01/10/2026 [id number] 5 DESMOND OBRIEN 2024 90 [place] EZETIMIBE 10MG TAB TAKE ONE TABLET BY MOUTH ONCE DAILY TO LOWER CHOLESTE ROL ORAL DISCONT INUED 09/05/2025 [id number] 5 DESMOND OBRIEN 2024 90 [place] EZETIMIBE 10MG TAB TAKE ONE TABLET BY MOUTH ONCE DAILY TO LOWER CHOLESTE ROL ORAL DISCONT INUED 12/19/2024 [id number] 4 DESMOND OBRIEN 2023 90 [place] FLUTICASONE PROPIONATE 50MCG/SPRAY SOLN,NASAL, 16GM INSTILL 1 SPRAY INTO EACH NOSTRIL TWICE DAILY FOR NASAL IRRITATI ON/INFLA MMATION NASAL SUSPEND ED 08/28/2025 [id number] 5 DESMOND OBRIEN 2024 3 [place] FLUTICASONE PROPIONATE 50MCG/SPRAY SOLN,NASAL, 16GM INSTILL 1 SPRAY INTO EACH NOSTRIL TWICE DAILY FOR NASAL IRRITATI ON/INFLA MMATION NASAL DISCONT INUED 01/25/2025 [id number] 4 DESMOND OBRIEN 2023 3 [place] LEVOTHYROXI NE NA 125MCG TAB TAKE ONE TABLET BY MOUTH EVERY MORNING 30 MINUTES BEFORE BREAKFAS T FOR THYROID - TAKE ON AN EMPTY STOMACH WITH A FULL GLASS OF WATER ORAL SUSPEND ED 09/06/2025 [id number] 5 DESMOND OBRIEN 2024 90 [place] LEVOTHYROXI NE NA 125MCG TAB (SYNTHROID) TAKE ONE TABLET BY MOUTH EVERY MORNING 30 MINUTES BEFORE BREAKFAS T FOR THYROID - TAKE ON AN EMPTY STOMACH WITH A FULL GLASS OF WATER ORAL DISCONT INUED 12/19/2024 [id number] 4 DESMOND OBRIEN 2023 90 [place] LOSARTAN POTASSIUM 100MG TAB TAKE ONE TABLET BY MOUTH ONCE DAILY FOR BLOOD PRESSURE /HEART ORAL SUSPEND ED 09/06/2025 [id number] 5 DESMOND OBRIEN 2024 90 [place] LOSARTAN POTASSIUM 100MG TAB TAKE ONE TABLET BY MOUTH ONCE DAILY FOR BLOOD PRESSURE /HEART ORAL DISCONT INUED 01/25/2025 [id number] 5 DESMOND OBRIEN 2023 90 [place] NAPHAZOLINE HCL 0.025%/PHEN IRAMINE 0.3% SOLN,OPH INSTILL 1 DROP INTO EACH EYE TWICE DAILY NEEDED FOR RED EYES OPHTHA LMIC ACTIVE 04/03/2026 [id number] 5 Isatu LUX 2024 15 [facility] NAPHAZOLINE HCL 0.025%/PHEN IRAMINE 0.3% SOLN,OPH INSTILL 1 DROP INTO EACH EYE TWICE DAILY NEEDED FOR RED EYES OPHTHA LMIC DISCONT INUED 08/28/2025 [id number] 5 JOSE JIsatu ICHELE 2024 15 [facility] [place] NAPHAZOLINE HCL 0.025%/PHEN IRAMINE 0.3% SOLN,OPH INSTILL 1 DROP INTO EACH EYE TWICE DAILY NEEDED FOR RED EYES OPHTHA LMIC DISCONT INUED 01/25/2025 [id number] 4 DESMOND OBRIEN 2023 15 [place] OMEPRAZOLE 20MG CAP,EC TAKE ONE CAPSULE BY MOUTH EVERY MORNING 30 MINUTES BEFORE BREAKFAS T ORAL SUSPEND ED 09/06/2025 [id number] 5 DESMOND OBRIEN 2024 90 [place] OMEPRAZOLE 20MG CAP,EC TAKE ONE CAPSULE BY MOUTH EVERY MORNING 30 MINUTES BEFORE BREAKFAS T ORAL DISCONT INUED 01/25/2025 [id number] 4 DESMOND OBRIEN 2023 90 [place] OTHER CAP/TAB SUNSCREE N EVERY DAY ACTIVE DESMOND OBRIEN 2011 [place] SILDENAFIL CITRATE 100MG TAB TAKE ONE TABLET BY MOUTH DIRECTED TAKE 1 HOUR PRIOR TO SEXUAL ACTIVITY ORAL ACTIVE 05/14/2025 [id number] 5 DESMOND OBRIEN 2024 18 [place] SILDENAFIL CITRATE 100MG TAB TAKE ONE TABLET BY MOUTH DIRECTED TAKE 1 HOUR PRIOR TO SEXUAL ACTIVITY ORAL DISCONT INUED 04/16/2025 [id number] 5 DESMOND OBRIEN 2024 18 [place] SILDENAFIL CITRATE 100MG TAB TAKE ONE TABLET BY MOUTH DIRECTED TAKE 1 HOUR PRIOR TO SEXUAL ACTIVITY ORAL DISCONT INUED 09/06/2025 [id number] 5 DESMOND OBRIEN 2024 4 [place] SILDENAFIL CITRATE 100MG TAB TAKE ONE TABLET BY MOUTH DIRECTED TAKE 1 HOUR PRIOR TO SEXUAL ACTIVITY ORAL DISCONT INUED 04/21/2025 [id number] 5 DESMOND OBRIEN [address] [facility] IELD SILDENAFIL CITRATE 100MG TAB TAKE ONE TABLET BY MOUTH DIRECTED TAKE 1 HOUR PRIOR TO SEXUAL ACTIVITY ORAL DISCONT INUED 12/05/2024 [id number] 4 DESMOND OBRIEN 2023 4 [place] SODIUM FLUORIDE 1.1% TOOTHPASTE BRUSH SMALL AMOUNT TO TEETH TWICE DAILY DENTAL SUSPEND ED 09/06/2025 [id number] 5 DESMOND OBRIEN [address] [facility] IELD SODIUM FLUORIDE 1.1% TOOTHPASTE BRUSH SMALL AMOUNT TO TEETH TWICE DAILY DENTAL DISCONT INUED 01/25/2025 [id number] 4 DESMOND OBRIEN [address] [facility] IELD TAMSULOSIN HCL 0.4MG CAP TAKE ONE CAPSULE BY MOUTH ONCE DAILY ORAL SUSPEND ED 09/06/2025 [id number] 5 DESMOND OBRIEN [address] [facility] IELD TAMSULOSIN HCL 0.4MG CAP TAKE ONE CAPSULE BY MOUTH ONCE DAILY ORAL DISCONT INUED 01/25/2025 [id number] 4 DESMOND OBRIEN [address] [facility] IELD TESTOSTERON E (EQV-ANDROG EL) 1% 5GM/PKT GEL,TOP APPLY 1 PACKET TOPICALL Y EVERY DAY TOPICA L ACTIVE DESMOND OBRIEN [address] [facility] IELD Allergies, Adverse Reactions, Alerts Combined list of allergies from Department of Defense and Veterans Affairs facilities. It does not include entries that were removed or entered in error. Substance Category Reaction Severity Reaction type Status Date Reported Comments Source LISINOPRIL Propensity to adverse reactions to drug (finding) active 07/02/2013 [facility] PAROXETINE Propensity to adverse reactions to drug (finding) Vertigo active 09/20/2011 [facility] Immunizations Combined list of available immunizations from the Department of Defense and Veterans Affairs facilities. 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 INFLUENZA, UNSPECIFIED FORMULATION 2014 88 complet ed [facility] INFLUENZA, UNSPECIFIED FORMULATION 2013 88 complet ed [facility] INFLUENZA, UNSPECIFIED FORMULATION 2013 88 complet ed [facility] FLU,3 YRS (HISTORICAL) 2013 88 complet ed Site: Left Deltoid [place] INFLUENZA, UNSPECIFIED FORMULATION 2012 NONE 88 complet ed Right Deltoid (IM) [facility] FLU,3 YRS (HISTORICAL) 2012 88 complet ed [facility] FLU,3 YRS (HISTORICAL) 2011 88 complet ed Site: Left Deltoid [place] INFLUENZA, UNSPECIFIED FORMULATION 2010 NONE 88 complet ed Left Deltoid (IM) [facility] INFLUENZA, UNSPECIFIED FORMULATION 2009 NONE 88 complet ed [facility] INFLUENZA, UNSPECIFIED FORMULATION 2008 NONE 88 complet ed Right Deltoid (IM)Exp. 0 [facility] INFLUENZA, UNSPECIFIED FORMULATION 2007 NONE 88 complet ed Left Deltoid (IM), Lot Number:[id number];EXP 01/21 [facility] INFLUENZA, UNSPECIFIED FORMULATION 2006 NONE 88 complet ed Left Deltoid (IM), Lot Number:[id number] Exp: FEB 12 2008 [facility] INFLUENZA, UNSPECIFIED FORMULATION 2005 NONE 88 complet ed Left Deltoid (IM), Lot Number:[id number], exp: [facility] INFLUENZA, UNSPECIFIED FORMULATION 2004 NONE 88 complet ed Left Deltoid (IM), Lot Number:[id number]. Exp. February 11, 2006. [facility] INFLUENZA, UNSPECIFIED FORMULATION 2003 NONE 88 complet ed Left Deltoid (IM), Lot Number:[id number], exp Feb 11 [facility] FLU,3 YRS (HISTORICAL) 2002 [employer] 88 complet ed [facility] TETANUS TOXOID, UNSPECIFIED FORMULATION 2002 NONE 112 complet ed Completed Series, Left Deltoid 0.5ml. given IM without problem.L ot# [id number] Exp.. [facility] FLU,3 YRS (HISTORICAL) 2001 88 complet ed [facility] INFLUENZA, UNSPECIFIED FORMULATION 2000 NONE 88 complet ed Completed Series, 0.5ml.giv en IM left deltoid without problem.A ventia Lot# [id number]. [facility] TETANUS TOXOID, UNSPECIFIED FORMULATION 2000 112 complet ed Date of last Tetanus inj. unknwon. [facility] Results Combined list of recent chemistry, [...] January 10, 2024 01:44 PM Reporting Lab: [facility] [place] [address] [address] Performing Lab: [facility] [address] [facility] [address] [place] TSH THYROTROPIN [UNITS/VOLU ME] IN SERUM OR PLASMA 1.23 u[IU]/ mL 0.35 - 5.00 01/18 Specimen Type: SERUM No comment entered. Ordering Provider: JAE OBRIEN Report Released Date/Time: January 10, 2024 01:44 PM Reporting Lab: [facility] [place] [facility] [address] [facility] [address] Performing Lab: [facility] [place] [address] [place] LIPID PANEL FASTING CHOLESTEROL [MASS/VOLUM E] IN SERUM OR PLASMA 137 mg/dL 01/18 Specimen Type: SERUM No comment entered. Ordering Provider: JAE OBRIEN Report Released Date/Time: January 10, 2024 01:44 PM Reporting Lab: [facility] [address] [address] Performing Lab: [facility] [address] [place] LIPID PANEL FASTING TRIGLYCERID E [MASS/VOLUM E] IN SERUM OR PLASMA 83 mg/dL 0 - 150 01/18 Specimen Type: SERUM No comment entered. Ordering Provider: JAE OBRIEN Report Released Date/Time: January 10, 2024 01:44 PM Reporting Lab: [address] [address] Performing Lab: [address] [address] [place] LIPID PANEL FASTING CHOLESTEROL IN LDL [MASS/VOLUM E] IN SERUM OR PLASMA BY CALCULATION 65 mg/dL 0 - 129 01/18 Specimen Type: SERUM No comment entered. Ordering Provider: JAE OBRIEN Report Released Date/Time: January 10, 2024 01:44 PM Reporting Lab: [address] [address] Performing Lab: [address] [address] [place] LIPID PANEL FASTING CHOLESTEROL .TOTAL/CHOL ESTEROL IN HDL [MASS RATIO] IN SERUM OR PLASMA 2.5 01/18 Specimen Type: SERUM No comment entered. Ordering Provider: JAE OBRIEN Report Released Date/Time: January 10, 2024 01:44 PM Reporting Lab: [address] [address] Performing Lab: [address] [address] [place] LIPID PANEL FASTING CHOLESTEROL IN HDL [MASS/VOLUM E] IN SERUM OR PLASMA 55 mg/dL 40 - 60 01/18 Specimen Type: SERUM No comment entered. Ordering Provider: JAE OBRIEN Report Released Date/Time: January 10, 2024 01:44 PM Reporting Lab: [address] [address] Performing Lab: [address] [address] [place] BASIC METABOLIC PANEL (fasting) UREA NITROGEN [MASS/VOLUM E] IN SERUM OR PLASMA 22 mg/dL 7 - 25 01/18 Specimen Type: SERUM No comment entered. Ordering Provider: JAE OBRIEN Report Released Date/Time: January 10, 2024 01:44 PM Reporting [facility]: [facility] [address] [address] Performing Lab: [facility] [address] [address] [place] BASIC METABOLIC PANEL (fasting) GLUCOSE [MASS/VOLUM E] IN SERUM OR PLASMA 107 mg/dL 65 - 100 01/18 H Specimen Type: SERUM No comment entered. Ordering Provider: JAE OBRIEN Report Released Date/Time: January 10, 2024 01:44 PM Reporting Lab: [address] [address] Performing Lab: [address] [address] [place] BASIC METABOLIC PANEL (fasting) SODIUM [MOLES/VOLU ME] IN SERUM OR PLASMA 140 mmol/L 135 - 145 01/18 Specimen Type: SERUM No comment entered. Ordering Provider: JAE OBRIEN Report Released Date/Time: January 10, 2024 01:44 PM Reporting Lab: [address] [address] Performing [facility]: [facility] [address] [address] [place] BASIC METABOLIC PANEL (fasting) POTASSIUM [MOLES/VOLU ME] IN SERUM OR PLASMA 4.3 mmol/L 3.5 - 5.0 01/18 Specimen Type: SERUM No comment entered. Ordering Provider: JAE OBRIEN Report Released Date/Time: January 10, 2024 01:44 PM Reporting [facility]: [facility] [address] [address] Performing Lab: [facility] [address] [address] [place] BASIC METABOLIC PANEL (fasting) CHLORIDE [MOLES/VOLU ME] IN SERUM OR PLASMA 107 mmol/L 100 - 110 01/18 Specimen Type: SERUM No comment entered. Ordering Provider: JAE OBRIEN Report Released Date/Time: January 10, 2024 01:44 PM Reporting Lab: [facility] [address] [address] Performing Lab: [facility] [address] [address] [place] BASIC METABOLIC PANEL (fasting) CARBON DIOXIDE, TOTAL [MOLES/VOLU ME] IN SERUM OR PLASMA 26 meq/L 20 - 30 01/18 Specimen Type: SERUM No comment entered. Ordering Provider: JAE OBRIEN Report Released Date/Time: January 10, 2024 01:44 PM Reporting Lab: [address] [address] Performing Lab: [facility] [address] [address] [place] BASIC METABOLIC PANEL (fasting) CREATININE [MASS/VOLUM E] IN SERUM OR PLASMA 0.89 mg/dL 0.50 - 1.40 01/18 Specimen Type: SERUM No comment entered. Ordering Provider: JAE OBRIEN Report Released Date/Time: January 10, 2024 01:44 PM Reporting Lab: [address] [address] Performing Lab: [facility] [address] [address] [place] BASIC METABOLIC PANEL (fasting) GLOMERULAR FILTRATION RATE/1.73 SQ M.PREDICTED [VOLUME RATE/AREA] IN SERUM, PLASMA OR BLOOD BY CREATININE- BASED FORMULA (CKD-EPI 2020) 90 mL/min 60 01/18 Specimen Type: SERUM No comment entered. Ordering Provider: JAE OBRIEN Report Released Date/Time: January 10, 2024 01:44 PM Reporting Lab: [facility] [address] [address] Performing Lab: [facility] [address] [address] [place] LIVER FUNCTION PROTEIN [MASS/VOLUM E] IN SERUM OR PLASMA 6.8 g/dL 6.0 - 8.3 01/18 Specimen Type: SERUM No comment entered. Ordering Provider: JAE OBRIEN Report Released Date/Time: January 10, 2024 01:44 PM Reporting Lab: [facility] [place] [facility] [address] [facility] [address] Performing Lab: [facility] [place] [facility] [address] [facility] [address] [place] LIVER FUNCTION ALBUMIN [MASS/VOLUM E] IN SERUM OR PLASMA 3.6 g/dL 3.5 - 5.0 01/18 Specimen Type: SERUM No comment entered. Ordering Provider: JAE OBRIEN Report Released Date/Time: January 10, 2024 01:44 PM Reporting Lab: [facility] TRN [facility] [address] [facility] [address] Performing Lab: [facility] TRN [facility]DRENUSETS [address] [address] [place] LIVER FUNCTION ALKALINE PHOSPHATASE [ENZYMATIC ACTIVITY/VO LUME] IN SERUM OR PLASMA 67 U/L 40 - 150 01/18 Specimen Type: SERUM No comment entered. Ordering Provider: JAE OBRIEN Report Released Date/Time: January 10, 2024 01:44 PM Reporting Lab: [facility]ITALRENCOM[facility] MONTGOMERYTRN [facility]DRENUSETS [facility] [address] [facility] [address] Performing Lab: [facility] TRN [facility]EN[facility] [address] [facility] [address] [place] LIVER FUNCTION ASPARTATE AMINOTRANSF ERASE [ENZYMATIC ACTIVITY/VO LUME] IN SERUM OR PLASMA 14 U/L 5 - 34 01/18 Specimen Type: SERUM No comment entered. Ordering Provider: JAE OBRIEN Report Released Date/Time: January 10, 2024 01:44 PM Reporting Lab: [facility] TRN [facility] [address] [facility] [address] Performing Lab: [facility] TRN [facility]ENUSETS [address] [address] [place] LIVER FUNCTION ALANINE AMINOTRANSF ERASE [ENZYMATIC ACTIVITY/VO LUME] IN SERUM OR PLASMA 15 U/L 01/18 Specimen Type: SERUM No comment entered. Ordering Provider: JAE OBRIEN Report Released Date/Time: January 10, 2024 01:44 PM Reporting Lab: [facility] [address] [address] Performing Lab: [facility] [address] [address] [place] LIVER FUNCTION BILIRUBIN.T OTAL [MASS/VOLUM E] IN SERUM OR PLASMA 1.3 mg/dL 0.2 - 1.2 01/18 H Specimen Type: SERUM No comment entered. Ordering Provider: JAE OBRIEN Report Released Date/Time: January 10, 2024 01:44 PM Reporting Lab: [address] [address] Performing Lab: [address] [address] [place] LIVER FUNCTION BILIRUBIN.D IRECT [MASS/VOLUM E] IN SERUM OR PLASMA 0.5 mg/dL 0 - 0.5 01/18 Specimen Type: SERUM No comment entered. Ordering Provider: JAE OBRIEN Report Released Date/Time: January 10, 2024 01:44 PM Reporting Lab: [address] [address] Performing Lab: [address] [address] [place] CALCIUM CALCIUM [MASS/VOLUM E] IN SERUM OR PLASMA 8.5 mg/dL 8.5 - 10.2 01/18 Specimen Type: SERUM No comment entered. Ordering Provider: JAE OBRIEN Report Released Date/Time: January 10, 2024 01:44 PM Reporting Lab: [facility] [address] [address] Performing Lab: [address] [address] [place] URIC ACID URATE [MASS/VOLUM E] IN SERUM OR PLASMA 3.1 mg/dL 3.5 - 7.2 01/18 L Specimen Type: SERUM No comment entered. Ordering Provider: JAE OBRIEN Report Released Date/Time: January 10, 2024 01:44 PM Reporting Lab: [facility] [place] [facility] [address] [facility] [address] Performing Lab: [facility] [address] [facility] [address] [place] PSA PROSTATE SPECIFIC AG [MASS/VOLUM E] IN SERUM OR PLASMA < 0.10ng /mL 0.00 - 4.00 01/18 Specimen Type: SERUM No comment entered. Ordering Provider: JAE OBRIEN Report Released Date/Time: January 10, 2024 01:44 PM Reporting Lab: [facility] [place] [facility] [address] [facility] [address] Performing Lab: [facility]N [facility]ILDRENUSE[address] [address] [place] VITAMIN D (25-OH) 25-HYDROXYV ITAMIN D3 [MASS/VOLUM E] IN SERUM OR PLASMA 35 ng/mL 20 - 50 01/18 Specimen Type: SERUM No comment entered. Ordering Provider: JAE OBRIEN Report Released Date/Time: January 10, 2024 01:44 PM Reporting Lab: [facility] [address] [facility] [address] Performing Lab: [facility]N [facility]IL[facility]ENUSEST. [facility] [place] [address] [facility] [address] [place] CBC AND DIFF (AUTO) LEUKOCYTES [#/VOLUME] IN BLOOD BY AUTOMATED COUNT 6.19 10*3/u L 4.50 - 11.00 01/18 Specimen Type: BLOOD No comment entered. Ordering Provider: JAE OBRIEN Report Released Date/Time: January 10, 2024 01:44 PM Reporting Lab: [facility]IL[facility]ENUSEST. [facility] [place] [address] [facility] [address] Performing Lab: [facility] CHILDRENUSE[address] [address] [place] CBC AND DIFF (AUTO) ERYTHROCYTE S [#/VOLUME] IN BLOOD BY AUTOMATED COUNT 4.35 10*6/u L 4.23 - 5.66 01/18 Specimen Type: BLOOD No comment entered. Ordering Provider: JAE OBRIEN Report Released Date/Time: January 10, 2024 01:44 PM Reporting Lab: [facility]ITALRENCOM[facility] MONTGOMERYTRN [facility]ILDRENUSETS [facility] [address] [facility] [address] Performing Lab: [facility]PITALRUAB HOSPITALN [facility] CHILDRENUSE[address] [address] [place] CBC AND DIFF (AUTO) HEMOGLOBIN [MASS/VOLUM E] IN BLOOD 13.5 g/dL 12.8 - 17 01/18 Specimen Type: BLOOD No comment entered. Ordering Provider: JAE OBRIEN Report Released Date/Time: January 10, 2024 01:44 PM Reporting Lab: [facility]PITALRENCOM[facility] MONTGOMERYTRN [facility] CHILDRENUSEST. [facility] [place] [address] [facility] [address] Performing Lab: [facility]PITALRUAB HOSPITALN [facility] CHILDRENUSE[address] [address] [place] CBC AND DIFF (AUTO) HEMATOCRIT [VOLUME FRACTION] OF BLOOD BY AUTOMATED COUNT 41.4 39.2 - 50.4 01/18 Specimen Type: BLOOD No comment entered. Ordering Provider: JAE OBRIEN Report Released Date/Time: January 10, 2024 01:44 PM Reporting Lab: [facility]PITALRUAB HOSPITALN [address] [address] Performing Lab: [facility]ITALRUAB HOSPITALN [facility]ILDRENUSE[address] [address] [place] CBC AND DIFF (AUTO) MCV [ENTITIC VOLUME] BY AUTOMATED COUNT 95.2 fL 82 - 99 01/18 Specimen Type: BLOOD No comment entered. Ordering Provider: JAE OBRIEN Report Released Date/Time: January 10, 2024 01:44 PM Reporting Lab: [facility]PITALRENCOMPASS [facility]IL[facility] HOS[facility] MONTGOMERYTRN [facility]ILDRENUSE[address] [address] Performing Lab: [facility]ITALRUAB HOSPITALN [facility] CHILDRENUSE[address] [address] [place] CBC AND DIFF (AUTO) MCHC [MASS/VOLUM E] BY AUTOMATED COUNT 32.6 g/dL 30.8 - 35.1 01/18 Specimen Type: BLOOD No comment entered. Ordering Provider: JAE OBRIEN Report Released Date/Time: January 10, 2024 01:44 PM Reporting Lab: [facility]PITALRENCOMPASS [facility]ABILIT[facility] HOSPITAL OF MONTGOMERYTRN [address] [address] Performing Lab: [facility] HOSPITALR WSTRN [address]SE[address] [address] [place] CBC AND DIFF (AUTO) PLATELETS [#/VOLUME] IN BLOOD BY AUTOMATED COUNT 164 10*3/u L 140 - 360 01/18 Specimen Type: BLOOD No comment entered. Ordering Provider: JAE OBRIEN Report Released Date/Time: January 10, 2024 01:44 PM Reporting Lab: [facility] HOSPITALRL [place] [address] [address] Performing Lab: [facility] HOSPITALRENCOMPASS [facility] REHABILITATION HOSPITAL OF MONTGOMERYTRN [address] [address] [place] CBC AND DIFF (AUTO) ERYTHROCYTE DISTRIBUTIO N WIDTH [RATIO] BY AUTOMATED COUNT 14.9 12.0 - 16.0 01/18 Specimen Type: BLOOD No comment entered. Ordering Provider: JAE OBRIEN Report Released Date/Time: January 10, 2024 01:44 PM Reporting Lab: [facility]ITALRL [place] [address] [address] Performing Lab: [facility] HOSPITALRL TRN [address]SE[address] [address] [place] CBC AND DIFF (AUTO) MONOCYTES [#/VOLUME] IN BLOOD BY AUTOMATED COUNT 0.54 10*3/u L 0.30 - 1.10 01/18 Specimen Type: BLOOD No comment entered. Ordering Provider: JAE OBRIEN Report Released Date/Time: January 10, 2024 01:44 PM Reporting Lab: [facility]ITALRL [place] [address] [address] Performing Lab: [facility]ITALRL WSTR[place] [address] [address] [place] CBC AND DIFF (AUTO) MCH [ENTITIC MASS] BY AUTOMATED COUNT 31.0 pg 26.2 - 32.6 01/18 Specimen Type: BLOOD No comment entered. Ordering Provider: JAE OBRIEN Report Released Date/Time: January 10, 2024 01:44 PM Reporting Lab: [facility]PITALRENCOMPASS [facility]IL[facility] HOSP[facility] MONTGOMERYTRN [address] [address] Performing Lab: [place] [facility] [facility] [address] [facility] [address] [place] CBC AND DIFF (AUTO) NEUTROPHILS /100 LEUKOCYTES IN BLOOD BY AUTOMATED COUNT 59.7 43.7 - 75.8 01/18 Specimen Type: BLOOD No comment entered. Ordering Provider: JAE OBRIEN Report Released Date/Time: January 10, 2024 01:44 PM Reporting Lab: [place] [facility] [place] [facility] [address] [facility] [address] Performing Lab: [place] [facility] [place] [address] [address] [place] CBC AND DIFF (AUTO) LYMPHOCYTES /100 LEUKOCYTES IN BLOOD BY AUTOMATED COUNT 25.4 14.0 - 42.3 01/18 Specimen Type: BLOOD No comment entered. Ordering Provider: JAE OBRIEN Report Released Date/Time: January 10, 2024 01:44 PM Reporting Lab: [place] [facility]ITALCH[facility] [address] [address] Performing Lab: [place] [facility] [place] [address] [address] [place] CBC AND DIFF (AUTO) MONOCYTES/1 00 LEUKOCYTES IN BLOOD BY AUTOMATED COUNT 8.7 5.1 - 13.7 01/18 Specimen Type: BLOOD No comment entered. Ordering Provider: JAE OBRIEN Report Released Date/Time: January 10, 2024 01:44 PM Reporting Lab: [place] [facility]ITALCHUSETS [address] [address] Performing Lab: [place] [facility] [place] [address] [address] [place] CBC AND DIFF (AUTO) EOSINOPHILS /100 LEUKOCYTES IN BLOOD BY AUTOMATED COUNT 4.2 0.4 - 6.8 01/18 Specimen Type: BLOOD No comment entered. Ordering Provider: JAE OBRIEN Report Released Date/Time: January 10, 2024 01:44 PM Reporting Lab: [place] [facility] [facility]ENUSETS [address] [address] Performing Lab: [place] [facility] [facility]ENUSETS [address] [address] [place] CBC AND DIFF (AUTO) BASOPHILS/1 00 LEUKOCYTES IN BLOOD BY AUTOMATED COUNT 1.5 0.1 - 2.0 01/18 Specimen Type: BLOOD No comment entered. Ordering Provider: JAE OBRIEN Report Released Date/Time: January 10, 2024 01:44 PM Reporting Lab: [facility]PITALRUAB HOSPITALN [address] [address] Performing Lab: [facility] [address] [address] [place] CBC AND DIFF (AUTO) NEUTROPHILS [#/VOLUME] IN BLOOD BY AUTOMATED COUNT 3.70 10*3/u L 2.20 - 7.60 01/18 Specimen Type: BLOOD No comment entered. Ordering Provider: JAE OBRIEN Report Released Date/Time: January 10, 2024 01:44 PM Reporting Lab: [facility] [address] [address] Performing Lab: [facility] [address] [address] [place] CBC AND DIFF (AUTO) LYMPHOCYTES [#/VOLUME] IN BLOOD BY AUTOMATED COUNT 1.57 10*3/u L 1.00 - 3.20 01/18 Specimen Type: BLOOD No comment entered. Ordering Provider: JAE OBRIEN Report Released Date/Time: January 10, 2024 01:44 PM Reporting Lab: [facility] [address] [address] Performing Lab: [facility]ITALRUAB HOSPITALN [facility] CHILDRENUSE[address] [address] [place] CBC AND DIFF (AUTO) EOSINOPHILS [#/VOLUME] IN BLOOD BY AUTOMATED COUNT 0.26 10*3/u L 0.03 - 0.44 01/18 Specimen Type: BLOOD No comment entered. Ordering Provider: JAE OBRIEN Report Released Date/Time: January 10, 2024 01:44 PM Reporting Lab: [facility] [address] [address] Performing Lab: [facility] [address] [address] [place] CBC AND DIFF (AUTO) BASOPHILS [#/VOLUME] IN BLOOD BY AUTOMATED COUNT 0.09 10*3/u L 0.01 - 0.13 01/18 Specimen Type: BLOOD No comment entered. Ordering Provider: JAE OBRIEN Report Released Date/Time: January 10, 2024 01:44 PM Reporting Lab: [address] [address] Performing Lab: [address] [address] [place] CBC AND DIFF (AUTO) IMMATURE GRANULOCYTE S/100 LEUKOCYTES IN BLOOD BY AUTOMATED COUNT 0.5 0.0 - 0.7 01/18 Specimen Type: BLOOD No comment entered. Ordering Provider: JAE OBRIEN Report Released Date/Time: January 10, 2024 01:44 PM Reporting Lab: [address] [address] Performing Lab: [address] [address] [place] CBC AND DIFF (AUTO) IMMATURE GRANULOCYTE S [#/VOLUME] IN BLOOD 0.03 10*3/u L 0.00 - 0.06 01/18 Specimen Type: BLOOD No comment entered. Ordering Provider: JAE OBRIEN Report Released Date/Time: January 10, 2024 01:44 PM Reporting Lab: [address] [address] Performing Lab: [address] [address] [facility] Vital Signs Combined list of inpatient and outpatient Vital Signs from Department of Defense and Veterans Affairs, ranging from 12 months to all on record, depending upon the facility. Vital Sign Value Date Comments Source SYSTOLIC BLOOD PRESSURE 125 01/09/2025 13:40:44 LIND DIASTOLIC BLOOD PRESSURE 73 01/09/2025 13:40:44 LIND PULSE OXIMETRY 92 01/09/2025 13:40:44 S [place] WEIGHT 250 01/09/2025 13:40:44 [place] LIGHT BMI 40 kg/m2 01/09/2025 13:40:44 [place] TEMPERATURE 97.7 01/09/2025 13:40:44 [place] PULSE 66 01/09/2025 13:40:44 [place] Encounters Combined list of: 1) Encounters from [...] [facility] [place] [facility] [id number] 12/04 [facility] [place] [facility] En[facility] [id number] 12/04 [facility] [place] [facility] [facility] En[facility] [id number] 12/06 [facility] [place] [facility] [facility] En[facility] [id number] 12/18 [facility] [place] [facility] [facility] En[facility] [id number] 12/18 [facility] [place] [facility] [facility] En[facility] [id number] 12/22 [facility] [place] [facility] En[facility] [id number] 12/26 [facility] [place] [facility] En[facility] [id number] 01/10 [facility] [place] [facility] En[facility] [id number] 01/11 [facility] [place] [facility] [facility] En[facility] [id number] 01/11 [facility] [place] [facility] [facility] En[facility] [id number] 01/13 [facility] [place] [facility] OFFICE O/P EST MOD 30 MIN [id number] Diagnos is: ICD-10- CM 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, unspeci fied OLI OBRIEN 01/24 [place] [facility] En[facility] [id number] 04/20 [facility] [place] [facility] (631GE) SPECIAL SUPPLIES PHYS/QHP [id number] Diagnos is: ICD-10- CM G47.30 Sleep apnea, unspeci fied GOVONI,VERNELL E E 05/08 [facility]89GE[facility] En[facility] [id number] 05/14 [facility] [place] [facility] [facility] En[facility] [id number] OLI OBRIEN 05/14 [facility] [place] [facility] [facility] En[facility] [id number] RAKESH LUX 08/27 [facility] [place] Encounter [id number] 08/27 [facility] [place] [facility] [facility] En[facility] [id number] 09/04 [facility] [place] [facility] En[facility] [id number] 09/05 [facility] [place] [facility] [facility] En[facility] [id number] 09/05 [facility] [place] [facility] [facility] En[facility] [id number] [facility] [place] [facility] [facility] Encounter [id number] [facility] [place] [facility] [facility] En[facility] [id number] [facility] [place] [facility] [facility] En[facility] [id number] 01/03 [facility] [place] [facility] [facility] En[facility] [id number] [facility] [place] [facility] [place] OFFICE O/P EST MOD 30 MIN [id number] Diagnos is: ICD-10- CM 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 15 Diagnos is: ICD-10- CM F52.21 Male erectil e disorde r TARUN PRYOR IE 01/16 [place] [facility] [place] [facility] Outpatient Encounter [id number] 02/13 [facility] [place] [facility] Social History Combined list of available smoking, tobacco, and other social history from Department of Defense and Veterans Affairs facilities. Social History Type Response Date Comment Source Tobacco smoking status NHIS [facility]-TOBACCO NEVER USED CIGARETTES 01/09/2025 [facility] [place] [facility] History of tobacco use [facility]ACCO NEVER USED OTHER [facility] [place] [facility] History of tobacco use [place]-TO[place]ACCO NEVER USED 01/25/2024 [facility]/26[facility]2021 [facility] 02/18/2020 [facility] 01/26/2019 [facility] History of tobacco use QUIT TOBACCO USE > 7 YEARS AGO 02/27/2018 does nkt smoke [facility] History of tobacco use QUIT TOBACCO USE > 7 YEARS AGO 02/11/2017 stopped smoking 10 years ago [facility] History of tobacco use LIFETIME NON TOBACCO USER 09/03/2016 [facility] History of tobacco use QUIT TOBACCO USE > 7 YEARS AGO 01/30/2016 [facility] History of tobacco use PREVIOUS TOBACCO USER 09/03/2015 quit 6Y ago [facility] History of tobacco use QUIT TOBACCO USE 1-7 YEARS AGO 01/13/2015 quit 6 years ago [facility] History of tobacco use LIFETIME NON TOBACCO USER 09/11/2014 [facility] History of tobacco use LIFETIME NON TOBACCO USER 07/05/2014 [facility] History of tobacco use PREVIOUS TOBACCO USER 11/27/2013 [facility] History of tobacco use LIFETIME NON TOBACCO USER 11/23/2013 [facility] History of tobacco use PREVIOUS TOBACCO USER 07/17/2013 quit 5 years ago [facility] History of tobacco use QUIT TOBACCO USE 1-7 YEARS AGO 03/30/[address] [facility] quit smoking 5 years ago. [facility] History of tobacco use LIFETIME NON TOBACCO USER 06/23/2012 [facility] History of tobacco use QUIT TOBACCO USE 1-7 YEARS AGO 04/25/2012 [facility] History of tobacco use LIFETIME NON TOBACCO USER 10/06/2011 [facility] History of tobacco use LIFETIME NON TOBACCO USER 06/21/2011 [facility] History of tobacco use LIFETIME NON TOBACCO USER 12/15/2010 [facility] History of tobacco use PREVIOUS TOBACCO USER 07/02/2010 patient quit 5 years ago. [facility] History of tobacco use LIFETIME NON TOBACCO USER 11/26/2009 [facility] History of tobacco use PREVIOUS TOBACCO USER 06/24/2009 quit smoking 4 yrs ago [facility] History of tobacco use LIFETIME NON TOBACCO USER 07/01/2008 quit 2.5 years ago. [facility] History of tobacco use LIFETIME NON TOBACCO USER 06/28/2007 [facility] History of tobacco use LIFETIME NON TOBACCO USER 02/24/2005 [facility] History of tobacco use REFUSED SMOKING CESSATION PROGRAM 11/05/2003 2 cigarettes a day [facility] History of tobacco use REFUSED SMOKING CESSATION PROGRAM 05/07/2003 [facility] History of tobacco use REFUSED SMOKING CESSATION PROGRAM 10/30/2002 [facility] History of tobacco use PREVIOUS SMOKER/USER 03/01/2002 quit 1999. [facility] History of tobacco use REFUSED TOBACCO COUNSELING/PROGRAM 06/09/2001 [facility] Plan of Care List of future care activities from [facility] facilities. Additional future care activities may be listed in the Assessment and Plan section. Date/Time Care Activity Care Activity Detail Facili ty 04/12/2025 Consult Order COMMUNITY [facility]-D ENTAL GENERAL Cons Parts Order And Stock Clerk's [facility] [place] [facility] Advance Directives List of completed, amended, or rescinded Advance Directives on record at [facility] facilities. An actual copy of the Directive is not included. Date Advance Directive Provider Source 06/15/2001 ADVANCE DIRECTIVE DISCUSSION TITO [facility] 06/09/2001 ADVANCE DIRECTIVE JAE WATERMAN [facility] OF [facility]
[2025-04-17 13:06] VITALS: BP 130/64; PULSE 53; RESP 18; O2SAT 94; BMI 41.3
--- NOTE | 2025-04-17 13:06 | MHC.PC.OV ---
Vital Signs 04/17/25 13:06 Height 5 ft 6 in Weight 256 lb BMI 41.3 BP 130/64 Blood Pressure Location Lt brachial Position Sitting Respiration 18 Pulse 53 Pulse Source Pulse Oximeter Pulse Oximetry (%) 94 Oxygen Delivery Method Room Air Intake Visit Reasons: PE Change Control Analyst Required: No Accompanied by: Self / Same As Patient Allergies No Known Allergies Allergy (Verified 04/17/25 13:52) Medication List - Last Reconciled 04/17/25 by Navjot Winter [facility] allopurinol 300 mg PO DAILY alprazolam 2 mg PO TID 90 days amlodipine 5 mg PO DAILY atenolol 25 mg PO DAILY atorvastatin 80 mg PO BEDTIME cetirizine 10 mg PO DAILY cholecalciferol (vitamin D3) 50 mcg PO DAILY cyanocobalamin (vitamin B-12) 1,000 mcg PO DAILY ezetimibe 10 mg PO DAILY fluticasone propionate 50 mcg/actuation 1 spray intranasal DAILY levothyroxine (Synthroid) 125 mcg PO DAILY losartan 100 mg PO DAILY omeprazole 20 mg PO DAILY prucalopride (Motegrity) 2 mg PO DAILY sildenafil 25 - 100 mg PO DAILY Tobacco use date assessed: 04/17/25 Fall risk assessment: No Falls in past year Last assessed Fall Risk: 04/17/25 Dental Screening Dental Screen Date: 04/17/25 Did you have a dental visit in the last 12 months?: Yes Did you have a dental problem in the last 6 months where you did not have access to dental care?: No Was dental information given to patient?: Patient has dentist HPI PE HPI Details History of Present Illness The patient is a 74-year-old male presenting with a request for a physical examination. He is morbidly obese and reports eating healthy but does not engage in any physical exercise. He acknowledges the need to increase his physical activity. The patient has a history of Irritable Bowel Syndrome with Diarrhea (IBSD) and is under the care of a director industrial museum for this condition. He denies experiencing any abdominal pain but reports episodes of diarrhea. He has a history of gout, and his uric acid levels will be checked as part of his ongoing management. The patient regularly sees a vp ad sales west and a business asst, indicating ongoing management of cardiovascular and dermatological health. He denies any recent chest pain, dyspnea, or urinary issues. Health Maintenance - Regular follow-ups with cardiology, dermatology, [facility] - Monitoring of uric acid levels due to history of gout Social History - Exercise: Patient does not engage in physical activity but acknowledges the need to increase movement. - Nutrition: Reports eating healthy but does not specify dietary details. Review of Systems - Gastrointestinal: Denies abdominal pain, reports diarrhea. - Cardiovascular: Denies chest pain, denies dyspnea. - Genitourinary: Denies urinary issues. - Psychiatric: Denies suicidal or homicidal ideation. -denies any fevers or chills Physical Exam General: Cooperative, healthy appearing, comfortable, no acute distress and well developed. Patient is morbidly obese. Orientation: Patient oriented x3 Limitations: No limitations Head: Normal to inspection Ears: Hearing grossly normal bilaterally Nose: Normal external nose present Face and sinus: Normal facial exam Eyes: Appearance normal, both eyes and all related structures Neck: Normal visual inspection and Yes full ROM Respiratory: Normal respiratory effort and able to speak in complete sentences. Clear to auscultation bilaterally, though slightly diminished, most likely due to body habitus. Cardiovascular: Regular rate and rhythm. Normal S1 and S2 GI: Normal to inspection. Soft to palpation and nontender. morbidly obese, umbilical hernia noted. Skin: Very fair-skinned. Large scar noted to right calf. more macular/papular and dry appearing, ranging in size, lesions to face, lower extremities, and upper extremities. Neuro: Patient oriented x3 Extremities: Normal to inspection 1. Morbid Obesity The patient is advised to increase physical activity to manage weight. 2. Irritable Bowel Syndrome With Diarrhea (Ibsd) The patient continues to be managed by a director industrial museum for IBSD. 3. History Of Gout Uric acid levels will be monitored to manage gout. Discussion Notes Patient Instructions - Increase physical activity to help manage weight. - Continue regular follow-ups with director industrial museum for IBSD management. - Monitor uric acid levels for gout management. 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 Son No problems noted. Son No problems noted. Social History Household Members: None Housing: Condominium Do you presently have visiting nurse or other home services: No Alcohol intake: never Patient Tobacco Use Status: Former Tobacco user e-Cigarette/Vaping Use: Never Used Second Hand Smoke Exposure: No Substance Use Type: Marijuana service: Yes Current occupational status: retired Current occupation: rt handed Cognitive needs: No Hearing needs: No Vision needs: No Questionnaire Thrive Questionnaire Date Thrive assessed: 12/27/24 I am a: Patient What is your living situation today?: I have a steady place to live Within the past 12 months, did the food you bought not last and you didn't have the money to get more?: Never true Within the past 12 months, did you worry whether your food would run out before you got money to buy more?: Never true Do you have trouble paying for medicines?: No Do you have trouble getting transportation to medical appointments?: No Do you have trouble paying your heating and electricity bill?: No Do you have trouble taking care of your child, family member or friend?: No Do you have trouble with day-to-day activities such as bathing, preparing meals, shopping, managing finances, etc.?: No Are you currently unemployed and looking for a job?: No Are you interested in more education?: No Please select the resources that you would like help with: None Currently or been in a relationship where the following occur: I choose not to answer THRIVE Score: 0 AUDIT C Alcohol Use Questionnaire (AUDIT-C) 2. How many drinks containing alcohol do you have on a typical day when you are drinking?: 1 or 2 3. How often do you have six or more drinks on one occasion?: Never Total Score: 0 ALIRIO-7 AMB Questionnaire ALIRIO-7 Date ALIRIO - 7 assessed: 12/27/24 Source: Developed by Drs. Dev Moya, Yesi Moseley, Nikunj Crenshaw and colleagues, with an educational nasrin from [employer]. Physical exam (Primary Care) Vital Signs: Last Vital Signs Pulse 53 04/17/25 13:06 Resp 18 04/17/25 13:06 BP 130/64 04/17/25 13:06 Pulse Ox 94 04/17/25 13:06 Oxygen Delivery Method Room Air 04/17/25 13:06 BMI result Body Mass Index 41.3 Tobacco/Smoking Status: Tobacco use Status Tobacco use date assessed 04/17/25 04/17/25 13:15 Patient Tobacco Use Status Former Tobacco user 04/17/25 13:15 e-Cigarette/Vaping Use Never Used 04/17/25 13:15 Thrive Assessment: Date of Thrive Assessment Date Thrive assessed 12/27/24 04/17/25 13:15 Currently or been in a relationship where the following occur: I choose not to answer Coding Level of Care Code Est Pt Prev Care >65y(86772) Diagnoses Encounter for routine adult physical exam with abnormal findings Z. B12 deficiency E53.8 Screening PSA (prostate specific antigen) Z12.5 Gout M10.9 Assessment & Plan Assessment & Plan (1) Encounter for routine adult physical exam with abnormal findings: Code(s): Z00. - Encounter for general adult medical examination with abnormal findings Category: Medical (2) B12 deficiency: Code(s): E53.8 - Deficiency of other specified B group vitamins Category: Medical (3) Screening PSA (prostate specific antigen): Code(s): Z12.5 - Encounter for screening for malignant neoplasm of prostate Category: Medical (4) Gout: Code(s): M10.9 - Gout, unspecified Category: Medical Plan . Orders: Orders Comprehensive [place]. Panel Fast Today Z00.01 - Encounter for general adult medical examination with abnormal findings Vitamin D 25-OH Total Today Z00.01 - Encounter for general adult medical examination with abnormal findings Vitamin B12 and Folate Today E53.8 - Deficiency of other specified B group vitamins Complete Blood Count Auto Diff Today Z00.01 - Encounter for general adult medical examination with abnormal findings TSH reflex Free T4 Today Z00.01 - Encounter for general adult medical examination with abnormal findings UA CC w/rflx Micro + Cult Today Z00.01 - Encounter for general adult medical examination with abnormal findings Lipid Panel Today Z00.01 - Encounter for general adult medical examination with abnormal findings Prostate Specific Antigen Scr Today Z12.5 - Encounter for screening for malignant neoplasm of prostate Uric Acid Today M10.9 - Gout, unspecified
--- OUTSIDE RECORDS SUMMARY | 2025-04-17 15:20 | XMS_ITS | Encounter Summary ---
Author Name [facility] Address [address], [place] [address] Care Team Providers Care Sewing Pattern Layout Technician Name Role Phone JAE OBRIEN Primary Care [...] BASIC FAMIL Y Aug 15, 2001 [id number] [phone] KATHERINE JAMES PATIENT ANTHEM BCBS CT FEDERAL PREFERRED PROVIDER ORGANIZAT ION (PPO) BASIC SELF Aug 15, 2001 111 [id number] [phone] KATHERINE JAMES PATIENT BCBS [place] F[place] PREFERRED PROVIDER ORGANIZAT ION (PPO) BASIC INDIV IDUAL Aug 15, 2001 111 [id number] KATHERINE JAMES PATIENT [place] ([place]ED[place]) PREFERRED PROVIDER ORGANIZAT ION (PPO) BASIC INDIV IDUAL 111 Jun 15, 2016 111 [id number] [phone] KATHERINE JAMES PATIENT [place] PREFERRED PROVIDER ORGANIZAT ION (PPO) BASIC SELF Aug 15, 2001 111 [id number] KATHERINE JAMES PATIENT [place] F[place] DENTAL DENTAL INSURANCE BASIC Aug 15, 2001 DENTAL [id number] KATHERINE JAMES PATIENT [place] ([id number]) PRESCRIPT ION FEP Aug 15, 2010 [id number] [phone] KATHERINE JAMES PATIENT [place] FEP BCBS PRESCRIPT ION CAREM ARK FEPRX PLAN Jun 15, 2016 [id number] KATHERINE JAMES PATIENT [place] FEPRX PLAN PRESCRIPT ION CAR[place] FEPRX Aug 15, 2010 [id number] KATHERINE JAMES PATIENT [place]-F EP BCBS PRESCRIPT ION FEP CAREM ARK Aug 15, 2010 [id number] KATHERINE JAMES PATIENT MEDICARE (WNR) MEDICARE (M) PART A Jun 15, 2016 PART A [id number] KATHERINE JAMES PATIENT MEDICARE (WNR) MEDICARE (M) PART B Jun 15, 2016 PART B [id number] [phone] KATHERINE JAMES PATIENT MEDICARE (WNR) MEDICARE (M) PART A Jun 15, 2016 PART A [id number] KATHERINE JAMES PATIENT MEDICARE (WNR) MEDICARE (M) PART B Jun 15, 2016 PART B [id number] KATHERINE JAMES PATIENT MEDICARE (WNR) MEDICARE (M) PART A Jun 15, 2016 PART A [id number] KATHERINE JAMES PATIENT MEDICARE (WNR) MEDICARE (M) PART B Jun 15, 2016 PART B [id number] KATHERINE JAMES PATIENT MEDICARE (WNR) MEDICARE (M) PART A Jun 15, 2016 PART A [id number] [phone] KATHERINE JAMES PATIENT MEDICARE (WNR) MEDICARE (M) PART B Jun 15, 2016 PART B [id number] KATHERINE JAMES PATIENT MEDICARE (WNR) MEDICARE (M) PART B Jun 15, 2016 PART B [id number] [phone] KATHERINE JAMES PATIENT MEDICARE (WNR) MEDICARE (M) PART A Jun 15, 2016 PART A [id number] KATHERINE JAMES PATIENT MEDICARE (WNR) MEDICARE (M) PART A Jun 15, 2016 PART A [id number] KATHERINE JAMES PATIENT MEDICARE (WNR) MEDICARE (M) PART B Jun 15, 2016 PART B [id number] KATHERINE JAMES PATIENT Selected Encounter This section includes the information on record at [place] for the Encounter. Date/Time Encounter Type Encounter Description Reason Pro vider Source IHE Encounter Template Text not used by [place] Advance Directives: All historical and current Section [...] 2001 ADVANCE DIRECTIVE JAE WATERMAN DEPT OF [facility]
--- OUTSIDE RECORDS SUMMARY | 2025-04-17 15:20 | XMS_ITS | Clinical Summary ---
Author Organization [facility] Address [address] [place] [id number] Care Team Providers Care Venetian Blind Cleaner Name Role Phone Unavailable Primary Care Provider [...] season) 2024 11/06/2020, 10/09/2020 Influenza Vaccine (#1) 2025 RSV 60+ (1 - 1-dose 75+ series) 2026 HIB Vaccines Aged Out No longer eligi ble based on patient's age to complete this topic HPV Vaccines (No Doses Required) Completed Hepatitis A Vaccines Aged Out No long [...]
--- OUTSIDE RECORDS SUMMARY | 2025-04-17 15:20 | XMS_ITS | Clinical Summary ---
Author [facility] Address [address] [place] [address] Care Team Providers Care Reaming Press Operator Name Role Phone Unavailable Primary Care Provider [...] Vaccine ( - 2023-2 5 season) 2024 Depression Screening 08/15/2024 Influenza Vaccine (#1) 2025 RSV Immunization Adult Patie nts (1 [...]
== END 2025-04-17 13:50 | disposition home or self-care (01) ==
LOC: HO.HMCC 12:59
PROVIDERS: PCP Nurse Practitioner Family; Visit Provider Nurse Practitioner Family
DX: Z00.01 Encounter for general adult medical examination with abnormal findings (principal); E53.8 Deficiency of other specified B group vitamins; Z12.5 Encounter for screening for malignant neoplasm of prostate; M10.9 Gout, unspecified

== ENCOUNTER 2025-04-17 12:58 | Outpatient (REF) | payer MEDICARE, BC, SELFPAY ==
[2025-04-17 16:18] LABS: MANUAL DIFF FLAG NO
[2025-04-17 16:27] LABS: Hematocrit 43.7 % (42.0-52.0); Hemoglobin 14.1 g/dl (14.0-18.0); Imm Gran Abs Auto 0.05 X10*3/uL (0.00-0.03); Imm Gran Pct Auto 0.7 % (0.0-0.4); Lymphocytes Absolute Auto 1.2 X10*3/uL (1.2-4.9); Mean Corpuscular HGB Conc 32.3 g/dl (31.0-36.0); Mean Corpuscular Hemoglobin 30.7 pg (27.0-33.0); Mean Corpuscular Volume 95.2 fL (80.0-98.0); NRBC Abs Auto 0.000 X10*3/uL (0.0-0.012); NRBC Pct Auto 0.0 /100WBC (0.0-0.2); Platelet Count 169 X10*3/uL (160-400); Red Blood Count 4.59 X10*6/uL (4.60-5.80); Reticulocytes Absolute 0.097 X10*6/uL (0.026-0.095); White Blood Count 6.9 X10*3/uL (4.8-10.8)
[2025-04-17 16:30] LABS: Appearance Urine Turbid; Glucose Urine UA Negative (Negative); PH 5.5 (5.0-9.0); Specific Gravity - Urine 1.025 (1.005-1.025)
[2025-04-17 16:53] LABS: Alanine Aminotransferase 26 U/L (0-40); Albumin Level 4.0 g/dL (3.5-5.0); Alkaline Phosphatase 78 U/L (39-117); Anion Gap 13 (12-20); Aspartate Amino Transferase 27 U/L (5-37); Blood Urea Nitrogen 18 mg/dL (9-16); Calcium 8.9 mg/dL (8.4-10.2); Carbon Dioxide 28 mmol/L (22-29); Chloride 106 mmol/L (96-108); Cholesterol 166 mg/dL (<200); Estimated Glomerular Filt Rate > 60; HDL Cholesterol 46 mg/dL (>40); Potassium 4.6 mmol/L (3.3-5.1); Sodium 142 mmol/L (135-145); Total Protein 7.1 g/dL (6.5-8.0); Triglycerides 146 mg/dL (<150); Uric Acid 3.2 mg/dL (3.4-7.0)
[2025-04-17 17:11] LABS: Folate 5.5 ng/mL (> or = 4.0); Vitamin B12 745 pg/mL (200-900)
== END 2025-04-17 12:59 | disposition home or self-care (01) ==
LOC: HO.HMGCLDS 12:58
PROVIDERS: PCP Nurse Practitioner Family; Visit Provider Nurse Practitioner Family
DX: Z12.5 Encounter for screening for malignant neoplasm of prostate (principal); Z00.01 Encounter for general adult medical examination with abnormal findings; R17 Unspecified jaundice; E53.8 Deficiency of other specified B group vitamins; M10.9 Gout, unspecified; Z79.890 Hormone replacement therapy; Z79.899 Other long term (current) drug therapy
CPT/HCPCS: 36415; 80053; 80061; 81003; 82306; 82607; 82746; 83010; 83615; 84153; 84443; 84550; 85025; 85045; 99397